=== PATIENT | female | born 1940 | race Caucasian/White ===

== ENCOUNTER 2017-07-22 13:03 | Observation (INO) | payer MEDICARE ==
[~2017-07-22] VITALS: Ht 162.6 cm; Wt 66.7 kg
[~2017-07-22 13:03] MED LIST: CARBIDOPA-LEVO1 EAC1; CARBIDOPA-LEVO1 EACH PO; FUROSEMIDE40 MG PO; LIPITOR10 MG PO; LORAZEPAM1 MG PO; NOVOLOG MI100 UNIT/1; OMEPRAZOLE40 MG; PHENAZOPYRIDIN200 MG; PREDNISONE10 MG PO; TAMSULOSIN HCL0.4 MG; ULTRAM 50MG50 MG PO; Z LEVOTHROID; Z.0.ALPRAZOLAM1 MG; Z.0.AMITRIPTYLINE H1; Z.0.CALTRATE 600 +1; Z.0.DICYCLOMINE HCL2; Z.0.FORTAMET500 MG; Z.0.GLIPIZIDE XL10 M; Z.0.LANTUS100 UNIT/1; Z.0.LISINOPRIL40 MG; Z.0.PRILOSEC20 MG; Z.0.ZOCOR20 MG
--- OUTSIDE RECORDS SUMMARY | 2017-07-22 13:07 | XMS REPORT ---
Author Author NICKIE MENA [facility] eClinicalWorks Address Unknown Phone Unavailable Care Team Providers Care Short Goods Drier Name Role Phone NICKIE MENA CP Unavailable Allergies No Known Allergies Problems No Known Problems Medications No Known Medications Results No Known Results Summary Purpose eClinicalWorks Submission
--- OUTSIDE RECORDS SUMMARY | 2017-07-22 13:07 | XMS REPORT ---
Author Author NICKIE MENA [facility] eClinicalWorks Address Unknown Phone Unavailable Care Team Providers Care Wool Carder Name Role Phone NICKIE MENA CP Unavailable Allergies No Known Allergies Problems No Known Problems Medications No Known Medications Results No Known Results Summary Purpose eClinicalWorks Submission
[2017-07-22] MEDS ORDERED: PANTOPRAZOLE 40 MG 10ML VIAL IV STA (13:21)
[2017-07-22 14:02] LABS: BASOPHILS % 0.1 % (0.0-1.0); EOSINOPHILS # (AUTO) 0.2 (0.0-0.4); EOSINOPHILS % 2.4 % (0.0-6.0); HEMATOCRIT 26.3 % (34.2-44.1); HEMOGLOBIN 7.6 g/dL (12.0-16.0); LYMPHOCYTES # (AUTO) 0.5 (1.0-3.2); LYMPHOCYTES % 5.7 % (18.0-39.1); MEAN CORPUSCULAR HEMOGLOBIN 24.3 pg (28-32); MEAN CORPUSCULAR HGB CONC 28.9 g/dL (31-35); MONOCYTES # (AUTO) 0.9 (0.2-0.8); MONOCYTES % 10.5 % (4.4-11.3); NEUTROPHILS # (AUTO) 6.7 (2.1-6.9); NEUTROPHILS % 80.8 % (38.7-80.0); PLATELET COUNT 194 x10e3/uL (140-360); RED BLOOD COUNT 3.13 x10e6/uL (3.6-5.1); RED CELL DISTRIBUTION WIDTH 18.6 % (11.7-14.4)
[2017-07-22 14:11] LABS: INR 1.03; PARTIAL THROMBOPLASTIN TIME 25.7 seconds (23.8-35.5); PROTHROMBIN TIME 12.7 seconds (11.9-14.5)
[2017-07-22 14:18] LABS: ALBUMIN 3.3 g/dL (3.5-5.0); ANION GAP 12.7 mmol/L (8-16); CALCIUM 8.7 mg/dL (8.4-10.2); CREATININE, SERUM 1.13 mg/dL (0.57-1.11); POTASSIUM 3.7 mmol/L (3.5-5.1)
[2017-07-22 14:24] LABS: CREATINE KINASE MB 2.8 ng/mL (0-5.0)
[2017-07-22] MEDS ORDERED: HYDROCODONE/APAP 10MG-325MG TAB PO ONE (14:45)
[2017-07-22] MEDS ORDERED: SODIUM CHLORIDE 0.9% 250ML 250 ML IV ONE (14:45)
--- NOTE | 2017-07-22 15:02 | Diagnostic Imaging Report ---
PROCEDURE: CHEST SINGLE (PORTABLE) COMPARISON: Patients [facility], DX, CHEST SINGLE (PORTABLE), 03/08/2014, 5:41. INDICATIONS: ANEMIA FINDINGS: LUNGS: Mild pulmonary vascular congestion. PLEURA: No effusions or pneumothorax. HEART \T\ MEDIASTINUM: The heart is enlarged. There is a right subclavian chest port and a right neck shunt catheter. BONES \T\ SOFT TISSUES: No acute findings. CONCLUSION: Cardiomegaly with mild pulmonary vascular congestion. Sonny Archibald D.O. Dictated by: Sonny Archibald D.O. on 07/22/2017 at 15:05 Electronically approved by: Sonny Archibald D.O. on 07/22/2017 at 15:05
[2017-07-22] MEDS ORDERED: NICOTINE 21 MG/EA PATCH TOP SCH ×2 (15:15→17:00)
[2017-07-22] MEDS ORDERED: FUROSEMIDE INJ 10 MG/ML 4 ML VIAL IV ONE (15:15)
[2017-07-22] MEDS ORDERED: SODIUM CHLORIDE FLUSH 10 ML SYR INJ PRN (15:15)
[2017-07-22] MEDS ORDERED: LORAZEPAM 0.5 MG TAB PO PRN ×2 (15:30)
--- OUTSIDE RECORDS SUMMARY | 2017-07-22 15:40 | XMS REPORT ---
Author Author [facility] Address Unknown Phone Unavailable Care Team Providers Care Maintenance Welder Name Role Phone AMARI LEIJA Unavailable Unavailable Problems This patient has no known problems. Allergies, Adverse Reactions, Alerts This patient has no known allergies or adverse reactions. Medications This patient has no known medications. Results Test Description Test Time Test Comments Text Results Atomic Results Result Comments CHEST SINGLE (PORTABLE) 2017-07-22 15:05:00 [facility] [address] [place] [address] Patient Name: GARETH BAIRES MR #: [id number] : 1940 Age/Sex: 77/ F Req #: [id number] Adm Physician: Ordered by: AMARI LEIJA MD Report #: [id number] Location: ER Room/Bed: Procedure: DX/CHEST SINGLE (PORTABLE) Exam Date: 07/22/17 Exam Time: 1430 REPORT STATUS: Signed PROCEDURE: CHEST SINGLE (PORTABLE) COMPARISON: [facility], , CHEST SINGLE (PORTABLE), 03/08/2014, 5:41. INDICATIONS: ANEMIA FINDINGS: LUNGS: Mild pulmonary vascular congestion. PLEURA: No effusions or pneumothorax. HEART T MEDIASTINUM: The heart is enlarged. There is a right subclavian chest port and a right neck shunt catheter. BONES T SOFT TISSUES: No acute findings. CONCLUSION: Cardiomegaly with mild pulmonary vascular congestion. Joaquin [place], D.O. Dictated by: Joaquin Archibald D.O. on 07/22/2017 at 15: 05 Electronically approved by: Joaquin Archibald D.O. on 07/22/2017 at 15: 05 Dictated By: JOAQUIN ARCHIBALD DO [id number] Transcribed By: NADIA on 07/22/17 1500 COPY TO: AMARI LEIJA MD
[2017-07-22] MEDS ORDERED: LORAZEPAM 1 MG TAB PO PRN (15:45)
[2017-07-22 16:00] VITALS: BP 130/61
[2017-07-22 16:01] VITALS: BP 130/61
[2017-07-22] MEDS ORDERED: FUROSEMIDE INJ 10 MG/ML 4 ML VIAL IV SCH (17:00)
[2017-07-22 20:00] VITALS: BP 144/67
[2017-07-22] MEDS ORDERED: HYDRALAZINE HCL 20 MG/ML VIAL IV PRN (21:00)
[2017-07-22] MEDS ORDERED: HYDROCODONE/APAP 5MG-325MG TAB PO PRN (21:00)
[2017-07-22] MEDS ORDERED: ONDANSETRON HCL INJ 2 MG/ML VIAL IV PRN (21:00)
[2017-07-22] MEDS ORDERED: ACETAMINOPHEN 325 MG TAB PO PRN (21:00)
[2017-07-22 21:16] LABS: CREATINE KINASE MB 2.9 ng/mL (0-5.0)
[2017-07-22 21:23] LABS: HEMATOCRIT 27.7 % (34.2-44.1); HEMOGLOBIN 8.3 g/dL (12.0-16.0)
[2017-07-23] MEDS ORDERED: FAMOTIDINE 20 MG TAB PO SCH (07:30)
[2017-07-23] MEDS ORDERED: ATORVASTATIN 10 MG TAB PO SCH (09:00)
[2017-07-23] MEDS ORDERED: FUROSEMIDE 40 MG TAB PO SCH (09:00)
[2017-07-23] MEDS ORDERED: ATORVASTATIN 40 MG TAB PO SCH (21:00)
== END 2017-07-22 22:06 | disposition left against medical advice (07) ==
LOC: ER 13:03 → ERHOLD 15:37 → MED/SURG3 15:52
PROVIDERS: ADMIT Internal Medicine; ATTEND Internal Medicine
DX: D50.0 Iron deficiency anemia secondary to blood loss (chronic) (principal); I25.10 Atherosclerotic heart disease of native coronary artery without angina pectoris; I10 Essential (primary) hypertension; J44.9 Chronic obstructive pulmonary disease, unspecified; E03.9 Hypothyroidism, unspecified; G20 Parkinson's disease; E78.5 Hyperlipidemia, unspecified; F17.210 Nicotine dependence, cigarettes, uncomplicated; I50.21 Acute systolic (congestive) heart failure; I21.09 ST elevation (STEMI) myocardial infarction involving other coronary artery of anterior wall
CPT/HCPCS: 36415; 36430; 71045; 80053; 82550; 82553; 82948; 84484; 85014; 85018; 85025; 85610; 85730; 86850; 86900; 86920; 93005; 99284; G0378; J1940; J7050; P9016

== ENCOUNTER 2017-07-31 13:36 | Inpatient (IN) | payer MEDICARE ==
[~2017-07-31] VITALS: Ht 162.6 cm; Wt 74.9 kg
[2017-07-31 15:27] LABS: BASOPHILS % 0.2 % (0.0-1.0); EOSINOPHILS % 0.2 % (0.0-6.0); HEMATOCRIT 25.8 % (34.2-44.1); HEMOGLOBIN 7.5 g/dL (12.0-16.0); LYMPHOCYTES # (AUTO) 0.3 (1.0-3.2); LYMPHOCYTES % 1.7 % (18.0-39.1); MEAN CORPUSCULAR HEMOGLOBIN 24.7 pg (28-32); MEAN CORPUSCULAR HGB CONC 29.1 g/dL (31-35); MEAN CORPUSCULAR VOLUME 84.9 fL (81-99); MONOCYTES # (AUTO) 0.5 (0.2-0.8); MONOCYTES % 2.8 % (4.4-11.3); NEUTROPHILS # (AUTO) 16.3 (2.1-6.9); PLATELET COUNT 274 x10e3/uL (140-360); RED BLOOD COUNT 3.04 x10e6/uL (3.6-5.1); RED CELL DISTRIBUTION WIDTH 19.4 % (11.7-14.4)
[2017-07-31 15:31] LABS: INR 1.14; PROTHROMBIN TIME 13.7 seconds (11.9-14.5)
[2017-07-31 15:32] LABS: PARTIAL THROMBOPLASTIN TIME 28.1 seconds (23.8-35.5)
[2017-07-31 15:39] LABS: ALBUMIN 3.2 g/dL (3.5-5.0); ANION GAP 13.7 mmol/L (8-16); CALCIUM 8.9 mg/dL (8.4-10.2); CREATININE, SERUM 1.24 mg/dL (0.57-1.11); POTASSIUM 4.7 mmol/L (3.5-5.1)
--- NOTE | 2017-07-31 16:00 | Diagnostic Imaging Report ---
PROCEDURE: A single AP view of the chest. COMPARISON: Patients [facility], , CHEST SINGLE (PORTABLE), 07/22/2017, 14:20. INDICATIONS: WEAKNESS. LOW HEMOGLOBIN FINDINGS: Lines/tubes: Unchanged right upper chest Port-A-Cath. Lungs: The lungs are well inflated. Prominence of the perihilar interstitial markings. There is no evidence of consolidation or pulmonary edema. Pleura: There is no pleural effusion or pneumothorax. Heart and mediastinum: Stable enlargement of the cardiac silhouette. Central pulmonary vascular congestion. Bones: No acute bony abnormality. IMPRESSION: 1. Central pulmonary venous congestion and mild perihilar interstitial edema. 2. Stable enlargement of the cardiac silhouette. Wilman Wallace M.D. Dictated by: Wilman Wallace M.D. on 07/31/2017 at 16:04 Electronically approved by: Wilman Wallace M.D. on 07/31/2017 at 16:04
[2017-07-31] MEDS ORDERED: SODIUM CHLORIDE 0.9% 250ML 250 ML ONE ×2 (16:45→22:28)
[2017-07-31] MEDS ORDERED: SODIUM CHLORIDE 0.9% 250ML 250 ML IV ONE (17:30)
[2017-07-31] MEDS ORDERED: NITROGLYCERIN 0.4 MG SUBL SL PRN (18:45)
[2017-07-31] MEDS ORDERED: LORAZEPAM INJ 2 MG/ML VIAL IV PRN (19:15)
[2017-07-31] MEDS ORDERED: TRAMADOL HCL 50 MG TAB PO PRN (19:30)
[2017-07-31] MEDS ORDERED: FAMOTIDINE 20 MG TAB PO SCH (19:30)
[2017-07-31] MEDS ORDERED: DEXTROSE 50% SYRINGE 50 ML IV PRN (20:00)
[2017-07-31] MEDS ORDERED: ACETAMINOPHEN 325 MG TAB PO ONE (20:00)
[2017-07-31 20:09] LABS: FERRITIN 63.26 ng/mL (4.63-204.00)
--- NOTE | 2017-07-31 20:14 | History and Physical ---
HISTORY OF PRESENT ILLNESS: Patient is a 77-year-old female with past medical history positive for coronary artery disease status post OH in the past who refused to have coronary artery bypass as recommended by the fast food crew lead. She signed out against medical advice from several admissions in the hospital. The last one she was anemic. She was admitted, therefore, for blood transfusion. She decided to leave against medical advice. She also has history of hypertension, COPD and diabetes. She came here and was seen by Dr. Benavides, electronic video games servicer, who knows her very well for blood transfusion. REVIEW OF SYSTEMS: CARDIOVASCULAR: No chest pain or palpitation. RESPIRATORY: No shortness of breath. No cough. GASTROINTESTINAL: She said that she had black stools. No vomiting, no hematemesis and no abdominal pain. GENITOURINARY: No frequency or dysuria. ALLERGIES: CLAIMS THAT SHE IS ALLERGIC TO MORPHINE. SOCIAL HISTORY: She smokes and she does not drink alcohol. PAST MEDICAL HISTORY: Positive for OH in the past, history of COPD, history of hypertension, history of diabetes, history of chronic anemia. LABORATORY DATA: On the CBC, white blood count 17.3, hemoglobin 7.5, hematocrit 25.8, platelet count 274,000. On the BMP, sodium 141, potassium 4.7, chloride 110, CO2 22. BUN 23. Creatinine 1.24, glucose 160. Calcium 8.9. Total bilirubin 0.3. AST 24, ALT 9, alkaline phosphatase 97. Creatinine kinase 115. CK-MB is elevated at 6.0. Troponin elevated at 11.319. Total protein 6.5. Albumin 3.2. Globulin 3.3. Albumin globulin ratio 1.0. On the coagulation profile, PT 13.7. INR 1.14. PTT 28.1. We have also a chest x-ray which showed central pulmonary congestion and mild interstitial edema. Stable enlargement of the cardiac silhouette. VITAL SIGNS: Blood pressure 120/70, temperature is 99.3 degrees, heart rate 88 per minute, respiratory rate is 18 per minute. Oxygen saturation 95%. FINAL IMPRESSION: 1. Acute anemia. 2. Elevation of troponin, most likely secondary to Non-Q wave, myocardial infarction. So coronary artery disease status post non-ST segment elevation myocardial infarction. 3. Ucjru-fs-vjemhzw renal failure. 4. Rectal bleeding which might be because of the anemia. 5. Chronic obstructive pulmonary disease. 6. 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 7. Hypertension. 8. Nephropathy. PLAN OF TREATMENT: We are going to admit the patient to the hospital. Patient going to get 2 units of blood transfusion. She is going to get Lasix between blood transfusions. She is on Lasix 40 mg IV twice a day. She is on lorazepam 1 mg IV q.6 hours as needed for agitation. NicoDerm patch 21 mg daily. Going to get a gastroenterology consult with Dr. Giovanni Corcoran because of the GI bleed. Going to also get a cardiology consult with Dr. Danielle because of the elevated troponin identified, but she does have a history of severe coronary artery disease and a Non-ST segment elevation myocardial fraction at this time. She is also taking alprazolam 1 mg daily. Amitriptyline 10 mg daily. Lipitor 40 mg daily. Sinemet 10/100 mg tablet scheduled daily and 25/400 mg tablet also. She was on Lasix. We are going to hold the p.o. Lasix because she is taking IV Lasix. She is also on levothyroxine 112 mcg daily. Lorazepam is going to be placed on hold and the same with alprazolam because the patient is taking IV Ativan right now. Continue Protonix 40 mg daily. Prednisone 10 mg daily. She is also on Flomax 0.5 mg daily and tramadol 50 mg scheduled. She was taking glipizide 10 mg daily. Calcium carbonate 1 tablet daily. She was also on insulin 10 units at bedtime. Lisinopril 40 mg daily. Going to discontinue metformin. Going to continue current medication regimen. Going to consult Dr. Giovanni Corcoran for gastroenterology also. Job#: [id number]
[2017-07-31] MEDS: INSULIN LISPRO 100 UNIT/1 ML 3ML VIAL SQ SCH (20:59)
[2017-07-31] MEDS ORDERED: NICOTINE 21 MG/EA PATCH TOP SCH (21:00)
[2017-07-31] MEDS ORDERED: AMITRIPTYLINE HCL 10 MG TAB PO SCH (21:00)
[2017-07-31] MEDS ORDERED: TAMSULOSIN HCL 0.4 MG CAP PO SCH (21:00)
[2017-07-31] MEDS ORDERED: INSULIN LISPRO 100 UNIT/1 ML 3ML VIAL SQ SCH (21:00)
[2017-07-31 22:00] VITALS: BP 140/82
[2017-07-31 22:06] LABS: CLARITY,URINE SL CLOUDY (CLEAR); COLOR,URINE YELLOW (YELLOW); KETONES,URINE NEGATIVE (NEGATIVE); LEUKOCYTE ESTERASE ,URINE NEGATIVE (NEGATIVE); NITRITE,URINE NEGATIVE (NEGATIVE); PROTEIN,URINE DIPSTICK TRACE (NEGATIVE); URINE UROBILINOGEN 0.2 mg/dL (0.2 - 1)
[2017-07-31 22:07] LABS: BILIRUBIN,URINE NEGATIVE (NEGATIVE)
[2017-07-31 22:12] LABS: EPITHELIAL CELLS,URINE RARE /LPF; WBC,URINE (MAN) 0-5 /HPF (0-5)
[2017-07-31 22:15] VITALS: BP 148/87
[2017-08-01] VITALS: BP 157/84
[2017-08-01] MEDS ORDERED: METOPROLOL TARTRATE 25 MG TAB PO STA (00:14)
[2017-08-01 00:37] VITALS: BP 147/70
[2017-08-01] MEDS ORDERED: FUROSEMIDE INJ 10 MG/ML 2 ML VIAL IV STA (01:23)
[2017-08-01 03:21] LABS: CREATINE KINASE MB 3.9 ng/mL (0-5.0)
[2017-08-01 03:40] VITALS: BP 157/83
[2017-08-01] MEDS: ALBUTEROL/IPRATROPIUM 3 ML NEB NEB PRN ×2 (04:18→07:39)
[2017-08-01] MEDS ORDERED: LEVOTHYROXINE SODIUM 112 MCG TAB PO SCH (06:00)
[2017-08-01] MEDS ORDERED: PANTOPRAZOLE 40 MG 10ML VIAL IV SCH (06:00)
--- NOTE | 2017-08-01 06:04 | Diagnostic Imaging Report ---
CHEST SINGLE (PORTABLE), 08/01/2017 4:32 AM Technique: CHEST SINGLE (PORTABLE) Comparison: 07/31/2017 Clinical history: Shortness of breath Findings: See Impression Impression: 1. Lines/Tubes: Right port tip unchanged over the SVC. 2. Stable enlarged cardiac silhouette. 3. Diffuse opacities, favor edema. Retrocardiac atelectasis or consolidation. 4. No significant effusion appreciated on portable technique. Signed by: Dr Bambi Goncalves MD on 08/01/2017 6:00 AM
[2017-08-01 06:24] LABS: BASOPHILS % 0.2 % (0.0-1.0); HEMOGLOBIN 10.2 g/dL (12.0-16.0); LYMPHOCYTES # (AUTO) 0.6 (1.0-3.2); LYMPHOCYTES % 4.2 % (18.0-39.1); MEAN CORPUSCULAR HEMOGLOBIN 26.1 pg (28-32); MEAN CORPUSCULAR HGB CONC 30.9 g/dL (31-35); MEAN CORPUSCULAR VOLUME 84.4 fL (81-99); MONOCYTES # (AUTO) 0.9 (0.2-0.8); MONOCYTES % 6.3 % (4.4-11.3); NEUTROPHILS # (AUTO) 12.3 (2.1-6.9); NEUTROPHILS % 87.9 % (38.7-80.0); PLATELET COUNT 263 x10e3/uL (140-360); RED BLOOD COUNT 3.91 x10e6/uL (3.6-5.1); RED CELL DISTRIBUTION WIDTH 18.6 % (11.7-14.4)
[2017-08-01 06:50] LABS: ALBUMIN 3.2 g/dL (3.5-5.0); ALBUMIN/GLOBULIN RATIO 0.9 (0.8-2.0); ANION GAP 14.3 mmol/L (8-16); CALCIUM 9.2 mg/dL (8.4-10.2); CREATININE, SERUM 1.14 mg/dL (0.57-1.11); POTASSIUM 4.3 mmol/L (3.5-5.1)
[2017-08-01] MEDS ORDERED: PREDNISONE 10 MG TAB PO SCH (07:30)
[2017-08-01] MEDS ORDERED: PANTOPRAZOLE SOD 40 MG TABEC PO SCH (07:30)
[2017-08-01] MEDS: INSULIN LISPRO 100 UNIT/1 ML 3ML VIAL SQ SCH (07:30)
[2017-08-01 07:59] VITALS: BP 142/76
[2017-08-01] MEDS ORDERED: NEBIVOLOL 10 MG TAB PO SCH (09:00)
[2017-08-01] MEDS ORDERED: CARBIDOPA/LEVODOPA 10/100 TAB PO SCH (09:00)
[2017-08-01] MEDS ORDERED: CARBIDOPA/LEVODOPA 25/100 TAB PO SCH (09:00)
[2017-08-01] MEDS ORDERED: ATORVASTATIN 10 MG TAB PO SCH (09:00)
[2017-08-01] MEDS ORDERED: ATORVASTATIN 40 MG TAB PO SCH (09:00)
[2017-08-01] MEDS ORDERED: METOPROLOL TARTRATE 25 MG TAB PO SCH (09:00)
[2017-08-01] MEDS ORDERED: FUROSEMIDE INJ 10 MG/ML 4 ML VIAL IV SCH (09:00)
--- NOTE | 2017-08-01 15:55 | Discharge Summary ---
DISCHARGED AGAINST MEDICAL ADVICE This is a 77-year-old white female with medical history positive for COPD, coronary artery disease, anemia of chronic disease, who has signed out against medical advice on several hospital admissions. The last one was here. Patient was sent to the hospital by Dr. Benavides, who is her heart doctor, for a blood transfusion because her hemoglobin was low. The patient was having melenic stools. We consulted Dr. Giovanni Corcoran for gastroenterology. We consulted Dr. Benavides for hematology, also. She was having evidence of aaw-AR-hknewnr elevation myocardial infarction with high troponins. Patient already has a history of coronary artery disease. Apparently she was recommended to have coronary artery bypass grafting and refused to have the bypass done in the past on another admission. Not only that, she also signed against medical advice. So today, she decided to sign out against medical advice again. Patient has been noncompliant. She is aware that she can if she does not have the treatment for the coronary artery disease. The patient was competent to make decisions. Her tried to convince her to stay in the hospital, but, again, she decided to sign against medical advice again, assuming all the consequences of her behavior which include heart attack and . FINAL IMPRESSION 1. Acute anemia. 2. Coronary artery disease, status post wzu-WM-hnwyqlc elevation myocardial infarction. 3. Chronic obstructive pulmonary disease. As I said, the patient signed against medical advice, assuming all the consequences of her behavior including progression of the heart attack and . KULWANT BAEZ MD Job#: [id number]
== END 2017-08-01 09:47 | disposition left against medical advice (07) | DRG 811 ==
LOC: ER 13:36 → ERHOLD 18:45 → OBSVTOIN 19:28 → MED/SURG2 22:01
PROVIDERS: ADMIT Internal Medicine; ATTEND Internal Medicine
PROC: 30233N1 Transfusion of Nonautologous Red Blood Cells into Peripheral Vein, Percutaneous Approach (ICD-10-PCS; principal; 2017-07-31)
DX: D64.9 Anemia, unspecified (principal); I21.4 Non-ST elevation (NSTEMI) myocardial infarction; N17.9 Acute kidney failure, unspecified; I13.0 Hypertensive heart and chronic kidney disease with heart failure and stage 1 through stage 4 chronic kidney disease, or unspecified chronic kidney disease; K92.1 Melena; J44.9 Chronic obstructive pulmonary disease, unspecified; E11.21 Type 2 diabetes mellitus with diabetic nephropathy; E11.22 Type 2 diabetes mellitus with diabetic chronic kidney disease; N18.9 Chronic kidney disease, unspecified; I25.10 Atherosclerotic heart disease of native coronary artery without angina pectoris; R13.10 Dysphagia, unspecified; Z88.5 Allergy status to narcotic agent; Z91.19 Patient's noncompliance with other medical treatment and regimen; Z79.4 Long term (current) use of insulin; Z79.51 Long term (current) use of inhaled steroids
CPT/HCPCS: 36415; 71045; 80053; 81001; 82550; 82553; 82607; 82728; 82746; 82948; 83540; 84466; 84484; 85025; 85610; 85730; 86850; 86900; 86920; 87086; 93005; 93306; 94640; 99284; G0378; J1940; J2060; J7050; P9016

== ENCOUNTER 2017-09-25 16:02 | Emergency (ER) | payer MEDICARE ==
[~2017-09-25] VITALS: Ht 160 cm; Wt 59.0 kg
[2017-09-25] MEDS ORDERED: PANTOPRAZOLE INJ 80 MG in SODIUM CHLORIDE 0.9% 100 ML IV SCH (17:30)
[2017-09-25] MEDS ORDERED: SODIUM CHLORIDE 0.9% 250ML 250 ML IV ONE (17:30)
[2017-09-25 17:57] LABS: BASOPHILS % 0.5 % (0.0-1.0); EOSINOPHILS # (AUTO) 0.3 (0.0-0.4); EOSINOPHILS % 4.4 % (0.0-6.0); HEMATOCRIT 26.2 % (34.2-44.1); HEMOGLOBIN 7.3 g/dL (12.0-16.0); LYMPHOCYTES # (AUTO) 0.9 (1.0-3.2); LYMPHOCYTES % 15.4 % (18.0-39.1); MEAN CORPUSCULAR HEMOGLOBIN 25.9 pg (28-32); MEAN CORPUSCULAR HGB CONC 27.9 g/dL (31-35); MEAN CORPUSCULAR VOLUME 92.9 fL (81-99); MONOCYTES # (AUTO) 0.7 (0.2-0.8); MONOCYTES % 12.9 % (4.4-11.3); NEUTROPHILS # (AUTO) 3.8 (2.1-6.9); NEUTROPHILS % 65.9 % (38.7-80.0); PLATELET COUNT 197 x10e3/uL (140-360); RED BLOOD COUNT 2.82 x10e6/uL (3.6-5.1); RED CELL DISTRIBUTION WIDTH 18.9 % (11.7-14.4)
[2017-09-25] MEDS ORDERED: PANTOPRAZOL 40MG/SOD CHL 0.9% 50 ML IV SCH (18:00)
--- NOTE | 2017-09-25 18:22 | Diagnostic Imaging Report ---
EXAMINATION: AP view of the chest. COMPARISON: Chest AP 08/01/2017 CLINICAL HISTORY: Bronchitis DISCUSSION: Lines/tubes: Stable right upper chest Port-A-Cath. Lungs: Lungs are well-inflated. No consolidation or pulmonary edema. Pleura: There is no pleural effusion or pneumothorax. Heart and mediastinum: Stable enlargement of the cardiac silhouette. Pulmonary vasculature is normal. Bones and soft tissues: No acute bony abnormalities. Degenerative changes in the thoracic spine. Radiopaque catheter is again partially visualized in the right upper quadrant. IMPRESSION: 1. Stable enlargement of the cardiac silhouette. No evidence of fluid overload. No consolidation or effusion. Signed by: Dr. Wilman Wallace M.D. on 09/25/2017 6:18 PM
[2017-09-25 18:26] LABS: ALBUMIN 3.3 g/dL (3.5-5.0); ALBUMIN/GLOBULIN RATIO 1.1 (0.8-2.0); ANION GAP 13.2 mmol/L (8-16); CALCIUM 8.8 mg/dL (8.4-10.2); CREATININE, SERUM 1.18 mg/dL (0.57-1.11); POTASSIUM 4.2 mmol/L (3.5-5.1)
[2017-09-25 18:32] LABS: CREATINE KINASE MB 3.2 ng/mL (0-5.0)
[2017-09-25 18:52] LABS: INR 1.09; PARTIAL THROMBOPLASTIN TIME 26.4 seconds (23.8-35.5); PROTHROMBIN TIME 13.3 seconds (11.9-14.5)
[2017-09-25 22:10] LABS: ANISOCYTOSIS MODERATE; RBC MORPHOLOGY COMMENT ABNORMAL
[2017-09-25 22:11] LABS: HYPOCHROMASIA SLIGHT
[2017-09-26] MEDS ORDERED: PANTOPRAZOLE 40 MG 10ML VIAL IV SCH (09:00)
== END 2017-09-25 20:11 | disposition left against medical advice (07) ==
LOC: ER 16:02 → ERHOLD 17:34 → UNDOADMIN 17:34 → MED/SURG2 19:49 → UNDOADMIN 19:49 → ER 20:11
DX: K92.1 Melena (principal); D62 Acute posthemorrhagic anemia; G20 Parkinson's disease; I10 Essential (primary) hypertension; E11.9 Type 2 diabetes mellitus without complications; J44.9 Chronic obstructive pulmonary disease, unspecified; I50.9 Heart failure, unspecified; M10.9 Gout, unspecified; I25.2 Old myocardial infarction; F17.210 Nicotine dependence, cigarettes, uncomplicated
CPT/HCPCS: 36415; 71045; 80053; 82550; 82553; 83690; 84484; 85025; 85610; 85730; 86850; 86900; 86920; 99283

== ENCOUNTER 2017-12-16 23:22 | Observation (INO) | payer MEDICARE ==
[~2017-12-16] VITALS: Ht 160 cm; Wt 60.4 kg
[~2017-12-16 23:22] MED LIST changes: -CARBIDOPA-LEVO1 EAC1; +CARBIDOPA-LEVO1 EAC1 PO; -OMEPRAZOLE40 MG; +OMEPRAZOLE40 MG PO
[2017-12-17 01:02] LABS: BASOPHILS % 0.3 % (0.0-1.0); EOSINOPHILS # (AUTO) 0.1 (0.0-0.4); EOSINOPHILS % 2.1 % (0.0-6.0); HEMATOCRIT 25.5 % (34.2-44.1); HEMOGLOBIN 7.3 g/dL (12.0-16.0); LYMPHOCYTES # (AUTO) 0.5 (1.0-3.2); LYMPHOCYTES % 7.4 % (18.0-39.1); MEAN CORPUSCULAR HEMOGLOBIN 26.1 pg (28-32); MEAN CORPUSCULAR HGB CONC 28.6 g/dL (31-35); MEAN CORPUSCULAR VOLUME 91.1 fL (81-99); MONOCYTES # (AUTO) 0.8 (0.2-0.8); MONOCYTES % 11.3 % (4.4-11.3); NEUTROPHILS # (AUTO) 5.2 (2.1-6.9); NEUTROPHILS % 77.7 % (38.7-80.0); PLATELET COUNT 164 x10e3/uL (140-360); RED CELL DISTRIBUTION WIDTH 19.4 % (11.7-14.4)
[2017-12-17 01:26] LABS: ALANINE AMINOTRANSFERASE 8 IU/L (0-55); ALBUMIN/GLOBULIN RATIO 1.1 (0.8-2.0); ALKALINE PHOSPHATASE 66 IU/L (40-150); ANION GAP 15.5 mmol/L (8-16); BLOOD UREA NITROGEN 20 mg/dL (7-26); BUN/CREATININE RATIO 23 (6-25); CALCIUM 8.7 mg/dL (8.4-10.2); CARBON DIOXIDE 24 mmol/L (22-29); CHLORIDE 105 mmol/L (98-107); CREATININE, SERUM 0.88 mg/dL (0.57-1.11); EST GLOMERULAR FILTRATION RATE > 60 ML/MIN (60-); GLUCOSE 97 mg/dL (74-118); POTASSIUM 3.5 mmol/L (3.5-5.1); SODIUM 141 mmol/L (136-145)
[2017-12-17] MEDS ORDERED: VENTOLIN HFA18 GM (01:47)
[2017-12-17] MEDS ORDERED: POTASSIUM CHLO20 ME1 PO (01:47)
[2017-12-17] MEDS ORDERED: FERROUS SULFAT325 M1 PO (01:47)
[2017-12-17] MEDS ORDERED: ESCITALOPRAM OX10 MG PO (01:47)
[2017-12-17] MEDS ORDERED: LEVOTHYROXINE125 MCG PO (01:47)
[2017-12-17] MEDS ORDERED: ALLOPURINOL100 MG PO (01:47)
[2017-12-17] MEDS ORDERED: FUROSEMIDE40 MG PO (01:47)
[2017-12-17] MEDS ORDERED: PREDNISONE5 MG PO (01:47)
[2017-12-17] MEDS ORDERED: ATORVASTATIN CA40 MG PO (01:47)
[2017-12-17 04:00] VITALS: BP 174/72
[2017-12-17] MEDS ORDERED: FUROSEMIDE INJ 10 MG/ML 2 ML VIAL IV SCH (04:15)
[2017-12-17] MEDS ORDERED: SODIUM CHLORIDE 0.9% 250ML 250 ML IV ONE (04:15)
[2017-12-17] MEDS ORDERED: SODIUM CHLORIDE FLUSH 10 ML SYR INJ PRN (04:15)
[2017-12-17] MEDS ORDERED: ALBUTEROL/IPRATROPIUM 3 ML NEB NEB PRN (04:15)
[2017-12-17] MEDS ORDERED: ONDANSETRON HCL INJ 2 MG/ML VIAL IV PRN (04:15)
[2017-12-17] MEDS ORDERED: DEXTROSE 50% SYRINGE 50 ML IV PRN (05:00)
[2017-12-17 06:49] VITALS: BP 150/76
[2017-12-17] MEDS: INSULIN REGULAR, HUMAN 100 UNIT/1 ML 3ML VIAL SQ SCH ×3 (07:30→16:30)
[2017-12-17 08:00] VITALS: BP 164/73
[2017-12-17 08:27] LABS: BASOPHILS % 0.3 % (0.0-1.0); EOSINOPHILS # (AUTO) 0.1 (0.0-0.4); EOSINOPHILS % 1.2 % (0.0-6.0); HEMOGLOBIN 7.6 g/dL (12.0-16.0); LYMPHOCYTES # (AUTO) 0.5 (1.0-3.2); LYMPHOCYTES % 7.4 % (18.0-39.1); MEAN CORPUSCULAR HEMOGLOBIN 25.6 pg (28-32); MEAN CORPUSCULAR HGB CONC 28.1 g/dL (31-35); MEAN CORPUSCULAR VOLUME 90.9 fL (81-99); MONOCYTES # (AUTO) 0.6 (0.2-0.8); MONOCYTES % 9.3 % (4.4-11.3); NEUTROPHILS # (AUTO) 5.6 (2.1-6.9); NEUTROPHILS % 81.1 % (38.7-80.0); PLATELET COUNT 186 x10e3/uL (140-360); RED BLOOD COUNT 2.97 x10e6/uL (3.6-5.1); RED CELL DISTRIBUTION WIDTH 18.9 % (11.7-14.4)
[2017-12-17] MEDS ORDERED: ACETAMINOPHEN 325 MG TAB PEG PRN (08:30)
[2017-12-17] MEDS ORDERED: HYDRALAZINE HCL 20 MG/ML VIAL IV PRN (08:30)
[2017-12-17 08:39] LABS: ANION GAP 12.4 mmol/L (8-16); BLOOD UREA NITROGEN 16 mg/dL (7-26); BUN/CREATININE RATIO 19 (6-25); CALCIUM 8.8 mg/dL (8.4-10.2); CARBON DIOXIDE 24 mmol/L (22-29); CHLORIDE 105 mmol/L (98-107); CREATININE, SERUM 0.84 mg/dL (0.57-1.11); EST GLOMERULAR FILTRATION RATE > 60 ML/MIN (60-); GLUCOSE 107 mg/dL (74-118); MAGNESIUM 2.2 MG/DL (1.3-2.1); POTASSIUM 3.4 mmol/L (3.5-5.1); SODIUM 138 mmol/L (136-145)
[2017-12-17] MEDS ORDERED: PANTOPRAZOLE SOD 40 MG TABEC PO SCH (09:00)
[2017-12-17] MEDS ORDERED: LEVOTHYROXINE SODIUM 125 MCG TAB PO SCH (09:00)
[2017-12-17] MEDS ORDERED: NON-FORMULARY MEDICATION (Atorvastatin Calcium 40 MG) PO SCH (09:00)
[2017-12-17] MEDS ORDERED: ESCITALOPRAM OXALATE 10 MG TAB PO SCH (09:00)
[2017-12-17] MEDS ORDERED: FERROUS SULFATE 325 MG TAB PO SCH (09:00)
[2017-12-17] MEDS ORDERED: ALLOPURINOL 100 MG TAB PO SCH (09:00)
[2017-12-17] MEDS ORDERED: AMLODIPINE BESYLATE 10 MG TAB PO SCH (09:00)
[2017-12-17] MEDS ORDERED: FUROSEMIDE 40 MG TAB PO SCH (09:00)
[2017-12-17] MEDS ORDERED: PREDNISONE 5 MG TAB PO SCH (09:00)
[2017-12-17] MEDS ORDERED: POTASSIUM CHLORIDE 20 MEQ TAB CR PO SCH (09:00)
[2017-12-17] MEDS ORDERED: SODIUM CHLORIDE 0.9% 250ML 250 ML ONE ×2 (09:20→14:29)
[2017-12-17] MEDS ORDERED: NICOTINE 14 MG/EA PATCH TOP SCH (10:00)
[2017-12-17 10:36] LABS: FREE T4 (FREE THYROXINE) 0.67 ng/dL (0.9-1.8); THYROID STIMULATING HORMONE 15.891 uIU/mL (0.350-4.940)
--- NOTE | 2017-12-17 10:41 | Diagnostic Imaging Report ---
PROCEDURE: A single AP view of the chest. COMPARISON: Chest radiograph 09/25/17. INDICATIONS: WEAKNESS, ANEMIA FINDINGS: Lines/tubes: Right sided port a cath with tip overlying the upper SVC. A right IJ non-tunneled central venous catheter with tip terminating in the expected location of the upper SVC. Lungs: Moderate interstitial and perihilar opacities. No lobar consolidation. Mild patchy bibasilar opacities, likely atelectasis. Pleura: There is no pleural effusion or pneumothorax. Heart and mediastinum: Mild enlargement of the cardiomediastinal silhouette. Bones: No acute bony abnormality. IMPRESSION: Findings consistent with cardiomegaly and moderate pulmonary interstitial edema. No evidence of lobar pneumonia. Dictated by: GHAZAL CHOI M.D. on 12/17/2017 at 10:50 Electronically approved by: GHAZAL CHOI M.D. on 12/17/2017 at 10:50
[2017-12-17 12:00] VITALS: BP 177/84
[2017-12-17] MEDS ORDERED: LORAZEPAM INJ 2 MG/ML VIAL IV ONE (14:00)
[2017-12-17] MEDS ORDERED: POTASSIUM CHLORIDE 20 MEQ TAB CR PO STA (15:53)
[2017-12-17 16:00] VITALS: BP 151/74
[2017-12-17] MEDS ORDERED: ATORVASTATIN 40 MG TAB PO SCH (21:00)
--- NOTE | 2017-12-17 23:54 | Discharge Summary ---
ADMISSION DIAGNOSES: 1. Anemia. 2. Generalized weakness. 3. Hypertension. 4. Hyperlipidemia. 5. Type 2 diabetes. 6. Hypothyroidism. 7. Gout. DISCHARGE DIAGNOSES: 1. Anemia. 2. Generalized weakness. 3. Hypertension. 4. Hyperlipidemia. 5. Type 2 diabetes. 6. Hypothyroidism. 7. Gout. 8. Hypokalemia. 9. Hypermagnesemia. HISTORY: Patient has a history of type 2 diabetes, hypertension, COPD, CHF, anemia, hyperlipidemia, CAD with ME, gout. SURGICAL HISTORY: Appendectomy, back surgery, right chest Port-A-Cath placement peritoneal shunt, and abdominal surgery. FAMILY HISTORY: Patient's grandma and aunt have diabetes. SOCIAL HISTORY: Patient smokes 1 to 1-1/2 packs of cigarettes a day for 3 years. Before that, she had quit smoking for 20 years. She denies alcohol and illicit drug use. HOSPITAL COURSE: [age]bg-old female with history of anemia requiring blood transfusions, was sent to the ER by Dr. Collins's (sp?) office for anemia. She goes to [facility] for weekly blood draws. Her last hemoglobin was 7.2 on December 08, 2017. She denies melena, nausea and vomiting. She complains of generalized weakness. On admission, her hemoglobin was 7.3. She was given 2 PRBCs. Iron studies and stool for blood were ordered, but patient left AMA prior to completion of workup. Patient's blood pressure was uncontrolled. She was started on Norvasc, but again left AMA prior to getting prescriptions. Patient TSH was 15 and free T4 was 0.67, although she left AMA, she was encouraged by her primary care to check her thyroid level again especially due to her generalized weakness. Patient received 2 units of blood and required some encouragement from staff so she would not leave prior to getting the transfusion. Family is at bedside and also tried to convince the patient to stay. After the second unit, she was no longer willing to stay and left AMA. Vital signs stable, patient afebrile. Dictated by Kate Prajapati NP SAM CAI MD Job#: [id number]
[2017-12-18] MEDS ORDERED: LEVOTHYROXINE SODIUM 100 MCG TAB PO SCH (06:00)
--- NOTE | 2017-12-18 08:03 | Diagnostic Imaging Report ---
History:Altered mental status, rule out intracranial abnormality Comparison studies:CT head report from 04/29/2011 Technique: Axial images were obtained from the skull base to the vertex. Coronal and sagittal images reconstructed from the axial data. Intravenous contrast: None Dose modulation, iterative reconstruction, and/or weight based adjustment of the mA/kV was utilized to reduce the radiation dose to as low as reasonably achievable. Findings: Scalp/skull: Right parietal ventricular shunt catheter with its tip at the posterior body of the lateral ventricles. Extra-axial spaces: No masses. No fluid collections. Brain sulci: Mildly prominent. Ventricles: Mild compensatory dilatation. No hydrocephalus. Parenchyma: Scattered hypodensities in the supratentorial white matter are small vessel ischemic changes. No masses, hemorrhage, acute or chronic cortical vascular insults. Sellar/suprasellar region: No abnormalities. Craniocervical junction: Patent foramen magnum. No Chiari one malformation. Incidental findings: Atherosclerotic calcifications in the carotid siphons and left vertebral artery . Impression: No acute abnormalities. Chronic findings: 1. Mild generalized volume loss. 2. Mild to moderate supratentorial white matter small vessel ischemic changes. 3. Right parietal ventricular catheter as described above. No hydrocephalus. Signed by: DR Howard Escobar M.D. on 12/18/2017 8:00 AM
== END 2017-12-17 17:12 | disposition left against medical advice (07) ==
LOC: ER 23:22 → ERHOLD 12-17 04:18 → IMCU 12-17 04:52
PROVIDERS: ADMIT Internal Medicine; ATTEND Internal Medicine
DX: D50.0 Iron deficiency anemia secondary to blood loss (chronic) (principal); E11.9 Type 2 diabetes mellitus without complications; E78.5 Hyperlipidemia, unspecified; J44.9 Chronic obstructive pulmonary disease, unspecified; I11.0 Hypertensive heart disease with heart failure; I50.9 Heart failure, unspecified; Z87.891 Personal history of nicotine dependence; Z83.3 Family history of diabetes mellitus; Z82.49 Family history of ischemic heart disease and other diseases of the circulatory system; M10.9 Gout, unspecified; E87.6 Hypokalemia; E83.41 Hypermagnesemia; I25.10 Atherosclerotic heart disease of native coronary artery without angina pectoris; I25.2 Old myocardial infarction
CPT/HCPCS: 36415; 36430; 70450; 71045; 80048; 80053; 82140; 82948; 83735; 84439; 84443; 85025; 86850; 86900; 86920; 99284; G0378; J1642; J1817; J2060; J7050; J7512; P9016; S0164

== ENCOUNTER 2018-01-02 14:28 | Inpatient (IN) | payer MEDICARE ==
[~2018-01-02] VITALS: Ht 160 cm; Wt 76.0 kg
[~2018-01-02 14:28] MED LIST changes: +ALLOPURINOL100 MG PO; +ATORVASTATIN CA40 MG PO; +ESCITALOPRAM OX10 MG PO; +FERROUS SULFAT325 M1 PO; +LEVOTHYROXINE125 MCG PO; +POTASSIUM CHLO20 ME1 PO; +PREDNISONE5 MG PO; +VENTOLIN HFA18 GM
[2018-01-02] MEDS ORDERED: SODIUM CHLORIDE 0.9% 1000ML 1,000 ML IV STA (15:07)
[2018-01-02] MEDS ORDERED: ONDANSETRON HCL INJ 2 MG/ML VIAL IV PRN (15:15)
[2018-01-02] MEDS ORDERED: NITROGLYCERIN 0.4 MG SUBL SL PRN (15:15)
[2018-01-02] MEDS ORDERED: ENALAPRILAT IV INJ 1.25 MG/ML VIAL IV PRN ×2 (15:15→17:30)
[2018-01-02] MEDS ORDERED: DIPHENHYDRAMINE HCL INJ 50 MG/ML VIAL IV PRN ×2 (15:15→17:30)
[2018-01-02 15:56] LABS: BASOPHILS # (AUTO) 0.1 (0.0-0.1); BASOPHILS % 0.5 % (0.0-1.0); EOSINOPHILS # (AUTO) 0.2 (0.0-0.4); EOSINOPHILS % 1.8 % (0.0-6.0); HEMATOCRIT 30.9 % (34.2-44.1); LYMPHOCYTES # (AUTO) 0.7 (1.0-3.2); MEAN CORPUSCULAR HEMOGLOBIN 26.2 pg (28-32); MEAN CORPUSCULAR HGB CONC 29.1 g/dL (31-35); MEAN CORPUSCULAR VOLUME 89.8 fL (81-99); MONOCYTES # (AUTO) 0.9 (0.2-0.8); NEUTROPHILS % 82.6 % (38.7-80.0); PLATELET COUNT 268 x10e3/uL (140-360); RED BLOOD COUNT 3.44 x10e6/uL (3.6-5.1); RED CELL DISTRIBUTION WIDTH 17.3 % (11.7-14.4)
[2018-01-02 16:08] LABS: CLARITY,URINE CLEAR (CLEAR); COLOR,URINE ORANGE (YELLOW); KETONES,URINE NEGATIVE (NEGATIVE); LEUKOCYTE ESTERASE ,URINE NEGATIVE (NEGATIVE); NITRITE,URINE POSITIVE (NEGATIVE); PROTEIN,URINE DIPSTICK 2+ (NEGATIVE)
[2018-01-02 16:09] LABS: BILIRUBIN,URINE 1+ (NEGATIVE); URINE UROBILINOGEN 1 mg/dL (0.2 - 1)
[2018-01-02 16:12] LABS: ALBUMIN 3.6 g/dL (3.5-5.0); ALBUMIN/GLOBULIN RATIO 1.1 (0.8-2.0); ANION GAP 14.2 mmol/L (8-16); CALCIUM 9.4 mg/dL (8.4-10.2); CREATININE, SERUM 1.16 mg/dL (0.57-1.11); MAGNESIUM 2.3 MG/DL (1.3-2.1); POTASSIUM 4.2 mmol/L (3.5-5.1)
[2018-01-02 16:14] LABS: CREATINE KINASE MB 4.9 ng/mL (0-5.0)
[2018-01-02 16:25] LABS: EPITHELIAL CELLS,URINE FEW /LPF
[2018-01-02 16:27] LABS: WBC,URINE (MAN) 0-5 /HPF (0-5)
--- NOTE | 2018-01-02 16:31 | Diagnostic Imaging Report ---
Right hip with AP pelvis 3 HISTORY: Fall. COMPARISON: None FINDINGS: Comminuted intertrochanteric fracture of the right femur with mild superior displacement of distal fracture fragments. Degenerative changes of the lower lumbar spine. Vascular calcifications. Mild DJD of hip joint bilaterally. IMPRESSION: Comminuted intertrochanteric fracture of the right femur. Signed by: Dr. Hoang Foster M.D. on 01/02/2018 4:27 PM
--- NOTE | 2018-01-02 16:33 | Diagnostic Imaging Report ---
EXAMINATION: AP view of the chest. COMPARISON: Chest 12/17/2017. CLINICAL HISTORY: Chest pain. DISCUSSION: Lines/tubes: Stable right upper chest Port-A-Cath, and right IJ central venous catheter with distal tip not well-visualized.. Lungs: Lungs are well-inflated. No consolidation or pulmonary edema. Pleura: There is no pleural effusion or pneumothorax. Heart and mediastinum: Stable enlargement of the cardiac silhouette. Calcification of the aortic arch. Mild prominence of the pulmonary hilum bilaterally. Mild prominence of the pulmonary vasculature may be related to technique. Bones and soft tissues: No acute bony abnormalities. Degenerative changes in the thoracic spine. IMPRESSION: 1. Cardiomegaly without acute decompensation. Signed by: Dr. Hoang Foster M.D. on 01/02/2018 4:30 PM
[2018-01-02] MEDS ORDERED: PROMETHAZINE 12.5MG/ NACL 0.9% 12.5 MG/50 ML BAG IV PRN (17:30)
[2018-01-02] MEDS ORDERED: CLONIDINE HCL 0.1 MG TAB PO PRN (17:30)
[2018-01-02] MEDS ORDERED: LACTULOSE SYRUP 20 GM/30 ML UDC PO PRN (17:30)
[2018-01-02] MEDS ORDERED: ACETAMINOPHEN 325 MG TAB PO PRN (17:30)
[2018-01-02] MEDS ORDERED: HYDROMORPHONE 1MG/1ML INJ IV PRN (17:30)
[2018-01-02] MEDS: CEFTRIAXONE SOD 1 GM VIAL IV SCH (18:00)
[2018-01-02] MEDS: FAMOTIDINE 20 MG/2 ML VIAL IV SCH (18:10)
[2018-01-02 18:53] VITALS: BP 174/77
[2018-01-02 20:00] VITALS: BP 169/81
[2018-01-02] MEDS: HYDROMORPHONE 2MG/ML 2 MG/ML ML IV PRN (21:21)
[2018-01-02 21:35] VITALS: BP 174/77
[2018-01-03] VITALS (9 sets, daily range): BP systolic 125–174; BP diastolic 58–77
[2018-01-03 04:31] LABS: BASOPHILS % 0.4 % (0.0-1.0); EOSINOPHILS # (AUTO) 0.1 (0.0-0.4); EOSINOPHILS % 0.8 % (0.0-6.0); HEMATOCRIT 30.1 % (34.2-44.1); HEMOGLOBIN 8.7 g/dL (12.0-16.0); LYMPHOCYTES # (AUTO) 0.7 (1.0-3.2); LYMPHOCYTES % 8.3 % (18.0-39.1); MEAN CORPUSCULAR HEMOGLOBIN 25.5 pg (28-32); MEAN CORPUSCULAR HGB CONC 28.9 g/dL (31-35); MEAN CORPUSCULAR VOLUME 88.3 fL (81-99); MONOCYTES # (AUTO) 0.9 (0.2-0.8); NEUTROPHILS # (AUTO) 6.8 (2.1-6.9); PLATELET COUNT 263 x10e3/uL (140-360); RED BLOOD COUNT 3.41 x10e6/uL (3.6-5.1); RED CELL DISTRIBUTION WIDTH 17.4 % (11.7-14.4)
[2018-01-03 04:45] LABS: ANION GAP 11.8 mmol/L (8-16); BLOOD UREA NITROGEN 15 mg/dL (7-26); BUN/CREATININE RATIO 17 (6-25); CALCIUM 8.9 mg/dL (8.4-10.2); CARBON DIOXIDE 24 mmol/L (22-29); CHLORIDE 108 mmol/L (98-107); CREATININE, SERUM 0.86 mg/dL (0.57-1.11); EST GLOMERULAR FILTRATION RATE > 60 ML/MIN (60-); MAGNESIUM 2.1 MG/DL (1.3-2.1); POTASSIUM 3.8 mmol/L (3.5-5.1); SODIUM 140 mmol/L (136-145)
[2018-01-03 04:54] LABS: GLUCOSE 57 mg/dL (74-118)
[2018-01-03 05:08] LABS: FREE T4 (FREE THYROXINE) 0.42 ng/dL (0.9-1.8); THYROID STIMULATING HORMONE 71.702 uIU/mL (0.350-4.940)
[2018-01-03] MEDS ORDERED: FUROSEMIDE INJ 10 MG/ML 2 ML VIAL IV SCH ×2 (06:00→09:00)
[2018-01-03] MEDS: HYDROMORPHONE 2MG/ML 2 MG/ML ML IV PRN ×3 (06:04→18:40)
[2018-01-03] MEDS: LEVOTHYROXINE SODIUM 125 MCG TAB PO SCH (06:04)
[2018-01-03] MEDS: CEFTRIAXONE SOD 1 GM VIAL IV SCH ×2 (06:04→18:02)
[2018-01-03] MEDS ORDERED: ALBUTEROL SULFATE HFA 8GM INHALATION AEROSOL INH PRN (08:15)
[2018-01-03] MEDS ORDERED: LISINOPRIL 10 MG TAB PO SCH (09:00)
[2018-01-03] MEDS ORDERED: FAMOTIDINE 20 MG/2 ML VIAL IV SCH (09:00)
[2018-01-03] MEDS ORDERED: CARVEDILOL 3.125 MG TAB PO SCH (09:00)
[2018-01-03] MEDS ORDERED: NON-FORMULARY MEDICATION (Atorvastatin Calcium 40 MG) PO SCH (09:00)
[2018-01-03] MEDS ORDERED: FUROSEMIDE INJ 10 MG/ML 4 ML VIAL IV SCH (09:00)
[2018-01-03] MEDS: POTASSIUM CHLORIDE 20 MEQ TAB CR PO SCH (09:45)
[2018-01-03] MEDS: CARBIDOPA/LEVODOPA 25/100 TAB PO SCH (09:45)
[2018-01-03] MEDS: FUROSEMIDE 40 MG TAB PO SCH (09:45)
[2018-01-03] MEDS: PANTOPRAZOLE SOD 40 MG TABEC PO SCH (09:45)
[2018-01-03] MEDS: PREDNISONE 5 MG TAB PO SCH (09:45)
[2018-01-03] MEDS: ESCITALOPRAM OXALATE 10 MG TAB PO SCH (09:45)
[2018-01-03] MEDS: FAMOTIDINE 20 MG/2 ML VIAL IV SCH ×2 (09:45→20:42)
[2018-01-03] MEDS: FERROUS SULFATE 325 MG TAB PO SCH (09:45)
[2018-01-03] MEDS: ALLOPURINOL 100 MG TAB PO SCH (09:45)
--- NOTE | 2018-01-03 09:56 | History and Physical ---
PRIMARY CARE PROVIDER: Richar Medina MD CHIEF COMPLAINT: Hip pain. HISTORY OF PRESENT ILLNESS: The patient is a 77-year-old woman. She has a history of Parkinson's disease, rheumatoid arthritis, and anemia. She also has a history of coronary artery disease. Apparently, she had 3-vessel disease discovered about 6 months ago and the bypass was recommended, but she opted against this. She currently takes Coreg along with daily Lasix and a statin. She slipped and fell. She did not have any presyncope or dizziness prior to the episode. She did not have any chest pain. She denied any change in her neurological symptoms. She just thinks she fell. When she arrived in the emergency department, x-rays were done and she was found to have a proximal femur fracture. PAST MEDICAL HISTORY 1. History of coronary artery disease. 2. History of Parkinson disease. 3. History of rheumatoid arthritis. 4. History of hypertension. PAST SURGICAL HISTORY: Unclear at this time. SOCIAL HISTORY: The patient is not an active drinker. She did smoke in the past. ALLERGIES: NO KNOWN DRUG ALLERGIES. REVIEW OF SYSTEMS: Patient is afebrile. She has no headache or neck pain. She has no chest pain. She denies coughing or dyspnea. She has no nausea or vomiting. She does note some pain in the hip. Her neurological exam is consistent with Parkinson's disease. PHYSICAL EXAMINATION VITAL SIGNS: The patient is afebrile, blood pressure 161/72, saturation is 98%, pulse 61, and respiratory rate 18. HEENT: Examination shows no facial swelling or erythema. The nasal mucosa is normal. The oropharynx is normal. LYMPHATIC: Examination shows no submandibular, cervical, or supraclavicular adenopathy. CARDIOVASCULAR: Exam reveals regular rate and rhythm with normal S1 and S2. There are no murmurs or rubs. RESPIRATORY: Auscultation of lungs reveals clear breath sounds bilaterally. There is no wheezing. ABDOMEN: Soft and nontender. There is no rebound or guarding. EXTREMITIES: Shows some shortening and external rotation of the legs. She is currently in traction. She also has some pain and swelling on the proximal femur. LABORATORY DATA: White blood cell count is 8.5 with a hemoglobin of 8.7. The platelet count is 263,000. The BUN and creatinine ratio is normal. The BNP is 1556. RADIOGRAPHIC DATA: Chest x-ray shows cardiomegaly with no acute decompensation. X-ray of the hip shows a comminuted intertrochanteric fracture of the right femur. IMPRESSION Chronic systolic congestive heart failure. Severe coronary artery disease with old inferior wall myocardial infarction on EKG. Intertrochanteric fracture of the right hip. Parkinson's disease. Chronic anemia, possibly related to myelodysplastic syndrome. Rheumatoid arthritis. PLAN 1. Patient will require surgery for the hip fracture. 2. She needs a cardiology evaluation preoperatively. 3. Continue current medications for Parkinson's disease. 4. Monitor blood counts closely. 5. Continue low-dose prednisone for rheumatoid arthritis, although she may need stress dose steroids if her condition worsens. Job#: [id number] LUIS
[2018-01-03] MEDS: ONDANSETRON HCL INJ 2 MG/ML VIAL IV PRN ×2 (11:30→18:40)
--- NOTE | 2018-01-03 13:29 | Cardiology Report ---
DATE OF STUDY: ATTENDING PHYSICIAN: Dr. Sam John. ECHOCARDIOGRAM M-MODE: Dilated left atrium. Left ventricular hypertrophy. Diminished left ventricular contractility especially in the inferior wall. Normal mitral, aortic, and tricuspid valves. No pericardial effusion. SECTOR SCAN: Dilated left atrium. Left ventricular hypertrophy. Diminished left ventricular contractility especially in the inferior and posterior apical charles. Mitral, aortic, and tricuspid valves are grossly normal except for sclerosis of mitral valve annulus. No pericardial effusion. CARDIAC DOPPLER STUDY WITH COLOR: Trace mitral and tricuspid regurgitation. Pulmonary artery systolic pressure estimated at 30 mmHg. CONCLUSIONS 1. Anterior and posterior apical hypokinesis suggestive of ischemic heart disease. 2. Left ventricular hypertrophy with ejection fraction of approximately 35%. 3. Sclerosis of the posterior mitral valve annulus with mild mitral regurgitation and dilated left atrium. 4. Trace tricuspid regurgitation without significant pulmonary hypertension. Job#: [id number] DANTE cc:DR. SAM JOHN
[2018-01-03] MEDS ORDERED: NOVOLOG100 UNIT/1 SQ (14:36)
[2018-01-03] MEDS ORDERED: LANTUS 3ML100 UNITS/ SQ (14:36)
[2018-01-03] MEDS: NICOTINE 21 MG/EA PATCH TOP SCH (16:49)
[2018-01-03] MEDS ORDERED: NICOTINE 21 MG/EA PATCH ONE (16:50)
--- NOTE | 2018-01-03 20:16 | Consultation ---
DATE OF CONSULTATION: January 02, 2018 CARDIOLOGY CONSULTATION ATTENDING PHYSICIANS 1. Pablito Richardson MD 2. Jae John MD WATER WELL DRILLER: Dr. De La Torre. CLINICAL HISTORY: This is a 77-year-old white woman, known to me from previous evaluations including recent hospitalization at [facility], kindly referred by Dr. Jae John and Dr. Pablito Richardson for cardiovascular evaluation prior to right hip surgery. This patient was hospitalized in April of this year at [facility] with altered mental status, thought to be due to excessive pain medications. She is suspected to have significant coronary artery disease with deterioration in left ventricular ejection fraction from 65% last year to approximately 30% in April 2017. There was also concern that she may have an apical mural thrombus. Cardiac catheterization was offered to the patient and family, but they declined. She presented now with right hip fracture and surgery may be needed. Cardiology consultation requested. PAST MEDICAL HISTORY: Remarkable for hypothyroidism with TSH as high as 94 with patient noncompliant with respect to medications. There is history of iron-deficiency anemia, requiring intravenous iron. She has dementia, but appears to be relatively mild. In the past, she had __[id number]____ to sign out against medical advice. There is history of KEYSMITH shunt, with Dr. Arturo Velazquez evaluated the patient in the past. There is a history of poorly-controlled insulin-dependent diabetes, hypertension, hyperlipidemia, COPD, chronic kidney disease, mild, chronic foot pains, multiple noncardiac surgeries, previous stroke, mild aortic stenosis with aortic velocity of 2.6 m/s, mild carotid disease, diastolic dysfunction, and possible gout. PERSONAL AND SOCIAL HISTORY: She stopped smoking in 2002. Denies drinking. She was one packet per day cigarette smoker for 45 years. PAST SURGICAL HISTORY: Diverticulitis surgery, appendectomy, hand surgery x3, and tubal ligation. FAMILY HISTORY: Sister had coronary artery disease. Father had coronary artery disease. REVIEW OF SYSTEMS: Noncontributory. PHYSICAL EXAMINATION GENERAL: She is alert and oriented. VITAL SIGNS: Stable. CARDIOVASCULAR: Jugular veins were not distended. S1 and S2 were regular. There is no appreciable murmur. LUNGS: Clear. ABDOMEN: Soft. Bowel sounds are present. EXTREMITIES: Show no cyanosis, clubbing or edema. LABORATORY STUDIES: White count is 8500, hemoglobin 8.7, platelet count 260,000. BUN is 15 and creatinine is 0.86. IMPRESSION 1. Increased risk from the cardiac standpoint for the planned right hip surgery due to her age as well as poor left ventricular function and probable underlying coronary artery disease. 2. Systolic and diastolic congestive heart failure, ejection fraction approximately 30-35%. 3. History of apical mural thrombus. 4. History of mild mitral regurgitation. 5. History of mild aortic stenosis. 6. Possible old inferior posterior apical myocardial infarction. 7. Anemia, hemoglobin 8.7. 8. History of ventriculoperitoneal shunt and altered mental status. 9. Noncompliance with respect to medications and followup. 10. History of excessive pain medication usage. 11. Iron-deficiency anemia, requiring intravenous iron. 12. History of severe hypothyroidism with TSH of 94, requiring intravenous thyroid medication. 13. Chronic obstructive pulmonary disease. 14. Hypertension. 15. Hyperlipidemia. 16. Mild dementia. 17. Chronic foot pains. 18. Multiple noncardiac surgeries. 19. History of cerebrovascular accident. 20. Mild carotid artery disease. 21. Unclear history of gout. RECOMMENDATIONS: I have explained the risks to the patient and family. They verbalized understanding and is willing to accept the risks and proceed with the planned possible right hip surgery. Job#: [id number] RTY cc:DR. PABLITO JOHN
[2018-01-03] MEDS: CARVEDILOL 3.125 MG TAB PO SCH (20:43)
[2018-01-03] MEDS: ATORVASTATIN 40 MG TAB PO SCH (20:43)
[2018-01-03] MEDS: LISINOPRIL 10 MG TAB PO SCH (20:43)
[2018-01-04] VITALS (8 sets, daily range): BP systolic 113–147; BP diastolic 41–72
[2018-01-04] MEDS: ZOLPIDEM TARTRATE 5 MG TAB PO PRN ×2 (00:21→20:40)
[2018-01-04] MEDS: HYDROMORPHONE 2MG/ML 2 MG/ML ML IV PRN ×5 (02:15→23:35)
[2018-01-04 05:57] LABS: BASOPHILS % 0.4 % (0.0-1.0); EOSINOPHILS # (AUTO) 0.2 (0.0-0.4); EOSINOPHILS % 2.2 % (0.0-6.0); HEMATOCRIT 27.5 % (34.2-44.1); LYMPHOCYTES # (AUTO) 0.6 (1.0-3.2); LYMPHOCYTES % 7.5 % (18.0-39.1); MEAN CORPUSCULAR HEMOGLOBIN 25.8 pg (28-32); MEAN CORPUSCULAR HGB CONC 29.1 g/dL (31-35); MEAN CORPUSCULAR VOLUME 88.7 fL (81-99); MONOCYTES # (AUTO) 1.1 (0.2-0.8); MONOCYTES % 12.9 % (4.4-11.3); NEUTROPHILS # (AUTO) 6.2 (2.1-6.9); NEUTROPHILS % 76.3 % (38.7-80.0); PLATELET COUNT 220 x10e3/uL (140-360); RED CELL DISTRIBUTION WIDTH 17.5 % (11.7-14.4)
[2018-01-04 06:16] LABS: ALBUMIN 2.8 g/dL (3.5-5.0); ALBUMIN/GLOBULIN RATIO 0.9 (0.8-2.0); ANION GAP 11.7 mmol/L (8-16); CALCIUM 8.5 mg/dL (8.4-10.2); CREATININE, SERUM 1.17 mg/dL (0.57-1.11); POTASSIUM 3.7 mmol/L (3.5-5.1)
[2018-01-04] MEDS: CEFTRIAXONE SOD 1 GM VIAL IV SCH ×2 (06:34→17:22)
[2018-01-04] MEDS: LEVOTHYROXINE SODIUM 125 MCG TAB PO SCH (06:34)
[2018-01-04] MEDS ORDERED: LEVOTHYROXINE SODIUM 50 MCG TAB PO STA (07:00)
[2018-01-04] MEDS ORDERED: POTASSIUM CHLORIDE 20 MEQ TAB CR PO STA (07:02)
[2018-01-04] MEDS ORDERED: FUROSEMIDE INJ 10 MG/ML 2 ML VIAL IV ONE (07:15)
[2018-01-04] MEDS: PANTOPRAZOLE SOD 40 MG TABEC PO SCH (08:10)
[2018-01-04] MEDS: AZITHROMYCIN 500MG/NS 250 ML 250 ML IV SCH (08:10)
[2018-01-04] MEDS: FAMOTIDINE 20 MG/2 ML VIAL IV SCH ×2 (08:10→20:41)
[2018-01-04] MEDS: CARVEDILOL 3.125 MG TAB PO SCH ×2 (08:11→20:41)
[2018-01-04] MEDS: FERROUS SULFATE 325 MG TAB PO SCH (08:11)
[2018-01-04] MEDS: LISINOPRIL 10 MG TAB PO SCH ×2 (08:12→20:41)
[2018-01-04] MEDS: NICOTINE 21 MG/EA PATCH TOP SCH (08:12)
[2018-01-04] MEDS: ALLOPURINOL 100 MG TAB PO SCH (08:12)
[2018-01-04] MEDS: CARBIDOPA/LEVODOPA 25/100 TAB PO SCH (08:12)
[2018-01-04] MEDS: PREDNISONE 5 MG TAB PO SCH (08:12)
[2018-01-04] MEDS: ESCITALOPRAM OXALATE 10 MG TAB PO SCH (08:12)
[2018-01-04] MEDS: FUROSEMIDE 40 MG TAB PO SCH (08:12)
[2018-01-04] MEDS: POTASSIUM CHLORIDE 20 MEQ TAB CR PO SCH (08:12)
[2018-01-04] MEDS: GUAIFENESIN 600MG/DEXTROMETHORPHAN 30MG TABSR PO SCH ×2 (08:12→16:24)
[2018-01-04] MEDS ORDERED: DEXTROSE 50% SYRINGE 50 ML IV PRN ×2 (12:30)
[2018-01-04] MEDS: INSULIN REGULAR, HUMAN 100 UNIT/1 ML 3ML VIAL SQ SCH ×2 (16:23→20:41)
[2018-01-04] MEDS ORDERED: SODIUM CHLORIDE 0.9% 250ML 250 ML IV ONE (16:30)
[2018-01-04] MEDS: ATORVASTATIN 40 MG TAB PO SCH (20:41)
[2018-01-04] MEDS ORDERED: SODIUM CHLORIDE 0.9% 250ML 250 ML ONE ×2 (20:45→23:52)
[2018-01-05] VITALS (9 sets, daily range): BP systolic 122–162; BP diastolic 60–76
[2018-01-05] MEDS: CEFTRIAXONE SOD 1 GM VIAL IV SCH ×2 (05:37→17:29)
[2018-01-05] MEDS: LEVOTHYROXINE SODIUM 100 MCG TAB PO SCH (05:37)
[2018-01-05 05:52] LABS: BASOPHILS # (AUTO) 0.1 (0.0-0.1); BASOPHILS % 0.6 % (0.0-1.0); EOSINOPHILS # (AUTO) 0.4 (0.0-0.4); EOSINOPHILS % 4.2 % (0.0-6.0); LYMPHOCYTES # (AUTO) 0.7 (1.0-3.2); LYMPHOCYTES % 8.5 % (18.0-39.1); MEAN CORPUSCULAR HEMOGLOBIN 26.6 pg (28-32); MEAN CORPUSCULAR HGB CONC 30.3 g/dL (31-35); MEAN CORPUSCULAR VOLUME 87.8 fL (81-99); MONOCYTES # (AUTO) 1.1 (0.2-0.8); MONOCYTES % 12.8 % (4.4-11.3); NEUTROPHILS # (AUTO) 6.3 (2.1-6.9); NEUTROPHILS % 73.1 % (38.7-80.0); PLATELET COUNT 190 x10e3/uL (140-360); RED BLOOD COUNT 3.76 x10e6/uL (3.6-5.1); RED CELL DISTRIBUTION WIDTH 15.9 % (11.7-14.4)
[2018-01-05 06:03] LABS: ANION GAP 10.1 mmol/L (8-16); BLOOD UREA NITROGEN 13 mg/dL (7-26); BUN/CREATININE RATIO 15 (6-25); CALCIUM 8.7 mg/dL (8.4-10.2); CARBON DIOXIDE 28 mmol/L (22-29); CHLORIDE 104 mmol/L (98-107); CREATININE, SERUM 0.89 mg/dL (0.57-1.11); EST GLOMERULAR FILTRATION RATE > 60 ML/MIN (60-); GLUCOSE 103 mg/dL (74-118); POTASSIUM 4.1 mmol/L (3.5-5.1); SODIUM 138 mmol/L (136-145)
[2018-01-05 06:50] LABS: FOLATE 6.8 ng/mL (7.0-15.4)
[2018-01-05 07:15] LABS: B-TYPE NATRIURETIC PEPTIDE2 755.8 pg/mL (0-100)
[2018-01-05] MEDS ORDERED: POLYETHYLENE GLYCOL 3350 17 GM PACK PO PRN (07:15)
[2018-01-05] MEDS: INSULIN REGULAR, HUMAN 100 UNIT/1 ML 3ML VIAL SQ SCH ×4 (07:30→21:19)
[2018-01-05 07:43] LABS: FERRITIN 22.88 ng/mL (4.63-204.00)
[2018-01-05] MEDS: FUROSEMIDE 40 MG TAB PO SCH (08:10)
[2018-01-05] MEDS: AZITHROMYCIN 500MG/NS 250 ML 250 ML IV SCH (08:10)
[2018-01-05] MEDS: FERROUS SULFATE 325 MG TAB PO SCH (08:10)
[2018-01-05] MEDS: ALLOPURINOL 100 MG TAB PO SCH (08:10)
[2018-01-05] MEDS: PANTOPRAZOLE SOD 40 MG TABEC PO SCH (08:10)
[2018-01-05] MEDS: CARBIDOPA/LEVODOPA 25/100 TAB PO SCH (08:10)
[2018-01-05] MEDS: ESCITALOPRAM OXALATE 10 MG TAB PO SCH (08:10)
[2018-01-05] MEDS: PREDNISONE 5 MG TAB PO SCH (08:11)
[2018-01-05] MEDS: FAMOTIDINE 20 MG/2 ML VIAL IV SCH ×2 (08:11→21:19)
[2018-01-05] MEDS: GUAIFENESIN 600MG/DEXTROMETHORPHAN 30MG TABSR PO SCH ×2 (08:11→17:16)
[2018-01-05] MEDS: DOCUSATE SODIUM 100 MG CAP PO SCH ×2 (08:11→17:16)
[2018-01-05] MEDS: LISINOPRIL 10 MG TAB PO SCH ×2 (08:11→21:19)
[2018-01-05] MEDS: NICOTINE 21 MG/EA PATCH TOP SCH (08:11)
[2018-01-05] MEDS: POTASSIUM CHLORIDE 20 MEQ TAB CR PO SCH (08:11)
[2018-01-05] MEDS: CARVEDILOL 3.125 MG TAB PO SCH ×2 (08:11→21:20)
[2018-01-05] MEDS: HYDROMORPHONE 2MG/ML 2 MG/ML ML IV PRN ×3 (11:06→20:47)
[2018-01-05] MEDS ORDERED: ENOXAPARIN 30 MG/0.3 ML SYR SC STA (14:08)
[2018-01-05] MEDS: ATORVASTATIN 40 MG TAB PO SCH (21:19)
[2018-01-05] MEDS: ZOLPIDEM TARTRATE 5 MG TAB PO PRN (22:24)
[2018-01-06] VITALS (16 sets, daily range): BP systolic 129–155; BP diastolic 59–85
[2018-01-06] MEDS ORDERED: SODIUM CHLORIDE 0.9% 1000ML 1,000 ML IV SCH (00:01)
[2018-01-06] MEDS: HYDROMORPHONE 2MG/ML 2 MG/ML ML IV PRN ×2 (01:41→07:46)
[2018-01-06 03:26] LABS: BASOPHILS % 0.4 % (0.0-1.0); EOSINOPHILS # (AUTO) 0.3 (0.0-0.4); EOSINOPHILS % 2.4 % (0.0-6.0); HEMATOCRIT 31.7 % (34.2-44.1); HEMOGLOBIN 9.8 g/dL (12.0-16.0); LYMPHOCYTES # (AUTO) 0.6 (1.0-3.2); LYMPHOCYTES % 6.2 % (18.0-39.1); MEAN CORPUSCULAR HEMOGLOBIN 27.1 pg (28-32); MEAN CORPUSCULAR HGB CONC 30.9 g/dL (31-35); MEAN CORPUSCULAR VOLUME 87.6 fL (81-99); MONOCYTES # (AUTO) 1.3 (0.2-0.8); MONOCYTES % 13.1 % (4.4-11.3); NEUTROPHILS # (AUTO) 7.9 (2.1-6.9); NEUTROPHILS % 77.2 % (38.7-80.0); PLATELET COUNT 202 x10e3/uL (140-360); RED BLOOD COUNT 3.62 x10e6/uL (3.6-5.1)
[2018-01-06 03:35] LABS: ANION GAP 12.1 mmol/L (8-16); CALCIUM 8.7 mg/dL (8.4-10.2); CREATININE, SERUM 0.92 mg/dL (0.57-1.11); MAGNESIUM 1.8 MG/DL (1.3-2.1); POTASSIUM 4.1 mmol/L (3.5-5.1)
[2018-01-06] MEDS: LEVOTHYROXINE SODIUM 100 MCG TAB PO SCH (04:24)
[2018-01-06] MEDS: CEFTRIAXONE SOD 1 GM VIAL IV SCH ×2 (05:39→22:32)
[2018-01-06] MEDS: PANTOPRAZOLE SOD 40 MG TABEC PO SCH (07:30)
[2018-01-06] MEDS: INSULIN REGULAR, HUMAN 100 UNIT/1 ML 3ML VIAL SQ SCH ×4 (07:30→21:00)
[2018-01-06] MEDS: NICOTINE 21 MG/EA PATCH TOP SCH (07:41)
[2018-01-06] MEDS: FAMOTIDINE 20 MG/2 ML VIAL IV SCH ×2 (07:41→22:31)
[2018-01-06] MEDS: AZITHROMYCIN 500MG/NS 250 ML 250 ML IV SCH (07:41)
[2018-01-06] MEDS: DOCUSATE SODIUM 100 MG CAP PO SCH ×2 (07:46→22:32)
[2018-01-06] MEDS: GUAIFENESIN 600MG/DEXTROMETHORPHAN 30MG TABSR PO SCH ×2 (07:47→17:00)
[2018-01-06] MEDS ORDERED: CEFAZOLIN SOD 1 GM VIAL IV SCH (08:00)
[2018-01-06] MEDS: CARVEDILOL 3.125 MG TAB PO SCH ×2 (09:00→22:35)
[2018-01-06] MEDS: FERROUS SULFATE 325 MG TAB PO SCH (09:00)
[2018-01-06] MEDS: POTASSIUM CHLORIDE 20 MEQ TAB CR PO SCH (09:00)
[2018-01-06] MEDS: LISINOPRIL 10 MG TAB PO SCH ×2 (09:00→22:32)
[2018-01-06] MEDS ORDERED: CEFAZOLIN SOD 2 GM in WATER STERILE 10ML VIAL 10 ML IV ONE (09:00)
[2018-01-06] MEDS: ALLOPURINOL 100 MG TAB PO SCH (09:00)
[2018-01-06] MEDS: PREDNISONE 5 MG TAB PO SCH (09:00)
[2018-01-06] MEDS: ESCITALOPRAM OXALATE 10 MG TAB PO SCH (09:00)
[2018-01-06] MEDS ORDERED: CEFAZOLIN SOD 2 GM/D5W 50ML 50 ML IV ONE (11:00)
[2018-01-06] MEDS ORDERED: ACETAMINOPHEN 1000 MG/100 ML IV PRN (14:45)
[2018-01-06] MEDS ORDERED: ONDANSETRON HCL INJ 2 MG/ML VIAL IV PRN (14:45)
[2018-01-06] MEDS ORDERED: NALOXONE HCL INJ 0.4 MG/ML AMP IV PRN (14:45)
[2018-01-06] MEDS ORDERED: HYDROMORPHONE 0.2MG/ML-SOD CHL 30ML PCA SYRINGE IV PRN (14:45)
[2018-01-06] MEDS ORDERED: FENTANYL CITRATE/PF 100MCG/2 ML INJ ONE ×2 (15:17→18:01)
[2018-01-06] MEDS ORDERED: HYDROMORPHONE 0.2MG/ML-SOD CHL 30ML PCA SYRINGE IV ONE (15:41)
--- NOTE | 2018-01-06 16:14 | Diagnostic Imaging Report ---
Exam: Right hip, 2 views History: Status post right hip gamma nail Comparison: Right hip, 2 views 01/02/2018 Findings: Interval operative fixation of the previously described comminuted intertrochanteric right femoral fracture with a gamma nail construct. Surgical hardware is intact, and fracture fragment alignment is near anatomic. Expected skin home and subcutaneous gas compatible with recent surgery. Impression: Postoperative findings of the right femur and soft tissues as above. Signed by: Dr. Lazaro Cobb M.D. on 01/06/2018 4:10 PM
[2018-01-06] MEDS ORDERED: DEXAMETHASONE SOD PHOS INJ 4 MG/ML VIAL ONE (17:29)
[2018-01-06] MEDS ORDERED: EPHEDRINE SULFATE INJ 50 MG/10 ML SYR ONE (17:29)
[2018-01-06] MEDS ORDERED: ONDANSETRON HCL INJ 2 MG/ML VIAL ONE (17:29)
[2018-01-06] MEDS ORDERED: SEVOFLURANE INHAL SOLN 250 ML PEN BTL ONE (17:29)
[2018-01-06] MEDS ORDERED: ACETAMINOPHEN 1000 MG/100 ML IV ONE (17:29)
[2018-01-06] MEDS ORDERED: PROPOFOL IV EMULSION 10 MG/ML 20 ML VIAL ONE (17:29)
[2018-01-06] MEDS ORDERED: LIDOCAINE HCL 2% LOCAL INJ 5 ML SDV VIAL INJ ONE (17:29)
[2018-01-06] MEDS ORDERED: MIDAZOLAM HCL 2 MG/2 ML VIAL ONE (18:01)
[2018-01-06] MEDS ORDERED: MEPERIDINE HCL INJ 50 MG/ML INJ ONE (19:47)
[2018-01-06] MEDS: ATORVASTATIN 40 MG TAB PO SCH (21:00)
[2018-01-06] MEDS: OYST-CAL-D 500MG TABLET PO SCH (21:00)
[2018-01-06] MEDS ORDERED: CEFAZOLIN SOD 1 GM/D5W 50ML 50 ML IV SCH (22:00)
[2018-01-06] MEDS: FUROSEMIDE 40 MG TAB PO SCH (22:31)
[2018-01-06] MEDS: CARBIDOPA/LEVODOPA 25/100 TAB PO SCH (22:31)
[2018-01-06] MEDS: CEFAZOLIN SOD 1 GM VIAL IV SCH (22:32)
[2018-01-06] MEDS: ZOLPIDEM TARTRATE 5 MG TAB PO PRN (22:33)
[2018-01-06] MEDS: SODIUM CHLORIDE 0.9% 1000ML 1,000 ML IV SCH (23:00)
[2018-01-07] VITALS (49 sets, daily range): BP systolic 111–165; BP diastolic 48–121
[2018-01-07] MEDS: SODIUM CHLORIDE 0.9% 1000ML 1,000 ML IV SCH ×3 (00:33→20:31)
[2018-01-07 05:01] LABS: BASOPHILS % 0.4 % (0.0-1.0); EOSINOPHILS # (AUTO) 0.2 (0.0-0.4); EOSINOPHILS % 1.8 % (0.0-6.0); HEMATOCRIT 32.5 % (34.2-44.1); HEMOGLOBIN 9.8 g/dL (12.0-16.0); LYMPHOCYTES # (AUTO) 0.4 (1.0-3.2); LYMPHOCYTES % 4.4 % (18.0-39.1); MEAN CORPUSCULAR HEMOGLOBIN 26.6 pg (28-32); MEAN CORPUSCULAR HGB CONC 30.2 g/dL (31-35); MEAN CORPUSCULAR VOLUME 88.3 fL (81-99); MONOCYTES # (AUTO) 1.1 (0.2-0.8); MONOCYTES % 10.9 % (4.4-11.3); NEUTROPHILS % 81.8 % (38.7-80.0); PLATELET COUNT 200 x10e3/uL (140-360); RED BLOOD COUNT 3.68 x10e6/uL (3.6-5.1); RED CELL DISTRIBUTION WIDTH 16.4 % (11.7-14.4)
[2018-01-07 05:51] LABS: ANION GAP 11.7 mmol/L (8-16); BLOOD UREA NITROGEN 14 mg/dL (7-26); BUN/CREATININE RATIO 16 (6-25); CALCIUM 8.5 mg/dL (8.4-10.2); CARBON DIOXIDE 27 mmol/L (22-29); CHLORIDE 99 mmol/L (98-107); CREATININE, SERUM 0.89 mg/dL (0.57-1.11); EST GLOMERULAR FILTRATION RATE > 60 ML/MIN (60-); GLUCOSE 159 mg/dL (74-118); POTASSIUM 3.7 mmol/L (3.5-5.1); SODIUM 134 mmol/L (136-145)
--- NOTE | 2018-01-07 06:24 | Diagnostic Imaging Report ---
EXAM: CHEST SINGLE (PORTABLE), AP 1 view INDICATION: CHF, COPD, bronchopneumonia COMPARISON: AP view of the chest January 02, 2018 FINDINGS: LINES/TUBES: Stable right subclavian chest port and right internal jugular vein central line. LUNGS: Right lower/right middle lobe consolidation. PLEURA: No effusions or pneumothorax. HEART AND MEDIASTINUM: Stable cardiomegaly. Tortuous thoracic aorta and enlarged central pulmonary arteries. BONES AND SOFT TISSUES: No acute findings. IMPRESSION: Right lower and right middle lobe consolidation suspicious for pneumonia. Signed by: Dr. Suzie Melchor M.D. on 01/07/2018 6:21 AM
[2018-01-07 07:19] LABS: ANISOCYTOSIS SLIGHT; HYPOCHROMASIA SLIGHT; PLATELET ESTIMATE ADEQUATE; PLATELET MORPHOLOGY COMMENT NORMAL; RBC MORPHOLOGY COMMENT NORMAL
[2018-01-07] MEDS: INSULIN REGULAR, HUMAN 100 UNIT/1 ML 3ML VIAL SQ SCH ×4 (08:25→20:37)
[2018-01-07] MEDS: LEVOTHYROXINE SODIUM 100 MCG TAB PO SCH (08:25)
[2018-01-07] MEDS: FERROUS SULFATE 325 MG TAB PO SCH (08:25)
[2018-01-07] MEDS: DOCUSATE SODIUM 100 MG CAP PO SCH ×2 (08:25→18:09)
[2018-01-07] MEDS: PANTOPRAZOLE SOD 40 MG TABEC PO SCH (08:25)
[2018-01-07] MEDS: CEFAZOLIN SOD 1 GM VIAL IV SCH ×3 (08:25→22:11)
[2018-01-07] MEDS: CEFTRIAXONE SOD 1 GM VIAL IV SCH ×2 (08:25→18:09)
[2018-01-07] MEDS: FAMOTIDINE 20 MG/2 ML VIAL IV SCH ×2 (08:25→20:31)
[2018-01-07] MEDS: MAGNESIUM OXIDE 400 MG TAB PO SCH ×2 (08:26→18:09)
[2018-01-07] MEDS: ESCITALOPRAM OXALATE 10 MG TAB PO SCH (08:26)
[2018-01-07] MEDS: ASCORBIC ACID 500 MG TAB PO SCH ×2 (08:26→18:09)
[2018-01-07] MEDS: ALLOPURINOL 100 MG TAB PO SCH (08:26)
[2018-01-07] MEDS: ZINC SULFATE 220 MG CAP PO SCH ×2 (08:26→18:09)
[2018-01-07] MEDS: MULTIVITAMINS/MINERALS TAB PO SCH (08:26)
[2018-01-07] MEDS: GUAIFENESIN 600MG/DEXTROMETHORPHAN 30MG TABSR PO SCH ×2 (08:26→18:09)
[2018-01-07] MEDS: CARBIDOPA/LEVODOPA 25/100 TAB PO SCH (08:26)
[2018-01-07] MEDS: OYST-CAL-D 500MG TABLET PO SCH ×3 (08:26→20:31)
[2018-01-07] MEDS: PREDNISONE 5 MG TAB PO SCH (08:26)
[2018-01-07] MEDS: AZITHROMYCIN 500MG/NS 250 ML 250 ML IV SCH (08:28)
[2018-01-07] MEDS: NICOTINE 21 MG/EA PATCH TOP SCH (09:00)
[2018-01-07] MEDS: POTASSIUM CHLORIDE 20 MEQ TAB CR PO SCH (09:00)
[2018-01-07] MEDS: CARVEDILOL 3.125 MG TAB PO SCH ×2 (09:00→20:31)
[2018-01-07] MEDS: LISINOPRIL 10 MG TAB PO SCH ×2 (09:00→20:31)
[2018-01-07] MEDS: FUROSEMIDE 40 MG TAB PO SCH (09:00)
[2018-01-07] MEDS: ACETAMINOPHEN 1000 MG/100 ML IV PRN ×2 (09:01→16:20)
--- NOTE | 2018-01-07 09:23 | Operative Report ---
DATE OF PROCEDURE: January 06, 2018 PREOPERATIVE DIAGNOSIS: Displaced right intertrochanteric hip fracture. POSTOPERATIVE DIAGNOSIS: Displaced right intertrochanteric hip fracture. OPERATION/PROCEDURE PERFORMED: The patient underwent a closed reduction and gamma nail fixation of the right intertrochanteric hip fracture. TALENT ASSOCIATE: ANESTHESIA: General endotracheal intubation anesthesia. IV FLUIDS: Per anesthesia record. BLOOD LOSS: Approximately 100 mL. BRIEF DESCRIPTION OF THE PATIENT'S OPERATIVE PROCEDURE: Ms. Mckeon was taken to the operating room and placed in the supine position on the operating table. Following induction general anesthesia, as well as endotracheal intubation, the patient's left lower extremity was placed in a well-padded lithotomy position. The right lower extremity was placed in well-padded longitudinal traction. Fluoroscopic evaluation of the hip joint demonstrated displaced intertrochanteric hip fracture. The patient's leg was manipulated under anesthesia and traction was applied. This resulted in acceptable realignment of her injury. The right thigh and flank were then prepped and draped in the standard surgical fashion. The case was begun by creating an incision roughly at the level of the greater trochanter on the right. This incision was carried through skin only. Blunt dissection was used deepen the incision to the level of the greater trochanter on the right. A cannulated awl was placed on the tip of the trochanter and advanced within the femur. A guidewire was placed within the medullary canal of the femur. Sequential reaming was undertaken. An appropriate sized nail was chosen and inserted without difficulty. The position of the nail was checked in both AP and lateral planes and found to be appropriate. A 2nd incision was created along the lateral aspect of the femur. This incision was deepened to the lateral aspect of the femur. The guide for the compression screw was advanced against the lateral aspect of the femur. The guide pin was advanced from lateral to medial through the neck and into the head of the femur. The position of this pin was again checked using fluoroscopy in both AP and lateral planes. Measurements were taken and a reamer was used to create a channel for the implant. The end-plate was inserted and compression was placed across the patient's fracture site. The compression screw was then locked to allow for further compression, but to prevent rotation. The nail was then locked distally with 2 screws using a free-hand technique. The nail was then visualized in its entirety and found to be in appropriate position with stabilization of her injury. All wounds were copiously irrigated and closed in a multilayer fashion. Sterile dressings were applied. The patient was awakened and taken to the postanesthesia care unit in stable condition. acted as residential real estate assistant for this case and was necessary for both prepping and draping the patient, as well as reduction of the fracture and the closure of wounds that allowed this case to be successful. Job#: [id number] FL
[2018-01-07 15:37] LABS: HEMATOCRIT 29.9 % (34.2-44.1); HEMOGLOBIN 9.1 g/dL (12.0-16.0)
[2018-01-07] MEDS: RIVAROXABAN 10 MG TABLET PO SCH (18:10)
[2018-01-07] MEDS: HYDROCODONE/APAP 10MG-325MG TAB PO PRN (18:44)
[2018-01-07] MEDS: ZOLPIDEM TARTRATE 5 MG TAB PO PRN (19:53)
[2018-01-07] MEDS: ATORVASTATIN 40 MG TAB PO SCH (20:31)
[2018-01-07] MEDS: LORAZEPAM INJ 2 MG/ML VIAL IV PRN (22:07)
[2018-01-08] VITALS (17 sets, daily range): BP systolic 133–160; BP diastolic 64–79
[2018-01-08] MEDS: HYDROCODONE/APAP 10MG-325MG TAB PO PRN ×4 (02:01→19:45)
[2018-01-08 04:50] LABS: BASOPHILS % 0.3 % (0.0-1.0); EOSINOPHILS # (AUTO) 0.3 (0.0-0.4); EOSINOPHILS % 3.8 % (0.0-6.0); HEMATOCRIT 26.4 % (34.2-44.1); HEMOGLOBIN 8.1 g/dL (12.0-16.0); LYMPHOCYTES # (AUTO) 0.4 (1.0-3.2); MEAN CORPUSCULAR HEMOGLOBIN 27.3 pg (28-32); MEAN CORPUSCULAR HGB CONC 30.7 g/dL (31-35); MEAN CORPUSCULAR VOLUME 88.9 fL (81-99); MONOCYTES % 11.6 % (4.4-11.3); NEUTROPHILS % 78.6 % (38.7-80.0); PLATELET COUNT 168 x10e3/uL (140-360); RED BLOOD COUNT 2.97 x10e6/uL (3.6-5.1); RED CELL DISTRIBUTION WIDTH 16.4 % (11.7-14.4)
[2018-01-08 05:18] LABS: ANION GAP 10.5 mmol/L (8-16); BLOOD UREA NITROGEN 16 mg/dL (7-26); BUN/CREATININE RATIO 20 (6-25); CALCIUM 8.3 mg/dL (8.4-10.2); CARBON DIOXIDE 27 mmol/L (22-29); CHLORIDE 103 mmol/L (98-107); CREATININE, SERUM 0.82 mg/dL (0.57-1.11); EST GLOMERULAR FILTRATION RATE > 60 ML/MIN (60-); GLUCOSE 139 mg/dL (74-118); MAGNESIUM 1.7 MG/DL (1.3-2.1); POTASSIUM 3.5 mmol/L (3.5-5.1); SODIUM 137 mmol/L (136-145)
[2018-01-08 05:42] LABS: THYROID STIMULATING HORMONE 54.112 uIU/mL (0.350-4.940)
[2018-01-08] MEDS: CEFAZOLIN SOD 1 GM VIAL IV SCH (06:05)
[2018-01-08] MEDS: LEVOTHYROXINE SODIUM 100 MCG TAB PO SCH (06:05)
[2018-01-08] MEDS: CEFTRIAXONE SOD 1 GM VIAL IV SCH ×2 (06:05→18:50)
[2018-01-08] MEDS: SODIUM CHLORIDE 0.9% 1000ML 1,000 ML IV SCH ×2 (06:33→18:55)
[2018-01-08 08:01] LABS: EOSINOPHILS % (MANUAL) 1 % (0-7); HOWELL-JOLLY BODIES FEW; LYMPHOCYTES % (MANUAL) 5 % (19-48); METAMYELOCYTES % (MANUAL) 1 % (0-0); MONOCYTES % (MANUAL) 10 % (3.4-9.0); NEUTROPHILS % (MANUAL) 82 % (40-74)
[2018-01-08 08:02] LABS: ANISOCYTOSIS MODERATE; HYPOCHROMASIA SLIGHT; PLATELET ESTIMATE ADEQUATE; PLATELET MORPHOLOGY COMMENT NORMAL; RBC MORPHOLOGY COMMENT NORMAL
[2018-01-08] MEDS: PANTOPRAZOLE SOD 40 MG TABEC PO SCH (08:11)
[2018-01-08] MEDS: AZITHROMYCIN 500MG/NS 250 ML 250 ML IV SCH (08:11)
[2018-01-08] MEDS: INSULIN REGULAR, HUMAN 100 UNIT/1 ML 3ML VIAL SQ SCH ×4 (08:23→21:00)
[2018-01-08] MEDS ORDERED: FUROSEMIDE INJ 10 MG/ML 2 ML VIAL IV ONE (08:45)
[2018-01-08] MEDS ORDERED: MAGNESIUM HYDROXIDE 30 ML UDC PO PRN (08:45)
[2018-01-08] MEDS ORDERED: FUROSEMIDE INJ 10 MG/ML 2 ML VIAL IV NR (09:00)
[2018-01-08] MEDS: FUROSEMIDE 40 MG TAB PO SCH (09:00)
[2018-01-08] MEDS: ALBUTEROL/IPRATROPIUM 3 ML NEB NEB SCH ×3 (09:15→20:20)
[2018-01-08] MEDS: LEVOFLOXACIN 750MG/D5W 150ML 150 ML IV SCH (10:20)
[2018-01-08] MEDS: ACETAMINOPHEN 1000 MG/100 ML IV PRN (11:00)
[2018-01-08] MEDS: CARVEDILOL 3.125 MG TAB PO SCH ×2 (11:10→21:26)
[2018-01-08] MEDS: POTASSIUM CHLORIDE 20 MEQ TAB CR PO SCH (11:22)
[2018-01-08] MEDS: FAMOTIDINE 20 MG/2 ML VIAL IV SCH ×2 (11:22→21:26)
[2018-01-08] MEDS: FERROUS SULFATE 325 MG TAB PO SCH (11:22)
[2018-01-08] MEDS: DOCUSATE SODIUM 100 MG CAP PO SCH ×2 (11:22→16:17)
[2018-01-08] MEDS: NICOTINE 21 MG/EA PATCH TOP SCH (11:23)
[2018-01-08] MEDS: LISINOPRIL 10 MG TAB PO SCH ×2 (11:23→21:26)
[2018-01-08] MEDS: ZINC SULFATE 220 MG CAP PO SCH ×2 (11:23→16:17)
[2018-01-08] MEDS: ESCITALOPRAM OXALATE 10 MG TAB PO SCH (11:23)
[2018-01-08] MEDS: ALLOPURINOL 100 MG TAB PO SCH (11:23)
[2018-01-08] MEDS: PREDNISONE 5 MG TAB PO SCH (11:23)
[2018-01-08] MEDS: GUAIFENESIN 600MG/DEXTROMETHORPHAN 30MG TABSR PO SCH ×2 (11:23→16:17)
[2018-01-08] MEDS: MULTIVITAMINS/MINERALS TAB PO SCH (11:23)
[2018-01-08] MEDS: OYST-CAL-D 500MG TABLET PO SCH ×3 (11:23→21:26)
[2018-01-08] MEDS: POLYETHYLENE GLYCOL 3350 17 GM PACK PO SCH ×2 (11:23→17:00)
[2018-01-08] MEDS: CARBIDOPA/LEVODOPA 25/100 TAB PO SCH (11:23)
[2018-01-08] MEDS: MAGNESIUM OXIDE 400 MG TAB PO SCH ×2 (11:23→16:17)
[2018-01-08] MEDS: ASCORBIC ACID 500 MG TAB PO SCH ×2 (11:23→16:17)
[2018-01-08] MEDS: RIVAROXABAN 10 MG TABLET PO SCH (16:17)
[2018-01-08] MEDS: ZOLPIDEM TARTRATE 5 MG TAB PO PRN (21:26)
[2018-01-08] MEDS: ATORVASTATIN 40 MG TAB PO SCH (21:26)
[2018-01-09] VITALS: BP 160/76
[2018-01-09 00:23] VITALS: BP 133/64
[2018-01-09] MEDS: SODIUM CHLORIDE 0.9% 1000ML 1,000 ML IV SCH ×2 (00:51→12:33)
[2018-01-09] MEDS: ALBUTEROL/IPRATROPIUM 3 ML NEB NEB SCH ×3 (02:00→13:46)
[2018-01-09] MEDS: HYDROCODONE/APAP 10MG-325MG TAB PO PRN ×3 (02:03→16:04)
[2018-01-09 03:22] LABS: BASOPHILS % 0.3 % (0.0-1.0); EOSINOPHILS # (AUTO) 0.2 (0.0-0.4); EOSINOPHILS % 2.4 % (0.0-6.0); HEMATOCRIT 26.4 % (34.2-44.1); LYMPHOCYTES # (AUTO) 0.6 (1.0-3.2); LYMPHOCYTES % 6.1 % (18.0-39.1); MEAN CORPUSCULAR HEMOGLOBIN 26.8 pg (28-32); MEAN CORPUSCULAR HGB CONC 30.3 g/dL (31-35); MEAN CORPUSCULAR VOLUME 88.6 fL (81-99); MONOCYTES % 10.4 % (4.4-11.3); NEUTROPHILS # (AUTO) 7.7 (2.1-6.9); NEUTROPHILS % 79.8 % (38.7-80.0); PLATELET COUNT 185 x10e3/uL (140-360); RED BLOOD COUNT 2.98 x10e6/uL (3.6-5.1); RED CELL DISTRIBUTION WIDTH 16.3 % (11.7-14.4)
[2018-01-09 03:37] LABS: ANION GAP 11.8 mmol/L (8-16); BLOOD UREA NITROGEN 17 mg/dL (7-26); BUN/CREATININE RATIO 19 (6-25); CALCIUM 8.5 mg/dL (8.4-10.2); CARBON DIOXIDE 24 mmol/L (22-29); CHLORIDE 105 mmol/L (98-107); EST GLOMERULAR FILTRATION RATE > 60 ML/MIN (60-); GLUCOSE 241 mg/dL (74-118); POTASSIUM 3.8 mmol/L (3.5-5.1); SODIUM 137 mmol/L (136-145)
[2018-01-09 04:00] VITALS: BP 147/67
[2018-01-09] MEDS ORDERED: BISACODYL 5 MG TAB EC PO ONE (05:15)
[2018-01-09] MEDS ORDERED: SODIUM CHLORIDE 0.9% 250ML 250 ML IV ONE (05:15)
[2018-01-09] MEDS ORDERED: FUROSEMIDE INJ 10 MG/ML 2 ML VIAL IV ONE (05:15)
[2018-01-09] MEDS: LEVOTHYROXINE SODIUM 100 MCG TAB PO SCH (06:00)
[2018-01-09 08:00] VITALS: BP 170/79
[2018-01-09] MEDS: INSULIN LISPRO 100 UNIT/1 ML 3ML VIAL SQ SCH ×2 (08:39→12:00)
[2018-01-09] MEDS: FAMOTIDINE 20 MG/2 ML VIAL IV SCH (08:42)
[2018-01-09] MEDS: FUROSEMIDE 40 MG TAB PO SCH (09:00)
[2018-01-09] MEDS: FERROUS SULFATE 325 MG TAB PO SCH (09:02)
[2018-01-09] MEDS: DOCUSATE SODIUM 100 MG CAP PO SCH (09:02)
[2018-01-09] MEDS: MAGNESIUM OXIDE 400 MG TAB PO SCH (09:02)
[2018-01-09] MEDS: PANTOPRAZOLE SOD 40 MG TABEC PO SCH (09:02)
[2018-01-09] MEDS: POTASSIUM CHLORIDE 20 MEQ TAB CR PO SCH (09:02)
[2018-01-09] MEDS: ESCITALOPRAM OXALATE 10 MG TAB PO SCH (09:02)
[2018-01-09] MEDS: LEVOFLOXACIN 750MG/D5W 150ML 150 ML IV SCH (09:02)
[2018-01-09] MEDS: ASCORBIC ACID 500 MG TAB PO SCH (09:03)
[2018-01-09] MEDS: OYST-CAL-D 500MG TABLET PO SCH ×2 (09:03→16:03)
[2018-01-09] MEDS: PREDNISONE 5 MG TAB PO SCH (09:03)
[2018-01-09] MEDS: CARBIDOPA/LEVODOPA 25/100 TAB PO SCH (09:03)
[2018-01-09] MEDS: NICOTINE 21 MG/EA PATCH TOP SCH (09:03)
[2018-01-09] MEDS: ALLOPURINOL 100 MG TAB PO SCH (09:03)
[2018-01-09] MEDS: POLYETHYLENE GLYCOL 3350 17 GM PACK PO SCH (09:03)
[2018-01-09] MEDS: ZINC SULFATE 220 MG CAP PO SCH (09:03)
[2018-01-09] MEDS: MULTIVITAMINS/MINERALS TAB PO SCH (09:03)
[2018-01-09] MEDS: GUAIFENESIN 600MG/DEXTROMETHORPHAN 30MG TABSR PO SCH (09:03)
[2018-01-09] MEDS: LISINOPRIL 10 MG TAB PO SCH (09:08)
[2018-01-09] MEDS: CARVEDILOL 3.125 MG TAB PO SCH (09:09)
[2018-01-09] MEDS: LORAZEPAM INJ 2 MG/ML VIAL IV PRN (10:19)
[2018-01-09 10:51] VITALS: BP 170/79
[2018-01-09] MEDS ORDERED: SODIUM CHLORIDE 0.9% 250ML 250 ML ONE (11:39)
[2018-01-09 13:03] VITALS: BP 125/60
[2018-01-09] MEDS ORDERED: CITRATE OF MAGNESIA 300ML BOTTLE PO ONE (13:45)
[2018-01-09] MEDS ORDERED: FUROSEMIDE INJ 10 MG/ML 2 ML VIAL ONE (14:48)
[2018-01-09] MEDS ORDERED: MINERAL OIL 132 ML BTL PR ONE (16:00)
[2018-01-09] MEDS: RIVAROXABAN 10 MG TABLET PO SCH (16:29)
[2018-01-09] MEDS ORDERED: INSULIN DETEMIR 100 UNIT/ML PEN SQ SCH (21:00)
--- NOTE | 2018-01-10 02:53 | Discharge Summary ---
ADMISSION DIAGNOSES 1. Coronary artery disease. 2. Parkinson's disease. 3. Rheumatoid arthritis. 4. Hypertension. 5. Hypothyroidism. 6. Gastroesophageal reflux disease. 7. Type 2 diabetes. 8. Right hip fracture. DISCHARGE DIAGNOSES 1. Coronary artery disease. 2. Parkinson's disease. 3. Rheumatoid arthritis. 4. Hypertension. 5. Hypothyroidism. 6. Gastroesophageal reflux disease. 7. Type 2 diabetes. 8. Right hip fracture. HISTORY: Patient has a history of CAD, Parkinson's, RA, hypertension, type 2 diabetes, hyperlipidemia, and hypothyroid. HOSPITAL COURSE: This is a 77-year-old female who lived herself prior to admission. She denies any dizziness. She did not have chest pain and no change in her neurological symptoms. On admission to the ER, patient had right hip x-ray that showed comminuted intertrochanteric fracture of the right femur. Chest x-ray was negative. On , patient had a repair of the right hip fracture. Vital signs are stable. Patient is afebrile. Patient will be discharged to [facility] per ortho recommendations. Family and patient understand discharge instructions and agree to plan. Dictated by Kate Prajapati NP Job#: [id number] COCO
== END 2018-01-09 16:50 | DRG 481 ==
LOC: ER 14:28 → ERHOLD 18:06 → MED/SURG 18:45 → ACU 01-06 18:39 → ICU 01-06 21:30 → MED/SURG 01-08 17:09
PROVIDERS: ADMIT Internal Medicine; ATTEND Internal Medicine
PROC: 30233N1 Transfusion of Nonautologous Red Blood Cells into Peripheral Vein, Percutaneous Approach (ICD-10-PCS; 2018-01-04)
PROC: 0QS634Z Reposition Right Upper Femur with Internal Fixation Device, Percutaneous Approach (ICD-10-PCS; principal; 2018-01-06 12:30)
DX: S72.141A Displaced intertrochanteric fracture of right femur, initial encounter for closed fracture (principal); I50.42 Chronic combined systolic (congestive) and diastolic (congestive) heart failure; I11.0 Hypertensive heart disease with heart failure; I25.10 Atherosclerotic heart disease of native coronary artery without angina pectoris; G20 Parkinson's disease; E03.9 Hypothyroidism, unspecified; K21.9 Gastro-esophageal reflux disease without esophagitis; E11.9 Type 2 diabetes mellitus without complications; M06.9 Rheumatoid arthritis, unspecified; I25.2 Old myocardial infarction; D46.9 Myelodysplastic syndrome, unspecified; Z91.14 Patient's other noncompliance with medication regimen; J44.9 Chronic obstructive pulmonary disease, unspecified; D50.9 Iron deficiency anemia, unspecified; E78.5 Hyperlipidemia, unspecified; Z86.73 Personal history of transient ischemic attack (TIA), and cerebral infarction without residual deficits; G89.29 Other chronic pain; M79.673 Pain in unspecified foot
CPT/HCPCS: 36415; 51700; 71045; 76001; 80048; 80053; 81001; 82270; 82550; 82553; 82607; 82728; 82746; 82948; 83036; 83540; 83735; 83880; 84100; 84439; 84443; 84466; 84484; 85014; 85018; 85025; 86850; 86900; 86920; 87086; 93005; 93306; 94640; 96372; 99284; C1713; J0456; J0690; J0696; J1100; J1650; J1940; J2001; J2060; J2175; J2250; J2405; J7030; J7050; J7512; P9016

== ENCOUNTER 2018-01-24 22:03 | Inpatient (IN) | payer MEDICARE ==
[~2018-01-24] VITALS: Ht 160 cm; Wt 75.7 kg
[~2018-01-24 22:03] MED LIST changes: +LANTUS 3ML100 UNITS/ SQ; +NOVOLOG100 UNIT/1 SQ
[2018-01-24 22:22] LABS: BASOPHILS % 0.2 % (0.0-1.0); EOSINOPHILS # (AUTO) 0.2 (0.0-0.4); EOSINOPHILS % 2.1 % (0.0-6.0); LYMPHOCYTES # (AUTO) 0.9 (1.0-3.2); LYMPHOCYTES % 9.8 % (18.0-39.1); MEAN CORPUSCULAR HEMOGLOBIN 27.5 pg (28-32); MEAN CORPUSCULAR HGB CONC 29.4 g/dL (31-35); MEAN CORPUSCULAR VOLUME 93.3 fL (81-99); MONOCYTES # (AUTO) 0.8 (0.2-0.8); MONOCYTES % 9.3 % (4.4-11.3); NEUTROPHILS # (AUTO) 6.5 (2.1-6.9); NEUTROPHILS % 75.4 % (38.7-80.0); PLATELET COUNT 226 x10e3/uL (140-360); RED BLOOD COUNT 1.93 x10e6/uL (3.6-5.1); RED CELL DISTRIBUTION WIDTH 18.8 % (11.7-14.4)
[2018-01-24 22:33] LABS: HEMOGLOBIN 5.3 g/dL (12.0-16.0)
[2018-01-24 22:37] LABS: INR 1.02; PARTIAL THROMBOPLASTIN TIME 25.5 seconds (23.8-35.5); PROTHROMBIN TIME 14.3 seconds (11.9-14.5)
[2018-01-24] MEDS ORDERED: SODIUM CHLORIDE 0.9% 250ML 250 ML IV ONE (22:45)
[2018-01-24 22:47] LABS: ALBUMIN 2.7 g/dL (3.5-5.0); ALKALINE PHOSPHATASE 152 IU/L (40-150); ANION GAP 14.9 mmol/L (8-16); BLOOD UREA NITROGEN 42 mg/dL (7-26); BUN/CREATININE RATIO 45 (6-25); CALCIUM 8.8 mg/dL (8.4-10.2); CARBON DIOXIDE 24 mmol/L (22-29); CHLORIDE 106 mmol/L (98-107); CREATINE KINASE 24 IU/L (29-168); CREATININE, SERUM 0.94 mg/dL (0.57-1.11); EST GLOMERULAR FILTRATION RATE 58 ML/MIN (60-); GLUCOSE 188 mg/dL (74-118); POTASSIUM 3.9 mmol/L (3.5-5.1); SODIUM 141 mmol/L (136-145)
[2018-01-24 22:51] LABS: ALANINE AMINOTRANSFERASE < 6 IU/L (0-55)
[2018-01-24] MEDS ORDERED: ASPIRIN 81 MG CHEW TAB PO STA (23:08)
--- NOTE | 2018-01-25 | NUR ---
FIRST UNIT OF BLOOD STARTED AT THIS TIME TO RT WRIST 18G. PT EDUCATED ON S/S TRANSFUSION REACTION. DENIES PAIN DISCOMFORT. CALL LIGHT WITHIN REACH, ENCOURAGED TO CALL FOR ASSISTANCE.
--- NOTE | 2018-01-25 00:10 | Diagnostic Imaging Report ---
EXAMINATION: CHEST SINGLE (PORTABLE) INDICATION: Shortness of breath. COMPARISON: Chest x-ray 01/07/2018 FINDINGS: AP view TUBES and LINES: Right chest port catheter tip overlies the. Right IJ catheter with tip not well-visualized secondary to under penetration. LUNGS: Lungs are well inflated. Right basilar airspace opacity. There is no evidence of pulmonary edema. PLEURA: No pleural effusion or pneumothorax. HEART AND MEDIASTINUM: Aortic calcifications. The cardiomediastinal silhouette is unremarkable. BONES AND SOFT TISSUES: No acute osseous lesion. Soft tissues are unremarkable. UPPER ABDOMEN: No free air under the diaphragm. IMPRESSION: Right basilar airspace opacity may represent pneumonia or aspiration in the appropriate clinical setting. Signed by: DR. Deyvi Qureshi MD on 01/25/2018 12:06 AM
--- NOTE | 2018-01-25 01:22 | NUR ---
PT RESTING COMFORTABLY, TOLERATING BLOOD TRANSFUSION WITHOUT S/S REACTION. WILL CONTINUE TO MONITOR.
--- NOTE | 2018-01-25 02:02 | Diagnostic Imaging Report ---
EXAM: CT Chest WITHOUT contrast INDICATION: EVAL FINDINGS ON CXR ^Y COMPARISON: Chest x-ray 01/24/2018. TECHNIQUE: Chest was scanned utilizing a multidetector helical scanner from the lung apex through the level of the adrenal glands without administration of IV contrast. Absence of intravenous contrast decreases sensitivity for detection of lymphadenopathy and vascular pathology. Coronal and sagittal reformations were obtained. Routine protocol was performed. IV CONTRAST: None COMPLICATIONS: None RADIATION DOSE: Total DLP: 472.3 mGy*cm Estimated effective dose: (DLP x 0.014 x size factor) mSv CTDIvol has been reviewed. It is below the limits set by the Radiation Protocol Committee (RPC). Dose modulation, iterative reconstruction, and/or weight based adjustment of the mA/kV was utilized to reduce the radiation dose to as low as reasonably achievable. FINDINGS: LINES/ TUBES: Right chest wall port with catheter tip in the superior vena cava. Partially visualized catheter MOTION PICTURE DIRECTOR shunt. LUNGS AND AIRWAYS: Posterior right lower lobe airspace opacities and bronchial wall thickening with intermittent mucus plugging. Mild centrilobular emphysematous changes. Scattered subpleural reticulations. PLEURA: The pleural spaces are clear. HEART AND MEDIASTINUM: The thyroid gland is normal. No mediastinal, hilar or axillary lymphadenopathy. The heart is normal in size. Hypoattenuation of the blood pool suggesting anemia. There is no pericardial effusion. Three-vessel coronary artery calcifications. Small amount of fluid in the pericardial recess. Main pulmonary artery measures 3 cm in diameter. Ascending aorta measures 3.7 cm. UPPER ABDOMEN: Multiple splenic calcified granulomas. Bilateral adrenal gland thickening suggestive of hyperplasia. BONES: There are degenerative changes in the thoracic spine. Osseous demineralization. SOFT TISSUES: Unremarkable. IMPRESSION: Right lower lobe opacity may represent pneumonia or aspiration. Signed by: DR. Deyvi Qureshi MD on 01/25/2018 1:59 AM
[2018-01-25] MEDS ORDERED: AZITHROMYCIN 500MG/NS 250 ML 250 ML IV SCH ×2 (02:15→07:45)
[2018-01-25] MEDS ORDERED: CEFTRIAXONE SOD 1 GM VIAL IV SCH (02:15)
[2018-01-25] MEDS ORDERED: SODIUM CHLORIDE FLUSH 10 ML SYR INJ PRN (02:30)
[2018-01-25] MEDS ORDERED: ALBUTEROL/IPRATROPIUM 3 ML NEB NEB PRN (02:30)
[2018-01-25] MEDS ORDERED: ASPIRIN 81 MG CHEW TAB PO ONE (02:30)
[2018-01-25] MEDS ORDERED: ACETAMINOPHEN 325 MG TAB PO PRN (02:30)
[2018-01-25] MEDS ORDERED: ZINC SULFATE220 M1 PO (03:08)
[2018-01-25] MEDS ORDERED: POLYETHYLENE GL17 GM PO (03:08)
[2018-01-25] MEDS ORDERED: DOCUSATE SODIU100 MG PO (03:08)
[2018-01-25] MEDS ORDERED: CARVEDILOL3.125 MG PO (03:08)
[2018-01-25] MEDS ORDERED: ONDANSETRON ODT8 MG PO (03:08)
[2018-01-25] MEDS ORDERED: NICOTINE PATCH1 EAC1 TD (03:08)
[2018-01-25] MEDS ORDERED: XARELTO10 MG PO (03:08)
[2018-01-25] MEDS ORDERED: NORCO 10-325 T1 EACH PO (03:08)
[2018-01-25] MEDS ORDERED: LISINOPRIL40 MG PO (03:08)
[2018-01-25] MEDS ORDERED: ENULOSE10 GM/15 M PO (03:08)
[2018-01-25] MEDS ORDERED: ASCORBIC ACID500 MG PO (03:08)
[2018-01-25] MEDS ORDERED: POTASSIUM CHLO20 ME1 PO (03:08)
[2018-01-25] MEDS ORDERED: ACETAMINOP325 MG/10 PO (03:08)
[2018-01-25] MEDS ORDERED: CLONIDINE HCL0.1 MG PO (03:08)
[2018-01-25] MEDS ORDERED: TEMAZEPAM15 MG PO (03:08)
[2018-01-25] MEDS ORDERED: MILK OF MA400 MG/5 M PO (03:08)
[2018-01-25] MEDS ORDERED: MAGNESIUM OXID400 MG PO (03:08)
[2018-01-25] MEDS ORDERED: OYSTER SHELL C1 EA12 PO (03:08)
[2018-01-25] MEDS: FUROSEMIDE INJ 10 MG/ML 2 ML VIAL IV SCH ×3 (03:15→12:24)
[2018-01-25] MEDS ORDERED: CEFTRIAXONE SOD 1 GM/NS 50 ML 50 ML IV ONE (03:21)
[2018-01-25] MEDS ORDERED: ASPIRIN 81 MG ENTERIC COATED PO ONE (03:21)
[2018-01-25] MEDS ORDERED: SODIUM CHLORIDE 0.9% 250ML 250 ML ONE ×2 (03:57→09:28)
[2018-01-25] MEDS ORDERED: DEXTROSE 50% SYRINGE 50 ML IV PRN (08:00)
[2018-01-25] MEDS ORDERED: ONDANSETRON HCL INJ 2 MG/ML VIAL IV PRN (08:00)
[2018-01-25] MEDS ORDERED: CLONIDINE HCL 0.1 MG TAB PO PRN (08:00)
[2018-01-25 08:30] LABS: BASOPHILS % 0.5 % (0.0-1.0); EOSINOPHILS # (AUTO) 0.4 (0.0-0.4); EOSINOPHILS % 4.4 % (0.0-6.0); HEMATOCRIT 25.2 % (34.2-44.1); LYMPHOCYTES # (AUTO) 0.7 (1.0-3.2); LYMPHOCYTES % 8.8 % (18.0-39.1); MEAN CORPUSCULAR HEMOGLOBIN 28.6 pg (28-32); MEAN CORPUSCULAR HGB CONC 31.7 g/dL (31-35); MONOCYTES # (AUTO) 0.9 (0.2-0.8); MONOCYTES % 11.4 % (4.4-11.3); NEUTROPHILS # (AUTO) 5.7 (2.1-6.9); NEUTROPHILS % 72.1 % (38.7-80.0); PLATELET COUNT 194 x10e3/uL (140-360); RED CELL DISTRIBUTION WIDTH 17.2 % (11.7-14.4)
[2018-01-25] MEDS: FUROSEMIDE INJ 10 MG/ML 4 ML VIAL IV SCH ×2 (08:36→21:19)
[2018-01-25] MEDS ORDERED: SODIUM CHLORIDE 0.9% 1000ML 1,000 ML IV ONE (08:45)
[2018-01-25 08:50] LABS: ANION GAP 14.6 mmol/L (8-16); BLOOD UREA NITROGEN 39 mg/dL (7-26); BUN/CREATININE RATIO 45 (6-25); CALCIUM 8.1 mg/dL (8.4-10.2); CARBON DIOXIDE 26 mmol/L (22-29); CHLORIDE 105 mmol/L (98-107); CREATININE, SERUM 0.86 mg/dL (0.57-1.11); EST GLOMERULAR FILTRATION RATE > 60 ML/MIN (60-); GLUCOSE 104 mg/dL (74-118); MAGNESIUM 1.7 MG/DL (1.3-2.1); POTASSIUM 3.6 mmol/L (3.5-5.1); SODIUM 142 mmol/L (136-145)
[2018-01-25] MEDS ORDERED: GUAIFENESIN 600MG/DEXTROMETHORPHAN 30MG TABSR PO SCH (09:00)
[2018-01-25] MEDS ORDERED: FUROSEMIDE INJ 10 MG/ML 2 ML VIAL IV SCH (09:00)
[2018-01-25] MEDS: CARVEDILOL 3.125 MG TAB PO SCH ×2 (09:19→17:02)
[2018-01-25] MEDS: DOCUSATE SODIUM 100 MG CAP PO SCH ×2 (09:19→17:02)
[2018-01-25] MEDS: ESCITALOPRAM OXALATE 10 MG TAB PO SCH (09:19)
[2018-01-25] MEDS: INSULIN DETEMIR 100 UNIT/ML PEN SQ SCH ×2 (09:19→21:19)
[2018-01-25] MEDS: ASPIRIN 81 MG CHEW TAB PO SCH (09:19)
[2018-01-25] MEDS: CARBIDOPA/LEVODOPA 25/100 TAB PO SCH (09:19)
[2018-01-25] MEDS: LEVOTHYROXINE SODIUM 125 MCG TAB PO SCH (09:19)
[2018-01-25] MEDS: GUAIFENESIN 600MG/DEXTROMETHORPHAN 30MG TABSR PO SCH ×2 (09:19→21:19)
[2018-01-25 09:38] LABS: BAND NEUTROPHILS % (MANUAL) 1 %; EOSINOPHILS % (MANUAL) 4 % (0-7); LYMPHOCYTES % (MANUAL) 9 % (19-48); MONOCYTES % (MANUAL) 8 % (3.4-9.0); NEUTROPHILS % (MANUAL) 78 % (40-74); NUCLEATED RED BLOOD CELLS 1; PLATELET ESTIMATE ADEQUATE; PLATELET MORPHOLOGY COMMENT NORMAL; RBC MORPHOLOGY COMMENT NORMAL
[2018-01-25] MEDS: PREDNISONE 5 MG TAB PO SCH (10:06)
[2018-01-25] MEDS: LISINOPRIL 10 MG TAB PO SCH ×2 (10:06→17:02)
[2018-01-25] MEDS: POTASSIUM CHLORIDE 20 MEQ TAB CR PO SCH ×2 (10:06→17:02)
[2018-01-25] MEDS: INSULIN LISPRO 100 UNIT/1 ML 3ML VIAL SQ SCH ×3 (12:28→21:21)
[2018-01-25] MEDS: ALBUTEROL/IPRATROPIUM 3 ML NEB NEB SCH ×2 (13:00→19:00)
--- NOTE | 2018-01-25 13:05 | NUR ---
PATIENT C/O BEING COLD, REQUESTING TO LEAVE AGAINST MEDICAL ADVICE, EDUCATED PATIENT ON THE RISKS OF LEAVING AGAINST MEDICAL ADVICE, VERBALIZED UNDERSTANDING. A&Ox4. BAIRHUGGER WARMING BLANKET AND ADDITIONAL BLANKETS APPLIED TO PATIENT, TOLERATING WELL. INSTRUCTED PATIENT TO NOTIFY NURSE FOR ANY CONCERNS,VERBALIZED UNDERSTANDING. NO SIGNS OF ACUTE DISTRESS NOTED AT THIS TIME.
--- NOTE | 2018-01-25 13:20 | NUR ---
patient call light on, requesting to go home that she does not want to stay another night in the hospital. paged Dr. John to inform of patient wanting to leave AMA.
--- NOTE | 2018-01-25 13:47 | NUR ---
spoke with weekend liquefaction supervisor (Sally)at [facility]. was informed that per administration, they could not accept the patient back if she signed out AMA from the hospital. was further informed that after patient has been appropriately discharged from the hospital she can return to the rehab facility. boarding house manager informed. still pending return call from admitting .
[2018-01-25] MEDS: HYDROCODONE/APAP 10MG-325MG TAB PO PRN ×2 (15:10→21:31)
[2018-01-25] MEDS: NICOTINE 21 MG/EA PATCH TOP SCH (15:10)
[2018-01-25 19:30] LABS: CREATINE KINASE MB 1.8 ng/mL (0-5.0)
[2018-01-25] MEDS ORDERED: TEMAZEPAM 15 MG CAP PO SCH (21:00)
[2018-01-25] MEDS ORDERED: ATORVASTATIN 40 MG TAB PO SCH (21:00)
[2018-01-25] MEDS: LORAZEPAM 0.5 MG TAB PO PRN (21:31)
[2018-01-26] MEDS: ALBUTEROL/IPRATROPIUM 3 ML NEB NEB SCH ×3 (00:25→19:00)
[2018-01-26] MEDS: HYDROCODONE/APAP 10MG-325MG TAB PO PRN ×2 (03:05→07:49)
[2018-01-26] MEDS: LORAZEPAM 0.5 MG TAB PO PRN ×2 (03:05→14:13)
[2018-01-26] MEDS ORDERED: CEFTRIAXONE SOD 1 GM/NS 50 ML 50 ML IV SCH ×2 (03:30→14:00)
[2018-01-26] MEDS ORDERED: AZITHROMYCIN 500MG/NS 250 ML 250 ML IV SCH (04:00)
[2018-01-26 06:04] LABS: BASOPHILS % 0.6 % (0.0-1.0); EOSINOPHILS # (AUTO) 0.4 (0.0-0.4); EOSINOPHILS % 5.5 % (0.0-6.0); HEMOGLOBIN 9.2 g/dL (12.0-16.0); LYMPHOCYTES # (AUTO) 0.7 (1.0-3.2); MEAN CORPUSCULAR HEMOGLOBIN 28.4 pg (28-32); MEAN CORPUSCULAR HGB CONC 31.7 g/dL (31-35); MEAN CORPUSCULAR VOLUME 89.5 fL (81-99); MONOCYTES # (AUTO) 0.8 (0.2-0.8); MONOCYTES % 12.5 % (4.4-11.3); NEUTROPHILS # (AUTO) 4.7 (2.1-6.9); NEUTROPHILS % 69.4 % (38.7-80.0); PLATELET COUNT 207 x10e3/uL (140-360); RED BLOOD COUNT 3.24 x10e6/uL (3.6-5.1); RED CELL DISTRIBUTION WIDTH 17.3 % (11.7-14.4)
[2018-01-26 06:12] LABS: MAGNESIUM 2.1 MG/DL (1.3-2.1)
[2018-01-26] MEDS: LEVOTHYROXINE SODIUM 125 MCG TAB PO SCH (06:12)
[2018-01-26 06:21] LABS: ALBUMIN 2.9 g/dL (3.5-5.0); ANION GAP 12.9 mmol/L (8-16); CALCIUM 8.6 mg/dL (8.4-10.2); CREATININE, SERUM 0.93 mg/dL (0.57-1.11); POTASSIUM 3.9 mmol/L (3.5-5.1)
[2018-01-26 06:36] LABS: FREE T4 (FREE THYROXINE) 0.99 ng/dL (0.9-1.8); THYROID STIMULATING HORMONE 9.556 uIU/mL (0.350-4.940)
[2018-01-26 07:00] LABS: FERRITIN 33.17 ng/mL (4.63-204.00)
--- NOTE | 2018-01-26 07:00 | NUR ---
received report from off going nurse. patient in room in hospital bed. no s/s of acute distress. resp even and nonlabored. pending room assignment, will continue to monitor.
[2018-01-26 07:13] LABS: FOLATE 8.1 ng/mL (7.0-15.4)
[2018-01-26] MEDS ORDERED: PANTOPRAZOLE SOD 40 MG TABEC PO SCH (07:30)
[2018-01-26] MEDS: INSULIN DETEMIR 100 UNIT/ML PEN SQ SCH (08:18)
[2018-01-26] MEDS: INSULIN LISPRO 100 UNIT/1 ML 3ML VIAL SQ SCH ×2 (08:18→11:54)
--- NOTE | 2018-01-26 09:15 | NUR ---
ST at bedside, reports she would like for patient to have MBS test.
[2018-01-26] MEDS: FUROSEMIDE INJ 10 MG/ML 4 ML VIAL IV SCH (09:39)
[2018-01-26] MEDS: CARBIDOPA/LEVODOPA 25/100 TAB PO SCH (09:39)
[2018-01-26] MEDS: ASPIRIN 81 MG CHEW TAB PO SCH (09:39)
[2018-01-26] MEDS: CARVEDILOL 3.125 MG TAB PO SCH (09:39)
[2018-01-26] MEDS: ESCITALOPRAM OXALATE 10 MG TAB PO SCH (09:40)
[2018-01-26] MEDS: DOCUSATE SODIUM 100 MG CAP PO SCH (09:40)
[2018-01-26] MEDS: PREDNISONE 5 MG TAB PO SCH (09:40)
[2018-01-26] MEDS: LISINOPRIL 10 MG TAB PO SCH (09:41)
[2018-01-26] MEDS: POTASSIUM CHLORIDE 20 MEQ TAB CR PO SCH (09:41)
[2018-01-26] MEDS: GUAIFENESIN 600MG/DEXTROMETHORPHAN 30MG TABSR PO SCH (09:41)
[2018-01-26] MEDS: NICOTINE 21 MG/EA PATCH TOP SCH (09:56)
[2018-01-26] MEDS ORDERED: Insulin Lispro SQ (12:14)
[2018-01-26] MEDS ORDERED: LEXAPRO10 MG PO (12:14)
[2018-01-26] MEDS ORDERED: KLOR-CON M2020 MEQ PO (12:14)
[2018-01-26] MEDS ORDERED: FUROSEMIDE10 MG/1 M1 IV (12:14)
[2018-01-26] MEDS ORDERED: CARBIDOPA-LEVO1 EAC1 PO (12:14)
[2018-01-26] MEDS ORDERED: RESTORIL15 MG PO (12:14)
[2018-01-26] MEDS ORDERED: Insulin Detemir SQ (12:14)
[2018-01-26] MEDS ORDERED: CATAPRES0.1 MG PO (12:14)
[2018-01-26] MEDS ORDERED: COREG3.125 MG PO (12:14)
[2018-01-26] MEDS ORDERED: ASPIRIN CHEW81 MG PO (12:14)
[2018-01-26] MEDS ORDERED: NICODERM CQ1 EAC2 TOP (12:14)
[2018-01-26] MEDS ORDERED: Atorvastatin PO (12:14)
[2018-01-26] MEDS ORDERED: COLACE100 M1 PO (12:14)
[2018-01-26] MEDS ORDERED: PREDNISONE5 MG PO (12:14)
[2018-01-26] MEDS ORDERED: SYNTHROID125 MCG PO (12:14)
[2018-01-26] MEDS ORDERED: Albuterol/Ipratropium Nebulize NEB ×2 (12:14)
[2018-01-26] MEDS ORDERED: MUCINEX DM ER1 EACH PO (12:14)
[2018-01-26] MEDS ORDERED: ONDANSETRON4 MG/2 M1 IV (12:14)
[2018-01-26] MEDS ORDERED: Hydrocodone/Apap 10MG-325MG PO (12:14)
[2018-01-26] MEDS ORDERED: ATIVAN0.5 MG PO (12:14)
[2018-01-26] MEDS ORDERED: LISINOPRIL10 MG PO (12:14)
[2018-01-26] MEDS ORDERED: PROTONIX40 MG/ML PO (12:14)
[2018-01-26] MEDS ORDERED: Sodium Chloride Flush INJ (12:14)
[2018-01-26] MEDS ORDERED: DEXTROSE 50%-WA50 M1 IV (12:14)
[2018-01-26] MEDS ORDERED: ACETAMINOPHEN325 M1 PO (12:14)
[2018-01-26] MEDS ORDERED: SODIUM FERRIC GLUCONATE COMPLX 125 MG in SODIUM CHLORIDE 0.9% 100 ML 100 ML IV SCH (12:45)
--- NOTE | 2018-01-26 14:33 | NUR ---
report called to receiving facility.
--- NOTE | 2018-01-26 14:34 | NUR ---
called [facility], for transport
--- NOTE | 2018-01-26 14:35 | Discharge Summary ---
ADMITTING DIAGNOSES: Include 1. Anemia requiring blood transfusions. 2. Elevated troponin. 3. Pneumonia. 4. Acute kidney injury. 5. Nfjez-yl-zuksuqa combined systolic and diastolic congestive heart failure. 6. Parkinson's disease. 7. Ambulatory dysfunction. DISCHARGE DIAGNOSES: Include 1. Anemia requiring blood transfusions. 2. Elevated troponin. 3. Pneumonia. 4. Acute kidney injury. 5. Hnfdk-un-mlhlayi combined systolic and diastolic congestive heart failure. 6. Parkinson's disease. 7. Ambulatory dysfunction. PERTINENT HISTORY AND PHYSICAL FINDINGS: Mrs. Mckeon is a 77-year-old female admitted from [facility] for anemia. On admission her hemoglobin was 5.3. She denied any nausea, vomiting, abdominal pain, bright red blood per rectum or black stools. She states that she has a history of anemia requiring blood transfusions. Most of her history is pulled from the records as the patient has altered mental status. Her past medical history includes Parkinson's disease, coronary artery disease, rheumatoid arthritis, hypertension, hypothyroidism, gastroesophageal reflux disease, type 2 diabetes mellitus, right hip fracture, chronic systolic and diastolic congestive heart failure, anemia. She has a history of smoking tobacco 1 to 1-1/2 pack per day. She had a right hip fracture repair on January 06, 2018. Patient has been given 3 units of blood, and hemoglobin has improved to 9.2 today, yesterday was 8. Consulting physicians include Dr. Goldstein with hematology and Dr. De La Torre with cardiology. Patient came into the emergency department on January 24, not the . On admission, BUN 42, creatinine 0.94, GFR 58, alkaline phosphatase 152, creatine kinase 24, CK-MB 1.8, troponin I 0.587, total protein 5.5, albumin 2.7, B-type natriuretic peptide 381. Yesterday magnesium level 1.7, creatine kinase 28, CK-MB 2.0, troponin I 0.566. At 1830 yesterday creatine kinase 29, CK-MB 1.8, troponin I 0.379. Yesterday BUN 37, creatinine 0.93, GFR 59. Today thyroid-stimulating hormone 9.556, free T4 0.99. No growth from blood cultures ever collected on January 25. Patient had a chest x-ray January 24 which showed right basilar air-space opacity which may represent pneumonia or aspiration in the appropriate clinical setting. Patient had a bedside swallow evaluation, and it is recommended by the speech therapist that she have a modified barium swallow. However, the patient refused this. She had a CT of the chest without contrast on January 25 which right lower lobe opacity which may represent pneumonia or aspiration. No current cough. The patient does have some pain in the right hip; however, it is not severe. Currently no complaints of nausea, vomiting, diarrhea or constipation. Today iron level 10, total iron-binding capacity 328, percent iron saturation 3, transferrin 234, ferritin 33.17, hemoglobin A1c 5.2%, total protein 5.7, albumin 2.9. PHYSICAL EXAMINATION VITAL SIGNS: Blood pressure 143/63, oxygen saturation 98%, respiratory rate 18, temperature 97.9, heart rate 67. HEENT: Atraumatic. Pupils equal, round, reactive to light. Extraocular eye movements intact. Mucous membranes moist. NECK: Supple. No lymphadenopathy or thyromegaly. CHEST: Clear to auscultation. Normal symmetry and expansion. Respirations even and unlabored. CARDIAC: Regular rate and rhythm. No murmur appreciated. ABDOMEN: Bowel sounds positive. Soft, nontender. EXTREMITIES: Without pitting edema. No clubbing, cyanosis. Normal muscle tone. Decreased active range of motion in right lower extremity. SKIN: Warm and dry. NEUROLOGICAL: Cranial nerves generally intact. Motor exam nonfocal. PSYCHIATRIC: Confused. Oriented to person and place. Can be quickly argumentative. Does not want to go back to [facility] facility, is wanting to go home but has abnormal judgment and insight. Case discussed with Dr. John. No DME required. Patient will return to [facility] facility on an ADA diet, continuing her medications, activity level as tolerated. Patient to follow up with HOLDEN Bryan with Dr. John, at the [facility]. Dictated by: Sridhar Mcclelland NP SAM JOHN MD Job#: [id number] EV
[2018-01-27] MEDS: ALBUTEROL/IPRATROPIUM 3 ML NEB NEB SCH ×2 (01:00→07:00)
== END 2018-01-26 15:15 | DRG 811 ==
LOC: ER 22:03 → ERHOLD 01-25 02:16
PROVIDERS: ADMIT Internal Medicine; ATTEND Internal Medicine
PROC: 30233N1 Transfusion of Nonautologous Red Blood Cells into Peripheral Vein, Percutaneous Approach (ICD-10-PCS; principal; 2018-01-25)
DX: D62 Acute posthemorrhagic anemia (principal); J18.9 Pneumonia, unspecified organism; I50.43 Acute on chronic combined systolic (congestive) and diastolic (congestive) heart failure; N17.9 Acute kidney failure, unspecified; I11.0 Hypertensive heart disease with heart failure; E03.9 Hypothyroidism, unspecified; I10 Essential (primary) hypertension; E11.9 Type 2 diabetes mellitus without complications; G20 Parkinson's disease; R26.89 Other abnormalities of gait and mobility; K21.9 Gastro-esophageal reflux disease without esophagitis; M06.9 Rheumatoid arthritis, unspecified
CPT/HCPCS: 36415; 51700; 71045; 71250; 80048; 80053; 82550; 82553; 82607; 82728; 82746; 82948; 83036; 83540; 83735; 83880; 84439; 84443; 84466; 84484; 85025; 85610; 85730; 86850; 86900; 86920; 87040; 93005; 94640; 99285; J0456; J0696; J1642; J1940; J2916; J7030; J7050; J7512; J7799; P9016

== ENCOUNTER 2018-03-26 17:26 | Observation (INO) | payer MEDICARE ==
[~2018-03-26] VITALS: Ht 167.6 cm; Wt 62.8 kg
[~2018-03-26 17:26] MED LIST changes: +ACETAMINOP325 MG/10 PO; +ACETAMINOPHEN325 M1 PO; +ASCORBIC ACID500 MG PO; +ASPIRIN CHEW81 MG PO; +ATIVAN0.5 MG PO; +Albuterol/Ipratropium Nebulize NEB; +Atorvastatin PO; +CARVEDILOL3.125 MG PO; +CATAPRES0.1 MG PO; +CLONIDINE HCL0.1 MG PO; +COLACE100 M1 PO; +COREG3.125 MG PO; +DEXTROSE 50%-WA50 M1 IV; +DOCUSATE SODIU100 MG PO; +ENULOSE10 GM/15 M PO; +FUROSEMIDE10 MG/1 M1 IV; +Hydrocodone/Apap 10MG-325MG PO; +Insulin Detemir SQ; +Insulin Lispro SQ; +KLOR-CON M2020 MEQ PO; +LEXAPRO10 MG PO; +LISINOPRIL10 MG PO; +LISINOPRIL40 MG PO; +MAGNESIUM OXID400 MG PO; +MILK OF MA400 MG/5 M PO; +MUCINEX DM ER1 EACH PO; +NICODERM CQ1 EAC2 TOP; +NICOTINE PATCH1 EAC1 TD; +NORCO 10-325 T1 EACH PO; +ONDANSETRON ODT8 MG PO; +ONDANSETRON4 MG/2 M1 IV; +OYSTER SHELL C1 EA12 PO; +POLYETHYLENE GL17 GM PO; +PROTONIX40 MG/ML PO; +RESTORIL15 MG PO; +SYNTHROID125 MCG PO; +Sodium Chloride Flush INJ; +TEMAZEPAM15 MG PO; +XARELTO10 MG PO; +ZINC SULFATE220 M1 PO
[2018-03-26] MEDS ORDERED: SODIUM CHLORIDE 0.9% 1000ML 1,000 ML IV STA (17:50)
--- NOTE | 2018-03-26 18:26 | Diagnostic Imaging Report ---
Examination: Single AP view of the chest. COMPARISON: January 24, 2018 INDICATION: Blood transfusion DISCUSSION: Lines/tubes: Right chest port with tip overlying the SVC. Right IJ catheter tip overlying the SVC. Lungs: The lungs are well inflated and clear. No pneumonia or pulmonary edema. Pleura: There is no pleural effusion or pneumothorax. Heart and mediastinum: Heart mildly enlarged. Bones and soft tissues: No acute bony abnormalities. IMPRESSION: 1. No acute cardiopulmonary abnormalities. Signed by: Dr. Tone Evans M.D. on 03/26/2018 6:23 PM
[2018-03-26 18:49] LABS: BASOPHILS % 0.3 % (0.0-1.0); EOSINOPHILS # (AUTO) 0.1 (0.0-0.4); EOSINOPHILS % 1.5 % (0.0-6.0); HEMATOCRIT 24.2 % (34.2-44.1); LYMPHOCYTES # (AUTO) 0.7 (1.0-3.2); LYMPHOCYTES % 7.4 % (18.0-39.1); MEAN CORPUSCULAR HGB CONC 28.5 g/dL (31-35); MEAN CORPUSCULAR VOLUME 80.7 fL (81-99); MONOCYTES # (AUTO) 0.9 (0.2-0.8); MONOCYTES % 10.1 % (4.4-11.3); NEUTROPHILS % 79.4 % (38.7-80.0); PLATELET COUNT 240 x10e3/uL (140-360); RED CELL DISTRIBUTION WIDTH 18.9 % (11.7-14.4)
[2018-03-26 18:54] LABS: HEMOGLOBIN 6.9 g/dL (12.0-16.0)
[2018-03-26 18:57] LABS: BILIRUBIN,URINE NEGATIVE (NEGATIVE); CLARITY,URINE CLEAR (CLEAR); COLOR,URINE YELLOW (YELLOW); KETONES,URINE TRACE (NEGATIVE); LEUKOCYTE ESTERASE ,URINE NEGATIVE (NEGATIVE); NITRITE,URINE NEGATIVE (NEGATIVE); PROTEIN,URINE DIPSTICK NEGATIVE (NEGATIVE); URINE UROBILINOGEN 0.2 mg/dL (0.2 - 1)
[2018-03-26 18:58] LABS: INR 0.88; PROTHROMBIN TIME 12.8 seconds (11.9-14.5)
[2018-03-26 18:59] LABS: PARTIAL THROMBOPLASTIN TIME 29.3 seconds (23.8-35.5)
[2018-03-26] MEDS ORDERED: SODIUM CHLORIDE 0.9% 250ML 250 ML IV ONE (19:00)
[2018-03-26] MEDS ORDERED: ONDANSETRON HCL INJ 2MG/ML 2ML 2 MG/ML VIAL IV PRN (19:00)
[2018-03-26] MEDS ORDERED: SODIUM CHLORIDE FLUSH 10 ML SYR INJ PRN (19:00)
[2018-03-26 19:05] LABS: EPITHELIAL CELLS,URINE MANY /LPF
--- NOTE | 2018-03-26 19:05 | NUR ---
BEDSIDE REPORT GIVEN TO DES SOMERS DOUGH PANNER NURSE.
[2018-03-26 19:10] LABS: ALBUMIN 3.3 g/dL (3.5-5.0); ALBUMIN/GLOBULIN RATIO 1.3 (0.8-2.0); ALKALINE PHOSPHATASE 71 IU/L (40-150); ANION GAP 14.2 mmol/L (8-16); BLOOD UREA NITROGEN 31 mg/dL (7-26); BUN/CREATININE RATIO 23 (6-25); CALCIUM 8.2 mg/dL (8.4-10.2); CARBON DIOXIDE 24 mmol/L (22-29); CHLORIDE 102 mmol/L (98-107); CREATININE, SERUM 1.34 mg/dL (0.57-1.11); EST GLOMERULAR FILTRATION RATE 38 ML/MIN (60-); GLUCOSE 157 mg/dL (74-118); POTASSIUM 4.2 mmol/L (3.5-5.1); SODIUM 136 mmol/L (136-145)
[2018-03-26 19:11] LABS: ALANINE AMINOTRANSFERASE < 6 IU/L (0-55)
[2018-03-26 19:28] LABS: CREATINE KINASE MB 2.6 ng/mL (0-5.0)
--- NOTE | 2018-03-26 20:00 | NUR ---
IVF DECREASED TO 75CC/HR PER ORDERS.
[2018-03-26] MEDS ORDERED: SINEMET 25-1001 EACH PO (20:01)
[2018-03-26] MEDS ORDERED: LISINOPRIL20 MG PO (20:04)
[2018-03-26] MEDS ORDERED: ATORVASTATIN CA20 MG PO (20:05)
[2018-03-26] MEDS ORDERED: FUROSEMIDE40 MG PO (20:05)
[2018-03-26] MEDS ORDERED: LANTUS 3ML100 UNITS/ SQ (20:07)
[2018-03-26] MEDS ORDERED: NOVOLOG100 UNIT/1 SQ (20:14)
[2018-03-26] MEDS: SODIUM CHLORIDE 0.9% 1000ML 1,000 ML IV SCH ×2 (20:16→20:45)
[2018-03-26 20:50] VITALS: BP 156/71
[2018-03-26 21:04] VITALS: BP 156/71
[2018-03-26 21:09] VITALS: BP 156/71
[2018-03-26 21:10] VITALS: BP 156/71
[2018-03-27 00:20] VITALS: BP 140/73
[2018-03-27 05:40] VITALS: BP 171/80
[2018-03-27 07:23] LABS: BASOPHILS % 0.4 % (0.0-1.0); EOSINOPHILS % 0.2 % (0.0-6.0); HEMATOCRIT 29.7 % (34.2-44.1); HEMOGLOBIN 8.9 g/dL (12.0-16.0); LYMPHOCYTES # (AUTO) 0.8 (1.0-3.2); LYMPHOCYTES % 8.6 % (18.0-39.1); MEAN CORPUSCULAR HEMOGLOBIN 24.3 pg (28-32); MEAN CORPUSCULAR VOLUME 80.9 fL (81-99); MONOCYTES % 10.9 % (4.4-11.3); NEUTROPHILS # (AUTO) 7.4 (2.1-6.9); NEUTROPHILS % 77.9 % (38.7-80.0); PLATELET COUNT 190 x10e3/uL (140-360); RED BLOOD COUNT 3.67 x10e6/uL (3.6-5.1); RED CELL DISTRIBUTION WIDTH 17.6 % (11.7-14.4)
[2018-03-27] MEDS ORDERED: HYDROCODONE/APAP 10MG-325MG TAB PO PRN (07:30)
[2018-03-27 07:54] VITALS: BP 196/85
[2018-03-27 07:56] VITALS: BP 196/85
--- NOTE | 2018-03-27 08:31 | NUR ---
Dr Cardona office notified of patients intention to leave AMA. formed signed. port a cath discontinued and packed with 3cc/100u per mil heparin. all personal belongings gathered by patient.
[2018-03-27] MEDS ORDERED: HEPARIN 500 UNITS/5ML MDV INJ ONE (09:00)
--- NOTE | 2018-03-27 09:02 | NUR ---
Patient Discharge Status Code Form filed in front of chart PT GOING HOME NO NEEDS. PER LIVES AT HOME AND DOESNT NEED ANYTHING, STATES GOT BLOOD NOW LEAVING AMA.
--- NOTE | 2018-03-27 10:34 | Discharge Summary ---
ADMITTING DIAGNOSES 1. Anemia. 2. Parkinson disease. 3. Ambulatory dysfunction. 4. Hyperlipidemia. 5. Hypertension. 6. Diabetes. 7. Hypothyroidism. 8. Anxiety. 9. Gastroesophageal reflux disease. DISCHARGE DIAGNOSES 1. Anemia. 2. Parkinson disease. 3. Ambulatory dysfunction. 4. Hyperlipidemia. 5. Hypertension. 6. Diabetes. 7. Hypothyroidism. 8. Anxiety. 9. Gastroesophageal reflux disease. HOSPITAL COURSE: This 78-year-old female was admitted to the ER for low H and H. On admission, her hemoglobin was 6.9. The ER doctor ordered 2 PRBCs to be given, which brought her hemoglobin up to 8.9. According to the ER report, the patient denies loss of appetite, weight loss, headache, visual disturbances, muscle aches, weakness, sleeping problems, decreased urine output. She admits to fatigue. She has a history of blood transfusions in the past. The patient apparently had blood work done at her PCP's office on Friday prior to admission, which was found to be low, and she was sent to the ER for the transfusion. The patient was adamant about going AMA after the transfusion. She did not wait to be seen or be admitted, so the patient discharged against medical advice on 03/27/2018. Vital signs were stable. The patient is afebrile. She will resume her home medicines and follow up with primary care in 1 to 2 weeks. Dictated by: Kate Prajapati NP SAM CAI MD Job#: [id number]
== END 2018-03-27 08:30 | disposition left against medical advice (07) ==
LOC: ER 17:26 → ERHOLD 19:26 → INTOOBSV 19:26 → IMCU 20:45
PROVIDERS: ADMIT Internal Medicine; ATTEND Internal Medicine
DX: D64.9 Anemia, unspecified (principal); G20 Parkinson's disease; E78.5 Hyperlipidemia, unspecified; I10 Essential (primary) hypertension; E11.9 Type 2 diabetes mellitus without complications; E03.9 Hypothyroidism, unspecified; F41.9 Anxiety disorder, unspecified; K21.9 Gastro-esophageal reflux disease without esophagitis; Z79.4 Long term (current) use of insulin
CPT/HCPCS: 36415 ×2; 36430; 71045; 80053; 81001; 82550; 82553; 82948 ×2; 83880; 84484; 85025 ×2; 85610; 85730; 86850; 86900; 86920; 87086; 99284; G0378 ×2; J7030; J7050; P9016 ×2

== ENCOUNTER 2018-07-14 08:50 | Emergency (ER) | payer MEDICARE ==
[~2018-07-14] VITALS: Ht 167.6 cm; Wt 62.6 kg
[~2018-07-14 08:50] MED LIST changes: +ATORVASTATIN CA20 MG PO; +LISINOPRIL20 MG PO; +SINEMET 25-1001 EACH PO
--- OUTSIDE RECORDS SUMMARY | 2018-07-14 08:54 | XMS REPORT | Continuity of Care Document ---
Author Author [facility] Interface Address Unknown Phone Unavailable Problems Problem Status Onset Date Classification Date Reported Comments Source Anemia Active 03/07/2014 Problem 03/27/2018 [facility] Dyspnea Active 03/07/2014 Problem 03/27/2018 [facility] Weakness Active 03/07/2014 Problem 03/27/2018 [facility] GI bleed Active Problem 03/27/2018 [facility] Congestive heart failure Active Problem 03/27/2018 [facility] Elevated troponin Active Problem 03/27/2018 [facility] Hip avulsion fracture Active Problem 03/27/2018 [facility] Hip fracture, right Active Problem 03/27/2018 [facility] Pneumonia Active Problem 03/27/2018 [facility] Symptomatic anemia Active Problem 03/27/2018 [facility] Medications Medication Details Route Status Patient Instructions Ordering Provider Order Date Source Lactulose (Enulose) 10 Gm/15 Ml Solution, 30 Ml Oral Twice A Day as needed for Constipation Active 03/26/2018 [facility] Magnesium Oxide 400 Mg Tablet, 400 Mg Oral Twice A Day as needed for Constipation Active 03/26/2018 [facility] Ondansetron (Ondansetron Odt) 8 Mg Tab.rapdis, 4 Mg Oral Every 6 Hours as needed for Nausea And Vomiting Active 03/26/2018 [facility] Polyethylene Glycol 3350 17 Gm Powd.pack, 1 Pkt Oral Daily Active 03/26/2018 [facility] Potassium Chloride 20 Meq Tab.er.prt, 20 Mg Oral Daily Active 03/26/2018 [facility] Rivaroxaban (Xarelto) 10 Mg Tablet, 10 Mg Oral Daily Active 03/26/2018 [facility] Zinc Sulfate 220 Mg Capsule, 220 Mg Oral Twice A Day Active 03/26/2018 [facility] Acetaminophen 325 Mg Tablet Every 4 Hours as needed for Pain And Temperature Active [place] 01/26/2018 [facility] Aspirin (Aspirin Chew) 81 Mg Chew Daily Active [place] 01/26/2018 [facility] Carvedilol (Coreg) 3.125 Mg Tab Twice A Day Active [place] 01/26/2018 [facility] Escitalopram Oxalate (Lexapro) 10 Mg Tablet Daily Active [place] 01/26/2018 [facility] Hydrocodone/Apap 10MG-325MG 1 Ea Tab Every 4 Hours as needed for Pain Active [place] 01/26/2018 [facility] Levothyroxine Sodium (Synthroid) 125 Mcg Tab Daily@0600 Active [place] 01/26/2018 [facility] Lorazepam (Ativan*) 0.5 Mg Tablet Every 4 Hours as needed for Anxiety Active [place] 01/26/2018 [facility] Prednisone 5 Mg Tablet Daily Active [place] 01/26/2018 [facility] Acetaminophen 325 Mg/10 Ml Elix, 650 Mg Oral Every 6 Hours as needed for Pain And Temperature Active 01/26/2018 [facility] Albuterol/Ipratropium Nebulize 3 Ml Inha, 3 Ml Nebullizer Rt Q6h Active [place] 01/26/2018 [facility] Atorvastatin 40 Mg Tab, 40 Mg Oral Bedtime Active [place] 01/26/2018 [facility] Atorvastatin Calcium 40 Mg Tablet, 40 Mg Oral Daily Active 01/26/2018 [facility] Carbidopa/Levodopa (Carbidopa-Levodopa 25-100 Tab) 1 Each Tablet, 1 Ea Oral Daily Active [place] 01/26/2018 [facility] Carbidopa/Levodopa (Carbidopa-Levodopa 25-100 Tab) 1 Each Tablet, 1 Tab Oral Daily Active 01/26/2018 [facility] Carvedilol 3.125 Mg Tablet, 3.125 Mg Oral Twice A Day Active 01/26/2018 [facility] Clonidine Hcl (Catapres) 0.1 Mg Tablet, 0.1 Mg Oral Every 8 Hours as needed for High Blood Pressure Active [place] 01/26/2018 [facility] Clonidine Hcl 0.1 Mg Tablet, 1 Tab Oral Every 8 Hours as needed for High Blood Pressure Active 01/26/2018 [facility] Dextrose (Dextrose 50%-Water Syringe) 50 Ml Inj, 50 Ml Intraven As Needed as needed for Blood Sugar Active [place] 01/26/2018 [facility] Docusate Sodium (Colace) 100 Mg Capsule, 100 Mg Oral Twice A Day Active [place] 01/26/2018 [facility] Docusate Sodium 100 Mg Capsule, 100 Mg Oral Twice A Day Active 01/26/2018 [facility] Escitalopram Oxalate 10 Mg Tablet, 5 Mg Oral Daily Active 01/26/2018 [facility] Furosemide 10 Mg/1 Ml Vial, 40 Mg Intraven Every 12 Hours Active [place] 01/26/2018 [facility] Furosemide 40 Mg Tablet, 40 Mg Oral Daily Active 01/26/2018 [facility] Guaifenesin/Dextromethorphan (Mucinex Dm Er 600-30 Mg Tablet) 1 Each Tab.er.12h, 1 Each Oral Every 12 Hours Active [place] 01/26/2018 [facility] Hydrocodone Bit/Acetaminophen ([place] 10-325 Tablet) 1 Each Tablet, 1 Tab Oral Every 4 Hours as needed for Pain Active 01/26/2018 [facility] Insulin Aspart (Novolog) 100 Unit/1 Ml Cartridge, 0 Sub-Q Daily Active 01/26/2018 [facility] Insulin Detemir 100 Unit/Ml Pen, 20 Unit Sub-Q Every 12 Hours Active [place] 01/26/2018 [facility] Insulin Glargine (Lantus 3ML Pen) 100 Units/1 Ml Inj, 20 Units Sub-Q Every 12 Hours Active 01/26/2018 [facility] Insulin Lispro 100 Unit/1 Ml Vial, 0 Unit Sub-Q Before Meals And At Bedtime Active [place] 01/26/2018 [facility] Levothyroxine Sodium 125 Mcg Tablet, 125 Mcg Oral Daily Active 01/26/2018 [facility] Lisinopril 10 Mg Tablet, 10 Mg Oral Twice A Day Active [place] 01/26/2018 [facility] Lisinopril 40 Mg Tablet, 10 Mg Oral Twice A Day Active 01/26/2018 [facility] Nicotine (Nicoderm Cq) 1 Each Patch.td24, 21 Mg Topically Daily Active [place] 01/26/2018 [facility] Nicotine (Nicotine Patch) 1 Each Patch.td24, 21 Mg Transderm Daily Active 01/26/2018 [facility] Ondansetron Hcl/Pf (Ondansetron Hcl 4 Mg/2 Ml Vial) 4 Mg/2 Ml Vial, 4 Mg Intraven Every 6 Hours as needed for Nausea And Vomiting Active [place] 01/26/2018 [facility] Pantoprazole Sod (Protonix) 40 Mg/Ml Susp, 40 Mg Oral Before Breakfast Active [place] 01/26/2018 [facility] Potassium Chloride (Klor-Con M20) 20 Meq Tabcr, 20 Meq Oral Twice A Day Active [place] 01/26/2018 [facility] Prednisone 5 Mg Tablet, 5 Mg Oral Daily Active 01/26/2018 [facility] Sodium Chloride Flush 10 Ml Soln, 10 Ml Injection As Needed as needed for Iv Site Flush Active [place] 01/26/2018 [facility] Temazepam (Restoril) 15 Mg Capsule, 15 Mg Oral Bedtime Active [place] 01/26/2018 [facility] Temazepam 15 Mg Capsule, 15 Mg Oral Daily Active 01/26/2018 [facility] Alprazolam 1 Mg Tablet, Daily Active 12/17/2017 [facility] Amitriptyline Hcl 10 Mg Tablet, Daily Active 12/17/2017 [facility] Atorvastatin Calcium (Lipitor*) 10 Mg Tablet, 40 Mg Oral Daily Active 12/17/2017 [facility] Calcium Carbonate/Vitamin D3 (Caltrate 600 + D Chewable Tab) 1 Each Tab.chew, Daily Active 12/17/2017 [facility] Carbidopa/Levodopa (Carbidopa-Levodopa 10-100 Tab) 1 Each Tablet, 1 Each Oral Active 12/17/2017 [facility] Furosemide 40 Mg Tablet, 40 Mg Oral Daily Active 12/17/2017 [facility] Glipizide (Glipizide Xl) 10 Mg Tab.osm.24, Daily Active 12/17/2017 [facility] Insulin Glargine,Hum.rec.anlog (Lantus) 100 Unit/1 Ml Vial, 10 U Qhs Active 12/17/2017 [facility] Insuln Asp Prt/Insulin Aspart (Novolog Mix 70-30 Flexpen Syrn) 100 Unit/1 Ml Insuln.pen, Active 12/17/2017 [facility] Levothyroxine Sodium (Levothroid) 112 Mcg Tablet, Daily Active 12/17/2017 [facility] Lisinopril 40 Mg Tablet, Daily Active 12/17/2017 [facility] Lorazepam 1 Mg Tablet, 1 Mg Oral Daily Active 12/17/2017 [facility] Metformin Hcl (Fortamet) 500 Mg Tab.osm.24, Daily Active 12/17/2017 [facility] Phenazopyridine Hcl 200 Mg Tablet, Active 12/17/2017 [facility] Prednisone 10 Mg Tab, 10 Mg Oral Active 12/17/2017 [facility] Tamsulosin Hcl 0.4 Mg Cap.er.24h, Active 12/17/2017 [facility] Tramadol Hcl (Ultram 50MG*) 50 Mg Tab, 50 Mg Oral Active 12/17/2017 [facility] Omeprazole (Prilosec) 20 Mg Capsule., Daily Active 04/11/2012 [facility] Simvastatin (Zocor) 20 Mg Tablet, Daily Active 04/11/2012 [facility] Alprazolam 1 Mg Tablet Daily Active [facility] Amitriptyline Hcl 10 Mg Tablet Daily Active [facility] Atorvastatin Calcium (Lipitor*) 10 Mg Tablet Daily Active [facility] Calcium Carbonate/Vitamin D3 (Caltrate 600 + D Chewable Tab) 1 Each Tab.chew Daily Active [facility] Carbidopa/Levodopa (Carbidopa-Levodopa 25-100 Tab) 1 Each Tablet Active [facility] Carbidopa/Levodopa (Carbidopa-Levodopa 10-100 Tab) 1 Each Tablet Active [facility] Furosemide 40 Mg Tablet Daily Active [facility] Glipizide (Glipizide Xl) 10 Mg Tab.osm.24 Daily Active [facility] Insulin Glargine,Hum.rec.anlog (Lantus) 100 Unit/1 Ml Vial Qhs Active [facility] Insuln Asp Prt/Insulin Aspart (Novolog Mix 70-30 Flexpen Syrn) 100 Unit/1 Ml Insuln.pen Active [facility] Levothyroxine Sodium (Levothroid) 112 Mcg Tablet Daily Active [facility] Lisinopril 40 Mg Tablet Daily Active [facility] Lorazepam 1 Mg Tablet Daily Active [facility] Metformin Hcl (Fortamet) 500 Mg Tab.osm.24 Daily Active [facility] Omeprazole 40 Mg Capsule. Active [facility] Phenazopyridine Hcl 200 Mg Tablet Active [facility] Prednisone 10 Mg Tab Active [facility] Tamsulosin Hcl 0.4 Mg Cap.er.24h Active [facility] Tramadol Hcl (Ultram 50MG*) 50 Mg Tab Active [facility] Albuterol Sulfate (Ventolin Hfa) 18 Gm Hfa.aer.ad Active [facility] Allopurinol 100 Mg Tablet Daily Active [facility] Ascorbic Acid 500 Mg Tablet Twice A Day Active [facility] Atorvastatin Calcium 20 Mg Tablet Bedtime Active [facility] Calcium Carbonate/Vitamin D3 (Oyster Shell Calcium + D Tab) 1 Each Tablet Three Times A Day Active [facility] Carbidopa/Levodopa (Sinemet 25-100 Mg Tablet) 1 Each Tablet Twice A Day Active [facility] Ferrous Sulfate 325 Mg Tablet. Daily Active [facility] Furosemide 40 Mg Tablet Daily Active [facility] Insulin Aspart (Novolog) 100 Unit/1 Ml Cartridge Three Times A Day as needed for Blood Sugar Active FOR BLOOD SUGAR GREATER THAN 150 [facility] Insulin Glargine (Lantus 3ML Pen) 100 Units/1 Ml Inj Bedtime Active HOLD IF BLOOD SUGAR LESS THAN 100 [facility] Lisinopril (Prinavil / Zestril) 20 Mg Tablet Daily Active [facility] Magnesium Hydroxide (Milk Of Magnesia) 400 Mg/5 Ml Oral.susp Daily as needed for Constipation Active [facility] Omeprazole 40 Mg Capsule. Daily Active [facility] Potassium Chloride 20 Meq Tab.er.prt Daily Active [facility] Allergies, Adverse Reactions, Alerts Substance Category Reaction Severity Reaction type Status Date Reported Comments Source Morphine RASH,ITCHING Mild Allergy to Substance Active 01/02/2018 [facility] Immunizations Immunization Date Given Site Status Last Updated Comments Source Results Order Name Results Value Reference Range Date Interpretation Comments Source Blood leukocytes automated count (number/volume) 9.52 4.8 - 10.8 03/27/2018 [facility] Blood erythrocytes automated count (number/volume) 3.67 3.6 - 5.1 03/27/2018 [facility] Blood hemoglobin measurement (moles/volume) 8.9 12.0 - 16.0 03/27/2018 [facility] Automated blood hematocrit (volume fraction) 29.7 34.2 - 44.1 03/27/2018 [facility] Automated erythrocyte mean corpuscular volume 80.9 81 - 99 03/27/2018 [facility] Automated erythrocyte mean corpuscular hemoglobin (mass per erythrocyte) 24.3 28 - 32 03/27/2018 [facility] Automated erythrocyte mean corpuscular hemoglobin concentration measurement (mass/volume) 30.0 31 - 35 03/27/2018 [facility] RDW BldCo-Rto 17.6 11.7 - 14.4 03/27/2018 [facility] Automated blood platelet count (count/volume) 190 140 - 360 03/27/2018 [facility] Automated blood segmented neutrophil count as percentage of total leukocytes 77.9 38.7 - 80.0 03/27/2018 [facility] Automated blood lymphocyte count as percentage ot total leukocytes 8.6 18.0 - 39.1 03/27/2018 [facility] Automated blood monocyte count as percentage of total leukocytes 10.9 4.4 - 11.3 03/27/2018 [facility] Automated blood eosinophil count as percentage of total leukocytes 0.2 0.0 - 6.0 03/27/2018 [facility] Automated blood basophil count as percentage of total leukocytes 0.4 0.0 - 1.0 03/27/2018 [facility] IM GRANULOCYTES % 2.0 0.0 - 1.0 03/27/2018 [facility] Automated blood neutrophil count 7.4 2.1 - 6.9 03/27/2018 [facility] Blood lymphocytes count (number/volume) 0.8 1.0 - 3.2 03/27/2018 [facility] Blood monocytes automated count (number/volume) 1.0 0.2 - 0.8 03/27/2018 [facility] Automated blood eosinophil count 0.0 0.0 - 0.4 03/27/2018 [facility] Automated blood basophil count (count/volume) 0.0 0.0 - 0.1 03/27/2018 [facility] Absolute Immature Granulocyte (auto 0.19 0 - 0.1 03/27/2018 [facility] Urine color determination YELLOW YELLOW 03/26/2018 [facility] Urine clarity CLEAR CLEAR 03/26/2018 [facility] Specific gravity of Urine by Test strip 1.015 1.010 - 1.025 03/26/2018 [facility] Urine pH measurement by automated test strip 6 5 - 7 03/26/2018 [facility] Urine leukocyte esterase detection by dipstick NEGATIVE NEGATIVE 03/26/2018 [facility] Urine nitrite detection NEGATIVE NEGATIVE 03/26/2018 [facility] Urine protein measurement by test strip (mass/volume) NEGATIVE NEGATIVE 03/26/2018 [facility] Urine glucose detection NEGATIVE NEGATIVE 03/26/2018 [facility] Urine ketones detection by automated test strip TRACE NEGATIVE 03/26/2018 [facility] Urine urobilinogen measurement by test strip (mass/volume) 0.2 0.2 - 1 03/26/2018 [facility] Urine total bilirubin measurement (mass/volume) NEGATIVE NEGATIVE 03/26/2018 [facility] Urine erythrocytes detection NEGATIVE NEGATIVE 03/26/2018 [facility] Automated urine sediment leukocyte count by microscopy (number/high power field) NONE 0 - 5 03/26/2018 [facility] Erythrocytes detection in urine sediment by light microscopy NONE 0 - 5 03/26/2018 [facility] Bacteria detection in urine sediment by light microscopy NONE NONE 03/26/2018 [facility] Epithelial cells detection in urine sediment by light microscopy MANY NONE 03/26/2018 [facility] Prothrombin time (PT) in platelet poor plasma by coagulation assay 12.8 11.9 - 14.5 03/26/2018 [facility] INR in Platelet poor plasma by Coagulation assay 0.88 03/26/2018 [facility] Activated partial thromboplastin time (aPTT) in platelet poor plasma bycoagulation assay 29.3 23.8 - 35.5 03/26/2018 [facility] Serum or plasma sodium measurement (moles/volume) 136 136 - 145 03/26/2018 [facility] Serum or plasma potassium measurement (moles/volume) 4.2 3.5 - 5.1 03/26/2018 [facility] Serum or plasma chloride measurement (moles/volume) 102 98 - 107 03/26/2018 [facility] Serum or plasma carbon dioxide, total measurement (moles/volume) 24 22 - 29 03/26/2018 [facility] Serum or plasma anion gap 14.2 8 - 16 03/26/2018 [facility] Serum or plasma urea nitrogen measurement (mass/volume) 31 7 - 26 03/26/2018 [facility] Serum or plasma creatinine measurement (mass/volume) 1.34 0.57 - 1.11 03/26/2018 [facility] Serum or plasma urea nitrogen/creatinine mass ratio 23 6 - 25 03/26/2018 [facility] Estimated glomerular filtration rate (GFR) determination 38 60 03/26/2018 [facility] Glucose measurement 157 74 - 118 03/26/2018 [facility] Serum or plasma calcium measurement (mass/volume) 8.2 8.4 - 10.2 03/26/2018 [facility] Serum or plasma total bilirubin measurement (mass/volume) 0.1 0.2 - 1.2 03/26/2018 [facility] Aspartate Amino Transf (AST/SGOT) 9 5 - 34 03/26/2018 [facility] Serum or plasma alanine aminotransferase measurement (enzymatic activity/volume) < 6 0 - 55 03/26/2018 [facility] Serum or plasma protein measurement (mass/volume) 5.9 6.5 - 8.1 03/26/2018 [facility] Serum or plasma albumin measurement (mass/volume) 3.3 3.5 - 5.0 03/26/2018 [facility] Plasma globulin measurement (mass/volume) 2.6 2.3 - 3.5 03/26/2018 [facility] Serum or plasma albumin/globulin mass ratio 1.3 0.8 - 2.0 03/26/2018 [facility] Serum or plasma alkaline phosphatase measurement (enzymatic activity/volume) 71 40 - 150 03/26/2018 [facility] BNP Bld-mCnc 691.1 0 - 100 03/26/2018 [facility] Serum or plasma creatine kinase measurement (enzymatic activity/volume) 55 29 - 168 03/26/2018 [facility] Serum or plasma creatine kinase MB measurement (mass/volume) 2.60 0 - 5.0 03/26/2018 [facility] Troponin I measurement by highly sensitive enzyme immunoassay 0.021 0 - 0.300 03/26/2018 [facility] Capillary blood glucose measurement by glucometer (mass/volume) 191 70 - 120 01/26/2018 [facility] Hemoglobin A1c Percent 5.2 4.0 - 7.0 01/26/2018 [facility] Serum or plasma magnesium measurement (mass/volume) 2.1 1.3 - 2.1 01/26/2018 [facility] Serum or plasma iron measurement (mass/volume) 10 50 - 170 01/26/2018 [facility] Serum or plasma iron binding capacity measurement (mass/volume) 328 261 - 478 01/26/2018 [facility] Serum or plasma iron saturation measurement (mass fraction) 3 15 - 50 01/26/2018 [facility] Serum or plasma transferrin measurement (mass/volume) 234 180 - 382 01/26/2018 [facility] Serum or plasma ferritin measurement (mass/volume) 33.17 4.63 - 204.00 01/26/2018 [facility] Blood cobalamin (vitamin B12) measurement (mass/volume) 341 213 - 816 01/26/2018 [facility] Serum or plasma folate measurement (mass/volume) 8.1 7.0 - 15.4 01/26/2018 [facility] Serum or plasma thyroxine (T4) free measurement (mass/volume) 0.99 0.9 - 1.8 01/26/2018 [facility] Serum or plasma thyrotropin measurement by detection limit <=0.005 miu/l (units/volume) 9.556 0.350 - 4.940 01/26/2018 [facility] Differential Total Cells Counted 100 01/25/2018 [facility] Manual blood neutrophils/100 leukocytes 78 40 - 74 01/25/2018 [facility] Manual blood band neutrophils form/100 leukocytes 1 01/25/2018 [facility] Manual blood lymphocytes/100 leukocytes 9 19 - 48 01/25/2018 [facility] Manual blood monocytes/100 leukocytes 8 3.4 - 9.0 01/25/2018 [facility] Manual blood eosinophil count as percentage of total leukocytes 4 0 - 7 01/25/2018 [facility] Blood nucleated erythrocytes count (number/volume) 1 01/25/2018 [facility] Blood platelets count by estimate (number/volume) ADEQUATE 01/25/2018 [facility] Platelet morphology NORMAL 01/25/2018 [facility] RBC morphology NORMAL 01/25/2018 [facility] Blood culture NO GROWTH AFTER 5 DAYS, FINAL REPORT 01/25/2018 [facility] Stool gastrointestinal hemoglobin detection POSITIVE NEGATIVE 01/09/2018 [facility] Manual basophil percentage 1 0 - 1.5 01/08/2018 [facility] Manual blood metamyelocytes/100 leukocytes 1 0 - 0 01/08/2018 [facility] Blood hypochromia detection by light microscopy SLIGHT 01/08/2018 [facility] Blood anisocytosis detection by light microscopy MODERATE 01/08/2018 [facility] Blood Nunes-Marquez bodies detection by light microscopy FEW 01/08/2018 [facility] Phosphorus measurement 3.0 2.3 - 4.7 01/07/2018 [facility] Ammonia Ser-mCnc 45 31 - 123 12/17/2017 [facility] Serum or plasma lipase measurement (enzymatic activity/volume) 25 8 - 78 09/25/2017 [facility] Activated partial thromboplastin time (aPTT) in platelet poor plasma bycoagulation assay Activated partial thromboplastin time (aPTT) in platelet poor plasma bycoagulation assay 26.4 23.8 - 35.5 09/25/2017 [facility] Automated blood basophil count (count/volume) Automated blood basophil count (count/volume) 0.0 0.0 - 0.1 09/25/2017 [facility] Automated blood basophil count as percentage of total leukocytes Automated blood basophil count as percentage of total leukocytes 0.5 0.0 - 1.0 09/25/2017 [facility] Automated blood eosinophil count Automated blood eosinophil count 0.3 0.0 - 0.4 09/25/2017 [facility] Automated blood eosinophil count as percentage of total leukocytes Automated blood eosinophil count as percentage of total leukocytes 4.4 0.0 - 6.0 09/25/2017 [facility] Automated blood hematocrit (volume fraction) Automated blood hematocrit (volume fraction) 26.2 34.2 - 44.1 09/25/2017 [facility] Automated blood lymphocyte count as percentage ot total leukocytes Automated blood lymphocyte count as percentage ot total leukocytes 15.4 18.0 - 39.1 09/25/2017 [facility] Automated blood monocyte count as percentage of total leukocytes Automated blood monocyte count as percentage of total leukocytes 12.9 4.4 - 11.3 09/25/2017 [facility] Automated blood neutrophil count Automated blood neutrophil count 3.8 2.1 - 6.9 09/25/2017 [facility] Automated blood platelet count (count/volume) Automated blood platelet count (count/volume) 197 140 - 360 09/25/2017 [facility] Automated blood segmented neutrophil count as percentage of total leukocytes Automated blood segmented neutrophil count as percentage of total leukocytes 65.9 38.7 - 80.0 09/25/2017 [facility] Automated erythrocyte mean corpuscular hemoglobin (mass per erythrocyte) Automated erythrocyte mean corpuscular hemoglobin (mass per erythrocyte) 25.9 28 - 32 09/25/2017 [facility] Automated erythrocyte mean corpuscular hemoglobin concentration measurement (mass/volume) Automated erythrocyte mean corpuscular hemoglobin concentration measurement (mass/volume) 27.9 31 - 35 09/25/2017 [facility] Automated erythrocyte mean corpuscular volume Automated erythrocyte mean corpuscular volume 92.9 81 - 99 09/25/2017 [facility] Blood anisocytosis detection by light microscopy Blood anisocytosis detection by light microscopy MODERATE 09/25/2017 [facility] Blood erythrocytes automated count (number/volume) Blood erythrocytes automated count (number/volume) 2.82 3.6 - 5.1 09/25/2017 [facility] Blood hemoglobin measurement (moles/volume) Blood hemoglobin measurement (moles/volume) 7.3 12.0 - 16.0 09/25/2017 [facility] Blood hypochromia detection by light microscopy Blood hypochromia detection by light microscopy SLIGHT 09/25/2017 [facility] Blood leukocytes automated count (number/volume) Blood leukocytes automated count (number/volume) 5.73 4.8 - 10.8 09/25/2017 [facility] Blood lymphocytes count (number/volume) Blood lymphocytes count (number/volume) 0.9 1.0 - 3.2 09/25/2017 [facility] Blood monocytes automated count (number/volume) Blood monocytes automated count (number/volume) 0.7 0.2 - 0.8 09/25/2017 [facility] Estimated glomerular filtration rate (GFR) determination Estimated glomerular filtration rate (GFR) determination 45 60 09/25/2017 [facility] Glucose measurement Glucose measurement 152 74 - 118 09/25/2017 [facility] INR in Platelet poor plasma by Coagulation assay INR in Platelet poor plasma by Coagulation assay 1.09 09/25/2017 [facility] Plasma globulin measurement (mass/volume) Plasma globulin measurement (mass/volume) 2.9 2.3 - 3.5 09/25/2017 [facility] Prothrombin time (PT) in platelet poor plasma by coagulation assay Prothrombin time (PT) in platelet poor plasma by coagulation assay 13.3 11.9 - 14.5 09/25/2017 [facility] RBC morphology RBC morphology ABNORMAL 09/25/2017 [facility] Serum or plasma alanine aminotransferase measurement (enzymatic activity/volume) Serum or plasma alanine aminotransferase measurement (enzymatic activity/volume) 11 0 - 55 09/25/2017 [facility] Serum or plasma albumin measurement (mass/volume) Serum or plasma albumin measurement (mass/volume) 3.3 3.5 - 5.0 09/25/2017 [facility] Serum or plasma albumin/globulin mass ratio Serum or plasma albumin/globulin mass ratio 1.1 0.8 - 2.0 09/25/2017 [facility] Serum or plasma alkaline phosphatase measurement (enzymatic activity/volume) Serum or plasma alkaline phosphatase measurement (enzymatic activity/volume) 81 40 - 150 09/25/2017 [facility] Serum or plasma anion gap Serum or plasma anion gap 13.2 8 - 16 09/25/2017 [facility] Serum or plasma calcium measurement (mass/volume) Serum or plasma calcium measurement (mass/volume) 8.8 8.4 - 10.2 09/25/2017 [facility] Serum or plasma carbon dioxide, total measurement (moles/volume) Serum or plasma carbon dioxide, total measurement (moles/volume) 22 22 - 29 09/25/2017 [facility] Serum or plasma chloride measurement (moles/volume) Serum or plasma chloride measurement (moles/volume) 111 98 - 107 09/25/2017 [facility] Serum or plasma creatine kinase MB measurement (mass/volume) Serum or plasma creatine kinase MB measurement (mass/volume) 3.20 0 - 5.0 09/25/2017 [facility] Serum or plasma creatine kinase measurement (enzymatic activity/volume) Serum or plasma creatine kinase measurement (enzymatic activity/volume) 84 29 - 168 09/25/2017 [facility] Serum or plasma creatinine measurement (mass/volume) Serum or plasma creatinine measurement (mass/volume) 1.18 0.57 - 1.11 09/25/2017 [facility] Serum or plasma lipase measurement (enzymatic activity/volume) Serum or plasma lipase measurement (enzymatic activity/volume) 25 8 - 78 09/25/2017 [facility] Serum or plasma potassium measurement (moles/volume) Serum or plasma potassium measurement (moles/volume) 4.2 3.5 - 5.1 09/25/2017 [facility] Serum or plasma protein measurement (mass/volume) Serum or plasma protein measurement (mass/volume) 6.2 6.5 - 8.1 09/25/2017 [facility] Serum or plasma sodium measurement (moles/volume) Serum or plasma sodium measurement (moles/volume) 142 136 - 145 09/25/2017 [facility] Serum or plasma total bilirubin measurement (mass/volume) Serum or plasma total bilirubin measurement (mass/volume) 0.2 0.2 - 1.2 09/25/2017 [facility] Serum or plasma urea nitrogen measurement (mass/volume) Serum or plasma urea nitrogen measurement (mass/volume) 19 7 - 26 09/25/2017 [facility] Serum or plasma urea nitrogen/creatinine mass ratio Serum or plasma urea nitrogen/creatinine mass ratio 16 6 - 25 09/25/2017 [facility] Troponin I measurement by highly sensitive enzyme immunoassay Troponin I measurement by highly sensitive enzyme immunoassay 0.036 0 - 0.300 09/25/2017 [facility] Red Cell Distribution Width 18.9 11.7 - 14.4 09/25/2017 [facility] IM GRANULOCYTES % 0.9 0.0 - 1.0 09/25/2017 [facility] Absolute Immature Granulocyte (auto 0.05 0 - 0.1 09/25/2017 [facility] Aspartate Amino Transf (AST/SGOT) 11 5 - 34 09/25/2017 [facility] Capillary blood glucose measurement by glucometer (mass/volume) Capillary blood glucose measurement by glucometer (mass/volume) 132 70 - 120 08/01/2017 [facility] Automated urine sediment leukocyte count by microscopy (number/high power field) Automated urine sediment leukocyte count by microscopy (number/high power field) null 0 - 5 07/31/2017 [facility] Bacteria detection in urine sediment by light microscopy Bacteria detection in urine sediment by light microscopy NONE NONE 07/31/2017 [facility] Epithelial cells detection in urine sediment by light microscopy Epithelial cells detection in urine sediment by light microscopy RARE NONE 07/31/2017 [facility] Erythrocytes detection in urine sediment by light microscopy Erythrocytes detection in urine sediment by light microscopy NONE 0 - 5 07/31/2017 [facility] Specific gravity of Urine by Test strip Specific gravity of Urine by Test strip 1.015 1.010 - 1.025 07/31/2017 [facility] Urine clarity Urine clarity SL CLOUDY CLEAR 07/31/2017 [facility] Urine color determination Urine color determination YELLOW YELLOW 07/31/2017 [facility] Urine erythrocytes detection Urine erythrocytes detection NEGATIVE NEGATIVE 07/31/2017 [facility] Urine glucose detection Urine glucose detection NEGATIVE NEGATIVE 07/31/2017 [facility] Urine ketones detection by automated test strip Urine ketones detection by automated test strip NEGATIVE NEGATIVE 07/31/2017 [facility] Urine leukocyte esterase detection by dipstick Urine leukocyte esterase detection by dipstick NEGATIVE NEGATIVE 07/31/2017 [facility] Urine nitrite detection Urine nitrite detection NEGATIVE NEGATIVE 07/31/2017 [facility] Urine pH measurement by automated test strip Urine pH measurement by automated test strip 6 5 - 7 07/31/2017 [facility] Urine protein measurement by test strip (mass/volume) Urine protein measurement by test strip (mass/volume) TRACE NEGATIVE 07/31/2017 [facility] Urine total bilirubin measurement (mass/volume) Urine total bilirubin measurement (mass/volume) NEGATIVE NEGATIVE 07/31/2017 [facility] Urine urobilinogen measurement by test strip (mass/volume) Urine urobilinogen measurement by test strip (mass/volume) 0.2 0.2 - 1 07/31/2017 [facility] Blood cobalamin (vitamin B12) measurement (mass/volume) Blood cobalamin (vitamin B12) measurement (mass/volume) 813 213 - 816 07/31/2017 [facility] Serum or plasma ferritin measurement (mass/volume) Serum or plasma ferritin measurement (mass/volume) 63.26 4.63 - 204.00 07/31/2017 [facility] Serum or plasma folate measurement (mass/volume) Serum or plasma folate measurement (mass/volume) 11.5 7.0 - 15.4 07/31/2017 [facility] Serum or plasma iron binding capacity measurement (mass/volume) Serum or plasma iron binding capacity measurement (mass/volume) 358 261 - 478 07/31/2017 [facility] Serum or plasma iron measurement (mass/volume) Serum or plasma iron measurement (mass/volume) 211 50 - 170 07/31/2017 [facility] Serum or plasma iron saturation measurement (mass fraction) Serum or plasma iron saturation measurement (mass fraction) 59 15 - 50 07/31/2017 [facility] Serum or plasma transferrin measurement (mass/volume) Serum or plasma transferrin measurement (mass/volume) 256 180 - 382 07/31/2017 [facility] Vital Signs Vital Sign Value Date Comments Source Encounters Location Location Details Encounter Type Encounter Number Reason For Visit Attending Provider ADM Date DC Date Status Source Discharged Inpatient (obs) [id number] SAM CAI MD 07/22/2017 07/22/2017 [facility] Discharged Inpatient [id number] KULWANT BAEZ MD 07/31/2017 08/01/2017 [facility] Departed Emergency Room [id number] TONJA DESAI MD 09/25/2017 09/25/2017 [facility] Discharged Inpatient (obs) [id number] SAM CAI MD 12/17/2017 12/17/2017 [facility] Discharged Inpatient [id number] SAM CAI MD 01/02/2018 01/09/2018 [facility] Discharged Inpatient [id number] SAM CAI MD 01/25/2018 01/26/2018 [facility] Discharged Inpatient [id number] SAM CAI MD 03/26/2018 03/27/2018 [facility] Procedures Procedure Code Date Perfomer Comments Source TRANSFUSE NONAUT RED BLOOD CELLS IN PERIPH VEIN, PERC [id number] 01/25/2018 [facility] Computed tomography of chest without contrast [id number] 01/25/2018 [facility] REPOSITION RIGHT UPPER FEMUR WITH INT FIX, PERC APPROACH [id number] 01/06/2018 [facility] TRANSFUSE NONAUT RED BLOOD CELLS IN PERIPH VEIN, PERC [id number] 01/04/2018 [facility] BLOOD TRANSFUSION SERVICE [id number] 12/17/2017 [facility] Computed tomography of brain without radiopaque contrast [id number] 12/17/2017 [facility] TRANSFUSE NONAUT RED BLOOD CELLS IN PERIPH VEIN, PERC [id number] 07/31/2017 [facility] X-ray of chest, single view [id number] 07/31/2017 [facility] BLOOD TRANSFUSION SERVICE [id number] 07/22/2017 [facility]
--- NOTE | 2018-07-14 09:20 | NUR ---
Pt requesting blankets and states that it is too cold in here.
--- NOTE | 2018-07-14 09:40 | NUR ---
Pt found in surgery walking around and brought back to the ER. Pt wants to go outside as it is too cold in here, pt wants to sign out AMA and does not want to go see her who is up in room 291.
--- NOTE | 2018-07-14 09:53 | NUR ---
Pt signed out AMA
== END 2018-07-14 09:50 | disposition left against medical advice (07) ==
LOC: ER 08:50
DX: E11.42 Type 2 diabetes mellitus with diabetic polyneuropathy (principal); I10 Essential (primary) hypertension; M10.9 Gout, unspecified; E78.5 Hyperlipidemia, unspecified; G20 Parkinson's disease; F17.210 Nicotine dependence, cigarettes, uncomplicated
CPT/HCPCS: 99283

== ENCOUNTER 2018-08-28 14:07 | Inpatient (IN) | payer MEDICARE ==
[~2018-08-28] VITALS: Ht 167.6 cm; Wt 61.7 kg
--- OUTSIDE RECORDS SUMMARY | 2018-08-28 14:11 | XMS REPORT | Continuity of Care Document ---
Author Author [place] Address Unknown Phone Unavailable Care Team Providers Care Program Medical Director Name Role Phone [employer] Unavailable Unavailable Problems Problem Status Onset Date Classification Date Reported Comments Source Anemia Active 03/07/2014 Problem 03/27/2018 [facility] Dyspnea Active 03/07/2014 Problem 03/27/2018 [facility] Weakness Active 03/07/2014 Problem 03/27/2018 [facility] GI bleed Active Problem 03/27/2018 [facility] Congestive heart failure Active Problem 03/27/2018 [facility] Elevated troponin Active Problem 03/27/2018 [facility] Hip avulsion fracture Active Problem 03/27/2018 [facility] Hip fracture, right Active Problem 03/27/2018 [facility] Pneumonia Active Problem 03/27/2018 [facility] Symptomatic anemia Active Problem 03/27/2018 [facility] Medications Medication Details Route Status Patient Instructions Ordering Provider Order Date Source Lactulose (Enulose) 10 Gm/15 Ml Solution, 30 Ml Oral Twice A Day as needed for Constipation Active 03/26/2018 [facility] Magnesium Oxide 400 Mg Tablet, 400 Mg Oral Twice A Day as needed for Constipation Active 03/26/2018 [facility] Ondansetron (Ondansetron Odt) 8 Mg Tab.rapdis, 4 Mg Oral Every 6 Hours as needed for Nausea And Vomiting Active 03/26/2018 [facility] Polyethylene Glycol 3350 17 Gm Powd.pack, 1 Pkt Oral Daily Active 03/26/2018 [facility] Potassium Chloride 20 Meq Tab.er.prt, 20 Mg Oral Daily Active 03/26/2018 [facility] Rivaroxaban (Xarelto) 10 Mg Tablet, 10 Mg Oral Daily Active 03/26/2018 [facility] Zinc Sulfate 220 Mg Capsule, 220 Mg Oral Twice A Day Active 03/26/2018 [facility] Acetaminophen 325 Mg Tablet Every 4 Hours as needed for Pain And Temperature Active [place] 01/26/2018 [facility] Aspirin (Aspirin Chew) 81 Mg Chew Daily Active [place] 01/26/2018 [facility] Carvedilol (Coreg) 3.125 Mg Tab Twice A Day Active [place] 01/26/2018 [facility] Escitalopram Oxalate (Lexapro) 10 Mg Tablet Daily Active [place] 01/26/2018 [facility] Hydrocodone/Apap 10MG-325MG 1 Ea Tab Every 4 Hours as needed for Pain Active [place] 01/26/2018 [facility] Levothyroxine Sodium (Synthroid) 125 Mcg Tab Daily@0600 Active [place] 01/26/2018 [facility] Lorazepam (Ativan*) 0.5 Mg Tablet Every 4 Hours as needed for Anxiety Active [place] 01/26/2018 [facility] Prednisone 5 Mg Tablet Daily Active [place] 01/26/2018 [facility] Acetaminophen 325 Mg/10 Ml Elix, 650 Mg Oral Every 6 Hours as needed for Pain And Temperature Active 01/26/2018 [facility] Albuterol/Ipratropium Nebulize 3 Ml Inha, 3 Ml Nebullizer Rt Q6h Active [place] 01/26/2018 [facility] Atorvastatin 40 Mg Tab, 40 Mg Oral Bedtime Active [place] 01/26/2018 [facility] Atorvastatin Calcium 40 Mg Tablet, 40 Mg Oral Daily Active 01/26/2018 [facility] Carbidopa/Levodopa (Carbidopa-Levodopa 25-100 Tab) 1 Each Tablet, 1 Ea Oral Daily Active [place] 01/26/2018 [facility] Carbidopa/Levodopa (Carbidopa-Levodopa 25-100 Tab) 1 Each Tablet, 1 Tab Oral Daily Active 01/26/2018 [facility] Carvedilol 3.125 Mg Tablet, 3.125 Mg Oral Twice A Day Active 01/26/2018 [facility] Clonidine Hcl (Catapres) 0.1 Mg Tablet, 0.1 Mg Oral Every 8 Hours as needed for High Blood Pressure Active [place] 01/26/2018 [facility] Clonidine Hcl 0.1 Mg Tablet, 1 Tab Oral Every 8 Hours as needed for High Blood Pressure Active 01/26/2018 [facility] Dextrose (Dextrose 50%-Water Syringe) 50 Ml Inj, 50 Ml Intraven As Needed as needed for Blood Sugar Active [place] 01/26/2018 [facility] Docusate Sodium (Colace) 100 Mg Capsule, 100 Mg Oral Twice A Day Active [place] 01/26/2018 [facility] Docusate Sodium 100 Mg Capsule, 100 Mg Oral Twice A Day Active 01/26/2018 [facility] Escitalopram Oxalate 10 Mg Tablet, 5 Mg Oral Daily Active 01/26/2018 [facility] Furosemide 10 Mg/1 Ml Vial, 40 Mg Intraven Every 12 Hours Active [place] 01/26/2018 [facility] Furosemide 40 Mg Tablet, 40 Mg Oral Daily Active 01/26/2018 [facility] Guaifenesin/Dextromethorphan (Mucinex Dm Er 600-30 Mg Tablet) 1 Each Tab.er.12h, 1 Each Oral Every 12 Hours Active [place] 01/26/2018 [facility] Hydrocodone Bit/Acetaminophen (Dix 10-325 Tablet) 1 Each Tablet, 1 Tab Oral Every 4 Hours as needed for Pain Active 01/26/2018 [facility] Insulin Aspart (Novolog) 100 Unit/1 Ml Cartridge, 0 Sub-Q Daily Active 01/26/2018 [facility] Insulin Detemir 100 Unit/Ml Pen, 20 Unit Sub-Q Every 12 Hours Active [place] 01/26/2018 [facility] Insulin Glargine (Lantus 3ML Pen) 100 Units/1 Ml Inj, 20 Units Sub-Q Every 12 Hours Active 01/26/2018 [facility] Insulin Lispro 100 Unit/1 Ml Vial, 0 Unit Sub-Q Before Meals And At Bedtime Active [place] 01/26/2018 [facility] Levothyroxine Sodium 125 Mcg Tablet, 125 Mcg Oral Daily Active 01/26/2018 [facility] Lisinopril 10 Mg Tablet, 10 Mg Oral Twice A Day Active [place] 01/26/2018 [facility] Lisinopril 40 Mg Tablet, 10 Mg Oral Twice A Day Active 01/26/2018 [facility] Nicotine (Nicoderm Cq) 1 Each Patch.td24, 21 Mg Topically Daily Active [place] 01/26/2018 [facility] Nicotine (Nicotine Patch) 1 Each Patch.td24, 21 Mg Transderm Daily Active 01/26/2018 [facility] Ondansetron Hcl/Pf (Ondansetron Hcl 4 Mg/2 Ml Vial) 4 Mg/2 Ml Vial, 4 Mg Intraven Every 6 Hours as needed for Nausea And Vomiting Active [place] 01/26/2018 [facility] Pantoprazole Sod (Protonix) 40 Mg/Ml Susp, 40 Mg Oral Before Breakfast Active [place] 01/26/2018 [facility] Potassium Chloride (Klor-Con M20) 20 Meq Tabcr, 20 Meq Oral Twice A Day Active [place] 01/26/2018 [facility] Prednisone 5 Mg Tablet, 5 Mg Oral Daily Active 01/26/2018 [facility] Sodium Chloride Flush 10 Ml Soln, 10 Ml Injection As Needed as needed for Iv Site Flush Active [place] 01/26/2018 [facility] Temazepam (Restoril) 15 Mg Capsule, 15 Mg Oral Bedtime Active [place] 01/26/2018 [facility] Temazepam 15 Mg Capsule, 15 Mg Oral Daily Active 01/26/2018 [facility] Alprazolam 1 Mg Tablet, Daily Active 12/17/2017 [facility] Amitriptyline Hcl 10 Mg Tablet, Daily Active 12/17/2017 [facility] Atorvastatin Calcium (Lipitor*) 10 Mg Tablet, 40 Mg Oral Daily Active 12/17/2017 [facility] Calcium Carbonate/Vitamin D3 (Caltrate 600 + D Chewable Tab) 1 Each Tab.chew, Daily Active 12/17/2017 [facility] Carbidopa/Levodopa (Carbidopa-Levodopa 10-100 Tab) 1 Each Tablet, 1 Each Oral Active 12/17/2017 [facility] Furosemide 40 Mg Tablet, 40 Mg Oral Daily Active 12/17/2017 [facility] Glipizide (Glipizide Xl) 10 Mg Tab.osm.24, Daily Active 12/17/2017 [facility] Insulin Glargine,Hum.rec.anlog (Lantus) 100 Unit/1 Ml Vial, 10 U Qhs Active 12/17/2017 [facility] Insuln Asp Prt/Insulin Aspart (Novolog Mix 70-30 Flexpen Syrn) 100 Unit/1 Ml Insuln.pen, Active 12/17/2017 [facility] Levothyroxine Sodium (Levothroid) 112 Mcg Tablet, Daily Active 12/17/2017 [facility] Lisinopril 40 Mg Tablet, Daily Active 12/17/2017 [facility] Lorazepam 1 Mg Tablet, 1 Mg Oral Daily Active 12/17/2017 [facility] Metformin Hcl (Fortamet) 500 Mg Tab.osm.24, Daily Active 12/17/2017 [facility] Phenazopyridine Hcl 200 Mg Tablet, Active 12/17/2017 [facility] Prednisone 10 Mg Tab, 10 Mg Oral Active 12/17/2017 [facility] Tamsulosin Hcl 0.4 Mg Cap.er.24h, Active 12/17/2017 [facility] Tramadol Hcl (Ultram 50MG*) 50 Mg Tab, 50 Mg Oral Active 12/17/2017 [facility] Omeprazole (Prilosec) 20 Mg Capsule., Daily Active 04/11/2012 [facility] Simvastatin (Zocor) 20 Mg Tablet, Daily Active 04/11/2012 [facility] Alprazolam 1 Mg Tablet Daily Active [facility] Amitriptyline Hcl 10 Mg Tablet Daily Active [facility] Atorvastatin Calcium (Lipitor*) 10 Mg Tablet Daily Active [facility] Calcium Carbonate/Vitamin D3 (Caltrate 600 + D Chewable Tab) 1 Each Tab.chew Daily Active [facility] Carbidopa/Levodopa (Carbidopa-Levodopa 25-100 Tab) 1 Each Tablet Active [facility] Carbidopa/Levodopa (Carbidopa-Levodopa 10-100 Tab) 1 Each Tablet Active [facility] Furosemide 40 Mg Tablet Daily Active [facility] Glipizide (Glipizide Xl) 10 Mg Tab.osm.24 Daily Active [facility] Insulin Glargine,Hum.rec.anlog (Lantus) 100 Unit/1 Ml Vial Qhs Active [facility] Insuln Asp Prt/Insulin Aspart (Novolog Mix 70-30 Flexpen Syrn) 100 Unit/1 Ml Insuln.pen Active [facility] Levothyroxine Sodium (Levothroid) 112 Mcg Tablet Daily Active [facility] Lisinopril 40 Mg Tablet Daily Active [facility] Lorazepam 1 Mg Tablet Daily Active [facility] Metformin Hcl (Fortamet) 500 Mg Tab.osm.24 Daily Active [facility] Omeprazole 40 Mg Capsule. Active [facility] Phenazopyridine Hcl 200 Mg Tablet Active [facility] Prednisone 10 Mg Tab Active [facility] Tamsulosin Hcl 0.4 Mg Cap.er.24h Active [facility] Tramadol Hcl (Ultram 50MG*) 50 Mg Tab Active [facility] Albuterol Sulfate (Ventolin Hfa) 18 Gm Hfa.aer.ad Active [facility] Allopurinol 100 Mg Tablet Daily Active [facility] Ascorbic Acid 500 Mg Tablet Twice A Day Active [facility] Atorvastatin Calcium 20 Mg Tablet Bedtime Active [facility] Calcium Carbonate/Vitamin D3 (Oyster Shell Calcium + D Tab) 1 Each Tablet Three Times A Day Active [facility] Carbidopa/Levodopa (Sinemet 25-100 Mg Tablet) 1 Each Tablet Twice A Day Active [facility] Ferrous Sulfate 325 Mg Tablet. Daily Active [facility] Furosemide 40 Mg Tablet Daily Active [facility] Insulin Aspart (Novolog) 100 Unit/1 Ml Cartridge Three Times A Day as needed for Blood Sugar Active FOR BLOOD SUGAR GREATER THAN 150 [facility] Insulin Glargine (Lantus 3ML Pen) 100 Units/1 Ml Inj Bedtime Active HOLD IF BLOOD SUGAR LESS THAN 100 [facility] Lisinopril (Prinavil / Zestril) 20 Mg Tablet Daily Active [facility] Magnesium Hydroxide (Milk Of Magnesia) 400 Mg/5 Ml Oral.susp Daily as needed for Constipation Active [facility] Omeprazole 40 Mg Capsule. Daily Active [facility] Potassium Chloride 20 Meq Tab.er.prt Daily Active [facility] Allergies, Adverse Reactions, Alerts Substance Category Reaction Severity Reaction type Status Date Reported Comments Source Morphine RASH,ITCHING Mild Allergy to Substance Active 01/02/2018 [facility] Immunizations No Data Provided for This Section Results Order Name Results Value Reference Range Date Interpretation Comments Source Blood leukocytes automated count (number/volume) 9.52 4.8 - 10.8 03/27/2018 [facility] Blood erythrocytes automated count (number/volume) 3.67 3.6 - 5.1 03/27/2018 [facility] Blood hemoglobin measurement (moles/volume) 8.9 12.0 - 16.0 03/27/2018 [facility] Automated blood hematocrit (volume fraction) 29.7 34.2 - 44.1 03/27/2018 [facility] Automated erythrocyte mean corpuscular volume 80.9 81 - 99 03/27/2018 [facility] Automated erythrocyte mean corpuscular hemoglobin (mass per erythrocyte) 24.3 28 - 32 03/27/2018 [facility] Automated erythrocyte mean corpuscular hemoglobin concentration measurement (mass/volume) 30.0 31 - 35 03/27/2018 [facility] RDW BldCo-Rto 17.6 11.7 - 14.4 03/27/2018 [facility] Automated blood platelet count (count/volume) 190 140 - 360 03/27/2018 [facility] Automated blood segmented neutrophil count as percentage of total leukocytes 77.9 38.7 - 80.0 03/27/2018 [facility] Automated blood lymphocyte count as percentage ot total leukocytes 8.6 18.0 - 39.1 03/27/2018 [facility] Automated blood monocyte count as percentage of total leukocytes 10.9 4.4 - 11.3 03/27/2018 [facility] Automated blood eosinophil count as percentage of total leukocytes 0.2 0.0 - 6.0 03/27/2018 [facility] Automated blood basophil count as percentage of total leukocytes 0.4 0.0 - 1.0 03/27/2018 [facility] IM GRANULOCYTES % 2.0 0.0 - 1.0 03/27/2018 [facility] Automated blood neutrophil count 7.4 2.1 - 6.9 03/27/2018 [facility] Blood lymphocytes count (number/volume) 0.8 1.0 - 3.2 03/27/2018 [facility] Blood monocytes automated count (number/volume) 1.0 0.2 - 0.8 03/27/2018 [facility] Automated blood eosinophil count 0.0 0.0 - 0.4 03/27/2018 [facility] Automated blood basophil count (count/volume) 0.0 0.0 - 0.1 03/27/2018 [facility] Absolute Immature Granulocyte (auto 0.19 0 - 0.1 03/27/2018 [facility] Urine color determination YELLOW YELLOW 03/26/2018 [facility] Urine clarity CLEAR CLEAR 03/26/2018 [facility] Specific gravity of Urine by Test strip 1.015 1.010 - 1.025 03/26/2018 [facility] Urine pH measurement by automated test strip 6 5 - 7 03/26/2018 [facility] Urine leukocyte esterase detection by dipstick NEGATIVE NEGATIVE 03/26/2018 [facility] Urine nitrite detection NEGATIVE NEGATIVE 03/26/2018 [facility] Urine protein measurement by test strip (mass/volume) NEGATIVE NEGATIVE 03/26/2018 [facility] Urine glucose detection NEGATIVE NEGATIVE 03/26/2018 [facility] Urine ketones detection by automated test strip TRACE NEGATIVE 03/26/2018 [facility] Urine urobilinogen measurement by test strip (mass/volume) 0.2 0.2 - 1 03/26/2018 [facility] Urine total bilirubin measurement (mass/volume) NEGATIVE NEGATIVE 03/26/2018 [facility] Urine erythrocytes detection NEGATIVE NEGATIVE 03/26/2018 [facility] Automated urine sediment leukocyte count by microscopy (number/high power field) NONE 0 - 5 03/26/2018 [facility] Erythrocytes detection in urine sediment by light microscopy NONE 0 - 5 03/26/2018 [facility] Bacteria detection in urine sediment by light microscopy NONE NONE 03/26/2018 [facility] Epithelial cells detection in urine sediment by light microscopy MANY NONE 03/26/2018 [facility] Prothrombin time (PT) in platelet poor plasma by coagulation assay 12.8 11.9 - 14.5 03/26/2018 [facility] INR in Platelet poor plasma by Coagulation assay 0.88 03/26/2018 [facility] Activated partial thromboplastin time (aPTT) in platelet poor plasma bycoagulation assay 29.3 23.8 - 35.5 03/26/2018 [facility] Serum or plasma sodium measurement (moles/volume) 136 136 - 145 03/26/2018 [facility] Serum or plasma potassium measurement (moles/volume) 4.2 3.5 - 5.1 03/26/2018 [facility] Serum or plasma chloride measurement (moles/volume) 102 98 - 107 03/26/2018 [facility] Serum or plasma carbon dioxide, total measurement (moles/volume) 24 22 - 29 03/26/2018 [facility] Serum or plasma anion gap 14.2 8 - 16 03/26/2018 [facility] Serum or plasma urea nitrogen measurement (mass/volume) 31 7 - 26 03/26/2018 [facility] Serum or plasma creatinine measurement (mass/volume) 1.34 0.57 - 1.11 03/26/2018 [facility] Serum or plasma urea nitrogen/creatinine mass ratio 23 6 - 25 03/26/2018 [facility] Estimated glomerular filtration rate (GFR) determination 38 60 03/26/2018 [facility] Glucose measurement 157 74 - 118 03/26/2018 [facility] Serum or plasma calcium measurement (mass/volume) 8.2 8.4 - 10.2 03/26/2018 [facility] Serum or plasma total bilirubin measurement (mass/volume) 0.1 0.2 - 1.2 03/26/2018 [facility] Aspartate Amino Transf (AST/SGOT) 9 5 - 34 03/26/2018 [facility] Serum or plasma alanine aminotransferase measurement (enzymatic activity/volume) < 6 0 - 55 03/26/2018 [facility] Serum or plasma protein measurement (mass/volume) 5.9 6.5 - 8.1 03/26/2018 [facility] Serum or plasma albumin measurement (mass/volume) 3.3 3.5 - 5.0 03/26/2018 [facility] Plasma globulin measurement (mass/volume) 2.6 2.3 - 3.5 03/26/2018 [facility] Serum or plasma albumin/globulin mass ratio 1.3 0.8 - 2.0 03/26/2018 [facility] Serum or plasma alkaline phosphatase measurement (enzymatic activity/volume) 71 40 - 150 03/26/2018 [facility] BNP Bld-mCnc 691.1 0 - 100 03/26/2018 [facility] Serum or plasma creatine kinase measurement (enzymatic activity/volume) 55 29 - 168 03/26/2018 [facility] Serum or plasma creatine kinase MB measurement (mass/volume) 2.60 0 - 5.0 03/26/2018 [facility] Troponin I measurement by highly sensitive enzyme immunoassay 0.021 0 - 0.300 03/26/2018 [facility] Capillary blood glucose measurement by glucometer (mass/volume) 191 70 - 120 01/26/2018 [facility] Hemoglobin A1c Percent 5.2 4.0 - 7.0 01/26/2018 [facility] Serum or plasma magnesium measurement (mass/volume) 2.1 1.3 - 2.1 01/26/2018 [facility] Serum or plasma iron measurement (mass/volume) 10 50 - 170 01/26/2018 [facility] Serum or plasma iron binding capacity measurement (mass/volume) 328 261 - 478 01/26/2018 [facility] Serum or plasma iron saturation measurement (mass fraction) 3 15 - 50 01/26/2018 [facility] Serum or plasma transferrin measurement (mass/volume) 234 180 - 382 01/26/2018 [facility] Serum or plasma ferritin measurement (mass/volume) 33.17 4.63 - 204.00 01/26/2018 [facility] Blood cobalamin (vitamin B12) measurement (mass/volume) 341 213 - 816 01/26/2018 [facility] Serum or plasma folate measurement (mass/volume) 8.1 7.0 - 15.4 01/26/2018 [facility] Serum or plasma thyroxine (T4) free measurement (mass/volume) 0.99 0.9 - 1.8 01/26/2018 [facility] Serum or plasma thyrotropin measurement by detection limit <=0.005 miu/l (units/volume) 9.556 0.350 - 4.940 01/26/2018 [facility] Differential Total Cells Counted 100 01/25/2018 [facility] Manual blood neutrophils/100 leukocytes 78 40 - 74 01/25/2018 [facility] Manual blood band neutrophils form/100 leukocytes 1 01/25/2018 [facility] Manual blood lymphocytes/100 leukocytes 9 19 - 48 01/25/2018 [facility] Manual blood monocytes/100 leukocytes 8 3.4 - 9.0 01/25/2018 [facility] Manual blood eosinophil count as percentage of total leukocytes 4 0 - 7 01/25/2018 [facility] Blood nucleated erythrocytes count (number/volume) 1 01/25/2018 [facility] Blood platelets count by estimate (number/volume) ADEQUATE 01/25/2018 [facility] Platelet morphology NORMAL 01/25/2018 [facility] RBC morphology NORMAL 01/25/2018 [facility] Blood culture NO GROWTH AFTER 5 DAYS, FINAL REPORT 01/25/2018 [facility] Stool gastrointestinal hemoglobin detection POSITIVE NEGATIVE 01/09/2018 [facility] Manual basophil percentage 1 0 - 1.5 01/08/2018 [facility] Manual blood metamyelocytes/100 leukocytes 1 0 - 0 01/08/2018 [facility] Blood hypochromia detection by light microscopy SLIGHT 01/08/2018 [facility] Blood anisocytosis detection by light microscopy MODERATE 01/08/2018 [facility] Blood [place] bodies detection by light microscopy FEW 01/08/2018 [facility] Phosphorus measurement 3.0 2.3 - 4.7 01/07/2018 [facility] Ammonia Ser-mCnc 45 31 - 123 12/17/2017 [facility] Serum or plasma lipase measurement (enzymatic activity/volume) 25 8 - 78 09/25/2017 [facility] Activated partial thromboplastin time (aPTT) in platelet poor plasma bycoagulation assay Activated partial thromboplastin time (aPTT) in platelet poor plasma bycoagulation assay 26.4 23.8 - 35.5 09/25/2017 [facility] Automated blood basophil count (count/volume) Automated blood basophil count (count/volume) 0.0 0.0 - 0.1 09/25/2017 [facility] Automated blood basophil count as percentage of total leukocytes Automated blood basophil count as percentage of total leukocytes 0.5 0.0 - 1.0 09/25/2017 [facility] Automated blood eosinophil count Automated blood eosinophil count 0.3 0.0 - 0.4 09/25/2017 [facility] Automated blood eosinophil count as percentage of total leukocytes Automated blood eosinophil count as percentage of total leukocytes 4.4 0.0 - 6.0 09/25/2017 [facility] Automated blood hematocrit (volume fraction) Automated blood hematocrit (volume fraction) 26.2 34.2 - 44.1 09/25/2017 [facility] Automated blood lymphocyte count as percentage ot total leukocytes Automated blood lymphocyte count as percentage ot total leukocytes 15.4 18.0 - 39.1 09/25/2017 [facility] Automated blood monocyte count as percentage of total leukocytes Automated blood monocyte count as percentage of total leukocytes 12.9 4.4 - 11.3 09/25/2017 [facility] Automated blood neutrophil count Automated blood neutrophil count 3.8 2.1 - 6.9 09/25/2017 [facility] Automated blood platelet count (count/volume) Automated blood platelet count (count/volume) 197 140 - 360 09/25/2017 [facility] Automated blood segmented neutrophil count as percentage of total leukocytes Automated blood segmented neutrophil count as percentage of total leukocytes 65.9 38.7 - 80.0 09/25/2017 [facility] Automated erythrocyte mean corpuscular hemoglobin (mass per erythrocyte) Automated erythrocyte mean corpuscular hemoglobin (mass per erythrocyte) 25.9 28 - 32 09/25/2017 [facility] Automated erythrocyte mean corpuscular hemoglobin concentration measurement (mass/volume) Automated erythrocyte mean corpuscular hemoglobin concentration measurement (mass/volume) 27.9 31 - 35 09/25/2017 [facility] Automated erythrocyte mean corpuscular volume Automated erythrocyte mean corpuscular volume 92.9 81 - 99 09/25/2017 [facility] Blood anisocytosis detection by light microscopy Blood anisocytosis detection by light microscopy MODERATE 09/25/2017 [facility] Blood erythrocytes automated count (number/volume) Blood erythrocytes automated count (number/volume) 2.82 3.6 - 5.1 09/25/2017 [facility] Blood hemoglobin measurement (moles/volume) Blood hemoglobin measurement (moles/volume) 7.3 12.0 - 16.0 09/25/2017 [facility] Blood hypochromia detection by light microscopy Blood hypochromia detection by light microscopy SLIGHT 09/25/2017 [facility] Blood leukocytes automated count (number/volume) Blood leukocytes automated count (number/volume) 5.73 4.8 - 10.8 09/25/2017 [facility] Blood lymphocytes count (number/volume) Blood lymphocytes count (number/volume) 0.9 1.0 - 3.2 09/25/2017 [facility] Blood monocytes automated count (number/volume) Blood monocytes automated count (number/volume) 0.7 0.2 - 0.8 09/25/2017 [facility] Estimated glomerular filtration rate (GFR) determination Estimated glomerular filtration rate (GFR) determination 45 60 09/25/2017 [facility] Glucose measurement Glucose measurement 152 74 - 118 09/25/2017 [facility] INR in Platelet poor plasma by Coagulation assay INR in Platelet poor plasma by Coagulation assay 1.09 09/25/2017 [facility] Plasma globulin measurement (mass/volume) Plasma globulin measurement (mass/volume) 2.9 2.3 - 3.5 09/25/2017 [facility] Prothrombin time (PT) in platelet poor plasma by coagulation assay Prothrombin time (PT) in platelet poor plasma by coagulation assay 13.3 11.9 - 14.5 09/25/2017 [facility] RBC morphology RBC morphology ABNORMAL 09/25/2017 [facility] Serum or plasma alanine aminotransferase measurement (enzymatic activity/volume) Serum or plasma alanine aminotransferase measurement (enzymatic activity/volume) 11 0 - 55 09/25/2017 [facility] Serum or plasma albumin measurement (mass/volume) Serum or plasma albumin measurement (mass/volume) 3.3 3.5 - 5.0 09/25/2017 [facility] Serum or plasma albumin/globulin mass ratio Serum or plasma albumin/globulin mass ratio 1.1 0.8 - 2.0 09/25/2017 [facility] Serum or plasma alkaline phosphatase measurement (enzymatic activity/volume) Serum or plasma alkaline phosphatase measurement (enzymatic activity/volume) 81 40 - 150 09/25/2017 [facility] Serum or plasma anion gap Serum or plasma anion gap 13.2 8 - 16 09/25/2017 [facility] Serum or plasma calcium measurement (mass/volume) Serum or plasma calcium measurement (mass/volume) 8.8 8.4 - 10.2 09/25/2017 [facility] Serum or plasma carbon dioxide, total measurement (moles/volume) Serum or plasma carbon dioxide, total measurement (moles/volume) 22 22 - 29 09/25/2017 [facility] Serum or plasma chloride measurement (moles/volume) Serum or plasma chloride measurement (moles/volume) 111 98 - 107 09/25/2017 [facility] Serum or plasma creatine kinase MB measurement (mass/volume) Serum or plasma creatine kinase MB measurement (mass/volume) 3.20 0 - 5.0 09/25/2017 [facility] Serum or plasma creatine kinase measurement (enzymatic activity/volume) Serum or plasma creatine kinase measurement (enzymatic activity/volume) 84 29 - 168 09/25/2017 [facility] Serum or plasma creatinine measurement (mass/volume) Serum or plasma creatinine measurement (mass/volume) 1.18 0.57 - 1.11 09/25/2017 [facility] Serum or plasma lipase measurement (enzymatic activity/volume) Serum or plasma lipase measurement (enzymatic activity/volume) 25 8 - 78 09/25/2017 [facility] Serum or plasma potassium measurement (moles/volume) Serum or plasma potassium measurement (moles/volume) 4.2 3.5 - 5.1 09/25/2017 [facility] Serum or plasma protein measurement (mass/volume) Serum or plasma protein measurement (mass/volume) 6.2 6.5 - 8.1 09/25/2017 [facility] Serum or plasma sodium measurement (moles/volume) Serum or plasma sodium measurement (moles/volume) 142 136 - 145 09/25/2017 [facility] Serum or plasma total bilirubin measurement (mass/volume) Serum or plasma total bilirubin measurement (mass/volume) 0.2 0.2 - 1.2 09/25/2017 [facility] Serum or plasma urea nitrogen measurement (mass/volume) Serum or plasma urea nitrogen measurement (mass/volume) 19 7 - 26 09/25/2017 [facility] Serum or plasma urea nitrogen/creatinine mass ratio Serum or plasma urea nitrogen/creatinine mass ratio 16 6 - 25 09/25/2017 [facility] Troponin I measurement by highly sensitive enzyme immunoassay Troponin I measurement by highly sensitive enzyme immunoassay 0.036 0 - 0.300 09/25/2017 [facility] Red Cell Distribution Width 18.9 11.7 - 14.4 09/25/2017 [facility] IM GRANULOCYTES % 0.9 0.0 - 1.0 09/25/2017 [facility] Absolute Immature Granulocyte (auto 0.05 0 - 0.1 09/25/2017 [facility] Aspartate Amino Transf (AST/SGOT) 11 5 - 34 09/25/2017 [facility] Capillary blood glucose measurement by glucometer (mass/volume) Capillary blood glucose measurement by glucometer (mass/volume) 132 70 - 120 08/01/2017 [facility] Automated urine sediment leukocyte count by microscopy (number/high power field) Automated urine sediment leukocyte count by microscopy (number/high power field) <5 0 - 5 07/31/2017 [facility] Bacteria detection in urine sediment by light microscopy Bacteria detection in urine sediment by light microscopy NONE NONE 07/31/2017 [facility] Epithelial cells detection in urine sediment by light microscopy Epithelial cells detection in urine sediment by light microscopy RARE NONE 07/31/2017 [facility] Erythrocytes detection in urine sediment by light microscopy Erythrocytes detection in urine sediment by light microscopy NONE 0 - 5 07/31/2017 [facility] Specific gravity of Urine by Test strip Specific gravity of Urine by Test strip 1.015 1.010 - 1.025 07/31/2017 [facility] Urine clarity Urine clarity SL CLOUDY CLEAR 07/31/2017 [facility] Urine color determination Urine color determination YELLOW YELLOW 07/31/2017 [facility] Urine erythrocytes detection Urine erythrocytes detection NEGATIVE NEGATIVE 07/31/2017 [facility] Urine glucose detection Urine glucose detection NEGATIVE NEGATIVE 07/31/2017 [facility] Urine ketones detection by automated test strip Urine ketones detection by automated test strip NEGATIVE NEGATIVE 07/31/2017 [facility] Urine leukocyte esterase detection by dipstick Urine leukocyte esterase detection by dipstick NEGATIVE NEGATIVE 07/31/2017 [facility] Urine nitrite detection Urine nitrite detection NEGATIVE NEGATIVE 07/31/2017 [facility] Urine pH measurement by automated test strip Urine pH measurement by automated test strip 6 5 - 7 07/31/2017 [facility] Urine protein measurement by test strip (mass/volume) Urine protein measurement by test strip (mass/volume) TRACE NEGATIVE 07/31/2017 [facility] Urine total bilirubin measurement (mass/volume) Urine total bilirubin measurement (mass/volume) NEGATIVE NEGATIVE 07/31/2017 [facility] Urine urobilinogen measurement by test strip (mass/volume) Urine urobilinogen measurement by test strip (mass/volume) 0.2 0.2 - 1 07/31/2017 [facility] Blood cobalamin (vitamin B12) measurement (mass/volume) Blood cobalamin (vitamin B12) measurement (mass/volume) 813 213 - 816 07/31/2017 [facility] Serum or plasma ferritin measurement (mass/volume) Serum or plasma ferritin measurement (mass/volume) 63.26 4.63 - 204.00 07/31/2017 [facility] Serum or plasma folate measurement (mass/volume) Serum or plasma folate measurement (mass/volume) 11.5 7.0 - 15.4 07/31/2017 [facility] Serum or plasma iron binding capacity measurement (mass/volume) Serum or plasma iron binding capacity measurement (mass/volume) 358 261 - 478 07/31/2017 [facility] Serum or plasma iron measurement (mass/volume) Serum or plasma iron measurement (mass/volume) 211 50 - 170 07/31/2017 [facility] Serum or plasma iron saturation measurement (mass fraction) Serum or plasma iron saturation measurement (mass fraction) 59 15 - 50 07/31/2017 [facility] Serum or plasma transferrin measurement (mass/volume) Serum or plasma transferrin measurement (mass/volume) 256 180 - 382 07/31/2017 [facility] Pathology Reports No Data Provided for This Section Diagnostic Reports No Data Provided for This Section Consultation Notes No Data Provided for This Section Discharge Summaries No Data Provided for This Section History and Physicals No Data Provided for This Section Vital Signs No Data Provided for This Section Encounters Location Location Details Encounter Type Encounter Number Reason For Visit Attending Provider ADM Date DC Date Status Source Discharged Inpatient (obs) [id number] SAM CAI MD 07/22/2017 07/22/2017 [facility] Discharged Inpatient [id number] KULWANT BAEZ MD 07/31/2017 08/01/2017 [facility] Departed Emergency Room [id number] TONJA DESAI MD 09/25/2017 09/25/2017 [facility] Discharged Inpatient (obs) [id number] SAM CAI MD 12/17/2017 12/17/2017 [facility] Discharged Inpatient [id number] SAM CAI MD 01/02/2018 01/09/2018 [facility] Discharged Inpatient [id number] SAM CAI MD 01/25/2018 01/26/2018 [facility] Discharged Inpatient [id number] SAM CAI MD 03/26/2018 03/27/2018 [facility] Procedures Procedure Code Date Perfomer Comments Source TRANSFUSE NONAUT RED BLOOD CELLS IN PERIPH VEIN, PERC [id number] 01/25/2018 [facility] Computed tomography of chest without contrast [id number] 01/25/2018 [facility] REPOSITION RIGHT UPPER FEMUR WITH INT FIX, PERC APPROACH [id number] 01/06/2018 [facility] TRANSFUSE NONAUT RED BLOOD CELLS IN PERIPH VEIN, PERC [id number] 01/04/2018 [facility] BLOOD TRANSFUSION SERVICE [id number] 12/17/2017 [facility] Computed tomography of brain without radiopaque contrast [id number] 12/17/2017 [facility] TRANSFUSE NONAUT RED BLOOD CELLS IN PERIPH VEIN, PERC [id number] 07/31/2017 [facility] X-ray of chest, single view [id number] 07/31/2017 [facility] BLOOD TRANSFUSION SERVICE [id number] 07/22/2017 [facility] Assessment and Plan No Data Provided for This Section Plan of Care Plan of Care Date Source Discharge Date 03/27/18 8:30am Disposition AGAINST MEDICAL ADVICE Prescriptions See Medication Section 03/27/2018 [facility] Discharge Date 09/25/17 8:11pm Disposition ELOPED Condition at Discharge Other Forms Provided Work/School Excuse Prescriptions See Medication Section 09/25/2017 [facility] Social History Social History Date Source Social History Problem Response Recorded Date/Time Onset Date Status Hx Psychiatric Problems No 07/31/2017 10:00pm Not Applicable Not Applicable Hx Eating Disorder No 07/31/2017 10:00pm Not Applicable Not Applicable Hx Substance Use Disorder No 07/31/2017 10:00pm Not Applicable Not Applicable Hx Depression Yes 07/31/2017 10:00pm Not Applicable Not Applicable Hx Alcohol Use No 07/31/2017 10:00pm Not Applicable Not Applicable Hx Substance Use Treatment No 07/31/2017 10:00pm Not Applicable Not Applicable Hx Physical Abuse No 07/31/2017 10:00pm Not Applicable Not Applicable Smoking Status Start Date Stop Date Current every day smoker 03/27/2018 [facility] Family History No Data Provided for This Section Advance Directives Order Name Results Value Date Source Advance Directives Advance Directives Directive Response Recorded Date/Time Does the patient have an advance directive? Yes 03/26/18 9:08pm If yes, is advance directive on file with [email or web address] [facility]? No 03/26/18 9:08pm If not on file with [facility] will patient provide a copy? No 03/26/18 9:08pm Do you have a Directive to Physician? No 03/26/18 6:45pm Do you have a Medical Power of Systems Mechanic? No 03/26/18 6:45pm Do you have an out of hospital Do Not Resuscitate Order? No 03/26/18 6:45pm Do you have any special needs we should be aware of? No 03/26/18 6:45pm Do you have a support person here with you today? Yes 03/26/18 6:45pm Did patient receive Notice of Privacy Practices? Yes 03/26/18 6:45pm Did patient receive patient rights and responsibilities? Yes 03/26/18 6:45pm 03/27/2018 [facility] Advance Directives Advance Directives Directive Response Recorded Date/Time Does the patient have an advance directive? No 07/31/17 10:00pm If yes, is advance directive on file with [employer] [facility]? No 07/31/17 10:00pm If not on file with [facility] will patient provide a copy? No 07/31/17 10:00pm Do you have a Directive to Physician? No 09/25/17 5:25pm Do you have a Medical Power of Systems Mechanic? No 09/25/17 5:25pm Do you have an out of hospital Do Not Resuscitate Order? No 09/25/17 5:25pm Do you have any special needs we should be aware of? No 09/25/17 5:25pm Do you have a support person here with you today? Yes 09/25/17 5:25pm Did patient receive Notice of Privacy Practices? Yes 09/25/17 5:25pm Did patient receive patient rights and responsibilities? Yes 09/25/17 5:25pm 09/25/2017 [facility] Functional Status No Data Provided for This Section
[2018-08-28 16:28] LABS: BASOPHILS % 0.4 % (0.0-1.0); EOSINOPHILS % 0.3 % (0.0-6.0); LYMPHOCYTES # (AUTO) 0.3 (1.0-3.2); LYMPHOCYTES % 4.4 % (18.0-39.1); MEAN CORPUSCULAR HEMOGLOBIN 21.6 pg (28-32); MEAN CORPUSCULAR HGB CONC 27.3 g/dL (31-35); MEAN CORPUSCULAR VOLUME 79.1 fL (81-99); MONOCYTES # (AUTO) 0.5 (0.2-0.8); MONOCYTES % 6.1 % (4.4-11.3); NEUTROPHILS # (AUTO) 6.7 (2.1-6.9); PLATELET COUNT 210 x10e3/uL (140-360); RED BLOOD COUNT 2.78 x10e6/uL (3.6-5.1); RED CELL DISTRIBUTION WIDTH 19.2 % (11.7-14.4)
[2018-08-28 16:43] LABS: BILIRUBIN,URINE NEGATIVE (NEGATIVE); CLARITY,URINE CLEAR (CLEAR); COLOR,URINE YELLOW (YELLOW); KETONES,URINE NEGATIVE (NEGATIVE); LEUKOCYTE ESTERASE ,URINE NEGATIVE (NEGATIVE); NITRITE,URINE NEGATIVE (NEGATIVE); PROTEIN,URINE DIPSTICK NEGATIVE (NEGATIVE); URINE UROBILINOGEN 0.2 mg/dL (0.2 - 1)
[2018-08-28 16:49] LABS: INR 1.03
[2018-08-28 16:50] LABS: PARTIAL THROMBOPLASTIN TIME 27.7 seconds (23.8-35.5)
[2018-08-28 16:57] LABS: ALANINE AMINOTRANSFERASE < 6 IU/L (0-55); ALBUMIN 3.5 g/dL (3.5-5.0); ALBUMIN/GLOBULIN RATIO 1.2 (0.8-2.0); ALKALINE PHOSPHATASE 78 IU/L (40-150); ANION GAP 14.4 mmol/L (8-16); BLOOD UREA NITROGEN 21 mg/dL (7-26); BUN/CREATININE RATIO 20 (6-25); CALCIUM 8.8 mg/dL (8.4-10.2); CARBON DIOXIDE 24 mmol/L (22-29); CHLORIDE 105 mmol/L (98-107); CREATININE, SERUM 1.04 mg/dL (0.57-1.11); EST GLOMERULAR FILTRATION RATE 51 ML/MIN (60-); GLUCOSE 219 mg/dL (74-118); POTASSIUM 4.4 mmol/L (3.5-5.1); SODIUM 139 mmol/L (136-145)
[2018-08-28 16:59] LABS: EPITHELIAL CELLS,URINE FEW /LPF
[2018-08-28] MEDS ORDERED: SODIUM CHLORIDE 0.9% 250ML 250 ML IV ONE (17:00)
[2018-08-28] MEDS ORDERED: SODIUM CHLORIDE FLUSH 10 ML SYR INJ PRN (17:15)
--- OUTSIDE RECORDS SUMMARY | 2018-08-28 17:33 | XMS REPORT | Continuity of Care Document ---
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 Dyspnea Active 03/07/2014 Problem 03/27/2018 [facility] Weakness Active 03/07/2014 Problem 03/27/2018 [facility] GI bleed Active Problem 03/27/2018 [facility] Congestive heart failure Active Problem 03/27/2018 [facility] Elevated troponin Active Problem 03/27/2018 [facility] Hip avulsion fracture Active Problem 03/27/2018 [facility] Hip fracture, right Active Problem 03/27/2018 [facility] Pneumonia Active Problem 03/27/2018 [facility] Symptomatic anemia Active Problem 03/27/2018 [facility] Medications Medication Details Route Status Patient Instructions Ordering Provider Order Date Source Lactulose (Enulose) 10 Gm/15 Ml Solution, 30 Ml Oral Twice A Day as needed for Constipation Active 03/26/2018 [facility] Magnesium Oxide 400 Mg Tablet, 400 Mg Oral Twice A Day as needed for Constipation Active 03/26/2018 [facility] Ondansetron (Ondansetron Odt) 8 Mg Tab.rapdis, 4 Mg Oral Every 6 Hours as needed for Nausea And Vomiting Active 03/26/2018 [facility] Polyethylene Glycol 3350 17 Gm Powd.pack, 1 Pkt Oral Daily Active 03/26/2018 [facility] Potassium Chloride 20 Meq Tab.er.prt, 20 Mg Oral Daily Active 03/26/2018 [facility] Rivaroxaban (Xarelto) 10 Mg Tablet, 10 Mg Oral Daily Active 03/26/2018 [facility] Zinc Sulfate 220 Mg Capsule, 220 Mg Oral Twice A Day Active 03/26/2018 [facility] Acetaminophen 325 Mg Tablet Every 4 Hours as needed for Pain And Temperature Active [place] 01/26/2018 [facility] Aspirin (Aspirin Chew) 81 Mg Chew Daily Active [place] 01/26/2018 [facility] Carvedilol (Coreg) 3.125 Mg Tab Twice A Day Active [place] 01/26/2018 [facility] Escitalopram Oxalate (Lexapro) 10 Mg Tablet Daily Active [place] 01/26/2018 [facility] Hydrocodone/Apap 10MG-325MG 1 Ea Tab Every 4 Hours as needed for Pain Active [place] 01/26/2018 [facility] Levothyroxine Sodium (Synthroid) 125 Mcg Tab Daily@0600 Active [place] 01/26/2018 [facility] Lorazepam (Ativan*) 0.5 Mg Tablet Every 4 Hours as needed for Anxiety Active [place] 01/26/2018 [facility] Prednisone 5 Mg Tablet Daily Active [place] 01/26/2018 [facility] Acetaminophen 325 Mg/10 Ml Elix, 650 Mg Oral Every 6 Hours as needed for Pain And Temperature Active 01/26/2018 [facility] Albuterol/Ipratropium Nebulize 3 Ml Inha, 3 Ml Nebullizer Rt Q6h Active [place] 01/26/2018 [facility] Atorvastatin 40 Mg Tab, 40 Mg Oral Bedtime Active [place] 01/26/2018 [facility] Atorvastatin Calcium 40 Mg Tablet, 40 Mg Oral Daily Active 01/26/2018 [facility] Carbidopa/Levodopa (Carbidopa-Levodopa 25-100 Tab) 1 Each Tablet, 1 Ea Oral Daily Active [place] 01/26/2018 [facility] Carbidopa/Levodopa (Carbidopa-Levodopa 25-100 Tab) 1 Each Tablet, 1 Tab Oral Daily Active 01/26/2018 [facility] Carvedilol 3.125 Mg Tablet, 3.125 Mg Oral Twice A Day Active 01/26/2018 [facility] Clonidine Hcl (Catapres) 0.1 Mg Tablet, 0.1 Mg Oral Every 8 Hours as needed for High Blood Pressure Active [place] 01/26/2018 [facility] Clonidine Hcl 0.1 Mg Tablet, 1 Tab Oral Every 8 Hours as needed for High Blood Pressure Active 01/26/2018 [facility] Dextrose (Dextrose 50%-Water Syringe) 50 Ml Inj, 50 Ml Intraven As Needed as needed for Blood Sugar Active [place] 01/26/2018 [facility] Docusate Sodium (Colace) 100 Mg Capsule, 100 Mg Oral Twice A Day Active [place] 01/26/2018 [facility] Docusate Sodium 100 Mg Capsule, 100 Mg Oral Twice A Day Active 01/26/2018 [facility] Escitalopram Oxalate 10 Mg Tablet, 5 Mg Oral Daily Active 01/26/2018 [facility] Furosemide 10 Mg/1 Ml Vial, 40 Mg Intraven Every 12 Hours Active [place] 01/26/2018 [facility] Furosemide 40 Mg Tablet, 40 Mg Oral Daily Active 01/26/2018 [facility] Guaifenesin/Dextromethorphan (Mucinex Dm Er 600-30 Mg Tablet) 1 Each Tab.er.12h, 1 Each Oral Every 12 Hours Active [place] 01/26/2018 [facility] Hydrocodone Bit/Acetaminophen (Logan 10-325 Tablet) 1 Each Tablet, 1 Tab Oral Every 4 Hours as needed for Pain Active 01/26/2018 [facility] Insulin Aspart (Novolog) 100 Unit/1 Ml Cartridge, 0 Sub-Q Daily Active 01/26/2018 [facility] Insulin Detemir 100 Unit/Ml Pen, 20 Unit Sub-Q Every 12 Hours Active [place] 01/26/2018 [facility] Insulin Glargine (Lantus 3ML Pen) 100 Units/1 Ml Inj, 20 Units Sub-Q Every 12 Hours Active 01/26/2018 [facility] Insulin Lispro 100 Unit/1 Ml Vial, 0 Unit Sub-Q Before Meals And At Bedtime Active [place] 01/26/2018 [facility] Levothyroxine Sodium 125 Mcg Tablet, 125 Mcg Oral Daily Active 01/26/2018 [facility] Lisinopril 10 Mg Tablet, 10 Mg Oral Twice A Day Active [place] 01/26/2018 [facility] Lisinopril 40 Mg Tablet, 10 Mg Oral Twice A Day Active 01/26/2018 [facility] Nicotine (Nicoderm Cq) 1 Each Patch.td24, 21 Mg Topically Daily Active [place] 01/26/2018 [facility] Nicotine (Nicotine Patch) 1 Each Patch.td24, 21 Mg Transderm Daily Active 01/26/2018 [facility] Ondansetron Hcl/Pf (Ondansetron Hcl 4 Mg/2 Ml Vial) 4 Mg/2 Ml Vial, 4 Mg Intraven Every 6 Hours as needed for Nausea And Vomiting Active [place] 01/26/2018 [facility] Pantoprazole Sod (Protonix) 40 Mg/Ml Susp, 40 Mg Oral Before Breakfast Active [place] 01/26/2018 [facility] Potassium Chloride (Klor-Con M20) 20 Meq Tabcr, 20 Meq Oral Twice A Day Active [place] 01/26/2018 [facility] Prednisone 5 Mg Tablet, 5 Mg Oral Daily Active 01/26/2018 [facility] Sodium Chloride Flush 10 Ml Soln, 10 Ml Injection As Needed as needed for Iv Site Flush Active [place] 01/26/2018 [facility] Temazepam (Restoril) 15 Mg Capsule, 15 Mg Oral Bedtime Active [place] 01/26/2018 [facility] Temazepam 15 Mg Capsule, 15 Mg Oral Daily Active 01/26/2018 [facility] Alprazolam 1 Mg Tablet, Daily Active 12/17/2017 [facility] Amitriptyline Hcl 10 Mg Tablet, Daily Active 12/17/2017 [facility] Atorvastatin Calcium (Lipitor*) 10 Mg Tablet, 40 Mg Oral Daily Active 12/17/2017 [facility] Calcium Carbonate/Vitamin D3 (Caltrate 600 + D Chewable Tab) 1 Each Tab.chew, Daily Active 12/17/2017 [facility] Carbidopa/Levodopa (Carbidopa-Levodopa 10-100 Tab) 1 Each Tablet, 1 Each Oral Active 12/17/2017 [facility] Furosemide 40 Mg Tablet, 40 Mg Oral Daily Active 12/17/2017 [facility] Glipizide (Glipizide Xl) 10 Mg Tab.osm.24, Daily Active 12/17/2017 [facility] Insulin Glargine,Hum.rec.anlog (Lantus) 100 Unit/1 Ml Vial, 10 U Qhs Active 12/17/2017 [facility] Insuln Asp Prt/Insulin Aspart (Novolog Mix 70-30 Flexpen Syrn) 100 Unit/1 Ml Insuln.pen, Active 12/17/2017 [facility] Levothyroxine Sodium (Levothroid) 112 Mcg Tablet, Daily Active 12/17/2017 [facility] Lisinopril 40 Mg Tablet, Daily Active 12/17/2017 [facility] Lorazepam 1 Mg Tablet, 1 Mg Oral Daily Active 12/17/2017 [facility] Metformin Hcl (Fortamet) 500 Mg Tab.osm.24, Daily Active 12/17/2017 [facility] Phenazopyridine Hcl 200 Mg Tablet, Active 12/17/2017 [facility] Prednisone 10 Mg Tab, 10 Mg Oral Active 12/17/2017 [facility] Tamsulosin Hcl 0.4 Mg Cap.er.24h, Active 12/17/2017 [facility] Tramadol Hcl (Ultram 50MG*) 50 Mg Tab, 50 Mg Oral Active 12/17/2017 [facility] Omeprazole (Prilosec) 20 Mg Capsule., Daily Active 04/11/2012 [facility] Simvastatin (Zocor) 20 Mg Tablet, Daily Active 04/11/2012 [facility] Alprazolam 1 Mg Tablet Daily Active [facility] Amitriptyline Hcl 10 Mg Tablet Daily Active [facility] Atorvastatin Calcium (Lipitor*) 10 Mg Tablet Daily Active [facility] Calcium Carbonate/Vitamin D3 (Caltrate 600 + D Chewable Tab) 1 Each Tab.chew Daily Active [facility] Carbidopa/Levodopa (Carbidopa-Levodopa 25-100 Tab) [address] [facility] Carbidopa/Levodopa (Carbidopa-Levodopa 10-100 Tab) [address] [facility] Furosemide 40 Mg Tablet Daily Active [facility] Glipizide (Glipizide Xl) 10 Mg Tab.osm.[address] [facility] Insulin Glargine,Hum.rec.anlog (Lantus) 100 Unit/[address] [facility] Insuln Asp Prt/Insulin Aspart (Novolog Mix 70-30 Flexpen Syrn) 100 Unit/[address] [facility] Levothyroxine Sodium (Levothroid) 112 Mcg Tablet Daily Active [facility] Lisinopril 40 Mg Tablet Daily Active [facility] Lorazepam 1 Mg Tablet Daily Active [facility] Metformin Hcl (Fortamet) 500 Mg Tab.osm.[address] [facility] Omeprazole [address] [facility] Phenazopyridine Hcl [address] [facility] Prednisone [address] [facility] Tamsulosin Hcl 0.[address] [facility] Tramadol Hcl (Ultram 50MG*) [address] [facility] Albuterol Sulfate (Ventolin Hfa) 18 Gm Hfa.aer.ad Active [facility] Allopurinol 100 Mg Tablet Daily Active [facility] Ascorbic Acid 500 Mg Tablet Twice A Day Active [facility] Atorvastatin Calcium 20 Mg Tablet Bedtime Active [facility] Calcium Carbonate/Vitamin D3 (Oyster Shell Calcium + D Tab) 1 Each Tablet Three Times A Day Active [facility] Carbidopa/Levodopa (Sinemet 25-100 Mg Tablet) 1 Each Tablet Twice A Day Active [facility] Ferrous Sulfate [address] Daily [address] [facility] Furosemide 40 Mg Tablet Daily Active [facility] Insulin Aspart (Novolog) 100 Unit/1 Ml Cartridge Three Times A Day as needed for Blood Sugar Active FOR BLOOD SUGAR GREATER THAN 150 [facility] Insulin Glargine (Lantus 3ML Pen) 100 Units/1 Ml Inj Bedtime Active HOLD IF BLOOD SUGAR LESS THAN 100 [facility] Lisinopril (Prinavil / Zestril) 20 Mg Tablet Daily Active [facility] Magnesium Hydroxide (Milk Of Magnesia) 400 Mg/5 Ml Oral.susp Daily as needed for Constipation Active [facility] Omeprazole [address] Daily [address] [facility] Potassium Chloride 20 Meq Tab.er.prt Daily Active [facility] Allergies, Adverse Reactions, Alerts Substance Category Reaction Severity Reaction type Status Date Reported Comments Source Morphine RASH,ITCHING Mild Allergy to Substance Active 01/02/2018 [facility] Immunizations No Data Provided for This Section Results Order Name Results Value Reference Range Date Interpretation Comments Source Blood leukocytes automated count (number/volume) 9.52 4.8 - 10.8 03/27/2018 [facility] Blood erythrocytes automated count (number/volume) 3.67 3.6 - 5.1 03/27/2018 [facility] Blood hemoglobin measurement (moles/volume) 8.9 12.0 - 16.0 03/27/2018 [facility] Automated blood hematocrit (volume fraction) 29.7 34.2 - 44.1 03/27/2018 [facility] Automated erythrocyte mean corpuscular volume 80.9 81 - 99 03/27/2018 [facility] Automated erythrocyte mean corpuscular hemoglobin (mass per erythrocyte) 24.3 28 - 32 03/27/2018 [facility] Automated erythrocyte mean corpuscular hemoglobin concentration measurement (mass/volume) 30.0 31 - 35 03/27/2018 [facility] RDW BldCo-Rto 17.6 11.7 - 14.4 03/27/2018 [facility] Automated blood platelet count (count/volume) 190 140 - 360 03/27/2018 [facility] Automated blood segmented neutrophil count as percentage of total leukocytes 77.9 38.7 - 80.0 03/27/2018 [facility] Automated blood lymphocyte count as percentage ot total leukocytes 8.6 18.0 - 39.1 03/27/2018 [facility] Automated blood monocyte count as percentage of total leukocytes 10.9 4.4 - 11.3 03/27/2018 [facility] Automated blood eosinophil count as percentage of total leukocytes 0.2 0.0 - 6.0 03/27/2018 [facility] Automated blood basophil count as percentage of total leukocytes 0.4 0.0 - 1.0 03/27/2018 [facility] IM GRANULOCYTES % 2.0 0.0 - 1.0 03/27/2018 [facility] Automated blood neutrophil count 7.4 2.1 - 6.9 03/27/2018 [facility] Blood lymphocytes count (number/volume) 0.8 1.0 - 3.2 03/27/2018 [facility] Blood monocytes automated count (number/volume) 1.0 0.2 - 0.8 03/27/2018 [facility] Automated blood eosinophil count 0.0 0.0 - 0.4 03/27/2018 [facility] Automated blood basophil count (count/volume) 0.0 0.0 - 0.1 03/27/2018 [facility] Absolute Immature Granulocyte (auto 0.19 0 - 0.1 03/27/2018 [facility] Urine color determination YELLOW YELLOW 03/26/2018 [facility] Urine clarity CLEAR CLEAR 03/26/2018 [facility] Specific gravity of Urine by Test strip 1.015 1.010 - 1.025 03/26/2018 [facility] Urine pH measurement by automated test strip 6 5 - 7 03/26/2018 [facility] Urine leukocyte esterase detection by dipstick NEGATIVE NEGATIVE 03/26/2018 [facility] Urine nitrite detection NEGATIVE NEGATIVE 03/26/2018 [facility] Urine protein measurement by test strip (mass/volume) NEGATIVE NEGATIVE 03/26/2018 [facility] Urine glucose detection NEGATIVE NEGATIVE 03/26/2018 [facility] Urine ketones detection by automated test strip TRACE NEGATIVE 03/26/2018 [facility] Urine urobilinogen measurement by test strip (mass/volume) 0.2 0.2 - 1 03/26/2018 [facility] Urine total bilirubin measurement (mass/volume) NEGATIVE NEGATIVE 03/26/2018 [facility] Urine erythrocytes detection NEGATIVE NEGATIVE 03/26/2018 [facility] Automated urine sediment leukocyte count by microscopy (number/high power field) NONE 0 - 5 03/26/2018 [facility] Erythrocytes detection in urine sediment by light microscopy NONE 0 - 5 03/26/2018 [facility] Bacteria detection in urine sediment by light microscopy NONE NONE 03/26/2018 [facility] Epithelial cells detection in urine sediment by light microscopy MANY NONE 03/26/2018 [facility] Prothrombin time (PT) in platelet poor plasma by coagulation assay 12.8 11.9 - 14.5 03/26/2018 [facility] INR in Platelet poor plasma by Coagulation assay 0.88 03/26/2018 [facility] Activated partial thromboplastin time (aPTT) in platelet poor plasma bycoagulation assay 29.3 23.8 - 35.5 03/26/2018 [facility] Serum or plasma sodium measurement (moles/volume) 136 136 - 145 03/26/2018 [facility] Serum or plasma potassium measurement (moles/volume) 4.2 3.5 - 5.1 03/26/2018 [facility] Serum or plasma chloride measurement (moles/volume) 102 98 - 107 03/26/2018 [facility] Serum or plasma carbon dioxide, total measurement (moles/volume) 24 22 - 29 03/26/2018 [facility] Serum or plasma anion gap 14.2 8 - 16 03/26/2018 [facility] Serum or plasma urea nitrogen measurement (mass/volume) 31 7 - 26 03/26/2018 [facility] Serum or plasma creatinine measurement (mass/volume) 1.34 0.57 - 1.11 03/26/2018 [facility] Serum or plasma urea nitrogen/creatinine mass ratio 23 6 - 25 03/26/2018 [facility] Estimated glomerular filtration rate (GFR) determination 38 60 03/26/2018 [facility] Glucose measurement 157 74 - 118 03/26/2018 [facility] Serum or plasma calcium measurement (mass/volume) 8.2 8.4 - 10.2 03/26/2018 [facility] Serum or plasma total bilirubin measurement (mass/volume) 0.1 0.2 - 1.2 03/26/2018 [facility] Aspartate Amino Transf (AST/SGOT) 9 5 - 34 03/26/2018 [facility] Serum or plasma alanine aminotransferase measurement (enzymatic activity/volume) < 6 0 - 55 03/26/2018 [facility] Serum or plasma protein measurement (mass/volume) 5.9 6.5 - 8.1 03/26/2018 [facility] Serum or plasma albumin measurement (mass/volume) 3.3 3.5 - 5.0 03/26/2018 [facility] Plasma globulin measurement (mass/volume) 2.6 2.3 - 3.5 03/26/2018 [facility] Serum or plasma albumin/globulin mass ratio 1.3 0.8 - 2.0 03/26/2018 [facility] Serum or plasma alkaline phosphatase measurement (enzymatic activity/volume) 71 40 - 150 03/26/2018 [facility] BNP Bld-mCnc 691.1 0 - 100 03/26/2018 [facility] Serum or plasma creatine kinase measurement (enzymatic activity/volume) 55 29 - 168 03/26/2018 [facility] Serum or plasma creatine kinase MB measurement (mass/volume) 2.60 0 - 5.0 03/26/2018 [facility] Troponin I measurement by highly sensitive enzyme immunoassay 0.021 0 - 0.300 03/26/2018 [facility] Capillary blood glucose measurement by glucometer (mass/volume) 191 70 - 120 01/26/2018 [facility] Hemoglobin A1c Percent 5.2 4.0 - 7.0 01/26/2018 [facility] Serum or plasma magnesium measurement (mass/volume) 2.1 1.3 - 2.1 01/26/2018 [facility] Serum or plasma iron measurement (mass/volume) 10 50 - 170 01/26/2018 [facility] Serum or plasma iron binding capacity measurement (mass/volume) 328 261 - 478 01/26/2018 [facility] Serum or plasma iron saturation measurement (mass fraction) 3 15 - 50 01/26/2018 [facility] Serum or plasma transferrin measurement (mass/volume) 234 180 - 382 01/26/2018 [facility] Serum or plasma ferritin measurement (mass/volume) 33.17 4.63 - 204.00 01/26/2018 [facility] Blood cobalamin (vitamin B12) measurement (mass/volume) 341 213 - 816 01/26/2018 [facility] Serum or plasma folate measurement (mass/volume) 8.1 7.0 - 15.4 01/26/2018 [facility] Serum or plasma thyroxine (T4) free measurement (mass/volume) 0.99 0.9 - 1.8 01/26/2018 [facility] Serum or plasma thyrotropin measurement by detection limit <=0.005 miu/l (units/volume) 9.556 0.350 - 4.940 01/26/2018 [facility] Differential Total Cells Counted 100 01/25/2018 [facility] Manual blood neutrophils/100 leukocytes 78 40 - 74 01/25/2018 [facility] Manual blood band neutrophils form/100 leukocytes 1 01/25/2018 [facility] Manual blood lymphocytes/100 leukocytes 9 19 - 48 01/25/2018 [facility] Manual blood monocytes/100 leukocytes 8 3.4 - 9.0 01/25/2018 [facility] Manual blood eosinophil count as percentage of total leukocytes 4 0 - 7 01/25/2018 [facility] Blood nucleated erythrocytes count (number/volume) 1 01/25/2018 [facility] Blood platelets count by estimate (number/volume) ADEQUATE 01/25/2018 [facility] Platelet morphology NORMAL 01/25/2018 [facility] RBC morphology NORMAL 01/25/2018 [facility] Blood culture NO GROWTH AFTER 5 DAYS, FINAL REPORT 01/25/2018 [facility] Stool gastrointestinal hemoglobin detection POSITIVE NEGATIVE 01/09/2018 [facility] Manual basophil percentage 1 0 - 1.5 01/08/2018 [facility] Manual blood metamyelocytes/100 leukocytes 1 0 - 0 01/08/2018 [facility] Blood hypochromia detection by light microscopy SLIGHT 01/08/2018 [facility] Blood anisocytosis detection by light microscopy MODERATE 01/08/2018 [facility] Blood [place] bodies detection by light microscopy FEW 01/08/2018 [facility] Phosphorus measurement 3.0 2.3 - 4.7 01/07/2018 [facility] Ammonia Ser-mCnc 45 31 - 123 12/17/2017 [facility] Serum or plasma lipase measurement (enzymatic activity/volume) 25 8 - 78 09/25/2017 [facility] Activated partial thromboplastin time (aPTT) in platelet poor plasma bycoagulation assay Activated partial thromboplastin time (aPTT) in platelet poor plasma bycoagulation assay 26.4 23.8 - 35.5 09/25/2017 [facility] Automated blood basophil count (count/volume) Automated blood basophil count (count/volume) 0.0 0.0 - 0.1 09/25/2017 [facility] Automated blood basophil count as percentage of total leukocytes Automated blood basophil count as percentage of total leukocytes 0.5 0.0 - 1.0 09/25/2017 [facility] Automated blood eosinophil count Automated blood eosinophil count 0.3 0.0 - 0.4 09/25/2017 [facility] Automated blood eosinophil count as percentage of total leukocytes Automated blood eosinophil count as percentage of total leukocytes 4.4 0.0 - 6.0 09/25/2017 [facility] Automated blood hematocrit (volume fraction) Automated blood hematocrit (volume fraction) 26.2 34.2 - 44.1 09/25/2017 [facility] Automated blood lymphocyte count as percentage ot total leukocytes Automated blood lymphocyte count as percentage ot total leukocytes 15.4 18.0 - 39.1 09/25/2017 [facility] Automated blood monocyte count as percentage of total leukocytes Automated blood monocyte count as percentage of total leukocytes 12.9 4.4 - 11.3 09/25/2017 [facility] Automated blood neutrophil count Automated blood neutrophil count 3.8 2.1 - 6.9 09/25/2017 [facility] Automated blood platelet count (count/volume) Automated blood platelet count (count/volume) 197 140 - 360 09/25/2017 [facility] Automated blood segmented neutrophil count as percentage of total leukocytes Automated blood segmented neutrophil count as percentage of total leukocytes 65.9 38.7 - 80.0 09/25/2017 [facility] Automated erythrocyte mean corpuscular hemoglobin (mass per erythrocyte) Automated erythrocyte mean corpuscular hemoglobin (mass per erythrocyte) 25.9 28 - 32 09/25/2017 [facility] Automated erythrocyte mean corpuscular hemoglobin concentration measurement (mass/volume) Automated erythrocyte mean corpuscular hemoglobin concentration measurement (mass/volume) 27.9 31 - 35 09/25/2017 [facility] Automated erythrocyte mean corpuscular volume Automated erythrocyte mean corpuscular volume 92.9 81 - 99 09/25/2017 [facility] Blood anisocytosis detection by light microscopy Blood anisocytosis detection by light microscopy MODERATE 09/25/2017 [facility] Blood erythrocytes automated count (number/volume) Blood erythrocytes automated count (number/volume) 2.82 3.6 - 5.1 09/25/2017 [facility] Blood hemoglobin measurement (moles/volume) Blood hemoglobin measurement (moles/volume) 7.3 12.0 - 16.0 09/25/2017 [facility] Blood hypochromia detection by light microscopy Blood hypochromia detection by light microscopy SLIGHT 09/25/2017 [facility] Blood leukocytes automated count (number/volume) Blood leukocytes automated count (number/volume) 5.73 4.8 - 10.8 09/25/2017 [facility] Blood lymphocytes count (number/volume) Blood lymphocytes count (number/volume) 0.9 1.0 - 3.2 09/25/2017 [facility] Blood monocytes automated count (number/volume) Blood monocytes automated count (number/volume) 0.7 0.2 - 0.8 09/25/2017 [facility] Estimated glomerular filtration rate (GFR) determination Estimated glomerular filtration rate (GFR) determination 45 60 09/25/2017 [facility] Glucose measurement Glucose measurement 152 74 - 118 09/25/2017 [facility] INR in Platelet poor plasma by Coagulation assay INR in Platelet poor plasma by Coagulation assay 1.09 09/25/2017 [facility] Plasma globulin measurement (mass/volume) Plasma globulin measurement (mass/volume) 2.9 2.3 - 3.5 09/25/2017 [facility] Prothrombin time (PT) in platelet poor plasma by coagulation assay Prothrombin time (PT) in platelet poor plasma by coagulation assay 13.3 11.9 - 14.5 09/25/2017 [facility] RBC morphology RBC morphology ABNORMAL 09/25/2017 [facility] Serum or plasma alanine aminotransferase measurement (enzymatic activity/volume) Serum or plasma alanine aminotransferase measurement (enzymatic activity/volume) 11 0 - 55 09/25/2017 [facility] Serum or plasma albumin measurement (mass/volume) Serum or plasma albumin measurement (mass/volume) 3.3 3.5 - 5.0 09/25/2017 [facility] Serum or plasma albumin/globulin mass ratio Serum or plasma albumin/globulin mass ratio 1.1 0.8 - 2.0 09/25/2017 [facility] Serum or plasma alkaline phosphatase measurement (enzymatic activity/volume) Serum or plasma alkaline phosphatase measurement (enzymatic activity/volume) 81 40 - 150 09/25/2017 [facility] Serum or plasma anion gap Serum or plasma anion gap 13.2 8 - 16 09/25/2017 [facility] Serum or plasma calcium measurement (mass/volume) Serum or plasma calcium measurement (mass/volume) 8.8 8.4 - 10.2 09/25/2017 [facility] Serum or plasma carbon dioxide, total measurement (moles/volume) Serum or plasma carbon dioxide, total measurement (moles/volume) 22 22 - 29 09/25/2017 [facility] Serum or plasma chloride measurement (moles/volume) Serum or plasma chloride measurement (moles/volume) 111 98 - 107 09/25/2017 [facility] Serum or plasma creatine kinase MB measurement (mass/volume) Serum or plasma creatine kinase MB measurement (mass/volume) 3.20 0 - 5.0 09/25/2017 [facility] Serum or plasma creatine kinase measurement (enzymatic activity/volume) Serum or plasma creatine kinase measurement (enzymatic activity/volume) 84 29 - 168 09/25/2017 [facility] Serum or plasma creatinine measurement (mass/volume) Serum or plasma creatinine measurement (mass/volume) 1.18 0.57 - 1.11 09/25/2017 [facility] Serum or plasma lipase measurement (enzymatic activity/volume) Serum or plasma lipase measurement (enzymatic activity/volume) 25 8 - 78 09/25/2017 [facility] Serum or plasma potassium measurement (moles/volume) Serum or plasma potassium measurement (moles/volume) 4.2 3.5 - 5.1 09/25/2017 [facility] Serum or plasma protein measurement (mass/volume) Serum or plasma protein measurement (mass/volume) 6.2 6.5 - 8.1 09/25/2017 [facility] Serum or plasma sodium measurement (moles/volume) Serum or plasma sodium measurement (moles/volume) 142 136 - 145 09/25/2017 [facility] Serum or plasma total bilirubin measurement (mass/volume) Serum or plasma total bilirubin measurement (mass/volume) 0.2 0.2 - 1.2 09/25/2017 [facility] Serum or plasma urea nitrogen measurement (mass/volume) Serum or plasma urea nitrogen measurement (mass/volume) 19 7 - 26 09/25/2017 [facility] Serum or plasma urea nitrogen/creatinine mass ratio Serum or plasma urea nitrogen/creatinine mass ratio 16 6 - 25 09/25/2017 [facility] Troponin I measurement by highly sensitive enzyme immunoassay Troponin I measurement by highly sensitive enzyme immunoassay 0.036 0 - 0.300 09/25/2017 [facility] Red Cell Distribution Width 18.9 11.7 - 14.4 09/25/2017 [facility] IM GRANULOCYTES % 0.9 0.0 - 1.0 09/25/2017 [facility] Absolute Immature Granulocyte (auto 0.05 0 - 0.1 09/25/2017 [facility] Aspartate Amino Transf (AST/SGOT) 11 5 - 34 09/25/2017 [facility] Capillary blood glucose measurement by glucometer (mass/volume) Capillary blood glucose measurement by glucometer (mass/volume) 132 70 - 120 08/01/2017 [facility] Automated urine sediment leukocyte count by microscopy (number/high power field) Automated urine sediment leukocyte count by microscopy (number/high power field) <5 0 - 5 07/31/2017 [facility] Bacteria detection in urine sediment by light microscopy Bacteria detection in urine sediment by light microscopy NONE NONE 07/31/2017 [facility] Epithelial cells detection in urine sediment by light microscopy Epithelial cells detection in urine sediment by light microscopy RARE NONE 07/31/2017 [facility] Erythrocytes detection in urine sediment by light microscopy Erythrocytes detection in urine sediment by light microscopy NONE 0 - 5 07/31/2017 [facility] Specific gravity of Urine by Test strip Specific gravity of Urine by Test strip 1.015 1.010 - 1.025 07/31/2017 [facility] Urine clarity Urine clarity SL CLOUDY CLEAR 07/31/2017 [facility] Urine color determination Urine color determination YELLOW YELLOW 07/31/2017 [facility] Urine erythrocytes detection Urine erythrocytes detection NEGATIVE NEGATIVE 07/31/2017 [facility] Urine glucose detection Urine glucose detection NEGATIVE NEGATIVE 07/31/2017 [facility] Urine ketones detection by automated test strip Urine ketones detection by automated test strip NEGATIVE NEGATIVE 07/31/2017 [facility] Urine leukocyte esterase detection by dipstick Urine leukocyte esterase detection by dipstick NEGATIVE NEGATIVE 07/31/2017 [facility] Urine nitrite detection Urine nitrite detection NEGATIVE NEGATIVE 07/31/2017 [facility] Urine pH measurement by automated test strip Urine pH measurement by automated test strip 6 5 - 7 07/31/2017 [facility] Urine protein measurement by test strip (mass/volume) Urine protein measurement by test strip (mass/volume) TRACE NEGATIVE 07/31/2017 [facility] Urine total bilirubin measurement (mass/volume) Urine total bilirubin measurement (mass/volume) NEGATIVE NEGATIVE 07/31/2017 [facility] Urine urobilinogen measurement by test strip (mass/volume) Urine urobilinogen measurement by test strip (mass/volume) 0.2 0.2 - 1 07/31/2017 [facility] Blood cobalamin (vitamin B12) measurement (mass/volume) Blood cobalamin (vitamin B12) measurement (mass/volume) 813 213 - 816 07/31/2017 [facility] Serum or plasma ferritin measurement (mass/volume) Serum or plasma ferritin measurement (mass/volume) 63.26 4.63 - 204.00 07/31/2017 [facility] Serum or plasma folate measurement (mass/volume) Serum or plasma folate measurement (mass/volume) 11.5 7.0 - 15.4 07/31/2017 [facility] Serum or plasma iron binding capacity measurement (mass/volume) Serum or plasma iron binding capacity measurement (mass/volume) 358 261 - 478 07/31/2017 [facility] Serum or plasma iron measurement (mass/volume) Serum or plasma iron measurement (mass/volume) 211 50 - 170 07/31/2017 [facility] Serum or plasma iron saturation measurement (mass fraction) Serum or plasma iron saturation measurement (mass fraction) 59 15 - 50 07/31/2017 [facility] Serum or plasma transferrin measurement (mass/volume) Serum or plasma transferrin measurement (mass/volume) 256 180 - 382 07/31/2017 [facility] Pathology Reports No Data Provided for This [...] DC Date Status Source Discharged Inpatient (obs) [id number] SAM CAI MD 07/22/2017 07/22/2017 [facility] Discharged Inpatient [id number] KULWANT BAEZ MD 07/31/2017 08/01/2017 [facility] Departed Emergency Room [id number] TONJA DESAI MD 09/25/2017 09/25/2017 [facility] Discharged Inpatient (obs) [id number] SAM CAI MD 12/17/2017 12/17/2017 [facility] Discharged Inpatient [id number] SAM CAI MD 01/02/2018 01/09/2018 [facility] Discharged Inpatient [id number] SAM CAI MD 01/25/2018 01/26/2018 [facility] Discharged Inpatient [id number] SAM CAI MD 03/26/2018 03/27/2018 [facility] Procedures Procedure Code Date Perfomer Comments Source TRANSFUSE NONAUT RED BLOOD CELLS IN PERIPH VEIN, PERC [id number] 01/25/2018 [facility] Computed tomography of chest without contrast [id number] 01/25/2018 [facility] REPOSITION RIGHT UPPER FEMUR WITH INT FIX, PERC APPROACH [id number] 01/06/[address] [facility] [place] [place] TRANSFUSE NONAUT RED BLOOD CELLS IN PERIPH VEIN, PERC [id number] 01/04/2018 [facility] BLOOD TRANSFUSION SERVICE [id number] 12/17/2017 [facility] Computed tomography of brain without radiopaque contrast [id number] 12/17/2017 [facility] TRANSFUSE NONAUT RED BLOOD CELLS IN PERIPH VEIN, PERC [id number] 07/31/2017 [facility] X-ray of chest, single view [id number] 07/31/2017 [facility] BLOOD TRANSFUSION SERVICE [id number] 07/22/2017 [facility] Assessment and Plan No Data Provided for This Section Plan of Care Plan of Care Date Source Discharge Date 03/27/18 8:30am Disposition AGAINST MEDICAL ADVICE Prescriptions See Medication Section 03/27/2018 [facility] Discharge Date 09/25/17 8:11pm Disposition ELOPED Condition at Discharge Other Forms Provided Work/School Excuse Prescriptions See Medication Section 09/25/2017 [facility] Social History Social History Date Source Social [...] Stop Date Current every day smoker 03/27/2018 [facility] Family History No Data Provided for This Section Advance Directives Order Name Results Value Date Source Advance Directives Advance Directives Directive Response Recorded Date/Time Does the patient have an advance directive? Yes 03/26/18 9:08pm If yes, is advance directive on file with [employer] [facility]? No 03/26/18 9:08pm If not on file with [facility] will patient provide a copy? No 03/26/18 9:08pm Do you have a Directive to Physician? No 03/26/18 6:45pm Do you have a Medical Power of [employer]? No 03/26/18 6:45pm Do you have an [...] rights and responsibilities? Yes 03/26/18 6:45pm 03/27/2018 [facility] Advance Directives Advance Directives Directive Response Recorded Date/Time Does the patient have an advance directive? No 07/31/17 10:00pm If yes, is advance directive on file with [employer] [facility]? No 07/31/17 10:00pm If not on file with [facility] will patient provide a copy? No 07/31/17 10:00pm Do you have a Directive to Physician? No 09/25/17 5:25pm Do you have a Medical Power of [employer]? No 09/25/17 5:25pm Do you have an [...] rights and responsibilities? Yes 09/25/17 5:25pm 09/25/2017 [facility] Functional Status No Data Provided for This Section
[2018-08-28] MEDS: FAMOTIDINE 20 MG/2 ML VIAL IV SCH (17:46)
[2018-08-28 18:03] LABS: FERRITIN 14.62 ng/mL (4.63-204.00); THYROID STIMULATING HORMONE 6.461 uIU/mL (0.350-4.940)
[2018-08-28 18:53] VITALS: BP 120/63
[2018-08-28 19:00] VITALS: BP 146/74
--- NOTE | 2018-08-28 19:00 | NUR ---
received report from day nurse. patient is resting comfortably in bed. bed is in lowest position and call mcmahon is within reach.will continue to monitor patient.
[2018-08-28 20:00] VITALS: BP 146/74
--- NOTE | 2018-08-28 21:00 | NUR ---
patient has signed consent form authorizing that she may be given blood via transfusion.
--- NOTE | 2018-08-28 21:30 | NUR ---
Called and talked to Dr. Joya about patient's blood sugar being high. Dr. Joya said to continue home medication and have the patient on low dose Humalog sliding scale ACHS.
[2018-08-28] MEDS ORDERED: DEXTROSE 50% SYRINGE 50 ML IV PRN (21:45)
[2018-08-28] MEDS ORDERED: SODIUM CHLORIDE 0.9% 250ML 250 ML ONE (21:48)
--- NOTE | 2018-08-28 22:00 | NUR ---
first unit of blood has started to infuse. no adverse reactions noted. will continue to monitor infusion process.
[2018-08-28] MEDS: INSULIN LISPRO 100 UNIT/1 ML 3ML VIAL SQ SCH (23:15)
[2018-08-28] MEDS: HYDROCODONE/APAP 10MG-325MG TAB PO PRN (23:17)
[2018-08-29] VITALS: BP 117/58
--- NOTE | 2018-08-29 00:41 | NUR ---
1 unit of blood is done transfusing. patient tolerated procedure well. no adverse reactions noted.
[2018-08-29] MEDS ORDERED: SODIUM CHLORIDE 0.9% 250ML 250 ML ONE (00:56)
--- NOTE | 2018-08-29 01:03 | NUR ---
second unit of blood is transfusing. patient is tolerating procedure well. no adverse reactions noted. will continue to monitor infusion process.
--- NOTE | 2018-08-29 03:13 | NUR ---
second unit of blood is done transfusing. patient tolerated procedure well. no adverse reactions noted.
[2018-08-29 04:00] VITALS: BP 139/67
[2018-08-29 04:58] LABS: BASOPHILS % 0.2 % (0.0-1.0); EOSINOPHILS % 0.4 % (0.0-6.0); HEMATOCRIT 27.8 % (34.2-44.1); LYMPHOCYTES # (AUTO) 0.7 (1.0-3.2); LYMPHOCYTES % 7.9 % (18.0-39.1); MEAN CORPUSCULAR HEMOGLOBIN 22.9 pg (28-32); MEAN CORPUSCULAR HGB CONC 28.8 g/dL (31-35); MEAN CORPUSCULAR VOLUME 79.7 fL (81-99); MONOCYTES # (AUTO) 1.2 (0.2-0.8); MONOCYTES % 14.2 % (4.4-11.3); NEUTROPHILS # (AUTO) 6.3 (2.1-6.9); NEUTROPHILS % 75.6 % (38.7-80.0); PLATELET COUNT 214 x10e3/uL (140-360); RED BLOOD COUNT 3.49 x10e6/uL (3.6-5.1); RED CELL DISTRIBUTION WIDTH 17.9 % (11.7-14.4)
--- NOTE | 2018-08-29 05:20 | NUR ---
patient is complaining of difficulty breathing. O2 sat assessed and found to be 95%. patient reports having difficulty breathing. Oxygen applied to patient at 3L via nasal cannula. MD paged and voicemail left on phone. Awaiting call back from MD. will continue to monitor patient.
[2018-08-29 05:23] LABS: ANION GAP 15.1 mmol/L (8-16); CALCIUM 8.9 mg/dL (8.4-10.2); CREATININE, SERUM 1.13 mg/dL (0.57-1.11); POTASSIUM 4.1 mmol/L (3.5-5.1)
--- NOTE | 2018-08-29 05:55 | NUR ---
Able to get in touch with physician on second attempt. received new order for 1 time dose of lasix 40mg IV.
[2018-08-29] MEDS ORDERED: FUROSEMIDE INJ 10 MG/ML 4 ML VIAL IV ONE ×2 (06:00→10:30)
[2018-08-29] MEDS: LEVOTHYROXINE SODIUM 125 MCG TAB PO SCH (06:44)
--- NOTE | 2018-08-29 06:57 | NUR ---
report given to day nurse. patient is resting in bed. continues to receive oxygen at 3l via nasal cannula.
[2018-08-29 07:30] VITALS: BP 160/82
[2018-08-29] MEDS: INSULIN LISPRO 100 UNIT/1 ML 3ML VIAL SQ SCH ×4 (07:30→20:26)
--- NOTE | 2018-08-29 08:00 | NUR ---
PATIENT CALLING OUT FOR NURSE, UPON GOING IN THE ROOM, PATIENT IS SITTING UP STATING SHE CANNOT BREATHE. HELPED TO MAKE PATIENT MORE COMFORTABLE AND CHECKED PULSE OX WHICH SHOWED TO BE AT 99%. PATIENT STATES SHE JUST DOESN'T FEEL WELL. WILL CONTINUE TO MONITOR CLOSELY.
[2018-08-29] MEDS: FAMOTIDINE 20 MG/2 ML VIAL IV SCH (08:59)
[2018-08-29] MEDS: CARVEDILOL 3.125 MG TAB PO SCH ×2 (08:59→17:00)
[2018-08-29] MEDS: HYDROCODONE/APAP 10MG-325MG TAB PO PRN (09:00)
[2018-08-29] MEDS: LISINOPRIL 20 MG TAB PO SCH (09:00)
[2018-08-29] MEDS: FERROUS SULFATE 325 MG TAB PO SCH (09:00)
[2018-08-29] MEDS ORDERED: IPRATROPIUM BROMIDE 0.02% 2.5 ML NEB ONE (09:03)
[2018-08-29] MEDS ORDERED: ALBUTEROL SULF 0.083% NEB SOLN 3 ML NEB ONE (09:03)
[2018-08-29] MEDS ORDERED: ACETAMINOPHEN 325 MG TAB PO PRN (09:45)
[2018-08-29] MEDS ORDERED: ALBUTEROL/IPRATROPIUM 3 ML NEB NEB PRN (09:45)
[2018-08-29] MEDS ORDERED: LORAZEPAM 0.5 MG TAB PO PRN (09:45)
--- NOTE | 2018-08-29 10:00 | NUR ---
report called for patient transfer, patient aware of room change. at bedside, call mcmahon within reach and bed in lowest position.
--- NOTE | 2018-08-29 10:10 | History and Physical ---
CHIEF COMPLAINT: Shortness of breath, severely anemia. HISTORY OF PRESENT ILLNESS: The patient is a 78-year-old female, now remain short of breath even after blood transfusion. For the past month or so, the patient was having increasing shortness of breath significantly for anemia secondary to MDS, but at baseline she also has congestive heart failure, previous SD with coronary artery disease, but poor historian with respect to the management. Baseline COPD, hypothyroidism, Parkinson, and osteoarthritis and also hypertension. The patient had multiple surgeries in the past, but very unclear. Currently, the patient is with shortness of breath. She is on oxygen support. Bilateral lower extremity edema on quick examination. The patient will be admitted to the hospital for further evaluation and treatment. PAST MEDICAL HISTORY: Congestive heart failure, diabetes type 2, hypertension, COPD, hypothyroidism, Parkinson disease, osteoarthritis, coronary artery disease with previous SD and more importantly chronic anemia secondary to myelodysplastic syndrome. PAST SURGICAL HISTORY: Lower back surgery, cataract surgery, hip surgery, hysterectomy, colon resection partial, and Port-A-Cath placement. ALLERGIES: TO MORPHINE. HOME MEDICATIONS: She is on albuterol, allopurinol, ascorbic acid, aspirin, atorvastatin, Sinemet, Coreg, Lexapro, ferrous sulfate, furosemide, NovoLog, Lantus insulin, levothyroxine, lisinopril, Ativan, magnesium, Protonix, prednisone, [place]. PHYSICAL EXAMINATION: VITAL SIGNS: Temperature is 98, blood pressure 121/68, pulse rate is 88, respirations 22. GENERAL: The patient seems short of breath, on oxygen support. HEENT: Normocephalic, atraumatic. Pupils reactive. Anicteric. NECK: Supple grossly. PULMONARY: Bilateral rhonchi and wheezing with diminished breath sounds at bases with rales. CARDIOVASCULAR: S1, S2. Tachycardia. ABDOMEN: Soft. EXTREMITIES: 2+ edema. NEUROLOGIC: No focal deficit. LABORATORY DATA: WBC is 7.7, hemoglobin 6.0, hematocrit is 22, platelets are 210. Chemistry; sodium is 139, potassium 4.4, chloride 105, bicarb 24, BUN 21, creatinine 1.0, glucose 219. TSH is 6.4. No chest x-ray was done. IMPRESSION: 1. Acute on chronic systolic dysfunction congestive heart failure most likely. 2. Chronic anemia secondary to myelodysplastic syndrome, status post 2 units of blood transfusion. 3. Fluid overload after blood transfusion. 4. Multiple chronic baseline problems. PLAN: Admit the patient. Echocardiogram. IV furosemide. Monitor the patient's lab work. Resume some home medication. PT, OT. Consultation with Cardiology. MD JENAE Kirkland/LISA /[id number]
--- NOTE | 2018-08-29 10:15 | NUR ---
patient taken via hospital bed to CT, patient alert and oriented and will be transferred to new room after the scan.
--- NOTE | 2018-08-29 11:00 | NUR ---
PT TRANSFERRED FROM [facility] VIA BED,AAOX3,O2 3L NC IN PLACE,SL TO RT AC 18 G.DENIES PAIN
--- NOTE | 2018-08-29 11:09 | Diagnostic Imaging Report ---
EXAM: CT Chest WITHOUT contrast INDICATION: ^SOB COMPARISON: CT chest 01/25/2018 TECHNIQUE: Chest was scanned utilizing a multidetector helical scanner from the lung apex through the level of the adrenal glands without administration of IV contrast. Absence of intravenous contrast decreases sensitivity for detection of lymphadenopathy and vascular pathology. Coronal and sagittal reformations were obtained. Routine protocol was performed. IV CONTRAST: None COMPLICATIONS: None RADIATION DOSE: Total DLP: 455.5 mGy*cm Estimated effective dose: (DLP x 0.014 x size factor) mSv CTDIvol has been reviewed. It is below the limits set by the Radiation Protocol Committee (RPC). Dose modulation, iterative reconstruction, and/or weight based adjustment of the mA/kV was utilized to reduce the radiation dose to as low as reasonably achievable. FINDINGS: LINES/ TUBES: None. LUNGS AND AIRWAYS: Diffuse smooth interlobular septal thickening throughout the entire lung with associated patchy groundglass opacities, consistent with pulmonary edema. There are several scattered small pulmonary nodules and more focal consolidative appearing lesions especially in the right middle lobe and possibly in the lingula. Right lower lobe consolidation. Mild bronchial wall thickening. PLEURA: Small bilateral pleural effusions. HEART AND MEDIASTINUM: The thyroid gland is normal. No mediastinal, hilar or axillary lymphadenopathy. Multiple small lymph nodes in the anterior mediastinum. Additional smaller lymph nodes in the precarinal region. Calcified right hilar lymph nodes, which are unchanged. The heart is moderately enlarged. There is no pericardial effusion. There are significant atherosclerotic calcifications in the aorta and coronary arteries. Main pulmonary artery measures 3.4 cm. Cine aorta measures 3.8 cm. Low density of the internal vascular volume compared to the myocardium consistent with anemia. UPPER ABDOMEN: Catheter in the right upper quadrant abdomen with associated ascites. Mild nodular liver surface contour especially in the left hepatic lobe. Calcified splenic granulomas. Partially visualized vascular calcifications in the right kidney. Bilateral adrenal glands are diffusely thickened, consistent hyperplasia. BONES: The visualized bony thorax is within normal limits. SOFT TISSUES: Unremarkable. IMPRESSION: 1. Diffuse pulmonary edema with small bilateral pleural effusions. 2. Right lower lobe atelectasis. 3. Few scattered nodules and more consolidative appearing regions. This may represent superimposed infection. 4. Multiple small but mildly prominent anterior mediastinal lymph nodes, which are nonspecific but may be related to the infectious etiology. Signed by: Dr. Cash Green M.D. on 08/29/2018 11:05 AM
[2018-08-29 12:16] VITALS: BP 132/73
--- NOTE | 2018-08-29 12:30 | NUR ---
PT UP IN BED C/O SOB ,O2 2L NC IN PLACE,PURWICK APPLIED
[2018-08-29] MEDS: ALBUTEROL/IPRATROPIUM 3 ML NEB NEB SCH ×2 (13:15→19:35)
[2018-08-29] MEDS: ESCITALOPRAM OXALATE 10 MG TAB PO SCH (13:41)
[2018-08-29] MEDS: PREDNISONE 5 MG TAB PO SCH (13:41)
[2018-08-29] MEDS: ALLOPURINOL 100 MG TAB PO SCH (13:41)
[2018-08-29] MEDS: PANTOPRAZOLE SOD 40 MG TABEC PO SCH (13:41)
[2018-08-29] MEDS: FUROSEMIDE INJ 10 MG/ML 4 ML VIAL IV SCH ×2 (14:43→17:00)
--- NOTE | 2018-08-29 15:27 | Consultation ---
DATE OF CONSULTATION: 08/29/2018 Cardiology Consultation Ms. Mckeon is a complex and elderly 78-year-old woman, who was seen in our office many years ago. CHIEF COMPLAINT: Consultation is asked for congestive heart failure. HISTORY OF PRESENT ILLNESS: The patient was referred to come to the hospital by her appliance parts counter clerk, Dr. Benavides, who evidently has been giving her iron infusions for anemia. He found that she had a very low hemoglobin and suggested she come to the hospital. PAST MEDICAL HISTORY: Long and complex and generally include Parkinson disease, congestive heart failure with she and her reports she had myocardial infarction about a year or so ago without cardiac catheterization. She has longstanding anemia. She reportedly had a previous partial colectomy. She was hospitalized at [facility] in December 2017 with hip fracture. MEDICATIONS: She takes a complex medical regimen at home including albuterol inhaler, allopurinol 100 mg daily, vitamin C, aspirin 81, carvedilol 3.125 twice a day, Lexapro 10 mg daily, iron sulfate 325 mg daily, furosemide 40 mg daily, NovoLog, Lantus, levothyroxine 125 mcg daily, lisinopril 20 mg daily, Ativan, omeprazole 40 mg daily, potassium 20 mEq daily, and prednisone 5 mg daily. PERSONAL AND SOCIAL HISTORY: She currently lives at home and evidently continues to smoke. PHYSICAL EXAMINATION: GENERAL: At this time shows an elderly woman, who is alert and responsive. VITAL SIGNS: Blood pressure 160/80, pulse 85 and regular. HEAD, EYES, EARS, NOSE, and THROAT: Relatively unremarkable. NECK: No jugular venous distention. THORAX: Heart sounds S1, S2 are equal. No murmurs. Lungs have bibasilar crackles. ABDOMEN: Protuberant. EXTREMITIES: Have 4+ pretibial edema. PERTINENT LABORATORY STUDIES: Show admitting hemoglobin of 6.0, BUN 22 and creatinine 1.1. She has been given 2 units of packed red cells by now. ASSESSMENT: 1. Anemia may be myelodysplastic syndrome. 2. Congestive heart failure with reduced left ventricular function. Av Specialist's report on echocardiogram suggest EF about 30%. 3. Parkinson. 4. Chronic obstructive pulmonary disease. PLAN: We will increase the diuretics and provide stockings and monitor renal function and blood count. The prognosis is guarded. Thank you for asking me to see her in consultation. MD AVA Abreu /[id number] cc: Richar Medina
[2018-08-29 16:11] VITALS: BP 131/70
[2018-08-29] MEDS: ASCORBIC ACID 500 MG TAB PO SCH (17:00)
[2018-08-29] MEDS: CARBIDOPA/LEVODOPA 25/100 TAB PO SCH (17:00)
--- NOTE | 2018-08-29 18:07 | NUR ---
PT IN BED RESTING NO SOB NOTED,C/O PAIN MEDICATED
--- NOTE | 2018-08-29 18:23 | NUR ---
WENT TO PT ROOM TO GIVE PAIN MEDS BUT PT REFUSED.
--- NOTE | 2018-08-29 19:38 | NUR ---
Received change of shift report from AM nurse. Walking rounds completed.
[2018-08-29 20:00] VITALS: BP 117/63
[2018-08-29] MEDS: ATORVASTATIN 20 MG TAB PO SCH (20:26)
[2018-08-29] MEDS: INSULIN GLARGINE 100 UNITS/ML VIAL SQ SCH (20:27)
--- NOTE | 2018-08-29 20:35 | NUR ---
Dr Brooks on the floor to see patient. Orders received and completed.
--- NOTE | 2018-08-29 21:10 | NUR ---
Patient in bed. Denies pain or discomfort at this time. BS at 168. Insulin given x2 as ordered by MD. IV intact and patent.
--- NOTE | 2018-08-29 23:24 | Consultation ---
DATE OF CONSULTATION: 08/29/2018 REQUESTING PHYSICIAN: Lauri Joya MD. CONSULTING PHYSICIAN: Emani Brooks MD, Hematology-Oncology Service. REASON FOR CONSULTATION: Evaluation and management of patient with anemia. HISTORY OF PRESENTING ILLNESS: Ms. Mckeon is a very pleasant 78-year-old female with multiple medical problems including known history of congestive heart failure, diabetes mellitus, hypertension, COPD, hypothyroidism, Parkinson disease, coronary artery disease, and history of iron deficiency anemia along with early myelodysplasia. She has been receiving IV iron infusion in outpatient setting. Apparently, she was noted to be severely anemic with symptoms of fatigue, tiredness, and shortness of breath, subsequently sent to the hospital for admission and transfusion. The patient is promptly managed by Dr. Abisai Benavides and I was requested for her to follow and see her in the hospital. Presently, she is lying comfortably, not in acute distress. Her symptoms are improved. She already has received 2 units of PRBC transfusion with improved count. She denies any nausea, vomiting, fever, chills, headache, or blurring of vision. PAST MEDICAL HISTORY: 1. Iron deficiency anemia. 2. Early myelodysplastic syndrome. 3. Type 2 diabetes mellitus. 4. Hypertension. 5. Chronic obstructive pulmonary disease. 6. Congestive heart failure. 7. Parkinson disease. 8. Hypothyroidism. 9. Coronary artery disease, status post CO. 10. Osteoarthritis. PAST SURGICAL HISTORY: 1. Low back surgery. 2. Cataract surgery. 3. Hip surgery. 4. Hysterectomy. 5. Partial colon resection. 6. Port-A-Cath placement. ALLERGIES: MORPHINE. CURRENT MEDICATIONS: Reviewed as per electronic medical record. REVIEW OF SYSTEMS: 14-point review of systems negative except as mentioned in history of presenting illness. PHYSICAL EXAMINATION: VITAL SIGNS: Reviewed as per electronic medical record. HEENT: PERRLA. Extraocular movements are intact. Head is atraumatic and normocephalic. NECK: Supple. CVS: S1 and S2 audible. RESPIRATORY: Decreased bilateral air entry. ABDOMEN: Soft. Positive bowel sounds. EXTREMITIES: Positive edema. NEURO: The patient is alert and awake. LABORATORY DATA: White blood cell count of 8.3, hemoglobin 8.0, hematocrit 27.8, MCV 79, platelet 214, BUN 22, creatinine 1.1. ASSESSMENT/PLAN: Ms. Mckeon is a very pleasant 78-year-old female with multiple medical problems including known history of coronary artery disease, congestive heart failure, hypothyroidism, chronic obstructive pulmonary disease, and iron deficiency anemia for which she has been receiving IV iron infusion in outpatient setting under the direction of Dr. Abisai Benavides. Apparently on followup visit, she was noted to have severe anemia and subsequently referred to the hospital for workup and transfusion. On arrival to the ER, she was noted to have drop in hemoglobin in six range. She was given 2 units of PRBC transfusion. Hematology-Oncology has been consulted to assist with the management. I have reviewed the record and discussed at length with the patient about her condition, importance of monitoring. She already has been feeling much better. She will resume IV iron infusion on outpatient setting with Dr. Benavides. Meanwhile, closely monitor and recheck count in the morning. If counts drop, then she may need another unit of PRBC. Thank you for the consult. I will continue to be available. Please call with questions. MD JONG Hewitt/LISA /[id number]
[2018-08-30] VITALS (7 sets, daily range): BP systolic 93–130; BP diastolic 53–63
[2018-08-30] MEDS: ALBUTEROL/IPRATROPIUM 3 ML NEB NEB SCH ×4 (01:10→19:18)
[2018-08-30] MEDS: HYDROCODONE/APAP 10MG-325MG TAB PO PRN ×3 (01:18→20:42)
[2018-08-30 06:16] LABS: BASOPHILS % 0.5 % (0.0-1.0); EOSINOPHILS # (AUTO) 0.1 (0.0-0.4); EOSINOPHILS % 0.6 % (0.0-6.0); HEMATOCRIT 27.7 % (34.2-44.1); LYMPHOCYTES # (AUTO) 0.6 (1.0-3.2); MEAN CORPUSCULAR HEMOGLOBIN 22.8 pg (28-32); MEAN CORPUSCULAR HGB CONC 28.9 g/dL (31-35); MEAN CORPUSCULAR VOLUME 78.9 fL (81-99); MONOCYTES # (AUTO) 1.1 (0.2-0.8); MONOCYTES % 12.1 % (4.4-11.3); NEUTROPHILS # (AUTO) 6.8 (2.1-6.9); NEUTROPHILS % 78.3 % (38.7-80.0); PLATELET COUNT 207 x10e3/uL (140-360); RED BLOOD COUNT 3.51 x10e6/uL (3.6-5.1); RED CELL DISTRIBUTION WIDTH 18.6 % (11.7-14.4)
[2018-08-30 06:37] LABS: ANION GAP 14.7 mmol/L (8-16); CALCIUM 8.8 mg/dL (8.4-10.2); CREATININE, SERUM 1.01 mg/dL (0.57-1.11); POTASSIUM 3.7 mmol/L (3.5-5.1)
[2018-08-30] MEDS: INSULIN LISPRO 100 UNIT/1 ML 3ML VIAL SQ SCH ×4 (07:30→20:20)
--- NOTE | 2018-08-30 07:30 | NUR ---
PT IN BED SLEEPING ,NO S/S DISCOMFORT,PUREWICK IN PLACE,O2 2L NC IN PLACE
[2018-08-30] MEDS ORDERED: FUROSEMIDE INJ 10 MG/ML 4 ML VIAL IV SCH (09:00)
--- NOTE | 2018-08-30 09:00 | NUR ---
PT C/O PAIN LEVEL 6 MEDICATED
[2018-08-30] MEDS: LEVOTHYROXINE SODIUM 125 MCG TAB PO SCH (09:34)
[2018-08-30] MEDS: PANTOPRAZOLE SOD 40 MG TABEC PO SCH (09:34)
[2018-08-30] MEDS: FUROSEMIDE INJ 10 MG/ML 4 ML VIAL IV SCH ×2 (09:34→16:53)
[2018-08-30] MEDS: LISINOPRIL 20 MG TAB PO SCH (09:35)
[2018-08-30] MEDS: PREDNISONE 5 MG TAB PO SCH (09:35)
[2018-08-30] MEDS: ALLOPURINOL 100 MG TAB PO SCH (09:35)
[2018-08-30] MEDS: POTASSIUM CHLORIDE 20 MEQ TAB CR PO SCH (09:35)
[2018-08-30] MEDS: ASCORBIC ACID 500 MG TAB PO SCH ×2 (09:35→16:53)
[2018-08-30] MEDS: CARBIDOPA/LEVODOPA 25/100 TAB PO SCH ×2 (09:35→16:53)
[2018-08-30] MEDS: ASPIRIN 81 MG CHEW TAB PO SCH (09:35)
[2018-08-30] MEDS: ESCITALOPRAM OXALATE 10 MG TAB PO SCH (09:35)
[2018-08-30] MEDS: FERROUS SULFATE 325 MG TAB PO SCH (09:35)
[2018-08-30] MEDS: CARVEDILOL 3.125 MG TAB PO SCH ×2 (09:35→16:53)
[2018-08-30] MEDS: DOXYCYCLINE HYCLATE TABLET 100 MG TAB PO SCH ×2 (12:00→16:53)
[2018-08-30] MEDS: CEFTRIAXONE SOD 1 GM/NS 50 ML 50 ML IV SCH (12:00)
--- NOTE | 2018-08-30 13:21 | NUR ---
PT UP IN BED DENIES PAIN
[2018-08-30] MEDS ORDERED: SODIUM FERRIC GLUCONATE COMPLX 125 MG in SODIUM CHLORIDE 0.9% 100 ML 100 ML IV ONE (17:00)
--- NOTE | 2018-08-30 19:27 | NUR ---
Received change of shift report from AM nurse. Walking rounds completed. Patient in bed resting quitly at this time. No noted distress or discomfort.
[2018-08-30] MEDS: INSULIN GLARGINE 100 UNITS/ML VIAL SQ SCH (20:21)
[2018-08-30] MEDS: ATORVASTATIN 20 MG TAB PO SCH (20:21)
[2018-08-31] VITALS: BP 108/55
[2018-08-31] MEDS: ALBUTEROL/IPRATROPIUM 3 ML NEB NEB SCH ×3 (01:10→13:55)
[2018-08-31 04:00] VITALS: BP 113/55
[2018-08-31] MEDS: LEVOTHYROXINE SODIUM 125 MCG TAB PO SCH (05:31)
--- NOTE | 2018-08-31 06:58 | NUR ---
RECEIVED PATIENT RESTING IN BED. RESPIRATIONS EVEN AND UNLABORED, NO ACUTE DISTRESS NOTED. DENIES PAIN OR DISCOMFORT AT THIS TIME. CALL LIGHT WITHIN REACH. BED IN THE LOWEST POSITION.
[2018-08-31] MEDS: INSULIN LISPRO 100 UNIT/1 ML 3ML VIAL SQ SCH ×2 (07:30→12:15)
[2018-08-31 07:43] VITALS: BP 130/65
[2018-08-31] MEDS: CARVEDILOL 3.125 MG TAB PO SCH (09:28)
[2018-08-31] MEDS: FUROSEMIDE INJ 10 MG/ML 4 ML VIAL IV SCH (09:28)
[2018-08-31] MEDS: POTASSIUM CHLORIDE 20 MEQ TAB CR PO SCH (09:28)
[2018-08-31] MEDS: FERROUS SULFATE 325 MG TAB PO SCH (09:28)
[2018-08-31] MEDS: PANTOPRAZOLE SOD 40 MG TABEC PO SCH (09:28)
[2018-08-31] MEDS: ASPIRIN 81 MG CHEW TAB PO SCH (09:28)
[2018-08-31] MEDS: ESCITALOPRAM OXALATE 10 MG TAB PO SCH (09:28)
[2018-08-31] MEDS: PREDNISONE 5 MG TAB PO SCH (09:29)
[2018-08-31] MEDS: DOXYCYCLINE HYCLATE TABLET 100 MG TAB PO SCH (09:29)
[2018-08-31] MEDS: CARBIDOPA/LEVODOPA 25/100 TAB PO SCH (09:29)
[2018-08-31] MEDS: ALLOPURINOL 100 MG TAB PO SCH (09:29)
[2018-08-31] MEDS: LISINOPRIL 20 MG TAB PO SCH (09:29)
[2018-08-31] MEDS: HYDROCODONE/APAP 10MG-325MG TAB PO PRN (09:29)
[2018-08-31] MEDS: ASCORBIC ACID 500 MG TAB PO SCH (09:29)
[2018-08-31] MEDS: CEFTRIAXONE SOD 1 GM/NS 50 ML 50 ML IV SCH (09:29)
[2018-08-31 10:48] VITALS: BP 130/65
[2018-08-31 11:28] VITALS: BP 126/60
--- NOTE | 2018-08-31 14:53 | NUR ---
PATIENT LEAVING AMA AT THIS TIME. SHE IS IN STABLE CONDITION. IV LINE TO RIGHT FOREARM DCD WITH TIP INTACT, PRESSURE APPLIED TO SITE, NO BLEEDING NOTED. PATIENT SIGNED AMA PAPERWORK. DR. AGARWAL NOTIFIED AT [id number]. PATIENT TAKEN VIA WHEELCHAIR BY STAFF TO [employer]IVATE [employer].
--- NOTE | 2018-08-31 22:58 | Progress Note ---
DATE: 08/31/2018 SUBJECTIVE: The patient with severe anemia, admitted due to worsening fatigue, tiredness, and for transfusion. OBJECTIVE: VITAL SIGNS: Reviewed as per electronic medical record. HEENT: PERRLA. Extraocular movements are intact. HEAD: Atraumatic and normocephalic. NECK: Supple. CVS: S1 and S2 audible. RESPIRATORY: Decreased bilateral air entry. ABDOMEN: Soft. Positive bowel sounds. EXTREMITIES: Negative edema. NEUROLOGIC: The patient is alert and awake. LABORATORY DATA: White blood cell count of 8.6, hemoglobin 8.0, hematocrit 27.7, and platelets 207. BUN 23. ASSESSMENT AND PLAN: Ms. Mckeon is a very pleasant 78-year-old female with known history of iron-deficiency anemia and early myelodysplastic syndrome, admitted due to symptomatic anemia. She required 2 units of PRBCs transfusion with improved count. She has been recommended to follow up with Dr. Benavides as outpatient for IV iron infusion. MD JONG Hewitt/MODL /[id number]
--- NOTE | 2018-09-01 09:50 | Discharge Summary ---
The patient signed out against medical advice. 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 The patient has congestive heart failure, ejection fraction less than 22%. The patient was placed on furosemide. She did better. She diuresis well. The patient is pending for further workup with the unix engineer, Dr. Shane Miles. During the afternoon, the patient decided she wanted to sign out against medical advise now that she felt better. Spouse by bedside advised against the sign out AMA, but the patient persist and he has no choice because she insisted on going home. The patient signed out. Paperwork was done. Please tool grinder operator external taking care for the patient at the time with the paperwork. The patient signed out against medical advice. MD JENAE Kirkland/LISA /[id number]
== END 2018-08-31 14:53 | disposition left against medical advice (07) | DRG 293 ==
LOC: ER 14:07 → ERHOLD 17:29 → IMCU 17:55 → OBSVTOIN 08-29 09:46 → MED/SURG3 08-29 10:17
PROVIDERS: ADMIT Internal Medicine; ATTEND Internal Medicine
PROC: 30233N1 Transfusion of Nonautologous Red Blood Cells into Peripheral Vein, Percutaneous Approach (ICD-10-PCS; principal; 2018-08-28)
DX: I11.0 Hypertensive heart disease with heart failure (principal); D46.9 Myelodysplastic syndrome, unspecified; I50.23 Acute on chronic systolic (congestive) heart failure; D50.9 Iron deficiency anemia, unspecified; E11.65 Type 2 diabetes mellitus with hyperglycemia; J44.9 Chronic obstructive pulmonary disease, unspecified; C03.9 Malignant neoplasm of gum, unspecified; F17.200 Nicotine dependence, unspecified, uncomplicated; G20 Parkinson's disease; I25.10 Atherosclerotic heart disease of native coronary artery without angina pectoris; I25.2 Old myocardial infarction; M19.90 Unspecified osteoarthritis, unspecified site; Z79.82 Long term (current) use of aspirin; Z79.4 Long term (current) use of insulin; Z79.52 Long term (current) use of systemic steroids; Z88.5 Allergy status to narcotic agent
CPT/HCPCS: 36415; 71250; 80048; 80053; 81001; 82728; 82948; 83540; 84443; 84466; 85025; 85610; 85730; 86850; 86900; 86920; 87086; 93005; 93306; 93880; 94640; 97139; 99283; G0378; J0696; J1815; J1940; J2916; J7050; J7512; P9016

== ENCOUNTER 2018-09-09 17:12 | Inpatient (IN) | payer MEDICARE ==
[~2018-09-09] VITALS: Ht 162.6 cm; Wt 59.0 kg
--- OUTSIDE RECORDS SUMMARY | 2018-09-09 17:16 | XMS REPORT | Continuity of Care Document ---
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 Dyspnea Active 03/07/2014 Problem 03/27/2018 [facility] Weakness Active 03/07/2014 Problem 03/27/2018 [facility] GI bleed Active Problem 03/27/2018 [facility] Congestive heart failure Active Problem 03/27/2018 [facility] Elevated troponin Active Problem 03/27/2018 [facility] Hip avulsion fracture Active Problem 03/27/2018 [facility] Hip fracture, right Active Problem 03/27/2018 [facility] Pneumonia Active Problem 03/27/2018 [facility] Symptomatic anemia Active Problem 03/27/2018 [facility] Medications Medication Details Route Status Patient Instructions Ordering Provider Order Date Source Lactulose (Enulose) 10 Gm/15 Ml Solution, 30 Ml Oral Twice A Day as needed for Constipation Active 03/26/2018 [facility] Magnesium Oxide 400 Mg Tablet, 400 Mg Oral Twice A Day as needed for Constipation Active 03/26/2018 [facility] Ondansetron (Ondansetron Odt) 8 Mg Tab.rapdis, 4 Mg Oral Every 6 Hours as needed for Nausea And Vomiting Active 03/26/2018 [facility] Polyethylene Glycol 3350 17 Gm Powd.pack, 1 Pkt Oral Daily Active 03/26/2018 [facility] Potassium Chloride 20 Meq Tab.er.prt, 20 Mg Oral Daily Active 03/26/2018 [facility] Rivaroxaban (Xarelto) 10 Mg Tablet, 10 Mg Oral Daily Active 03/26/2018 [facility] Zinc Sulfate 220 Mg Capsule, 220 Mg Oral Twice A Day Active 03/26/2018 [facility] Acetaminophen 325 Mg Tablet Every 4 Hours as needed for Pain And Temperature Active [place] 01/26/2018 [facility] Aspirin (Aspirin Chew) 81 Mg Chew Daily Active [place] 01/26/2018 [facility] Carvedilol (Coreg) 3.125 Mg Tab Twice A Day Active [place] 01/26/2018 [facility] Escitalopram Oxalate (Lexapro) 10 Mg Tablet Daily Active [place] 01/26/2018 [facility] Hydrocodone/Apap 10MG-325MG 1 Ea Tab Every 4 Hours as needed for Pain Active [place] 01/26/2018 [facility] Levothyroxine Sodium (Synthroid) 125 Mcg Tab Daily@0600 Active [place] 01/26/2018 [facility] Lorazepam (Ativan*) 0.5 Mg Tablet Every 4 Hours as needed for Anxiety Active [place] 01/26/2018 [facility] Prednisone 5 Mg Tablet Daily Active [place] 01/26/2018 [facility] Acetaminophen 325 Mg/10 Ml Elix, 650 Mg Oral Every 6 Hours as needed for Pain And Temperature Active 01/26/2018 [facility] Albuterol/Ipratropium Nebulize 3 Ml Inha, 3 Ml Nebullizer Rt Q6h Active [place] 01/26/2018 [facility] Atorvastatin 40 Mg Tab, 40 Mg Oral Bedtime Active [place] 01/26/2018 [facility] Atorvastatin Calcium 40 Mg Tablet, 40 Mg Oral Daily Active 01/26/2018 [facility] Carbidopa/Levodopa (Carbidopa-Levodopa 25-100 Tab) 1 Each Tablet, 1 Ea Oral Daily Active [place] 01/26/2018 [facility] Carbidopa/Levodopa (Carbidopa-Levodopa 25-100 Tab) 1 Each Tablet, 1 Tab Oral Daily Active 01/26/2018 [facility] Carvedilol 3.125 Mg Tablet, 3.125 Mg Oral Twice A Day Active 01/26/2018 [facility] Clonidine Hcl (Catapres) 0.1 Mg Tablet, 0.1 Mg Oral Every 8 Hours as needed for High Blood Pressure Active [place] 01/26/2018 [facility] Clonidine Hcl 0.1 Mg Tablet, 1 Tab Oral Every 8 Hours as needed for High Blood Pressure Active 01/26/2018 [facility] Dextrose (Dextrose 50%-Water Syringe) 50 Ml Inj, 50 Ml Intraven As Needed as needed for Blood Sugar Active [place] 01/26/2018 [facility] Docusate Sodium (Colace) 100 Mg Capsule, 100 Mg Oral Twice A Day Active [place] 01/26/2018 [facility] Docusate Sodium 100 Mg Capsule, 100 Mg Oral Twice A Day Active 01/26/2018 [facility] Escitalopram Oxalate 10 Mg Tablet, 5 Mg Oral Daily Active 01/26/2018 [facility] Furosemide 10 Mg/1 Ml Vial, 40 Mg Intraven Every 12 Hours Active [place] 01/26/2018 [facility] Furosemide 40 Mg Tablet, 40 Mg Oral Daily Active 01/26/2018 [facility] Guaifenesin/Dextromethorphan (Mucinex Dm Er 600-30 Mg Tablet) 1 Each Tab.er.12h, 1 Each Oral Every 12 Hours Active [place] 01/26/2018 [facility] Hydrocodone Bit/Acetaminophen ([place]ia 10-325 Tablet) 1 Each Tablet, 1 Tab Oral Every 4 Hours as needed for Pain Active 01/26/2018 [facility] Insulin Aspart (Novolog) 100 Unit/1 Ml Cartridge, 0 Sub-Q Daily Active 01/26/2018 [facility] Insulin Detemir 100 Unit/Ml Pen, 20 Unit Sub-Q Every 12 Hours Active [place] 01/26/2018 [facility] Insulin Glargine (Lantus 3ML Pen) 100 Units/1 Ml Inj, 20 Units Sub-Q Every 12 Hours Active 01/26/2018 [facility] Insulin Lispro 100 Unit/1 Ml Vial, 0 Unit Sub-Q Before Meals And At Bedtime Active [place] 01/26/2018 [facility] Levothyroxine Sodium 125 Mcg Tablet, 125 Mcg Oral Daily Active 01/26/2018 [facility] Lisinopril 10 Mg Tablet, 10 Mg Oral Twice A Day Active [place] 01/26/2018 [facility] Lisinopril 40 Mg Tablet, 10 Mg Oral Twice A Day Active 01/26/2018 [facility] Nicotine (Nicoderm Cq) 1 Each Patch.td24, 21 Mg Topically Daily Active [place] 01/26/2018 [facility] Nicotine (Nicotine Patch) 1 Each Patch.td24, 21 Mg Transderm Daily Active 01/26/2018 [facility] Ondansetron Hcl/Pf (Ondansetron Hcl 4 Mg/2 Ml Vial) 4 Mg/2 Ml Vial, 4 Mg Intraven Every 6 Hours as needed for Nausea And Vomiting Active [place] 01/26/2018 [facility] Pantoprazole Sod (Protonix) 40 Mg/Ml Susp, 40 Mg Oral Before Breakfast Active [place] 01/26/2018 [facility] Potassium Chloride (Klor-Con M20) 20 Meq Tabcr, 20 Meq Oral Twice A Day Active [place] 01/26/2018 [facility] Prednisone 5 Mg Tablet, 5 Mg Oral Daily Active 01/26/2018 [facility] Sodium Chloride Flush 10 Ml Soln, 10 Ml Injection As Needed as needed for Iv Site Flush Active [place] 01/26/2018 [facility] Temazepam (Restoril) 15 Mg Capsule, 15 Mg Oral Bedtime Active [place] 01/26/2018 [facility] Temazepam 15 Mg Capsule, 15 Mg Oral Daily Active 01/26/2018 [facility] Alprazolam 1 Mg Tablet, Daily Active 12/17/2017 [facility] Amitriptyline Hcl 10 Mg Tablet, Daily Active 12/17/2017 [facility] Atorvastatin Calcium (Lipitor*) 10 Mg Tablet, 40 Mg Oral Daily Active 12/17/2017 [facility] Calcium Carbonate/Vitamin D3 (Caltrate 600 + D Chewable Tab) 1 Each Tab.chew, Daily Active 12/17/2017 [facility] Carbidopa/Levodopa (Carbidopa-Levodopa 10-100 Tab) 1 Each Tablet, 1 Each Oral Active 12/17/2017 [facility] Furosemide 40 Mg Tablet, 40 Mg Oral Daily Active 12/17/2017 [facility] Glipizide (Glipizide Xl) 10 Mg Tab.osm.24, Daily Active 12/17/2017 [facility] Insulin Glargine,Hum.rec.anlog (Lantus) 100 Unit/1 Ml Vial, 10 U Qhs Active 12/17/2017 [facility] Insuln Asp Prt/Insulin Aspart (Novolog Mix 70-30 Flexpen Syrn) 100 Unit/1 Ml Insuln.pen, Active 12/17/2017 [facility] Levothyroxine Sodium (Levothroid) 112 Mcg Tablet, Daily Active 12/17/2017 [facility] Lisinopril 40 Mg Tablet, Daily Active 12/17/2017 [facility] Lorazepam 1 Mg Tablet, 1 Mg Oral Daily Active 12/17/2017 [facility] Metformin Hcl (Fortamet) 500 Mg Tab.osm.24, Daily Active 12/17/2017 [facility] Phenazopyridine Hcl 200 Mg Tablet, Active 12/17/2017 [facility] Prednisone 10 Mg Tab, 10 Mg Oral Active 12/17/2017 [facility] Tamsulosin Hcl 0.4 Mg Cap.er.24h, Active 12/17/2017 [facility] Tramadol Hcl (Ultram 50MG*) 50 Mg Tab, 50 Mg Oral Active 12/17/2017 [facility] Omeprazole (Prilosec) 20 Mg Capsule., Daily Active 04/11/2012 [facility] Simvastatin (Zocor) 20 Mg Tablet, Daily Active 04/11/2012 [facility] Alprazolam 1 Mg Tablet Daily Active [facility] Amitriptyline Hcl 10 Mg Tablet Daily Active [facility] Atorvastatin Calcium (Lipitor*) 10 Mg Tablet Daily Active [facility] Calcium Carbonate/Vitamin D3 (Caltrate 600 + D Chewable Tab) 1 Each Tab.chew Daily Active [facility] Carbidopa/Levodopa (Carbidopa-Levodopa 25-100 Tab) 1 Each Tablet Active [facility] Carbidopa/Levodopa (Carbidopa-Levodopa 10-100 Tab) 1 Each Tablet Active [facility] Furosemide 40 Mg Tablet Daily Active [facility] Glipizide (Glipizide Xl) 10 Mg Tab.osm.24 Daily Active [facility] Insulin Glargine,Hum.rec.anlog (Lantus) 100 Unit/1 Ml Vial Qhs Active [facility] Insuln Asp Prt/Insulin Aspart (Novolog Mix 70-30 Flexpen Syrn) 100 Unit/1 Ml Insuln.pen Active [facility] Levothyroxine Sodium (Levothroid) 112 Mcg Tablet Daily Active [facility] Lisinopril 40 Mg Tablet Daily Active [facility] Lorazepam 1 Mg Tablet Daily Active [facility] Metformin Hcl (Fortamet) 500 Mg Tab.osm.24 Daily Active [facility] Omeprazole 40 Mg Capsule. Active [facility] Phenazopyridine Hcl 200 Mg Tablet Active [facility] Prednisone 10 Mg Tab Active [facility] Tamsulosin Hcl 0.4 Mg Cap.er.24h Active [facility] Tramadol Hcl (Ultram 50MG*) 50 Mg Tab Active [facility] Albuterol Sulfate (Ventolin Hfa) 18 Gm Hfa.aer.ad Active [facility] Allopurinol 100 Mg Tablet Daily Active [facility] Ascorbic Acid 500 Mg Tablet Twice A Day Active [facility] Atorvastatin Calcium 20 Mg Tablet Bedtime Active [facility] Calcium Carbonate/Vitamin D3 (Oyster Shell Calcium + D Tab) 1 Each Tablet Three Times A Day Active [facility] Carbidopa/Levodopa (Sinemet 25-100 Mg Tablet) 1 Each Tablet Twice A Day Active [facility] Ferrous Sulfate 325 Mg Tablet. Daily Active [facility] Furosemide 40 Mg Tablet Daily Active [facility] Insulin Aspart (Novolog) 100 Unit/1 Ml Cartridge Three Times A Day as needed for Blood Sugar Active FOR BLOOD SUGAR GREATER THAN 150 [facility] Insulin Glargine (Lantus 3ML Pen) 100 Units/1 Ml Inj Bedtime Active HOLD IF BLOOD SUGAR LESS THAN 100 [facility] Lisinopril (Prinavil / Zestril) 20 Mg Tablet Daily Active [facility] Magnesium Hydroxide (Milk Of Magnesia) 400 Mg/5 Ml Oral.susp Daily as needed for Constipation Active [facility] Omeprazole 40 Mg Capsule. Daily Active [facility] Potassium Chloride 20 Meq Tab.er.prt Daily Active [facility] Allergies, Adverse Reactions, Alerts Substance Category Reaction Severity Reaction type Status Date Reported Comments Source Morphine RASH,ITCHING Mild Allergy to Substance Active 01/02/2018 [facility] Immunizations No Data Provided for This Section Results Order Name Results Value Reference Range Date Interpretation Comments Source Blood leukocytes automated count (number/volume) 9.52 4.8 - 10.8 03/27/2018 [facility] Blood erythrocytes automated count (number/volume) 3.67 3.6 - 5.1 03/27/2018 [facility] Blood hemoglobin measurement (moles/volume) 8.9 12.0 - 16.0 03/27/2018 [facility] Automated blood hematocrit (volume fraction) 29.7 34.2 - 44.1 03/27/2018 [facility] Automated erythrocyte mean corpuscular volume 80.9 81 - 99 03/27/2018 [facility] Automated erythrocyte mean corpuscular hemoglobin (mass per erythrocyte) 24.3 28 - 32 03/27/2018 [facility] Automated erythrocyte mean corpuscular hemoglobin concentration measurement (mass/volume) 30.0 31 - 35 03/27/2018 [facility] RDW BldCo-Rto 17.6 11.7 - 14.4 03/27/2018 [facility] Automated blood platelet count (count/volume) 190 140 - 360 03/27/2018 [facility] Automated blood segmented neutrophil count as percentage of total leukocytes 77.9 38.7 - 80.0 03/27/2018 [facility] Automated blood lymphocyte count as percentage ot total leukocytes 8.6 18.0 - 39.1 03/27/2018 [facility] Automated blood monocyte count as percentage of total leukocytes 10.9 4.4 - 11.3 03/27/2018 [facility] Automated blood eosinophil count as percentage of total leukocytes 0.2 0.0 - 6.0 03/27/2018 [facility] Automated blood basophil count as percentage of total leukocytes 0.4 0.0 - 1.0 03/27/2018 [facility] IM GRANULOCYTES % 2.0 0.0 - 1.0 03/27/2018 [facility] Automated blood neutrophil count 7.4 2.1 - 6.9 03/27/2018 [facility] Blood lymphocytes count (number/volume) 0.8 1.0 - 3.2 03/27/2018 [facility] Blood monocytes automated count (number/volume) 1.0 0.2 - 0.8 03/27/2018 [facility] Automated blood eosinophil count 0.0 0.0 - 0.4 03/27/2018 [facility] Automated blood basophil count (count/volume) 0.0 0.0 - 0.1 03/27/2018 [facility] Absolute Immature Granulocyte (auto 0.19 0 - 0.1 03/27/2018 [facility] Urine color determination YELLOW YELLOW 03/26/2018 [facility] Urine clarity CLEAR CLEAR 03/26/2018 [facility] Specific gravity of Urine by Test strip 1.015 1.010 - 1.025 03/26/2018 [facility] Urine pH measurement by automated test strip 6 5 - 7 03/26/2018 [facility] Urine leukocyte esterase detection by dipstick NEGATIVE NEGATIVE 03/26/2018 [facility] Urine nitrite detection NEGATIVE NEGATIVE 03/26/2018 [facility] Urine protein measurement by test strip (mass/volume) NEGATIVE NEGATIVE 03/26/2018 [facility] Urine glucose detection NEGATIVE NEGATIVE 03/26/2018 [facility] Urine ketones detection by automated test strip TRACE NEGATIVE 03/26/2018 [facility] Urine urobilinogen measurement by test strip (mass/volume) 0.2 0.2 - 1 03/26/2018 [facility] Urine total bilirubin measurement (mass/volume) NEGATIVE NEGATIVE 03/26/2018 [facility] Urine erythrocytes detection NEGATIVE NEGATIVE 03/26/2018 [facility] Automated urine sediment leukocyte count by microscopy (number/high power field) NONE 0 - 5 03/26/2018 [facility] Erythrocytes detection in urine sediment by light microscopy NONE 0 - 5 03/26/2018 [facility] Bacteria detection in urine sediment by light microscopy NONE NONE 03/26/2018 [facility] Epithelial cells detection in urine sediment by light microscopy MANY NONE 03/26/2018 [facility] Prothrombin time (PT) in platelet poor plasma by coagulation assay 12.8 11.9 - 14.5 03/26/2018 [facility] INR in Platelet poor plasma by Coagulation assay 0.88 03/26/2018 [facility] Activated partial thromboplastin time (aPTT) in platelet poor plasma bycoagulation assay 29.3 23.8 - 35.5 03/26/2018 [facility] Serum or plasma sodium measurement (moles/volume) 136 136 - 145 03/26/2018 [facility] Serum or plasma potassium measurement (moles/volume) 4.2 3.5 - 5.1 03/26/2018 [facility] Serum or plasma chloride measurement (moles/volume) 102 98 - 107 03/26/2018 [facility] Serum or plasma carbon dioxide, total measurement (moles/volume) 24 22 - 29 03/26/2018 [facility] Serum or plasma anion gap 14.2 8 - 16 03/26/2018 [facility] Serum or plasma urea nitrogen measurement (mass/volume) 31 7 - 26 03/26/2018 [facility] Serum or plasma creatinine measurement (mass/volume) 1.34 0.57 - 1.11 03/26/2018 [facility] Serum or plasma urea nitrogen/creatinine mass ratio 23 6 - 25 03/26/2018 [facility] Estimated glomerular filtration rate (GFR) determination 38 60 03/26/2018 [facility] Glucose measurement 157 74 - 118 03/26/2018 [facility] Serum or plasma calcium measurement (mass/volume) 8.2 8.4 - 10.2 03/26/2018 [facility] Serum or plasma total bilirubin measurement (mass/volume) 0.1 0.2 - 1.2 03/26/2018 [facility] Aspartate Amino Transf (AST/SGOT) 9 5 - 34 03/26/2018 [facility] Serum or plasma alanine aminotransferase measurement (enzymatic activity/volume) < 6 0 - 55 03/26/2018 [facility] Serum or plasma protein measurement (mass/volume) 5.9 6.5 - 8.1 03/26/2018 [facility] Serum or plasma albumin measurement (mass/volume) 3.3 3.5 - 5.0 03/26/2018 [facility] Plasma globulin measurement (mass/volume) 2.6 2.3 - 3.5 03/26/2018 [facility] Serum or plasma albumin/globulin mass ratio 1.3 0.8 - 2.0 03/26/2018 [facility] Serum or plasma alkaline phosphatase measurement (enzymatic activity/volume) 71 40 - 150 03/26/2018 [facility] BNP Bld-mCnc 691.1 0 - 100 03/26/2018 [facility] Serum or plasma creatine kinase measurement (enzymatic activity/volume) 55 29 - 168 03/26/2018 [facility] Serum or plasma creatine kinase MB measurement (mass/volume) 2.60 0 - 5.0 03/26/2018 [facility] Troponin I measurement by highly sensitive enzyme immunoassay 0.021 0 - 0.300 03/26/2018 [facility] Capillary blood glucose measurement by glucometer (mass/volume) 191 70 - 120 01/26/2018 [facility] Hemoglobin A1c Percent 5.2 4.0 - 7.0 01/26/2018 [facility] Serum or plasma magnesium measurement (mass/volume) 2.1 1.3 - 2.1 01/26/2018 [facility] Serum or plasma iron measurement (mass/volume) 10 50 - 170 01/26/2018 [facility] Serum or plasma iron binding capacity measurement (mass/volume) 328 261 - 478 01/26/2018 [facility] Serum or plasma iron saturation measurement (mass fraction) 3 15 - 50 01/26/2018 [facility] Serum or plasma transferrin measurement (mass/volume) 234 180 - 382 01/26/2018 [facility] Serum or plasma ferritin measurement (mass/volume) 33.17 4.63 - 204.00 01/26/2018 [facility] Blood cobalamin (vitamin B12) measurement (mass/volume) 341 213 - 816 01/26/2018 [facility] Serum or plasma folate measurement (mass/volume) 8.1 7.0 - 15.4 01/26/2018 [facility] Serum or plasma thyroxine (T4) free measurement (mass/volume) 0.99 0.9 - 1.8 01/26/2018 [facility] Serum or plasma thyrotropin measurement by detection limit <=0.005 miu/l (units/volume) 9.556 0.350 - 4.940 01/26/2018 [facility] Differential Total Cells Counted 100 01/25/2018 [facility] Manual blood neutrophils/100 leukocytes 78 40 - 74 01/25/2018 [facility] Manual blood band neutrophils form/100 leukocytes 1 01/25/2018 [facility] Manual blood lymphocytes/100 leukocytes 9 19 - 48 01/25/2018 [facility] Manual blood monocytes/100 leukocytes 8 3.4 - 9.0 01/25/2018 [facility] Manual blood eosinophil count as percentage of total leukocytes 4 0 - 7 01/25/2018 [facility] Blood nucleated erythrocytes count (number/volume) 1 01/25/2018 [facility] Blood platelets count by estimate (number/volume) ADEQUATE 01/25/2018 [facility] Platelet morphology NORMAL 01/25/2018 [facility] RBC morphology NORMAL 01/25/2018 [facility] Blood culture NO GROWTH AFTER 5 DAYS, FINAL REPORT 01/25/2018 [facility] Stool gastrointestinal hemoglobin detection POSITIVE NEGATIVE 01/09/2018 [facility] Manual basophil percentage 1 0 - 1.5 01/08/2018 [facility] Manual blood metamyelocytes/100 leukocytes 1 0 - 0 01/08/2018 [facility] Blood hypochromia detection by light microscopy SLIGHT 01/08/2018 [facility] Blood anisocytosis detection by light microscopy MODERATE 01/08/2018 [facility] Blood [place] bodies detection by light microscopy FEW 01/08/2018 [facility] Phosphorus measurement 3.0 2.3 - 4.7 01/07/2018 [facility] Ammonia Ser-mCnc 45 31 - 123 12/17/2017 [facility] Serum or plasma lipase measurement (enzymatic activity/volume) 25 8 - 78 09/25/2017 [facility] Activated partial thromboplastin time (aPTT) in platelet poor plasma bycoagulation assay Activated partial thromboplastin time (aPTT) in platelet poor plasma bycoagulation assay 26.4 23.8 - 35.5 09/25/2017 [facility] Automated blood basophil count (count/volume) Automated blood basophil count (count/volume) 0.0 0.0 - 0.1 09/25/2017 [facility] Automated blood basophil count as percentage of total leukocytes Automated blood basophil count as percentage of total leukocytes 0.5 0.0 - 1.0 09/25/2017 [facility] Automated blood eosinophil count Automated blood eosinophil count 0.3 0.0 - 0.4 09/25/2017 [facility] Automated blood eosinophil count as percentage of total leukocytes Automated blood eosinophil count as percentage of total leukocytes 4.4 0.0 - 6.0 09/25/2017 [facility] Automated blood hematocrit (volume fraction) Automated blood hematocrit (volume fraction) 26.2 34.2 - 44.1 09/25/2017 [facility] Automated blood lymphocyte count as percentage ot total leukocytes Automated blood lymphocyte count as percentage ot total leukocytes 15.4 18.0 - 39.1 09/25/2017 [facility] Automated blood monocyte count as percentage of total leukocytes Automated blood monocyte count as percentage of total leukocytes 12.9 4.4 - 11.3 09/25/2017 [facility] Automated blood neutrophil count Automated blood neutrophil count 3.8 2.1 - 6.9 09/25/2017 [facility] Automated blood platelet count (count/volume) Automated blood platelet count (count/volume) 197 140 - 360 09/25/2017 [facility] Automated blood segmented neutrophil count as percentage of total leukocytes Automated blood segmented neutrophil count as percentage of total leukocytes 65.9 38.7 - 80.0 09/25/2017 [facility] Automated erythrocyte mean corpuscular hemoglobin (mass per erythrocyte) Automated erythrocyte mean corpuscular hemoglobin (mass per erythrocyte) 25.9 28 - 32 09/25/2017 [facility] Automated erythrocyte mean corpuscular hemoglobin concentration measurement (mass/volume) Automated erythrocyte mean corpuscular hemoglobin concentration measurement (mass/volume) 27.9 31 - 35 09/25/2017 [facility] Automated erythrocyte mean corpuscular volume Automated erythrocyte mean corpuscular volume 92.9 81 - 99 09/25/2017 [facility] Blood anisocytosis detection by light microscopy Blood anisocytosis detection by light microscopy MODERATE 09/25/2017 [facility] Blood erythrocytes automated count (number/volume) Blood erythrocytes automated count (number/volume) 2.82 3.6 - 5.1 09/25/2017 [facility] Blood hemoglobin measurement (moles/volume) Blood hemoglobin measurement (moles/volume) 7.3 12.0 - 16.0 09/25/2017 [facility] Blood hypochromia detection by light microscopy Blood hypochromia detection by light microscopy SLIGHT 09/25/2017 [facility] Blood leukocytes automated count (number/volume) Blood leukocytes automated count (number/volume) 5.73 4.8 - 10.8 09/25/2017 [facility] Blood lymphocytes count (number/volume) Blood lymphocytes count (number/volume) 0.9 1.0 - 3.2 09/25/2017 [facility] Blood monocytes automated count (number/volume) Blood monocytes automated count (number/volume) 0.7 0.2 - 0.8 09/25/2017 [facility] Estimated glomerular filtration rate (GFR) determination Estimated glomerular filtration rate (GFR) determination 45 60 09/25/2017 [facility] Glucose measurement Glucose measurement 152 74 - 118 09/25/2017 [facility] INR in Platelet poor plasma by Coagulation assay INR in Platelet poor plasma by Coagulation assay 1.09 09/25/2017 [facility] Plasma globulin measurement (mass/volume) Plasma globulin measurement (mass/volume) 2.9 2.3 - 3.5 09/25/2017 [facility] Prothrombin time (PT) in platelet poor plasma by coagulation assay Prothrombin time (PT) in platelet poor plasma by coagulation assay 13.3 11.9 - 14.5 09/25/2017 [facility] RBC morphology RBC morphology ABNORMAL 09/25/2017 [facility] Serum or plasma alanine aminotransferase measurement (enzymatic activity/volume) Serum or plasma alanine aminotransferase measurement (enzymatic activity/volume) 11 0 - 55 09/25/2017 [facility] Serum or plasma albumin measurement (mass/volume) Serum or plasma albumin measurement (mass/volume) 3.3 3.5 - 5.0 09/25/2017 [facility] Serum or plasma albumin/globulin mass ratio Serum or plasma albumin/globulin mass ratio 1.1 0.8 - 2.0 09/25/2017 [facility] Serum or plasma alkaline phosphatase measurement (enzymatic activity/volume) Serum or plasma alkaline phosphatase measurement (enzymatic activity/volume) 81 40 - 150 09/25/2017 [facility] Serum or plasma anion gap Serum or plasma anion gap 13.2 8 - 16 09/25/2017 [facility] Serum or plasma calcium measurement (mass/volume) Serum or plasma calcium measurement (mass/volume) 8.8 8.4 - 10.2 09/25/2017 [facility] Serum or plasma carbon dioxide, total measurement (moles/volume) Serum or plasma carbon dioxide, total measurement (moles/volume) 22 22 - 29 09/25/2017 [facility] Serum or plasma chloride measurement (moles/volume) Serum or plasma chloride measurement (moles/volume) 111 98 - 107 09/25/2017 [facility] Serum or plasma creatine kinase MB measurement (mass/volume) Serum or plasma creatine kinase MB measurement (mass/volume) 3.20 0 - 5.0 09/25/2017 [facility] Serum or plasma creatine kinase measurement (enzymatic activity/volume) Serum or plasma creatine kinase measurement (enzymatic activity/volume) 84 29 - 168 09/25/2017 [facility] Serum or plasma creatinine measurement (mass/volume) Serum or plasma creatinine measurement (mass/volume) 1.18 0.57 - 1.11 09/25/2017 [facility] Serum or plasma lipase measurement (enzymatic activity/volume) Serum or plasma lipase measurement (enzymatic activity/volume) 25 8 - 78 09/25/2017 [facility] Serum or plasma potassium measurement (moles/volume) Serum or plasma potassium measurement (moles/volume) 4.2 3.5 - 5.1 09/25/2017 [facility] Serum or plasma protein measurement (mass/volume) Serum or plasma protein measurement (mass/volume) 6.2 6.5 - 8.1 09/25/2017 [facility] Serum or plasma sodium measurement (moles/volume) Serum or plasma sodium measurement (moles/volume) 142 136 - 145 09/25/2017 [facility] Serum or plasma total bilirubin measurement (mass/volume) Serum or plasma total bilirubin measurement (mass/volume) 0.2 0.2 - 1.2 09/25/2017 [facility] Serum or plasma urea nitrogen measurement (mass/volume) Serum or plasma urea nitrogen measurement (mass/volume) 19 7 - 26 09/25/2017 [facility] Serum or plasma urea nitrogen/creatinine mass ratio Serum or plasma urea nitrogen/creatinine mass ratio 16 6 - 25 09/25/2017 [facility] Troponin I measurement by highly sensitive enzyme immunoassay Troponin I measurement by highly sensitive enzyme immunoassay 0.036 0 - 0.300 09/25/2017 [facility] Red Cell Distribution Width 18.9 11.7 - 14.4 09/25/2017 [facility] IM GRANULOCYTES % 0.9 0.0 - 1.0 09/25/2017 [facility] Absolute Immature Granulocyte (auto 0.05 0 - 0.1 09/25/2017 [facility] Aspartate Amino Transf (AST/SGOT) 11 5 - 34 09/25/2017 [facility] Capillary blood glucose measurement by glucometer (mass/volume) Capillary blood glucose measurement by glucometer (mass/volume) 132 70 - 120 08/01/2017 [facility] Automated urine sediment leukocyte count by microscopy (number/high power field) Automated urine sediment leukocyte count by microscopy (number/high power field) <5 0 - 5 07/31/2017 [facility] Bacteria detection in urine sediment by light microscopy Bacteria detection in urine sediment by light microscopy NONE NONE 07/31/2017 [facility] Epithelial cells detection in urine sediment by light microscopy Epithelial cells detection in urine sediment by light microscopy RARE NONE 07/31/2017 [facility] Erythrocytes detection in urine sediment by light microscopy Erythrocytes detection in urine sediment by light microscopy NONE 0 - 5 07/31/2017 [facility] Specific gravity of Urine by Test strip Specific gravity of Urine by Test strip 1.015 1.010 - 1.025 07/31/2017 [facility] Urine clarity Urine clarity SL CLOUDY CLEAR 07/31/2017 [facility] Urine color determination Urine color determination YELLOW YELLOW 07/31/2017 [facility] Urine erythrocytes detection Urine erythrocytes detection NEGATIVE NEGATIVE 07/31/2017 [facility] Urine glucose detection Urine glucose detection NEGATIVE NEGATIVE 07/31/2017 [facility] Urine ketones detection by automated test strip Urine ketones detection by automated test strip NEGATIVE NEGATIVE 07/31/2017 [facility] Urine leukocyte esterase detection by dipstick Urine leukocyte esterase detection by dipstick NEGATIVE NEGATIVE 07/31/2017 [facility] Urine nitrite detection Urine nitrite detection NEGATIVE NEGATIVE 07/31/2017 [facility] Urine pH measurement by automated test strip Urine pH measurement by automated test strip 6 5 - 7 07/31/2017 [facility] Urine protein measurement by test strip (mass/volume) Urine protein measurement by test strip (mass/volume) TRACE NEGATIVE 07/31/2017 [facility] Urine total bilirubin measurement (mass/volume) Urine total bilirubin measurement (mass/volume) NEGATIVE NEGATIVE 07/31/2017 [facility] Urine urobilinogen measurement by test strip (mass/volume) Urine urobilinogen measurement by test strip (mass/volume) 0.2 0.2 - 1 07/31/2017 [facility] Blood cobalamin (vitamin B12) measurement (mass/volume) Blood cobalamin (vitamin B12) measurement (mass/volume) 813 213 - 816 07/31/2017 [facility] Serum or plasma ferritin measurement (mass/volume) Serum or plasma ferritin measurement (mass/volume) 63.26 4.63 - 204.00 07/31/2017 [facility] Serum or plasma folate measurement (mass/volume) Serum or plasma folate measurement (mass/volume) 11.5 7.0 - 15.4 07/31/2017 [facility] Serum or plasma iron binding capacity measurement (mass/volume) Serum or plasma iron binding capacity measurement (mass/volume) 358 261 - 478 07/31/2017 [facility] Serum or plasma iron measurement (mass/volume) Serum or plasma iron measurement (mass/volume) 211 50 - 170 07/31/2017 [facility] Serum or plasma iron saturation measurement (mass fraction) Serum or plasma iron saturation measurement (mass fraction) 59 15 - 50 07/31/2017 [facility] Serum or plasma transferrin measurement (mass/volume) Serum or plasma transferrin measurement (mass/volume) 256 180 - 382 07/31/2017 [facility] Pathology Reports No Data Provided for This [...] DC Date Status Source Discharged Inpatient (obs) [id number] SAM CAI MD 07/22/2017 07/22/2017 [facility] Discharged Inpatient [id number] KULWANT BAEZ MD 07/31/2017 08/01/2017 [facility] Departed Emergency Room [id number] TONJA DESAI MD 09/25/2017 09/25/2017 [facility] Discharged Inpatient (obs) [id number] SAM CAI MD 12/17/2017 12/17/2017 [facility] Discharged Inpatient [id number] SAM CAI MD 01/02/2018 01/09/2018 [facility] Discharged Inpatient [id number] SAM CAI MD 01/25/2018 01/26/2018 [facility] Discharged Inpatient [id number] SAM CAI MD 03/26/2018 03/27/2018 [facility] Procedures Procedure Code Date Perfomer Comments Source TRANSFUSE NONAUT RED BLOOD CELLS IN PERIPH VEIN, PERC [id number] 01/25/2018 [facility] Computed tomography of chest without contrast [id number] 01/25/2018 [facility] REPOSITION RIGHT UPPER FEMUR WITH INT FIX, PERC APPROACH [id number] 01/06/2018 [facility] TRANSFUSE NONAUT RED BLOOD CELLS IN PERIPH VEIN, PERC [id number] 01/04/2018 [facility] BLOOD TRANSFUSION SERVICE [id number] 12/17/2017 [facility] Computed tomography of brain without radiopaque contrast [id number] 12/17/2017 [facility] TRANSFUSE NONAUT RED BLOOD CELLS IN PERIPH VEIN, PERC [id number] 07/31/2017 [facility] X-ray of chest, single view [id number] 07/31/2017 [facility] BLOOD TRANSFUSION SERVICE [id number] 07/22/2017 [facility] Assessment and Plan No Data Provided for This Section Plan of Care Plan of Care Date Source Discharge Date 03/27/18 8:30am Disposition AGAINST MEDICAL ADVICE Prescriptions See Medication Section 03/27/2018 [facility] Discharge Date 09/25/17 8:11pm Disposition ELOPED Condition at Discharge Other Forms Provided Work/School Excuse Prescriptions See Medication Section 09/25/2017 [facility] Social History Social History Date Source Social [...] Stop Date Current every day smoker 03/27/2018 [facility] Family History No Data Provided for This Section Advance Directives Order Name Results Value Date Source Advance Directives Advance Directives Directive Response Recorded Date/Time Does the patient have an advance directive? Yes 03/26/18 9:08pm If yes, is advance directive on file with [employer] [facility]? No 03/26/18 9:08pm If not on file with [facility] will patient provide a copy? No 03/26/18 9:08pm Do you have a Directive to Physician? No 03/26/18 6:45pm Do you have a Medical Power of [employer]? No 03/26/18 6:45pm Do you have an [...] rights and responsibilities? Yes 03/26/18 6:45pm 03/27/2018 [facility] Advance Directives Advance Directives Directive Response Recorded Date/Time Does the patient have an advance directive? No 07/31/17 10:00pm If yes, is advance directive on file with [employer] [facility]? No 07/31/17 10:00pm If not on file with [facility] will patient provide a copy? No 07/31/17 10:00pm Do you have a Directive to Physician? No 09/25/17 5:25pm Do you have a Medical Power of [place] [place] [employer] Hand? No 09/25/17 5:25pm Do you have an [...] rights and responsibilities? Yes 09/25/17 5:25pm 09/25/2017 [facility] Functional Status No Data Provided for This Section
[2018-09-09 18:36] LABS: BASOPHILS % 0.2 % (0.0-1.0); EOSINOPHILS # (AUTO) 0.2 (0.0-0.4); EOSINOPHILS % 1.2 % (0.0-6.0); HEMATOCRIT 24.7 % (34.2-44.1); LYMPHOCYTES # (AUTO) 0.6 (1.0-3.2); LYMPHOCYTES % 4.7 % (18.0-39.1); MEAN CORPUSCULAR HEMOGLOBIN 23.8 pg (28-32); MEAN CORPUSCULAR HGB CONC 27.9 g/dL (31-35); MEAN CORPUSCULAR VOLUME 85.2 fL (81-99); MONOCYTES # (AUTO) 1.2 (0.2-0.8); MONOCYTES % 9.2 % (4.4-11.3); NEUTROPHILS # (AUTO) 11.1 (2.1-6.9); NEUTROPHILS % 83.3 % (38.7-80.0); PLATELET COUNT 261 x10e3/uL (140-360); RED CELL DISTRIBUTION WIDTH 22.5 % (11.7-14.4)
[2018-09-09 18:38] LABS: HEMOGLOBIN 6.9 g/dL (12.0-16.0)
[2018-09-09 18:50] LABS: INR 0.92; PROTHROMBIN TIME 12.9 seconds (11.9-14.5)
--- NOTE | 2018-09-09 18:55 | Diagnostic Imaging Report ---
A single frontal view of the chest. HISTORY: Fluid in lungs COMPARISON: CT of the chest August 29, 2018, chest radiograph March 26, 2018. DISCUSSION: Portable technique, limits sensitivity of the exam. Overlying monitoring leads. Tubes/Lines: The right sided chest port appears unchanged. Lungs and pleura: Diffusely increased interstitial and patchy airspace opacities. No definite pleural effusion or pneumothorax is identified. Heart and mediastinum: The cardiac silhouette and central pulmonary vasculature are enlarged. Bones and soft tissues: Appear unremarkable, given this limited exam. IMPRESSION: Findings compatible with volume overload resulting in central pulmonary vascular congestion and moderate pulmonary edema. Signed by: Dr. Jack Saravia D.O., M.M.M. on 09/09/2018 6:51 PM
[2018-09-09 18:57] LABS: ALBUMIN 3.4 g/dL (3.5-5.0); ALBUMIN/GLOBULIN RATIO 1.2 (0.8-2.0); ANION GAP 17.8 mmol/L (8-16); CALCIUM 9.2 mg/dL (8.4-10.2); CREATININE, SERUM 1.13 mg/dL (0.57-1.11); POTASSIUM 3.8 mmol/L (3.5-5.1)
[2018-09-09 19:06] LABS: CREATINE KINASE MB 1.6 ng/mL (0-5.0)
--- NOTE | 2018-09-09 19:07 | NUR ---
report to willie
[2018-09-09] MEDS ORDERED: SODIUM CHLORIDE 0.9% 1000ML 500 ML IV ONE (19:15)
[2018-09-09] MEDS ORDERED: FUROSEMIDE INJ 10 MG/ML 4 ML VIAL IV ONE (19:30)
[2018-09-09] MEDS ORDERED: SODIUM CHLORIDE 0.9% 250ML 250 ML IV ONE (19:30)
[2018-09-09] MEDS ORDERED: ZOLPIDEM TARTRATE 5 MG TAB PO PRN (20:00)
[2018-09-09] MEDS ORDERED: DIPHENHYDRAMINE HCL INJ 50 MG/ML VIAL IV PRN (20:00)
[2018-09-09] MEDS ORDERED: ENALAPRILAT IV INJ 1.25 MG/ML VIAL IV PRN (20:00)
[2018-09-09] MEDS ORDERED: ONDANSETRON HCL INJ 2MG/ML 2ML 2 MG/ML VIAL IV PRN (20:00)
[2018-09-09] MEDS ORDERED: ACETAMINOPHEN 325 MG TAB PO PRN (20:00)
--- OUTSIDE RECORDS SUMMARY | 2018-09-09 20:04 | XMS REPORT | Continuity of Care Document ---
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 Name Role Phone Business Exchange Information [employer] Unavailable Unavailable Problems Problem Status Onset Date Classification Date Reported Comments Source Anemia Active 03/07/2014 Problem 03/27/2018 [facility] Dyspnea Active 03/07/2014 Problem 03/27/2018 [facility] Weakness Active 03/07/2014 Problem 03/27/2018 [facility] GI bleed Active Problem 03/27/2018 [facility] Congestive heart failure Active Problem 03/27/2018 [facility] Elevated troponin Active Problem 03/27/2018 [facility] Hip avulsion fracture Active Problem 03/27/2018 [facility] Hip fracture, right Active Problem 03/27/2018 [facility] Pneumonia Active Problem 03/27/2018 [facility] Symptomatic anemia Active Problem 03/27/2018 [facility] Medications Medication Details Route Status Patient Instructions Ordering Provider Order Date Source Lactulose (Enulose) 10 Gm/15 Ml Solution, 30 Ml Oral Twice A Day as needed for Constipation Active 03/26/2018 [facility] Magnesium Oxide 400 Mg Tablet, 400 Mg Oral Twice A Day as needed for Constipation Active 03/26/2018 [facility] Ondansetron (Ondansetron Odt) 8 Mg Tab.rapdis, 4 Mg Oral Every 6 Hours as needed for Nausea And Vomiting Active 03/26/2018 [facility] Polyethylene Glycol 3350 17 Gm Powd.pack, 1 Pkt Oral Daily Active 03/26/2018 [facility] Potassium Chloride 20 Meq Tab.er.prt, 20 Mg Oral Daily Active 03/26/2018 [facility] Rivaroxaban (Xarelto) 10 Mg Tablet, 10 Mg Oral Daily Active 03/26/2018 [facility] Zinc Sulfate 220 Mg Capsule, 220 Mg Oral Twice A Day Active 03/26/2018 [facility] Acetaminophen 325 Mg Tablet Every 4 Hours as needed for Pain And Temperature Active [place] 01/26/2018 [facility] Aspirin (Aspirin Chew) 81 Mg Chew Daily Active [place] 01/26/2018 [facility] Carvedilol (Coreg) 3.125 Mg Tab Twice A Day Active [place] 01/26/2018 [facility] Escitalopram Oxalate (Lexapro) 10 Mg Tablet Daily Active [place] 01/26/2018 [facility] Hydrocodone/Apap 10MG-325MG 1 Ea Tab Every 4 Hours as needed for Pain Active [place] 01/26/2018 [facility] Levothyroxine Sodium (Synthroid) 125 Mcg Tab Daily@0600 Active [place] 01/26/2018 [facility] Lorazepam (Ativan*) 0.5 Mg Tablet Every 4 Hours as needed for Anxiety Active [place] 01/26/2018 [facility] Prednisone 5 Mg Tablet Daily Active [place] 01/26/2018 [facility] Acetaminophen 325 Mg/10 Ml Elix, 650 Mg Oral Every 6 Hours as needed for Pain And Temperature Active 01/26/2018 [facility] Albuterol/Ipratropium Nebulize 3 Ml Inha, 3 Ml Nebullizer Rt Q6h Active [place] 01/26/2018 [facility] Atorvastatin 40 Mg Tab, 40 Mg Oral Bedtime Active [place] 01/26/2018 [facility] Atorvastatin Calcium 40 Mg Tablet, 40 Mg Oral Daily Active 01/26/2018 [facility] Carbidopa/Levodopa (Carbidopa-Levodopa 25-100 Tab) 1 Each Tablet, 1 Ea Oral Daily Active [place] 01/26/2018 [facility] Carbidopa/Levodopa (Carbidopa-Levodopa 25-100 Tab) 1 Each Tablet, 1 Tab Oral Daily Active 01/26/2018 [facility] Carvedilol 3.125 Mg Tablet, 3.125 Mg Oral Twice A Day Active 01/26/2018 [facility] Clonidine Hcl (Catapres) 0.1 Mg Tablet, 0.1 Mg Oral Every 8 Hours as needed for High Blood Pressure Active [place] 01/26/2018 [facility] Clonidine Hcl 0.1 Mg Tablet, 1 Tab Oral Every 8 Hours as needed for High Blood Pressure Active 01/26/2018 [facility] Dextrose (Dextrose 50%-Water Syringe) 50 Ml Inj, 50 Ml Intraven As Needed as needed for Blood Sugar Active [place] 01/26/2018 [facility] Docusate Sodium (Colace) 100 Mg Capsule, 100 Mg Oral Twice A Day Active [place] 01/26/2018 [facility] Docusate Sodium 100 Mg Capsule, 100 Mg Oral Twice A Day Active 01/26/2018 [facility] Escitalopram Oxalate 10 Mg Tablet, 5 Mg Oral Daily Active 01/26/2018 [facility] Furosemide 10 Mg/1 Ml Vial, 40 Mg Intraven Every 12 Hours Active [place] 01/26/2018 [facility] Furosemide 40 Mg Tablet, 40 Mg Oral Daily Active 01/26/2018 [facility] Guaifenesin/Dextromethorphan (Mucinex Dm Er 600-30 Mg Tablet) 1 Each Tab.er.12h, 1 Each Oral Every 12 Hours Active [place] 01/26/2018 [facility] Hydrocodone Bit/Acetaminophen ([place] 10-325 Tablet) 1 Each Tablet, 1 Tab Oral Every 4 Hours as needed for Pain Active 01/26/2018 [facility] Insulin Aspart (Novolog) 100 Unit/1 Ml Cartridge, 0 Sub-Q Daily Active 01/26/2018 [facility] Insulin Detemir 100 Unit/Ml Pen, 20 Unit Sub-Q Every 12 Hours Active [place] 01/26/2018 [facility] Insulin Glargine (Lantus 3ML Pen) 100 Units/1 Ml Inj, 20 Units Sub-Q Every 12 Hours Active 01/26/2018 [facility] Insulin Lispro 100 Unit/1 Ml Vial, 0 Unit Sub-Q Before Meals And At Bedtime Active [place] 01/26/2018 [facility] Levothyroxine Sodium 125 Mcg Tablet, 125 Mcg Oral Daily Active 01/26/2018 [facility] Lisinopril 10 Mg Tablet, 10 Mg Oral Twice A Day Active [place] 01/26/2018 [facility] Lisinopril 40 Mg Tablet, 10 Mg Oral Twice A Day Active 01/26/2018 [facility] Nicotine (Nicoderm Cq) 1 Each Patch.td24, 21 Mg Topically Daily Active [place] 01/26/2018 [facility] Nicotine (Nicotine Patch) 1 Each Patch.td24, 21 Mg Transderm Daily Active 01/26/2018 [facility] Ondansetron Hcl/Pf (Ondansetron Hcl 4 Mg/2 Ml Vial) 4 Mg/2 Ml Vial, 4 Mg Intraven Every 6 Hours as needed for Nausea And Vomiting Active [place] 01/26/2018 [facility] Pantoprazole Sod (Protonix) 40 Mg/Ml Susp, 40 Mg Oral Before Breakfast Active [place] 01/26/2018 [facility] Potassium Chloride (Klor-Con M20) 20 Meq Tabcr, 20 Meq Oral Twice A Day Active [place] 01/26/2018 [facility] Prednisone 5 Mg Tablet, 5 Mg Oral Daily Active 01/26/2018 [facility] Sodium Chloride Flush 10 Ml Soln, 10 Ml Injection As Needed as needed for Iv Site Flush Active [place] 01/26/2018 [facility] Temazepam (Restoril) 15 Mg Capsule, 15 Mg Oral Bedtime Active [place] 01/26/2018 [facility] Temazepam 15 Mg Capsule, 15 Mg Oral Daily Active 01/26/2018 [facility] Alprazolam 1 Mg Tablet, Daily Active 12/17/2017 [facility] Amitriptyline Hcl 10 Mg Tablet, Daily Active 12/17/2017 [facility] Atorvastatin Calcium (Lipitor*) 10 Mg Tablet, 40 Mg Oral Daily Active 12/17/2017 [facility] Calcium Carbonate/Vitamin D3 (Caltrate 600 + D Chewable Tab) 1 Each Tab.chew, Daily Active 12/17/2017 [facility] Carbidopa/Levodopa (Carbidopa-Levodopa 10-100 Tab) 1 Each Tablet, 1 Each Oral Active 12/17/2017 [facility] Furosemide 40 Mg Tablet, 40 Mg Oral Daily Active 12/17/2017 [facility] Glipizide (Glipizide Xl) 10 Mg Tab.osm.24, Daily Active 12/17/2017 [facility] Insulin Glargine,Hum.rec.anlog (Lantus) 100 Unit/1 Ml Vial, 10 U Qhs Active 12/17/2017 [facility] Insuln Asp Prt/Insulin Aspart (Novolog Mix 70-30 Flexpen Syrn) 100 Unit/1 Ml Insuln.pen, Active 12/17/2017 [facility] Levothyroxine Sodium (Levothroid) 112 Mcg Tablet, Daily Active 12/17/2017 [facility] Lisinopril 40 Mg Tablet, Daily Active 12/17/2017 [facility] Lorazepam 1 Mg Tablet, 1 Mg Oral Daily Active 12/17/2017 [facility] Metformin Hcl (Fortamet) 500 Mg Tab.osm.24, Daily Active 12/17/2017 [facility] Phenazopyridine Hcl 200 Mg Tablet, Active 12/17/2017 [facility] Prednisone 10 Mg Tab, 10 Mg Oral Active 12/17/2017 [facility] Tamsulosin Hcl 0.4 Mg Cap.er.24h, Active 12/17/2017 [facility] Tramadol Hcl (Ultram 50MG*) 50 Mg Tab, 50 Mg Oral Active 12/17/2017 [facility] Omeprazole (Prilosec) 20 Mg Capsule., Daily Active 04/11/2012 [facility] Simvastatin (Zocor) 20 Mg Tablet, Daily Active 04/11/2012 [facility] Alprazolam 1 Mg Tablet Daily Active [facility] Amitriptyline Hcl 10 Mg Tablet Daily Active [facility] Atorvastatin Calcium (Lipitor*) 10 Mg Tablet Daily Active [facility] Calcium Carbonate/Vitamin D3 (Caltrate 600 + D Chewable Tab) 1 Each Tab.chew Daily Active [facility] Carbidopa/Levodopa (Carbidopa-Levodopa 25-100 Tab) 1 Each Tablet Active [facility] Carbidopa/Levodopa (Carbidopa-Levodopa 10-100 Tab) 1 Each Tablet Active [facility] Furosemide 40 Mg Tablet Daily Active [facility] Glipizide (Glipizide Xl) 10 Mg Tab.osm.24 Daily Active [facility] Insulin Glargine,Hum.rec.anlog (Lantus) 100 Unit/1 Ml Vial Qhs Active [facility] Insuln Asp Prt/Insulin Aspart (Novolog Mix 70-30 Flexpen Syrn) 100 Unit/1 Ml Insuln.pen Active [facility] Levothyroxine Sodium (Levothroid) 112 Mcg Tablet Daily Active [facility] Lisinopril 40 Mg Tablet Daily Active [facility] Lorazepam 1 Mg Tablet Daily Active [facility] Metformin Hcl (Fortamet) 500 Mg Tab.osm.24 Daily Active [facility] Omeprazole 40 Mg Capsule. Active [facility] Phenazopyridine Hcl 200 Mg Tablet Active [facility] Prednisone 10 Mg Tab Active [facility] Tamsulosin Hcl 0.4 Mg Cap.er.24h Active [facility] Tramadol Hcl (Ultram 50MG*) 50 Mg Tab Active [facility] Albuterol Sulfate (Ventolin Hfa) 18 Gm Hfa.aer.ad Active [facility] Allopurinol 100 Mg Tablet Daily Active [facility] Ascorbic Acid 500 Mg Tablet Twice A Day Active [facility] Atorvastatin Calcium 20 Mg Tablet Bedtime Active [facility] Calcium Carbonate/Vitamin D3 (Oyster Shell Calcium + D Tab) 1 Each Tablet Three Times A Day Active [facility] Carbidopa/Levodopa (Sinemet 25-100 Mg Tablet) 1 Each Tablet Twice A Day Active [facility] Ferrous Sulfate 325 Mg Tablet. Daily Active [facility] Furosemide 40 Mg Tablet Daily Active [facility] Insulin Aspart (Novolog) 100 Unit/1 Ml Cartridge Three Times A Day as needed for Blood Sugar Active FOR BLOOD SUGAR GREATER THAN 150 [facility] Insulin Glargine (Lantus 3ML Pen) 100 Units/1 Ml Inj Bedtime Active HOLD IF BLOOD SUGAR LESS THAN 100 [facility] Lisinopril (Prinavil / Zestril) 20 Mg Tablet Daily Active [facility] Magnesium Hydroxide (Milk Of Magnesia) 400 Mg/5 Ml Oral.susp Daily as needed for Constipation Active [facility] Omeprazole 40 Mg Capsule. Daily Active [facility] Potassium Chloride 20 Meq Tab.er.prt Daily Active [facility] Allergies, Adverse Reactions, Alerts Substance Category Reaction Severity Reaction type Status Date Reported Comments Source Morphine RASH,ITCHING Mild Allergy to Substance Active 01/02/2018 [facility] Immunizations No Data Provided for This Section Results Order Name Results Value Reference Range Date Interpretation Comments Source Blood leukocytes automated count (number/volume) 9.52 4.8 - 10.8 03/27/2018 [facility] Blood erythrocytes automated count (number/volume) 3.67 3.6 - 5.1 03/27/2018 [facility] Blood hemoglobin measurement (moles/volume) 8.9 12.0 - 16.0 03/27/2018 [facility] Automated blood hematocrit (volume fraction) 29.7 34.2 - 44.1 03/27/2018 [facility] Automated erythrocyte mean corpuscular volume 80.9 81 - 99 03/27/2018 [facility] Automated erythrocyte mean corpuscular hemoglobin (mass per erythrocyte) 24.3 28 - 32 03/27/2018 [facility] Automated erythrocyte mean corpuscular hemoglobin concentration measurement (mass/volume) 30.0 31 - 35 03/27/2018 [facility] RDW BldCo-Rto 17.6 11.7 - 14.4 03/27/2018 [facility] Automated blood platelet count (count/volume) 190 140 - 360 03/27/2018 [facility] Automated blood segmented neutrophil count as percentage of total leukocytes 77.9 38.7 - 80.0 03/27/2018 [facility] Automated blood lymphocyte count as percentage ot total leukocytes 8.6 18.0 - 39.1 03/27/2018 [facility] Automated blood monocyte count as percentage of total leukocytes 10.9 4.4 - 11.3 03/27/2018 [facility] Automated blood eosinophil count as percentage of total leukocytes 0.2 0.0 - 6.0 03/27/2018 [facility] Automated blood basophil count as percentage of total leukocytes 0.4 0.0 - 1.0 03/27/2018 [facility] IM GRANULOCYTES % 2.0 0.0 - 1.0 03/27/2018 [facility] Automated blood neutrophil count 7.4 2.1 - 6.9 03/27/2018 [facility] Blood lymphocytes count (number/volume) 0.8 1.0 - 3.2 03/27/2018 [facility] Blood monocytes automated count (number/volume) 1.0 0.2 - 0.8 03/27/2018 [facility] Automated blood eosinophil count 0.0 0.0 - 0.4 03/27/2018 [facility] Automated blood basophil count (count/volume) 0.0 0.0 - 0.1 03/27/2018 [facility] Absolute Immature Granulocyte (auto 0.19 0 - 0.1 03/27/2018 [facility] Urine color determination YELLOW YELLOW 03/26/2018 [facility] Urine clarity CLEAR CLEAR 03/26/2018 [facility] Specific gravity of Urine by Test strip 1.015 1.010 - 1.025 03/26/2018 [facility] Urine pH measurement by automated test strip 6 5 - 7 03/26/2018 [facility] Urine leukocyte esterase detection by dipstick NEGATIVE NEGATIVE 03/26/2018 [facility] Urine nitrite detection NEGATIVE NEGATIVE 03/26/2018 [facility] Urine protein measurement by test strip (mass/volume) NEGATIVE NEGATIVE 03/26/2018 [facility] Urine glucose detection NEGATIVE NEGATIVE 03/26/2018 [facility] Urine ketones detection by automated test strip TRACE NEGATIVE 03/26/2018 [facility] Urine urobilinogen measurement by test strip (mass/volume) 0.2 0.2 - 1 03/26/2018 [facility] Urine total bilirubin measurement (mass/volume) NEGATIVE NEGATIVE 03/26/2018 [facility] Urine erythrocytes detection NEGATIVE NEGATIVE 03/26/2018 [facility] Automated urine sediment leukocyte count by microscopy (number/high power field) NONE 0 - 5 03/26/2018 [facility] Erythrocytes detection in urine sediment by light microscopy NONE 0 - 5 03/26/2018 [facility] Bacteria detection in urine sediment by light microscopy NONE NONE 03/26/2018 [facility] Epithelial cells detection in urine sediment by light microscopy MANY NONE 03/26/2018 [facility] Prothrombin time (PT) in platelet poor plasma by coagulation assay 12.8 11.9 - 14.5 03/26/2018 [facility] INR in Platelet poor plasma by Coagulation assay 0.88 03/26/2018 [facility] Activated partial thromboplastin time (aPTT) in platelet poor plasma bycoagulation assay 29.3 23.8 - 35.5 03/26/2018 [facility] Serum or plasma sodium measurement (moles/volume) 136 136 - 145 03/26/2018 [facility] Serum or plasma potassium measurement (moles/volume) 4.2 3.5 - 5.1 03/26/2018 [facility] Serum or plasma chloride measurement (moles/volume) 102 98 - 107 03/26/2018 [facility] Serum or plasma carbon dioxide, total measurement (moles/volume) 24 22 - 29 03/26/2018 [facility] Serum or plasma anion gap 14.2 8 - 16 03/26/2018 [facility] Serum or plasma urea nitrogen measurement (mass/volume) 31 7 - 26 03/26/2018 [facility] Serum or plasma creatinine measurement (mass/volume) 1.34 0.57 - 1.11 03/26/2018 [facility] Serum or plasma urea nitrogen/creatinine mass ratio 23 6 - 25 03/26/2018 [facility] Estimated glomerular filtration rate (GFR) determination 38 60 03/26/2018 [facility] Glucose measurement 157 74 - 118 03/26/2018 [facility] Serum or plasma calcium measurement (mass/volume) 8.2 8.4 - 10.2 03/26/2018 [facility] Serum or plasma total bilirubin measurement (mass/volume) 0.1 0.2 - 1.2 03/26/2018 [facility] Aspartate Amino Transf (AST/SGOT) 9 5 - 34 03/26/2018 [facility] Serum or plasma alanine aminotransferase measurement (enzymatic activity/volume) < 6 0 - 55 03/26/2018 [facility] Serum or plasma protein measurement (mass/volume) 5.9 6.5 - 8.1 03/26/2018 [facility] Serum or plasma albumin measurement (mass/volume) 3.3 3.5 - 5.0 03/26/2018 [facility] Plasma globulin measurement (mass/volume) 2.6 2.3 - 3.5 03/26/2018 [facility] Serum or plasma albumin/globulin mass ratio 1.3 0.8 - 2.0 03/26/2018 [facility] Serum or plasma alkaline phosphatase measurement (enzymatic activity/volume) 71 40 - 150 03/26/2018 [facility] BNP Bld-mCnc 691.1 0 - 100 03/26/2018 [facility] Serum or plasma creatine kinase measurement (enzymatic activity/volume) 55 29 - 168 03/26/2018 [facility] Serum or plasma creatine kinase MB measurement (mass/volume) 2.60 0 - 5.0 03/26/2018 [facility] Troponin I measurement by highly sensitive enzyme immunoassay 0.021 0 - 0.300 03/26/2018 [facility] Capillary blood glucose measurement by glucometer (mass/volume) 191 70 - 120 01/26/2018 [facility] Hemoglobin A1c Percent 5.2 4.0 - 7.0 01/26/2018 [facility] Serum or plasma magnesium measurement (mass/volume) 2.1 1.3 - 2.1 01/26/2018 [facility] Serum or plasma iron measurement (mass/volume) 10 50 - 170 01/26/2018 [facility] Serum or plasma iron binding capacity measurement (mass/volume) 328 261 - 478 01/26/2018 [facility] Serum or plasma iron saturation measurement (mass fraction) 3 15 - 50 01/26/2018 [facility] Serum or plasma transferrin measurement (mass/volume) 234 180 - 382 01/26/2018 [facility] Serum or plasma ferritin measurement (mass/volume) 33.17 4.63 - 204.00 01/26/2018 [facility] Blood cobalamin (vitamin B12) measurement (mass/volume) 341 213 - 816 01/26/2018 [facility] Serum or plasma folate measurement (mass/volume) 8.1 7.0 - 15.4 01/26/2018 [facility] Serum or plasma thyroxine (T4) free measurement (mass/volume) 0.99 0.9 - 1.8 01/26/2018 [facility] Serum or plasma thyrotropin measurement by detection limit <=0.005 miu/l (units/volume) 9.556 0.350 - 4.940 01/26/2018 [facility] Differential Total Cells Counted 100 01/25/2018 [facility] Manual blood neutrophils/100 leukocytes 78 40 - 74 01/25/2018 [facility] Manual blood band neutrophils form/100 leukocytes 1 01/25/2018 [facility] Manual blood lymphocytes/100 leukocytes 9 19 - 48 01/25/2018 [facility] Manual blood monocytes/100 leukocytes 8 3.4 - 9.0 01/25/2018 [facility] Manual blood eosinophil count as percentage of total leukocytes 4 0 - 7 01/25/2018 [facility] Blood nucleated erythrocytes count (number/volume) 1 01/25/2018 [facility] Blood platelets count by estimate (number/volume) ADEQUATE 01/25/2018 [facility] Platelet morphology NORMAL 01/25/2018 [facility] RBC morphology NORMAL 01/25/2018 [facility] Blood culture NO GROWTH AFTER 5 DAYS, FINAL REPORT 01/25/2018 [facility] Stool gastrointestinal hemoglobin detection POSITIVE NEGATIVE 01/09/2018 [facility] Manual basophil percentage 1 0 - 1.5 01/08/2018 [facility] Manual blood metamyelocytes/100 leukocytes 1 0 - 0 01/08/2018 [facility] Blood hypochromia detection by light microscopy SLIGHT 01/08/2018 [facility] Blood anisocytosis detection by light microscopy MODERATE 01/08/2018 [facility] Blood Nunes-Tulsita bodies detection by light microscopy FEW 01/08/2018 [facility] Phosphorus measurement 3.0 2.3 - 4.7 01/07/2018 [facility] Ammonia Ser-mCnc 45 31 - 123 12/17/2017 [facility] Serum or plasma lipase measurement (enzymatic activity/volume) 25 8 - 78 09/25/2017 [facility] Activated partial thromboplastin time (aPTT) in platelet poor plasma bycoagulation assay Activated partial thromboplastin time (aPTT) in platelet poor plasma bycoagulation assay 26.4 23.8 - 35.5 09/25/2017 [facility] Automated blood basophil count (count/volume) Automated blood basophil count (count/volume) 0.0 0.0 - 0.1 09/25/2017 [facility] Automated blood basophil count as percentage of total leukocytes Automated blood basophil count as percentage of total leukocytes 0.5 0.0 - 1.0 09/25/2017 [facility] Automated blood eosinophil count Automated blood eosinophil count 0.3 0.0 - 0.4 09/25/2017 [facility] Automated blood eosinophil count as percentage of total leukocytes Automated blood eosinophil count as percentage of total leukocytes 4.4 0.0 - 6.0 09/25/2017 [facility] Automated blood hematocrit (volume fraction) Automated blood hematocrit (volume fraction) 26.2 34.2 - 44.1 09/25/2017 [facility] Automated blood lymphocyte count as percentage ot total leukocytes Automated blood lymphocyte count as percentage ot total leukocytes 15.4 18.0 - 39.1 09/25/2017 [facility] Automated blood monocyte count as percentage of total leukocytes Automated blood monocyte count as percentage of total leukocytes 12.9 4.4 - 11.3 09/25/2017 [facility] Automated blood neutrophil count Automated blood neutrophil count 3.8 2.1 - 6.9 09/25/2017 [facility] Automated blood platelet count (count/volume) Automated blood platelet count (count/volume) 197 140 - 360 09/25/2017 [facility] Automated blood segmented neutrophil count as percentage of total leukocytes Automated blood segmented neutrophil count as percentage of total leukocytes 65.9 38.7 - 80.0 09/25/2017 [facility] Automated erythrocyte mean corpuscular hemoglobin (mass per erythrocyte) Automated erythrocyte mean corpuscular hemoglobin (mass per erythrocyte) 25.9 28 - 32 09/25/2017 [facility] Automated erythrocyte mean corpuscular hemoglobin concentration measurement (mass/volume) Automated erythrocyte mean corpuscular hemoglobin concentration measurement (mass/volume) 27.9 31 - 35 09/25/2017 [facility] Automated erythrocyte mean corpuscular volume Automated erythrocyte mean corpuscular volume 92.9 81 - 99 09/25/2017 [facility] Blood anisocytosis detection by light microscopy Blood anisocytosis detection by light microscopy MODERATE 09/25/2017 [facility] Blood erythrocytes automated count (number/volume) Blood erythrocytes automated count (number/volume) 2.82 3.6 - 5.1 09/25/2017 [facility] Blood hemoglobin measurement (moles/volume) Blood hemoglobin measurement (moles/volume) 7.3 12.0 - 16.0 09/25/2017 [facility] Blood hypochromia detection by light microscopy Blood hypochromia detection by light microscopy SLIGHT 09/25/2017 [facility] Blood leukocytes automated count (number/volume) Blood leukocytes automated count (number/volume) 5.73 4.8 - 10.8 09/25/2017 [facility] Blood lymphocytes count (number/volume) Blood lymphocytes count (number/volume) 0.9 1.0 - 3.2 09/25/2017 [facility] Blood monocytes automated count (number/volume) Blood monocytes automated count (number/volume) 0.7 0.2 - 0.8 09/25/2017 [facility] Estimated glomerular filtration rate (GFR) determination Estimated glomerular filtration rate (GFR) determination 45 60 09/25/2017 [facility] Glucose measurement Glucose measurement 152 74 - 118 09/25/2017 [facility] INR in Platelet poor plasma by Coagulation assay INR in Platelet poor plasma by Coagulation assay 1.09 09/25/2017 [facility] Plasma globulin measurement (mass/volume) Plasma globulin measurement (mass/volume) 2.9 2.3 - 3.5 09/25/2017 [facility] Prothrombin time (PT) in platelet poor plasma by coagulation assay Prothrombin time (PT) in platelet poor plasma by coagulation assay 13.3 11.9 - 14.5 09/25/2017 [facility] RBC morphology RBC morphology ABNORMAL 09/25/2017 [facility] Serum or plasma alanine aminotransferase measurement (enzymatic activity/volume) Serum or plasma alanine aminotransferase measurement (enzymatic activity/volume) 11 0 - 55 09/25/2017 [facility] Serum or plasma albumin measurement (mass/volume) Serum or plasma albumin measurement (mass/volume) 3.3 3.5 - 5.0 09/25/2017 [facility] Serum or plasma albumin/globulin mass ratio Serum or plasma albumin/globulin mass ratio 1.1 0.8 - 2.0 09/25/2017 [facility] Serum or plasma alkaline phosphatase measurement (enzymatic activity/volume) Serum or plasma alkaline phosphatase measurement (enzymatic activity/volume) 81 40 - 150 09/25/2017 [facility] Serum or plasma anion gap Serum or plasma anion gap 13.2 8 - 16 09/25/2017 [facility] Serum or plasma calcium measurement (mass/volume) Serum or plasma calcium measurement (mass/volume) 8.8 8.4 - 10.2 09/25/2017 [facility] Serum or plasma carbon dioxide, total measurement (moles/volume) Serum or plasma carbon dioxide, total measurement (moles/volume) 22 22 - 29 09/25/2017 [facility] Serum or plasma chloride measurement (moles/volume) Serum or plasma chloride measurement (moles/volume) 111 98 - 107 09/25/2017 [facility] Serum or plasma creatine kinase MB measurement (mass/volume) Serum or plasma creatine kinase MB measurement (mass/volume) 3.20 0 - 5.0 09/25/2017 [facility] Serum or plasma creatine kinase measurement (enzymatic activity/volume) Serum or plasma creatine kinase measurement (enzymatic activity/volume) 84 29 - 168 09/25/2017 [facility] Serum or plasma creatinine measurement (mass/volume) Serum or plasma creatinine measurement (mass/volume) 1.18 0.57 - 1.11 09/25/2017 [facility] Serum or plasma lipase measurement (enzymatic activity/volume) Serum or plasma lipase measurement (enzymatic activity/volume) 25 8 - 78 09/25/2017 [facility] Serum or plasma potassium measurement (moles/volume) Serum or plasma potassium measurement (moles/volume) 4.2 3.5 - 5.1 09/25/2017 [facility] Serum or plasma protein measurement (mass/volume) Serum or plasma protein measurement (mass/volume) 6.2 6.5 - 8.1 09/25/2017 [facility] Serum or plasma sodium measurement (moles/volume) Serum or plasma sodium measurement (moles/volume) 142 136 - 145 09/25/2017 [facility] Serum or plasma total bilirubin measurement (mass/volume) Serum or plasma total bilirubin measurement (mass/volume) 0.2 0.2 - 1.2 09/25/2017 [facility] Serum or plasma urea nitrogen measurement (mass/volume) Serum or plasma urea nitrogen measurement (mass/volume) 19 7 - 26 09/25/2017 [facility] Serum or plasma urea nitrogen/creatinine mass ratio Serum or plasma urea nitrogen/creatinine mass ratio 16 6 - 25 09/25/2017 [facility] Troponin I measurement by highly sensitive enzyme immunoassay Troponin I measurement by highly sensitive enzyme immunoassay 0.036 0 - 0.300 09/25/2017 [facility] Red Cell Distribution Width 18.9 11.7 - 14.4 09/25/2017 [facility] IM GRANULOCYTES % 0.9 0.0 - 1.0 09/25/2017 [facility] Absolute Immature Granulocyte (auto 0.05 0 - 0.1 09/25/2017 [facility] Aspartate Amino Transf (AST/SGOT) 11 5 - 34 09/25/2017 [facility] Capillary blood glucose measurement by glucometer (mass/volume) Capillary blood glucose measurement by glucometer (mass/volume) 132 70 - 120 08/01/2017 [facility] Automated urine sediment leukocyte count by microscopy (number/high power field) Automated urine sediment leukocyte count by microscopy (number/high power field) <5 0 - 5 07/31/2017 [facility] Bacteria detection in urine sediment by light microscopy Bacteria detection in urine sediment by light microscopy NONE NONE 07/31/2017 [facility] Epithelial cells detection in urine sediment by light microscopy Epithelial cells detection in urine sediment by light microscopy RARE NONE 07/31/2017 [facility] Erythrocytes detection in urine sediment by light microscopy Erythrocytes detection in urine sediment by light microscopy NONE 0 - 5 07/31/2017 [facility] Specific gravity of Urine by Test strip Specific gravity of Urine by Test strip 1.015 1.010 - 1.025 07/31/2017 [facility] Urine clarity Urine clarity SL CLOUDY CLEAR 07/31/2017 [facility] Urine color determination Urine color determination YELLOW YELLOW 07/31/2017 [facility] Urine erythrocytes detection Urine erythrocytes detection NEGATIVE NEGATIVE 07/31/2017 [facility] Urine glucose detection Urine glucose detection NEGATIVE NEGATIVE 07/31/2017 [facility] Urine ketones detection by automated test strip Urine ketones detection by automated test strip NEGATIVE NEGATIVE 07/31/2017 [facility] Urine leukocyte esterase detection by dipstick Urine leukocyte esterase detection by dipstick NEGATIVE NEGATIVE 07/31/2017 [facility] Urine nitrite detection Urine nitrite detection NEGATIVE NEGATIVE 07/31/2017 [facility] Urine pH measurement by automated test strip Urine pH measurement by automated test strip 6 5 - 7 07/31/2017 [facility] Urine protein measurement by test strip (mass/volume) Urine protein measurement by test strip (mass/volume) TRACE NEGATIVE 07/31/2017 [facility] Urine total bilirubin measurement (mass/volume) Urine total bilirubin measurement (mass/volume) NEGATIVE NEGATIVE 07/31/2017 [facility] Urine urobilinogen measurement by test strip (mass/volume) Urine urobilinogen measurement by test strip (mass/volume) 0.2 0.2 - 1 07/31/2017 [facility] Blood cobalamin (vitamin B12) measurement (mass/volume) Blood cobalamin (vitamin B12) measurement (mass/volume) 813 213 - 816 07/31/2017 [facility] Serum or plasma ferritin measurement (mass/volume) Serum or plasma ferritin measurement (mass/volume) 63.26 4.63 - 204.00 07/31/2017 [facility] Serum or plasma folate measurement (mass/volume) Serum or plasma folate measurement (mass/volume) 11.5 7.0 - 15.4 07/31/2017 [facility] Serum or plasma iron binding capacity measurement (mass/volume) Serum or plasma iron binding capacity measurement (mass/volume) 358 261 - 478 07/31/2017 [facility] Serum or plasma iron measurement (mass/volume) Serum or plasma iron measurement (mass/volume) 211 50 - 170 07/31/2017 [facility] Serum or plasma iron saturation measurement (mass fraction) Serum or plasma iron saturation measurement (mass fraction) 59 15 - 50 07/31/2017 [facility] Serum or plasma transferrin measurement (mass/volume) Serum or plasma transferrin measurement (mass/volume) 256 180 - 382 07/31/2017 [facility] Pathology Reports No Data Provided for This [...] DC Date Status Source Discharged Inpatient (obs) [id number] SAM CAI MD 07/22/2017 07/22/2017 [facility] Discharged Inpatient [id number] KULWANT BAEZ MD 07/31/2017 08/01/2017 [facility] Departed Emergency Room [id number] TONJA DESAI MD 09/25/2017 09/25/2017 [facility] Discharged Inpatient (obs) [id number] SAM CAI MD 12/17/2017 12/17/2017 [facility] Discharged Inpatient [id number] SAM CAI MD 01/02/2018 01/09/2018 [facility] Discharged Inpatient [id number] SAM CAI MD 01/25/2018 01/26/2018 [facility] Discharged Inpatient [id number] SAM CAI MD 03/26/2018 03/27/2018 [facility] Procedures Procedure Code Date Perfomer Comments Source TRANSFUSE NONAUT RED BLOOD CELLS IN PERIPH VEIN, PERC 55630G6 01/25/2018 [facility] Computed tomography of chest without contrast [id number] 01/25/2018 [facility] REPOSITION RIGHT UPPER FEMUR WITH INT FIX, PERC APPROACH [id number] 01/06/2018 [facility] TRANSFUSE NONAUT RED BLOOD CELLS IN PERIPH VEIN, PERC 53230X2 01/04/2018 [facility] BLOOD TRANSFUSION SERVICE [id number] 12/17/2017 [facility] Computed tomography of brain without radiopaque contrast [id number] 12/17/2017 [facility] TRANSFUSE NONAUT RED BLOOD CELLS IN PERIPH VEIN, PERC [id number] 07/31/2017 [facility] X-ray of chest, single view [id number] 07/31/2017 [facility] BLOOD TRANSFUSION SERVICE [id number] 07/22/2017 [facility] Assessment and Plan No Data Provided for This Section Plan of Care Plan of Care Date Source Discharge Date 03/27/18 8:30am Disposition AGAINST MEDICAL ADVICE Prescriptions See Medication Section 03/27/2018 [facility] Discharge Date 09/25/17 8:11pm Disposition ELOPED Condition at Discharge Other Forms Provided Work/School Excuse Prescriptions See Medication Section 09/25/2017 [facility] Social History Social History Date Source Social [...] Stop Date Current every day smoker 03/27/2018 [facility] Family History No Data Provided for This Section Advance Directives Order Name Results Value Date Source Advance Directives Advance Directives Directive Response Recorded Date/Time Does the patient have an advance directive? Yes 03/26/18 9:08pm If yes, is advance directive on file with [employer] [facility]? No 03/26/18 9:08pm If not on file with [facility] will patient provide a copy? No 03/26/18 9:08pm Do you have a Directive to Physician? No 03/26/18 6:45pm Do you have a Medical Power of Check Services Clerk? No 03/26/18 6:45pm Do you have an [...] rights and responsibilities? Yes 03/26/18 6:45pm 03/27/2018 [facility] Advance Directives Advance Directives Directive Response Recorded Date/Time Does the patient have an advance directive? No 07/31/17 10:00pm If yes, is advance directive on file with [employer] [facility]? No 07/31/17 10:00pm If not on file with [facility] will patient provide a copy? No 07/31/17 10:00pm Do you have a Directive to Physician? No 09/25/17 5:25pm Do you have a Medical Power of Check Services Clerk? No 09/25/17 5:25pm Do you have an [...] rights and responsibilities? Yes 09/25/17 5:25pm 09/25/2017 [facility] Functional Status No Data Provided for This Section
[2018-09-09] MEDS ORDERED: DEXTROSE 50% SYRINGE 50 ML IV PRN (20:15)
[2018-09-09 20:49] LABS: BILIRUBIN,URINE NEGATIVE (NEGATIVE); CLARITY,URINE CLEAR (CLEAR); COLOR,URINE YELLOW (YELLOW); KETONES,URINE NEGATIVE (NEGATIVE); LEUKOCYTE ESTERASE ,URINE SMALL (NEGATIVE); NITRITE,URINE NEGATIVE (NEGATIVE); PROTEIN,URINE DIPSTICK 1+ (NEGATIVE); URINE UROBILINOGEN 0.2 mg/dL (0.2 - 1)
[2018-09-09] MEDS: FUROSEMIDE INJ 10 MG/ML 4 ML VIAL IV SCH (20:50)
[2018-09-09 21:04] LABS: BACTERIA,URINE MANY /HPF; EPITHELIAL CELLS,URINE MODERATE /LPF; WBC,URINE (MAN) 0-5 /HPF (0-5)
[2018-09-09] MEDS: INSULIN REGULAR, HUMAN 100 UNIT/1 ML 3ML VIAL SQ SCH (21:12)
--- NOTE | 2018-09-09 21:32 | NUR ---
pt placed on telemetry box#8
[2018-09-09 22:16] VITALS: BP 154/74
[2018-09-09 22:39] VITALS: BP 154/74
[2018-09-09 23:47] VITALS: BP 154/74
[2018-09-10] VITALS (8 sets, daily range): BP systolic 127–155; BP diastolic 63–78
[2018-09-10] MEDS: NITROGLYCERIN 2% OINT 1 GM PKT TOP SCH ×2 (00:26→06:17)
[2018-09-10 05:12] LABS: CREATINE KINASE MB 1.3 ng/mL (0-5.0)
[2018-09-10 05:25] LABS: ANION GAP 15.5 mmol/L (8-16); BLOOD UREA NITROGEN 24 mg/dL (7-26); BUN/CREATININE RATIO 28 (6-25); CALCIUM 8.9 mg/dL (8.4-10.2); CARBON DIOXIDE 28 mmol/L (22-29); CHLORIDE 103 mmol/L (98-107); CREATININE, SERUM 0.86 mg/dL (0.57-1.11); EST GLOMERULAR FILTRATION RATE > 60 ML/MIN (60-); GLUCOSE 100 mg/dL (74-118); POTASSIUM 3.5 mmol/L (3.5-5.1); SODIUM 143 mmol/L (136-145)
[2018-09-10 05:34] LABS: BASOPHILS % 0.4 % (0.0-1.0); EOSINOPHILS # (AUTO) 0.4 (0.0-0.4); EOSINOPHILS % 3.3 % (0.0-6.0); HEMATOCRIT 28.3 % (34.2-44.1); HEMOGLOBIN 7.8 g/dL (12.0-16.0); LYMPHOCYTES # (AUTO) 0.6 (1.0-3.2); LYMPHOCYTES % 5.8 % (18.0-39.1); MEAN CORPUSCULAR HEMOGLOBIN 23.8 pg (28-32); MEAN CORPUSCULAR HGB CONC 27.6 g/dL (31-35); MEAN CORPUSCULAR VOLUME 86.3 fL (81-99); MONOCYTES # (AUTO) 1.2 (0.2-0.8); MONOCYTES % 10.5 % (4.4-11.3); NEUTROPHILS # (AUTO) 8.7 (2.1-6.9); NEUTROPHILS % 79.2 % (38.7-80.0); PLATELET COUNT 293 x10e3/uL (140-360); RED BLOOD COUNT 3.28 x10e6/uL (3.6-5.1); RED CELL DISTRIBUTION WIDTH 22.6 % (11.7-14.4)
--- NOTE | 2018-09-10 06:54 | NUR ---
The patient is laying supine with HOB slightly elevated. Eyes closed and respirations are even and unlabored. Oxygen @2L via NC, and o2s sensor in place with saturations between 98-99. IV is patent. Hemoglobin increased from previous labs. Will ask morning shift nurse to clarify the orders to administer blood. Bed is low, wheels are locked and call light is within reach.
[2018-09-10 07:20] LABS: EOSINOPHILS % (MANUAL) 4 % (0-7); LYMPHOCYTES % (MANUAL) 2 % (19-48); MONOCYTES % (MANUAL) 10 % (3.4-9.0); NEUTROPHILS % (MANUAL) 84 % (40-74)
[2018-09-10 07:22] LABS: PLATELET ESTIMATE ADEQUATE; PLATELET MORPHOLOGY COMMENT NORMAL
[2018-09-10 07:23] LABS: ANISOCYTOSIS SLIGHT; HELMET CELLS SLIGHT; OVALOCYTES FEW; POIKILOCYTOSIS SLIGHT; RBC MORPHOLOGY COMMENT ABNORMAL
[2018-09-10 07:24] LABS: POLYCHROMASIA MODE
[2018-09-10] MEDS: INSULIN REGULAR, HUMAN 100 UNIT/1 ML 3ML VIAL SQ SCH ×4 (07:30→21:09)
[2018-09-10] MEDS: SPIRONOLACTONE 25 MG TAB PO SCH (08:32)
[2018-09-10] MEDS: FUROSEMIDE INJ 10 MG/ML 4 ML VIAL IV SCH ×2 (08:32→17:26)
[2018-09-10] MEDS ORDERED: FAMOTIDINE 20 MG/2 ML VIAL IV SCH (09:00)
[2018-09-10] MEDS ORDERED: LISINOPRIL 10 MG TAB PO SCH (09:00)
[2018-09-10] MEDS ORDERED: ACETAMINOPHEN 325 MG TAB PO PRN (09:15)
[2018-09-10] MEDS ORDERED: ALBUTEROL/IPRATROPIUM 3 ML NEB NEB PRN (09:15)
[2018-09-10] MEDS ORDERED: POTASSIUM CHLORIDE 10MEQ EA PO ONE (10:00)
[2018-09-10] MEDS ORDERED: ONDANSETRON HCL 4 MG ORAL DISINTEGRATING TAB PO PRN (12:45)
[2018-09-10 14:57] LABS: CREATINE KINASE MB 1.1 ng/mL (0-5.0)
[2018-09-10] MEDS: HYDROCODONE/APAP 10MG-325MG TAB PO PRN ×2 (15:05→19:25)
--- NOTE | 2018-09-10 15:10 | NUR ---
Nutrition Screen Note RD Recommendation for Physician: -Continue diet as ordered Plan of Care: RD following, monitoring for tolerance and adequacy Nutrition reason for involvement: Diagnosis Primary Diagnose(s): CHF exacerbation, anemia PMH: Parkinson's disease, rheumatoid arthritis, anemia, CAD, mild dementia, DM, HTN, HLD, COPD, CKD, stroke Ht: 64in Wt: 137lb BMI: 23.5kg/m2 IBW: 120lb +/- 10% RD Assessment: (09/10) Chart reviewed. Labs and meds reviewed. 78yo F, who was admitted for CHF exacerbation. CXR showed volume overload resulting in central pulmonary vascular congestion and moderate pulmonary edema. Visited pt in the room. Pt was sleeping; on bedside to provide hx. 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 stated she eats whatever she wants. Pt has been eating mostly fast foods and takeout as they cant cook. also noted that pt has gained some weight with reported UBW ~120lbs. Currently on lasix and strict I&O. didnt noted any GI complains as well as chewing or swallowing difficulty. Will continue to monitor and follow. Current Diet: ADA diet Malnutrition Evaluation (09/10/2018) The patient does not meet criteria for a specified degree of malnutrition at this time. Will re-evaluate at follow-up as appropriate. Diet Education Needs Assessment: Diet education indicated, pt is not appropriate at this time. Nutrition Care Level: low Signed: Eda Goetz, MS, RD, LD
[2018-09-10] MEDS ORDERED: ENOXAPARIN SOD INJ 40 MG/0.4 ML SYR SC SCH (17:00)
[2018-09-10] MEDS: CARBIDOPA/LEVODOPA 25/100 TAB PO SCH ×2 (17:26→21:07)
[2018-09-10] MEDS: CARVEDILOL 3.125 MG TAB PO SCH (17:26)
--- NOTE | 2018-09-10 18:40 | Consultation ---
DATE OF CONSULTATION: 09/10/2018 Cardiology Consultation Note Thank you so much for asking me to see this nice lady again in consultation. Ms. Mckeon is a complex and a very elderly 78-year-old woman, who left [facility] on September 01 against medical advice where she was hospitalized for congestive heart failure and COPD. HISTORY OF PRESENT ILLNESS: The patient reports she returns now because she had to set up to sleep and visited Dr. Medina in his office, who directed her to come back to the hospital. PAST MEDICAL HISTORY: Significant for recent hospitalization on August 29, 2018 at [facility] for congestive heart failure with congestive failure, shortness of breath, COPD, anemia. She had recently been getting intravenous iron infusions by her wax pattern assembler, Dr. Benavides. She and her reported that she had a myocardial infarction about a year ago without cardiac catheterization. It is not clear where this was. She has had a long-standing anemia, previous partial colectomy. She had a hip fracture in December of 2017. MEDICATIONS: Her recent home medications include: 1. Allopurinol 100 mg daily. 2. Carvedilol 3.125 mg twice a day. 3. Lorazepam 0.5 mg p.r.n. 4. Insulin. 5. Potassium 20 mEq. 6. Prednisone 5 mg daily. 7. Furosemide 40 mg b.i.d. 8. Atorvastatin 40 mg daily. 9. Iron sulfate 325 mg daily. 10. Lisinopril 40 mg daily. 11. Spironolactone 25 mg daily. 12. Carbidopa/levodopa. 13. Levothyroxine 125 mcg daily. 14. Pantoprazole 40 mg daily. PERSONAL AND SOCIAL HISTORY: She continues to smoke and lives at home with her . REVIEW OF SYSTEMS: CARDIAC: She denies any chest pain. Reports that her legs hurt from swelling. PHYSICAL EXAMINATION: GENERAL: At this time shows a sleepy elderly white woman with smoke-colored hair. VITAL SIGNS: Blood pressure 155/77, pulse 94 and regular. HEAD, EYES, EARS, NOSE, AND THROAT: Otherwise unremarkable. NECK: No jugular venous distention thorax. HEART: Sounds S1, S2 equal. No murmurs. LUNGS: Have faint bibasilar crackles. ABDOMEN: Protuberant. EXTREMITIES: Have 1+ pretibial edema and minor erythema distally. PERTINENT LABORATORY STUDIES: On admission show hemoglobin of 6.9, white count 13.3, platelets 261,000. Chemistries show a BUN of 30, creatinine 1.1, albumin 6.3. BNP is 2887, glucose 248. Chest x-ray shows volume overload. ASSESSMENT: 1. Congestive heart failure with echocardiogram performed on August 29, 2018 showing ejection fraction of 25% to 30% with apical akinesis and global hypokinesis. Trace mitral regurgitation. Trace aortic insufficiency. 2. Anemia, chronic. 3. Type 2 adult onset diabetes. 4. Chronic obstructive pulmonary disease and tobacco abuse. 5. Hypothyroidism. PLAN: We will continue with medical management. I have discussed daily weights with the . It is noted that they signed out of the hospital against medical advice on September 01, 2018. Discussion is given to nicotine use withdrawal and abuse. MD NOREEN Abreu/LISA /[id number] cc: Richar Medina
[2018-09-10] MEDS: ATORVASTATIN 40 MG TAB PO SCH (21:07)
[2018-09-10] MEDS: INSULIN GLARGINE 100 UNITS/ML VIAL SQ SCH (21:09)
--- NOTE | 2018-09-10 21:30 | NUR ---
Jawed to see pt, order to give 1 unit PRBC
[2018-09-10] MEDS ORDERED: SODIUM CHLORIDE 0.9% 250ML 250 ML ONE (23:29)
[2018-09-11] VITALS (7 sets, daily range): BP systolic 97–133; BP diastolic 51–78
--- NOTE | 2018-09-11 00:30 | NUR ---
lab will not release unit of PRBC due to pt Hgb of 7.8
[2018-09-11] MEDS: HYDROCODONE/APAP 10MG-325MG TAB PO PRN ×4 (01:38→22:34)
[2018-09-11] MEDS: LEVOTHYROXINE SODIUM 125 MCG TAB PO SCH (05:13)
[2018-09-11] MEDS: POTASSIUM CHLORIDE 10MEQ EA PO SCH ×2 (05:13→08:55)
[2018-09-11 05:27] LABS: BASOPHILS % 0.2 % (0.0-1.0); EOSINOPHILS # (AUTO) 0.3 (0.0-0.4); HEMATOCRIT 28.2 % (34.2-44.1); HEMOGLOBIN 7.6 g/dL (12.0-16.0); LYMPHOCYTES # (AUTO) 0.5 (1.0-3.2); LYMPHOCYTES % 6.3 % (18.0-39.1); MEAN CORPUSCULAR HEMOGLOBIN 23.2 pg (28-32); MONOCYTES % 11.7 % (4.4-11.3); NEUTROPHILS # (AUTO) 6.6 (2.1-6.9); NEUTROPHILS % 77.9 % (38.7-80.0); PLATELET COUNT 320 x10e3/uL (140-360); RED BLOOD COUNT 3.28 x10e6/uL (3.6-5.1); RED CELL DISTRIBUTION WIDTH 22.8 % (11.7-14.4)
[2018-09-11 05:48] LABS: CREATININE, SERUM 1.06 mg/dL (0.57-1.11)
--- NOTE | 2018-09-11 05:59 | Consultation ---
DATE OF CONSULTATION: 09/10/2018 REASON FOR CONSULT: Evaluation and management of the patient with anemia. HISTORY OF PRESENTING ILLNESS: Ms. Mckeon is a very pleasant 78-year-old female with multiple medical problems including known history of congestive heart failure, diabetes mellitus, hypertension, COPD, hypothyroidism, Parkinson disease, coronary artery disease, and history of iron deficiency anemia along with early myelodysplasia, presented to the primary care provider office due to worsening shortness of breath, fatigue, and tiredness. She was noted to have severe anemia, subsequently sent to the emergency department for further evaluation. In the emergency department, her workup revealed possible volume overload and congestive heart failure. CBC revealed severe anemia with a hemoglobin of 6.9. The patient was admitted to inpatient for further care. Hematology-Oncology has been consulted to assist with the management. Presently, the patient is lying comfortably, not in acute distress; however, still having fatigue and tiredness. She appeared to be drowsy. PAST MEDICAL HISTORY: 1. Iron deficiency anemia. 2. Early myelodysplastic syndrome. 3. Type 2 diabetes mellitus. 4. Hypertension. 5. Chronic obstructive pulmonary disease. 6. Congestive heart failure. 7. Parkinson disease. 8. Hypothyroidism. 9. Coronary artery disease, status post OH. 10. Osteoarthritis. PAST SURGICAL HISTORY: 1. Low back surgery. 2. Cataract surgery. 3. Hip surgery. 4. Hysterectomy. 5. Partial colon resection. 6. Port-A-Cath placement. ALLERGIES: MORPHINE. CURRENT MEDICATIONS: Reviewed as per electronic medical record. REVIEW OF SYSTEMS: A 14-point review of systems negative, except as mentioned per history of presenting illness. PHYSICAL EXAMINATION: VITAL SIGNS: Reviewed as per electronic medical record. HEENT: PERRLA. Extraocular movements are intact. Head is atraumatic and normocephalic. NECK: Supple. CVS: S1 and S2 audible. RESPIRATORY: Decreased bilateral air entry. ABDOMEN: Soft. Positive bowel sounds. EXTREMITIES: Positive edema. NEURO: The patient is alert and awake. LABORATORY DATA: Hemoglobin 7.8. ASSESSMENT AND PLAN: Ms. Mckeon is a very pleasant 78-year-old female with multiple medical problems including known history of coronary artery disease, congestive heart failure, hypothyroidism, chronic obstructive pulmonary disease, and iron-deficiency anemia as well as early myelodysplastic syndrome. The patient has been following with Dr. Benavides and has been receiving IV iron infusion in the outpatient setting. Apparently, she was recently hospitalized with a similar presentation and at that time, she underwent 2-unit of PRBC transfusion with improved count. She was not able to make it to Dr. Benavides for continuation of iron infusion. Now she has developed again severe anemia, subsequently presents to the emergency department, noted to have a hemoglobin in 6 range. She was hospitalized for further care. I have reviewed the record and discussed at length with the patient about her condition and the importance of further workup. She already has been seen and evaluated by Cardiology and started on diuretics. From anemia standpoint, her repeat hemoglobin is improved; however, I will give 1 unit of PRBC transfusion to bring hemoglobin at least above 8. Cause of anemia appeared to be more of now myelodysplastic syndrome rather than iron deficiency anemia. She will require bone marrow aspiration biopsy in the outpatient setting along with possible treatment with Procrit or low intensity chemotherapy. I will discuss case further with Dr. Benavides. We will continue supportive care. Thank you for the consult. I will continue to be available. Please call with questions. MD JONG Hewitt/MODL /[id number]
[2018-09-11 06:38] LABS: ANISOCYTOSIS SLIGHT; EOSINOPHILS % (MANUAL) 3 % (0-7); HYPOCHROMASIA SLIGHT; LYMPHOCYTES % (MANUAL) 6 % (19-48); MONOCYTES % (MANUAL) 10 % (3.4-9.0); MYELOCYTES % (MANUAL) 1 % (0-0); NEUTROPHILS % (MANUAL) 80 % (40-74)
[2018-09-11 06:39] LABS: PLATELET ESTIMATE ADEQUATE; PLATELET MORPHOLOGY COMMENT NORMAL; POLYCHROMASIA FEW; RBC MORPHOLOGY COMMENT ABNORMAL
--- NOTE | 2018-09-11 07:05 | NUR ---
received pt lying in bed with eyes closed, Resp even and unlabored. call light within reach.
[2018-09-11] MEDS: INSULIN REGULAR, HUMAN 100 UNIT/1 ML 3ML VIAL SQ SCH ×4 (07:30→20:54)
[2018-09-11] MEDS: CARVEDILOL 3.125 MG TAB PO SCH ×2 (08:47→17:00)
[2018-09-11] MEDS: LISINOPRIL 20 MG TAB PO SCH (08:47)
[2018-09-11] MEDS: PREDNISONE 5 MG TAB PO SCH (08:54)
[2018-09-11] MEDS: FERROUS SULFATE 325 MG TAB PO SCH (08:54)
[2018-09-11] MEDS: ESCITALOPRAM OXALATE 10 MG TAB PO SCH (08:54)
[2018-09-11] MEDS: ALLOPURINOL 100 MG TAB PO SCH (08:55)
[2018-09-11] MEDS: PANTOPRAZOLE SOD 40 MG TABEC PO SCH (08:55)
[2018-09-11] MEDS: SPIRONOLACTONE 25 MG TAB PO SCH (08:55)
[2018-09-11] MEDS: CARBIDOPA/LEVODOPA 25/100 TAB PO SCH ×3 (08:55→20:30)
[2018-09-11] MEDS: NICOTINE 21 MG/EA PATCH TOP SCH (08:55)
[2018-09-11] MEDS: ASPIRIN 81 MG CHEW TAB PO SCH (08:55)
[2018-09-11] MEDS: FUROSEMIDE INJ 10 MG/ML 4 ML VIAL IV SCH ×2 (08:55→17:00)
--- NOTE | 2018-09-11 14:40 | NUR ---
patient at bedside called using call light stating "someone come tack picker my she's in the smart." this nurse rushed towards room and Kayli with PT while holding exit door directed me towards exit stating patient had gone through door and was standing at top of staircase. This nurse was able to get to patient and noted patient agitated crying at the top of the staircase stating she wanted to , patient said "just let me , I'm going to throw myself and let my neck snap." this nurse made multiple attempts to convince patient to return to her room to talk and she refused, finally patient agreed to sit at the top of staircase with this nurse and talk. after several minutes of conversation patient was able to calm down and agreed to go back into her room. at bedside questioning patient in loud tone "why would you do that Sarai?" this nurse asked to please not provoke patient by screaming at her and to attempt to make more supportive comments instead, agreed. Dr.Tran damon, awaiting call back.
--- NOTE | 2018-09-11 15:00 | NUR ---
warehouse and receiving supervisor Juan made aware of incident.
[2018-09-11] MEDS: LORAZEPAM 0.5 MG TAB PO PRN (15:20)
--- NOTE | 2018-09-11 15:29 | NUR ---
spoke to in regards to incident and received new orders to consult Psych and for 1:1 sitter. patient moved to room closer to nurses station and remains at bedside.
--- NOTE | 2018-09-11 17:00 | NUR ---
left voicemail for (psych) to return call in regards to new consult. awaiting call back.
--- NOTE | 2018-09-11 19:30 | NUR ---
Patient visited in room during nursing rounds. Patient alert and oriented x2-3. On 1:1 care (per MD order) due to pt with suicidal ideations. Currently pt appear calm and lucid. Pt has intermittent confusion as evidenced by belief she will go home tonight even if there are no orders from the doctor (Dr. Joya) that pt will be discharged tonight. Pt has intermittent pain on both legs. Will medicate pt accordingly. Pt will be monitored closely.
[2018-09-11] MEDS: ATORVASTATIN 40 MG TAB PO SCH (20:30)
[2018-09-11] MEDS: INSULIN GLARGINE 100 UNITS/ML VIAL SQ SCH (20:54)
--- NOTE | 2018-09-11 21:52 | NUR ---
signal worker helper (Gissle) called and spoke with answering service for Dr. Farris. Will pass information to incoming dayshift to keep following up if Dr. Farris aware of consult and when he would see patient.
[2018-09-12] VITALS (8 sets, daily range): BP systolic 118–144; BP diastolic 59–69
[2018-09-12] MEDS: HYDROCODONE/APAP 10MG-325MG TAB PO PRN ×2 (04:14→19:25)
[2018-09-12] MEDS: LEVOTHYROXINE SODIUM 125 MCG TAB PO SCH (06:17)
[2018-09-12 06:21] LABS: BASOPHILS % 0.3 % (0.0-1.0); EOSINOPHILS # (AUTO) 0.3 (0.0-0.4); EOSINOPHILS % 2.6 % (0.0-6.0); HEMATOCRIT 26.8 % (34.2-44.1); HEMOGLOBIN 7.3 g/dL (12.0-16.0); LYMPHOCYTES # (AUTO) 0.6 (1.0-3.2); LYMPHOCYTES % 6.5 % (18.0-39.1); MEAN CORPUSCULAR HEMOGLOBIN 23.9 pg (28-32); MEAN CORPUSCULAR HGB CONC 27.2 g/dL (31-35); MEAN CORPUSCULAR VOLUME 87.9 fL (81-99); MONOCYTES # (AUTO) 1.3 (0.2-0.8); NEUTROPHILS # (AUTO) 7.5 (2.1-6.9); NEUTROPHILS % 76.8 % (38.7-80.0); PLATELET COUNT 313 x10e3/uL (140-360); RED BLOOD COUNT 3.05 x10e6/uL (3.6-5.1); RED CELL DISTRIBUTION WIDTH 22.7 % (11.7-14.4)
[2018-09-12] MEDS: PANTOPRAZOLE SOD 40 MG TABEC PO SCH (06:30)
[2018-09-12 06:34] LABS: ANION GAP 16.5 mmol/L (8-16); CALCIUM 9.1 mg/dL (8.4-10.2); CREATININE, SERUM 1.27 mg/dL (0.57-1.11); POTASSIUM 4.5 mmol/L (3.5-5.1)
--- NOTE | 2018-09-12 06:58 | NUR ---
Paged Dr. Brooks regarding Hgb level of 7.3 this morning. Awaiting on MD call back.
--- NOTE | 2018-09-12 07:01 | NUR ---
Received call from Dr. Brooks and informed him Hgb level 7.3 and Hct level 26.8 this morning. aware and ordered to give 2 units of PRBC stat. Information passed on to juan RN Riaz).
--- NOTE | 2018-09-12 07:08 | NUR ---
pt alert resp even and unlabored, no c/o pain, no distress noted at this time , call light in reach , pt has sitter at bedside.
[2018-09-12] MEDS ORDERED: SODIUM CHLORIDE 0.9% 250ML 250 ML IV ONE ×2 (07:15→09:30)
[2018-09-12] MEDS: SPIRONOLACTONE 25 MG TAB PO SCH (08:18)
[2018-09-12] MEDS: CARBIDOPA/LEVODOPA 25/100 TAB PO SCH ×3 (08:18→20:18)
[2018-09-12] MEDS: PREDNISONE 5 MG TAB PO SCH (08:18)
[2018-09-12] MEDS: FERROUS SULFATE 325 MG TAB PO SCH (08:18)
[2018-09-12] MEDS: ASPIRIN 81 MG CHEW TAB PO SCH (08:18)
[2018-09-12] MEDS: NICOTINE 21 MG/EA PATCH TOP SCH (08:18)
[2018-09-12] MEDS: LORAZEPAM 0.5 MG TAB PO PRN (08:18)
[2018-09-12] MEDS: ESCITALOPRAM OXALATE 10 MG TAB PO SCH (08:18)
[2018-09-12] MEDS: ALLOPURINOL 100 MG TAB PO SCH (08:18)
[2018-09-12] MEDS: FUROSEMIDE INJ 10 MG/ML 4 ML VIAL IV SCH ×2 (08:18→17:00)
[2018-09-12] MEDS ORDERED: ACETAMINOPHEN 325 MG TAB PO STA (08:48)
[2018-09-12] MEDS ORDERED: DIPHENHYDRAMINE HCL INJ 50 MG/ML VIAL IV ONE (09:00)
[2018-09-12] MEDS: POTASSIUM CHLORIDE 10MEQ EA PO SCH (09:00)
[2018-09-12] MEDS ORDERED: FUROSEMIDE INJ 10 MG/ML 2 ML VIAL IV SCH (09:00)
[2018-09-12] MEDS: CARVEDILOL 3.125 MG TAB PO SCH ×2 (09:42→17:00)
[2018-09-12] MEDS: LISINOPRIL 20 MG TAB PO SCH (09:43)
[2018-09-12] MEDS: INSULIN REGULAR, HUMAN 100 UNIT/1 ML 3ML VIAL SQ SCH ×4 (09:44→20:13)
--- NOTE | 2018-09-12 10:50 | NUR ---
Tylenol given, prior to infusion.
--- NOTE | 2018-09-12 10:56 | NUR ---
ist unit of blood started , pt tolerating well.
[2018-09-12 10:59] LABS: HYPOCHROMASIA MARKED
[2018-09-12 11:01] LABS: POIKILOCYTOSIS SLIGHT
[2018-09-12 11:03] LABS: ANISOCYTOSIS MODE; ROULEAU FEW
[2018-09-12 11:04] LABS: PLATELET ESTIMATE ADEQUATE; PLATELET MORPHOLOGY COMMENT NORMAL; RBC MORPHOLOGY COMMENT ABNORMAL
[2018-09-12] MEDS ORDERED: SODIUM CHLORIDE 0.9% 250ML 250 ML ONE (14:42)
--- NOTE | 2018-09-12 15:00 | NUR ---
second unit started, pt tolerating well. family member at bedside, call light in reach.
--- NOTE | 2018-09-12 15:04 | NUR ---
no tx pt getting transfused -1400, f/u odalys Addendum: 09/12/18 at 1505 by Lauri Santos PTA Amended: Links added.
--- NOTE | 2018-09-12 15:50 | NUR ---
pt c/o SOB, 02 placed on pt. Sat at 96% v/s 97.6, r 18, p82, 132/70, Dr Brooks was notifed orders to give lasix 20 mg iv, and continue with blood transfusion.
[2018-09-12] MEDS ORDERED: FUROSEMIDE INJ 10 MG/ML 2 ML VIAL IV ONE (16:00)
--- NOTE | 2018-09-12 17:00 | NUR ---
pt c/o of SOB at this time, v/s 145/77, r 24, p84, sats. 99, temp 97.4, Dr pa notified, 2 unit of blood stopped, per md orders, Dr Miles notified and 2nd dose of lasix 40mgs iv given as per ordered.
--- NOTE | 2018-09-12 17:15 | NUR ---
pt stated no SOB at this time pt has nasal canula in place, v/s stable, t 97.8, p 83, b/p 135/68, resp.22, no distress noted, 1:1 sitter at bedside, will cont to monitor, call light in reach.
[2018-09-12] MEDS ORDERED: DEXAMETHASONE SOD PHOS 10 MG/1 ML VIAL IV ONE (17:30)
[2018-09-12] MEDS ORDERED: FUROSEMIDE INJ 10 MG/ML 4 ML VIAL IV ONE (17:30)
--- NOTE | 2018-09-12 19:20 | NUR ---
report given to oncoming nurse, pt stable at this time.
--- NOTE | 2018-09-12 19:35 | NUR ---
Patient visited in room during nursing rounds. Patient alert and oriented x2-3. On 1:1 care (per MD order) due to pt with suicidal ideations. Currently pt appear calm and lucid. Pt has intermittent pain on both legs. Will medicate pt accordingly. Pt will be monitored closely.
[2018-09-12] MEDS: INSULIN GLARGINE 100 UNITS/ML VIAL SQ SCH (20:14)
[2018-09-12] MEDS: ATORVASTATIN 40 MG TAB PO SCH (20:18)
[2018-09-13] VITALS (8 sets, daily range): BP systolic 108–143; BP diastolic 56–83
[2018-09-13] MEDS: LEVOTHYROXINE SODIUM 125 MCG TAB PO SCH (06:40)
[2018-09-13] MEDS: PANTOPRAZOLE SOD 40 MG TABEC PO SCH (06:40)
[2018-09-13] MEDS: INSULIN REGULAR, HUMAN 100 UNIT/1 ML 3ML VIAL SQ SCH ×4 (07:30→21:00)
[2018-09-13 07:51] LABS: BASOPHILS # (AUTO) 0.1 (0.0-0.1); BASOPHILS % 0.5 % (0.0-1.0); EOSINOPHILS # (AUTO) 0.4 (0.0-0.4); EOSINOPHILS % 3.9 % (0.0-6.0); HEMATOCRIT 34.2 % (34.2-44.1); LYMPHOCYTES # (AUTO) 0.7 (1.0-3.2); LYMPHOCYTES % 7.5 % (18.0-39.1); MEAN CORPUSCULAR HEMOGLOBIN 24.9 pg (28-32); MEAN CORPUSCULAR HGB CONC 29.2 g/dL (31-35); MEAN CORPUSCULAR VOLUME 85.3 fL (81-99); MONOCYTES # (AUTO) 1.1 (0.2-0.8); MONOCYTES % 11.6 % (4.4-11.3); NEUTROPHILS # (AUTO) 6.9 (2.1-6.9); NEUTROPHILS % 75.5 % (38.7-80.0); PLATELET COUNT 297 x10e3/uL (140-360); RED BLOOD COUNT 4.01 x10e6/uL (3.6-5.1); RED CELL DISTRIBUTION WIDTH 20.9 % (11.7-14.4)
[2018-09-13 08:19] LABS: ANION GAP 15.1 mmol/L (8-16); CALCIUM 9.2 mg/dL (8.4-10.2); CREATININE, SERUM 1.09 mg/dL (0.57-1.11); POTASSIUM 4.1 mmol/L (3.5-5.1)
[2018-09-13] MEDS: LORAZEPAM 0.5 MG TAB PO PRN ×2 (09:55→17:16)
[2018-09-13] MEDS: HYDROCODONE/APAP 10MG-325MG TAB PO PRN ×3 (09:55→21:33)
[2018-09-13] MEDS: CARVEDILOL 3.125 MG TAB PO SCH ×2 (10:06→17:12)
[2018-09-13] MEDS: FUROSEMIDE INJ 10 MG/ML 4 ML VIAL IV SCH ×2 (10:06→17:12)
[2018-09-13] MEDS: SPIRONOLACTONE 25 MG TAB PO SCH (10:06)
[2018-09-13] MEDS: FERROUS SULFATE 325 MG TAB PO SCH (10:06)
[2018-09-13] MEDS: CARBIDOPA/LEVODOPA 25/100 TAB PO SCH ×3 (10:07→21:33)
[2018-09-13] MEDS: LISINOPRIL 20 MG TAB PO SCH (10:07)
[2018-09-13] MEDS: POTASSIUM CHLORIDE 10MEQ EA PO SCH (10:07)
[2018-09-13] MEDS: NICOTINE 21 MG/EA PATCH TOP SCH (10:07)
[2018-09-13] MEDS: PREDNISONE 5 MG TAB PO SCH (10:07)
[2018-09-13] MEDS: ESCITALOPRAM OXALATE 10 MG TAB PO SCH (10:07)
[2018-09-13] MEDS: ALLOPURINOL 100 MG TAB PO SCH (10:07)
--- NOTE | 2018-09-13 19:49 | NUR ---
report given to oncoming nurse, pt stable.
[2018-09-13] MEDS: ALBUTEROL/IPRATROPIUM 3 ML NEB NEB SCH (19:50)
[2018-09-13] MEDS: INSULIN GLARGINE 100 UNITS/ML VIAL SQ SCH (21:00)
--- NOTE | 2018-09-13 21:03 | NUR ---
PATIENT WHEELING OFF THE UNIT TO RADIOLOGY WITH SITTER ACCOMPANYING HER. SHE C/O PAIN TO THE LEGS AND ANKLES, SHE WILL BE MEDICATED FOR PAIN ONCE SHE GET BACK TO THE UNIT.
[2018-09-13] MEDS: ATORVASTATIN 40 MG TAB PO SCH (21:33)
--- NOTE | 2018-09-13 21:34 | NUR ---
PATIENT BACK ON THE UNIT FROM RADIOLOGY, MEDICATED WITH NORCO 1TAB FOR PAIN TO THE KNEES AND ANKLES. CALL LIGHT WITHIN EASY REACH, SITTER WITH THE PATIENT.
[2018-09-13] MEDS ORDERED: SODIUM CHLORIDE 0.9% 50ML 50 ML ONE (22:34)
[2018-09-13] MEDS ORDERED: IOPAMIDOL 370 MG/ML 200 ML INFUS..BTL INJ ONE (22:36)
--- NOTE | 2018-09-13 22:56 | Diagnostic Imaging Report ---
EXAM: CT Abdomen and Pelvis WITH contrast INDICATION: Recurrent anemia COMPARISON: None. TECHNIQUE: Abdomen and pelvis were scanned utilizing a multidetector helical scanner from the lung base to the pubic symphysis after administration of IV contrast. Coronal and sagittal reformations were obtained. Routine protocol was performed. Scan was performed when during portal venous phase. IV CONTRAST: 100 mL of Isovue 370 ORAL CONTRAST: None COMPLICATIONS: None RADIATION DOSE: Total DLP: 199 mGy*cm Estimated effective dose: (DLP x 0.015 x size factor) mSv CTDIvol has been reviewed. It is below the limits set by the Radiation Protocol Committee (RPC). Dose modulation, iterative reconstruction, and/or weight based adjustment of the mA/kV was utilized to reduce the radiation dose to as low as reasonably achievable. FINDINGS: LINES and TUBES: Ventriculoperitoneal shunt catheter descends through the presternal soft tissues and enters the peritoneal cavity at the right upper quadrant with tip anterior to the right inferior liver. LOWER THORAX: Moderate cardiomegaly, with thinning of the left ventricular apex. Aortic valve calcifications. Coronary artery calcifications. Right basilar atelectasis. HEPATOBILIARY: Nodular contour of the left hepatic lobe. Subcentimeter hypodensity in the left hepatic lobe, too small to characterize, likely benign No biliary ductal dilation. GALLBLADDER: Small gallstones. Trace pericholecystic fluid. Mild gallbladder wall enhancement. Slightly distended. SPLEEN: No splenomegaly. Multiple small calcified Splenic granulomas. PANCREAS: No focal masses or ductal dilatation. ADRENALS: No adrenal nodules KIDNEYS/URETERS: No hydronephrosis. No cystic or solid mass lesions. Atrophic left kidney. Left kidney is hypoenhancing. No stones. GI TRACT: No abnormal distention, wall thickening, or evidence of bowel obstruction. Moderate colonic stool burden and fecalization of enteric contents in the distal small bowel. Appendix is normal. PELVIC ORGANS/BLADDER: Unremarkable. LYMPH NODES: No lymphadenopathy. VESSELS: There is moderate atherosclerotic disease in the aorta and major arterial branches.Slightly dilated main portal vein measures 1.5 cm in diameter. Calcific atherosclerotic stenosis at the left renal ostia. Slightly dilated main portal vein, measures 1.5 cm in diameter. PERITONEUM / RETROPERITONEUM: No free air. Trace ascites around the CHIE[employer] FINANCE OFFICER shunt catheter tip in the right upper abdomen. BONES: Partially visualized right proximal femur intramedullary mounika and nail for a right intertrochanteric fracture in anatomic alignment. No evidence of hardware loosening or failure. There are degenerative changes in the lumbar spine. SOFT TISSUES: Unremarkable. IMPRESSION: 1. Moderate colonic stool burden and fecal is a patient of enteric contents in the distal small bowel, correlate for constipation. 2. Cholelithiasis and findings questionable for cholecystitis. Right upper quadrant ultrasound for further evaluation. 3. Nodular contour of the left hepatic lobe raises concern for hepatic cirrhosis with slightly dilated main portal vein. A 1 cm hypodensity in the left hepatic lobe, in the setting of cirrhosis, may be malignant. A nonemergent liver MRI with contrast could further characterize this hypodensity. 4. Left renal atrophy, with calcific atherosclerotic stenosis of the left renal ostia. 5. Moderate cardiomegaly, with calcific coronary artery and aortic valve disease. Signed by: Flynn Stacy DO on 09/13/2018 10:53 PM
--- NOTE | 2018-09-13 23:40 | NUR ---
PATIENT OBSERVED SOUNDLY ASLEEP WITHOUT RESPIRATORY DISTRESS, SHE'S EASY TO AROUSE. SHE DENIES PAIN TO THE LEGS, CALL LIGHT WITHIN EASY REACH, SITTER WITH THE PATIENT.
[2018-09-14] MEDS: ALBUTEROL/IPRATROPIUM 3 ML NEB NEB SCH ×4 (01:17→19:49)
--- NOTE | 2018-09-14 02:55 | NUR ---
NO RESPIRATORY DISTRESS OBSERVED, PATIENT DENIES PAIN. BED ALARM ON, CALL LIGHT WITHIN EASY REACH, SITTER WITH THE PATIENT.
[2018-09-14 03:35] VITALS: BP 119/57
[2018-09-14] MEDS: HYDROCODONE/APAP 10MG-325MG TAB PO PRN ×2 (04:28→22:02)
[2018-09-14] MEDS: LEVOTHYROXINE SODIUM 125 MCG TAB PO SCH (06:52)
[2018-09-14] MEDS: PANTOPRAZOLE SOD 40 MG TABEC PO SCH (06:52)
--- NOTE | 2018-09-14 07:20 | NUR ---
The pt is in bed and has no complaint at this time. The is in process of completing her morning meal. There is a sitter in attendance.
[2018-09-14] MEDS: CARVEDILOL 3.125 MG TAB PO SCH ×2 (08:00→17:13)
[2018-09-14 08:02] VITALS: BP 114/71
[2018-09-14] MEDS: INSULIN REGULAR, HUMAN 100 UNIT/1 ML 3ML VIAL SQ SCH ×4 (08:30→21:45)
[2018-09-14] MEDS: SPIRONOLACTONE 25 MG TAB PO SCH (08:58)
[2018-09-14] MEDS: FERROUS SULFATE 325 MG TAB PO SCH (08:58)
[2018-09-14] MEDS: ESCITALOPRAM OXALATE 10 MG TAB PO SCH (08:58)
[2018-09-14] MEDS: PREDNISONE 5 MG TAB PO SCH (08:58)
[2018-09-14] MEDS: POTASSIUM CHLORIDE 10MEQ EA PO SCH (08:58)
[2018-09-14] MEDS: FUROSEMIDE INJ 10 MG/ML 4 ML VIAL IV SCH ×2 (08:58→17:13)
[2018-09-14] MEDS: LISINOPRIL 20 MG TAB PO SCH (08:59)
[2018-09-14] MEDS: CARBIDOPA/LEVODOPA 25/100 TAB PO SCH ×3 (08:59→21:33)
[2018-09-14] MEDS: ALLOPURINOL 100 MG TAB PO SCH (08:59)
[2018-09-14] MEDS: NICOTINE 21 MG/EA PATCH TOP SCH (08:59)
[2018-09-14 09:00] VITALS: BP 114/71
--- NOTE | 2018-09-14 11:11 | NUR ---
The pt. and spouse are arguing loudly and the charge nurse was notified and is speaking with them as this display card writer was busy with another pt.
--- NOTE | 2018-09-14 11:28 | NUR ---
Spoke with Dr. Joya and explained the concern that the patient has no oxygen at home, she is wanting to go home and stated that she does not use oxygen at home, she has also been cleared by Cardiology and is ok to have a colonoscopy, but the patient refuses the procedure. This being said, Dr. Joya stated that if she continues to refuse treatment, he will send her home tomorrow. Calling Dr. Farris to update him and see if we can get someone out here to clear her psychiatrically.
[2018-09-14 11:55] VITALS: BP 107/55
--- NOTE | 2018-09-14 13:28 | NUR ---
CM TO THE PATIENT'S BEDSIDE TO DISCUSS PATIENT'S RIGHTS. IMM DISCUSSED AND QUESTIONS ANSWERED - PATIENT/FAMILY VEERBALIZED UNDERSTANDING OF DISCUSSION. SIGNATURE OBTAINED, COPY LEFT AT BEDSIDE AND PLACED IN PATIENT'S CHART.
--- NOTE | 2018-09-14 14:14 | NUR ---
Psychiatric services are here and has cleared the pt. I spoke with the pt. concerning the colonoscopy and she reports that she is not interested in this procedure.
--- NOTE | 2018-09-14 14:30 | NUR ---
CM spoke with LUIS FERNANDO Coulter for Dr. Farris (psych). States pt is cleared for discharge from their standpoint.
[2018-09-14 16:26] VITALS: BP 113/58
--- NOTE | 2018-09-14 17:19 | Consultation ---
DATE OF CONSULTATION: 09/14/2018 Psychiatric Consultation REASON FOR CONSULTATION: Suicidal ideation. HISTORY OF PRESENT ILLNESS: The patient is a 78-year-old female, admitted to hospital for anemia, CHF exacerbation. Psychiatric consultation is called to evaluate the patient's mood. According to nursing staff note, the patient was found by nursing staff crying stairway and reported to the staff at that time that she wanted to and kill herself off the staircase. That happened on September 11. Upon evaluation today, the patient is found to be in the room. She is alert, awake, and oriented to situation. Sitter is in the room. is in the room. The patient states that she was upset and frustrated that she was not able to go out to smoke and she made a comment, which she is regretful and states that she did not mean it. She denies any history of depression. She reports anxiety as she wants to go home. She denies any suicidal or homicidal ideation. She denies any hallucination. She denies any problem with sleep or appetite. The patient is not confused. She is oriented to situation, self, place, and time. She wants to go "home." Collaborative report from the who confirmed the story. He claims that the patient is not depressed and that majority of her problem is due to her smoking. Apparently, they have tried multiple attempts in the past including medication as well as including hypnosis to stop smoking, but she continued to smoke. wants to take the patient home. PAST PSYCHIATRIC HISTORY: The patient denies past psychiatric history. She denies past suicide attempts. She denies alcohol and drug use. FAMILY HISTORY: Denies. SOCIAL HISTORY: The patient lives with . MENTAL STATUS EXAM: The patient is elderly female. She is thin. She is alert, awake, and oriented to situation. Her mood is anxious. She denies any suicidal or homicidal ideation. She denies any hallucination. Affect is congruent with mood. Psychomotor state is passive. Thought process is concrete. No delusion elicited. Insight and judgment are fair. Memory appears to be grossly intact. CURRENT MEDICATIONS: 1. Albuterol. 2. Nicotine. 3. Lisinopril. 4. Sinemet. 5. Allopurinol. 6. Prednisolone. 7. Ferrous sulfate. 8. Lexapro. 9. Potassium chloride. 10. Spironolactone. 11. Sotalol. 12. Pantoprazole. 13. Synthroid. 14. [place]. 15. Atorvastatin. 16. Insulin. 17. Ativan p.r.n. 18. Benadryl p.r.n. 19. Insulin. 20. Furosemide. 21. Ondansetron. 22. Lisinopril. 23. Dextrose. 24. Ambien p.r.n. CURRENT LABS: WBC 9.17, RBC 4.01, hemoglobin 10.0, hematocrit 34.2, platelets 297. Sodium 142, potassium 4.1, chloride 103, CO2 28, BUN 30, creatinine 1.09. ASSESSMENT: Adjustment disorder with mixed mood. PLAN: 1. Discontinue Lexapro. 2. Add Wellbutrin 75 mg p.o. daily. 3. Continue Ativan p.r.n. p.o. 4. Continue with Ambien p.r.n. 5. Monitor for mood. 6. Supportive therapy. Thank you for this consultation. The patient is cleared from Psych standpoint. Dictated by Marylin Koehler PA-C Neftaly Farris MD QTV/MODL /[id number]
[2018-09-14 20:00] VITALS: BP 115/61
[2018-09-14] MEDS: ATORVASTATIN 40 MG TAB PO SCH (21:33)
[2018-09-14] MEDS: INSULIN GLARGINE 100 UNITS/ML VIAL SQ SCH (21:45)
[2018-09-15 00:30] VITALS: BP 109/61
[2018-09-15] MEDS: ALBUTEROL/IPRATROPIUM 3 ML NEB NEB SCH (01:38)
[2018-09-15] MEDS: HYDROCODONE/APAP 10MG-325MG TAB PO PRN (03:10)
[2018-09-15] MEDS: LORAZEPAM 0.5 MG TAB PO PRN (03:10)
[2018-09-15 04:00] VITALS: BP 107/58
[2018-09-15] MEDS: LEVOTHYROXINE SODIUM 125 MCG TAB PO SCH (05:16)
[2018-09-15] MEDS: PANTOPRAZOLE SOD 40 MG TABEC PO SCH (07:30)
[2018-09-15] MEDS: INSULIN REGULAR, HUMAN 100 UNIT/1 ML 3ML VIAL SQ SCH (07:30)
[2018-09-15] MEDS: FERROUS SULFATE 325 MG TAB PO SCH (08:30)
[2018-09-15] MEDS: CARVEDILOL 3.125 MG TAB PO SCH (08:30)
[2018-09-15] MEDS: FUROSEMIDE INJ 10 MG/ML 4 ML VIAL IV SCH (08:30)
[2018-09-15] MEDS: SPIRONOLACTONE 25 MG TAB PO SCH (08:30)
[2018-09-15] MEDS: LISINOPRIL 20 MG TAB PO SCH (08:31)
[2018-09-15] MEDS: PREDNISONE 5 MG TAB PO SCH (08:31)
[2018-09-15] MEDS: CARBIDOPA/LEVODOPA 25/100 TAB PO SCH (08:31)
[2018-09-15] MEDS: ALLOPURINOL 100 MG TAB PO SCH (08:31)
[2018-09-15] MEDS: POTASSIUM CHLORIDE 10MEQ EA PO SCH (08:31)
[2018-09-15] MEDS: NICOTINE 21 MG/EA PATCH TOP SCH (08:31)
[2018-09-15 08:38] VITALS: BP 126/65
[2018-09-15] MEDS ORDERED: BUPROPION HCL 75 MG TAB PO SCH (09:00)
[2018-09-15 10:39] VITALS: BP 126/65
--- NOTE | 2018-09-15 10:49 | NUR ---
The pt's iv,and tele were removed and discharge information given. The pt. was escorted to private car for transport home with spouse.
--- NOTE | 2018-09-15 20:21 | Progress Note ---
DATE: 09/15/2018 CHIEF COMPLAINT: The patient with severe anemia, admitted due to shortness of breath and not feeling well. OBJECTIVE: VITAL SIGNS: Reviewed as per electronic medical record. LABORATORY DATA: Reviewed as per electronic medical record. ASSESSMENT AND PLAN: Ms. Mckeon is a very pleasant 78-year-old female with longstanding history of iron-deficiency anemia, requiring IV iron infusion. Recently, her count has been gradually getting worse to the point that she has been requiring transfusion. The patient has been evaluated by GI Service. She has been advised to follow up in outpatient setting with Dr. Benavides, who is her primary home school teacher. Thank you for the consult. I will continue to be available. Please call with questions. MD JONG Hewitt/MODL /[id number]
--- NOTE | 2018-09-16 10:13 | Discharge Summary ---
CONSULTANTS: 1. Dr. Neftaly Farris. 2. Dr. Shane Miles. 3. Dr. Emani Brooks. 4. Dr. Giovanni Corcoran. FINAL DIAGNOSES: 1. Acute on chronic systolic dysfunction, congestive heart failure. 2. Acute exacerbation of chronic obstructive pulmonary disease. 3. Chronic anemia, status post blood transfusion. 4. Baseline myelodysplastic syndrome. SUMMARY: The patient is a 78-year-old female, came in with acute on chronic exacerbation of her systolic dysfunction, congestive heart failure. She has also had acute exacerbation of COPD. The patient remain a smoker. Discussed with patient at length. When she came in, her hemoglobin is also low at 7.8. Because of her symptoms, the patient underwent 2 units of blood transfusion. The patient is stable. She is comfortable at this time. Workup for anemia with GI workup. Consultation with Dr. Giovanni Corcoran, but the patient refused test. At this time, she adamantly want to go home. Her hemoglobin and hematocrit are 10 and 34.2. BUN and creatinine are 30 and 1.8. The patient is stable, discharged home. Medication reconciliation is done. She will follow up with Dr. Shane Miles for her congestive heart failure management. The patient is otherwise stable. Advise stop smoking. MD JENAE Kirkland/CARSONL /[id number]
== END 2018-09-15 10:45 | disposition home or self-care (01) | DRG 291 ==
LOC: ER 17:12 → ERHOLD 20:00 → MED/SURG2 21:50
PROVIDERS: ADMIT Internal Medicine; ATTEND Internal Medicine
PROC: 30233N1 Transfusion of Nonautologous Red Blood Cells into Peripheral Vein, Percutaneous Approach (ICD-10-PCS; principal; 2018-09-12)
DX: I11.0 Hypertensive heart disease with heart failure (principal); E43 Unspecified severe protein-calorie malnutrition; D59.9 Acquired hemolytic anemia, unspecified; J44.1 Chronic obstructive pulmonary disease with (acute) exacerbation; F17.213 Nicotine dependence, cigarettes, with withdrawal; I50.23 Acute on chronic systolic (congestive) heart failure; Z88.5 Allergy status to narcotic agent; D46.9 Myelodysplastic syndrome, unspecified; E11.9 Type 2 diabetes mellitus without complications; I25.2 Old myocardial infarction; E03.9 Hypothyroidism, unspecified; E78.5 Hyperlipidemia, unspecified; M10.9 Gout, unspecified; G20 Parkinson's disease; D63.8 Anemia in other chronic diseases classified elsewhere; R53.81 Other malaise; F41.9 Anxiety disorder, unspecified; I08.0 Rheumatic disorders of both mitral and aortic valves; Z79.4 Long term (current) use of insulin; Z98.0 Intestinal bypass and anastomosis status; F43.23 Adjustment disorder with mixed anxiety and depressed mood; Z68.23 Body mass index [BMI] 23.0-23.9, adult; D50.9 Iron deficiency anemia, unspecified; R13.10 Dysphagia, unspecified
CPT/HCPCS: 36415; 71045; 74177; 80048; 80053; 81001; 82550; 82553; 82948; 83880; 84484; 85025; 85610; 85730; 86850; 86900; 86920; 87086; 93005; 94640; 94760; 96372; 97139; 99285; J1100; J1200; J1815; J1817; J1940; J7050; J7512; P9016; Q9967

== ENCOUNTER 2018-11-14 12:10 | Observation (INO) | payer MEDICARE ==
[~2018-11-14] VITALS: Ht 162.6 cm; Wt 60.5 kg
[2018-11-14 12:53] LABS: BASOPHILS % 0.5 % (0.0-1.0); EOSINOPHILS # (AUTO) 0.2 (0.0-0.4); EOSINOPHILS % 2.2 % (0.0-6.0); HEMATOCRIT 24.8 % (34.2-44.1); LYMPHOCYTES # (AUTO) 0.7 (1.0-3.2); LYMPHOCYTES % 9.1 % (18.0-39.1); MEAN CORPUSCULAR HGB CONC 28.2 g/dL (31-35); MEAN CORPUSCULAR VOLUME 88.6 fL (81-99); MONOCYTES # (AUTO) 0.8 (0.2-0.8); MONOCYTES % 10.4 % (4.4-11.3); NEUTROPHILS # (AUTO) 5.7 (2.1-6.9); NEUTROPHILS % 76.7 % (38.7-80.0); PLATELET COUNT 276 x10e3/uL (140-360); RED CELL DISTRIBUTION WIDTH 17.4 % (11.7-14.4)
[2018-11-14 13:05] LABS: INR 0.92; PROTHROMBIN TIME 12.8 seconds (11.9-14.5)
[2018-11-14 13:06] LABS: PARTIAL THROMBOPLASTIN TIME 28.1 seconds (23.8-35.5)
[2018-11-14 13:10] LABS: ALBUMIN 3.3 g/dL (3.5-5.0); ALBUMIN/GLOBULIN RATIO 1.1 (0.8-2.0); ALKALINE PHOSPHATASE 82 IU/L (40-150); ANION GAP 12.5 mmol/L (8-16); BLOOD UREA NITROGEN 21 mg/dL (7-26); BUN/CREATININE RATIO 18 (6-25); CARBON DIOXIDE 29 mmol/L (22-29); CHLORIDE 102 mmol/L (98-107); CREATININE, SERUM 1.15 mg/dL (0.57-1.11); EST GLOMERULAR FILTRATION RATE 46 ML/MIN (60-); GLUCOSE 208 mg/dL (74-118); POTASSIUM 3.5 mmol/L (3.5-5.1); SODIUM 140 mmol/L (136-145)
[2018-11-14 13:11] LABS: ALANINE AMINOTRANSFERASE < 6 IU/L (0-55)
[2018-11-14] MEDS ORDERED: FUROSEMIDE INJ 10 MG/ML 2 ML VIAL IV NR (13:45)
[2018-11-14] MEDS ORDERED: DEXTROSE 50% SYRINGE 50 ML IV PRN (13:45)
[2018-11-14] MEDS ORDERED: ONDANSETRON HCL INJ 2MG/ML 2ML 2 MG/ML VIAL IV PRN (13:45)
[2018-11-14] MEDS ORDERED: ALBUTEROL/IPRATROPIUM 3 ML NEB NEB PRN (13:45)
[2018-11-14] MEDS ORDERED: SODIUM CHLORIDE 0.9% 250ML 250 ML IV ONE (13:45)
--- NOTE | 2018-11-14 14:18 | NUR ---
received report from davidson in er. awaiting for pt to arrive to floor
--- NOTE | 2018-11-14 14:26 | NUR ---
CONSENTS SIGNED FOR BLOOD PRODUCTS
--- NOTE | 2018-11-14 14:30 | Diagnostic Imaging Report ---
EXAMINATION: CHEST SINGLE (PORTABLE) INDICATION: ^ERMD ORDER ^[id number] ^[id number] ^Y COMPARISON: Chest radiograph 09/09/[address] chest 08/29/2018 FINDINGS: AP view TUBES and LINES: Right-sided chest port remains unchanged. LUNGS: Lungs are well inflated. Bilateral interstitial edema, decreased. Bibasilar atelectasis. PLEURA: Trace bilateral pleural effusions, unchanged. No pneumothorax. HEART AND MEDIASTINUM: Stable mild enlargement of the cardiac silhouette. BONES AND SOFT TISSUES: No acute osseous lesion. Soft tissues are unremarkable. UPPER ABDOMEN: No free air under the diaphragm. IMPRESSION: Bilateral interstitial edema, decreased when compared to 09/09/2018. Signed by: Dr. Netta Thomason M.D. on 11/14/2018 2:27 PM
[2018-11-14 15:08] VITALS: BP 137/69
[2018-11-14 15:30] VITALS: BP 137/69
[2018-11-14] MEDS ORDERED: NORCO 10-325 T1 EACH PO (15:40)
[2018-11-14 16:12] VITALS: BP 137/69
[2018-11-14] MEDS: INSULIN LISPRO 100 UNIT/1 ML 3ML VIAL SQ SCH ×2 (17:47→20:35)
[2018-11-14] MEDS ORDERED: SODIUM CHLORIDE 0.9% 250ML 250 ML ONE ×2 (18:06→23:27)
--- NOTE | 2018-11-14 18:20 | NUR ---
BLOOD TRANSFUSION STARTED- PATIENT IN STABLE CONDITION WITH NO S/S OF RESPIRATORY DISTRESS. NO TRANSFUSION REACTION NOTED.
[2018-11-14 19:26] VITALS: BP 119/72
--- NOTE | 2018-11-14 19:26 | NUR ---
PT IS BACK IN BED. RESPIRATION IS EVEN AND UNLABORED, NO DISTRESS NOTED. BED IN THE LOWEST POSITION, LOCKED, AND CALL LIGHT WITHIN REACH. WILL CONTINUE TO MONITOR.
[2018-11-14 19:40] VITALS: BP 157/79
--- NOTE | 2018-11-14 19:53 | NUR ---
PATIENT IS IN STABLE CONDITION WITH NO S/S OF RESPIRATORY DISTRESS. NO PAIN VOICED. BLOOD TRANSFUSION INFUSING. CALL LIGHT IS WITHIN REACH, PATIENT INSTRUCTED TO CALL FOR ASSISTANCE NEEDED. REPORT GIVEN TO ONCOMING NURSE.
[2018-11-14] MEDS: FUROSEMIDE INJ 10 MG/ML 2 ML VIAL IV SCH (22:47)
[2018-11-14] MEDS ORDERED: LORAZEPAM 0.5 MG TAB PO PRN (23:00)
[2018-11-14] MEDS ORDERED: ACETAMINOPHEN 325 MG TAB PO PRN (23:00)
[2018-11-14] MEDS: HYDROCODONE/APAP 7.5MG-325MG 1 EA TAB PO PRN (23:31)
[2018-11-15] VITALS: BP 164/86
[2018-11-15] MEDS: FUROSEMIDE INJ 10 MG/ML 2 ML VIAL IV SCH (02:35)
[2018-11-15 04:00] VITALS: BP 156/89
[2018-11-15] MEDS ORDERED: LEVOTHYROXINE SODIUM 125 MCG TAB PO SCH (06:00)
[2018-11-15] MEDS: HYDROCODONE/APAP 7.5MG-325MG 1 EA TAB PO PRN (06:14)
--- NOTE | 2018-11-15 06:50 | NUR ---
RECEIVED REPORT FROM OFF GOING NURSE. WALKING ROUNDS DONE. PATIENT IS RESTING IN BED. NO ACUTE DISTRESS NOTED. CALL LIGHT WITHIN REACH. BED IN THE LOWEST POSITION.
[2018-11-15 07:41] LABS: BASOPHILS # (AUTO) 0.1 (0.0-0.1); BASOPHILS % 0.8 % (0.0-1.0); EOSINOPHILS # (AUTO) 0.3 (0.0-0.4); HEMATOCRIT 33.4 % (34.2-44.1); HEMOGLOBIN 9.8 g/dL (12.0-16.0); LYMPHOCYTES # (AUTO) 0.6 (1.0-3.2); LYMPHOCYTES % 8.2 % (18.0-39.1); MEAN CORPUSCULAR HEMOGLOBIN 25.1 pg (28-32); MEAN CORPUSCULAR HGB CONC 29.3 g/dL (31-35); MEAN CORPUSCULAR VOLUME 85.4 fL (81-99); MONOCYTES # (AUTO) 0.8 (0.2-0.8); MONOCYTES % 10.4 % (4.4-11.3); NEUTROPHILS # (AUTO) 5.4 (2.1-6.9); NEUTROPHILS % 74.2 % (38.7-80.0); PLATELET COUNT 250 x10e3/uL (140-360); RED BLOOD COUNT 3.91 x10e6/uL (3.6-5.1); RED CELL DISTRIBUTION WIDTH 18.6 % (11.7-14.4)
[2018-11-15 08:00] VITALS: BP 177/84
[2018-11-15] MEDS: INSULIN LISPRO 100 UNIT/1 ML 3ML VIAL SQ SCH (08:29)
[2018-11-15] MEDS ORDERED: CARBIDOPA/LEVODOPA 25/100 TAB PO SCH (09:00)
[2018-11-15] MEDS ORDERED: PANTOPRAZOLE SOD 40 MG TABEC PO SCH (09:00)
[2018-11-15] MEDS ORDERED: ESCITALOPRAM OXALATE 10 MG TAB PO SCH (09:00)
[2018-11-15] MEDS ORDERED: FUROSEMIDE 40 MG TAB PO SCH (09:00)
[2018-11-15] MEDS ORDERED: POTASSIUM CHLORIDE 20 MEQ TAB CR PO SCH (09:00)
[2018-11-15] MEDS ORDERED: PREDNISONE 5 MG TAB PO SCH (09:00)
[2018-11-15] MEDS ORDERED: ALLOPURINOL 100 MG TAB PO SCH (09:00)
[2018-11-15] MEDS ORDERED: LISINOPRIL 20 MG TAB PO SCH (09:00)
[2018-11-15 09:33] VITALS: BP 177/84
[2018-11-15 09:44] VITALS: BP 156/71
--- NOTE | 2018-11-15 10:09 | NUR ---
RECEIVED DC ORDER FROM MD. PATIENT IS IN STABLE CONDITION. IV LINE TO LEFT FOREARM DCD WITH TIP INTACT, PRESSURE APPLIED TO SITE, NO BLEEDING NOTED. DISCHARGE TEACHING PROVIDED TO PATIENT, SHE VERBALIZED UNDERSTANDING. DC FOLDER WITH DC PAPERWORK AND PERSONAL ITEMS ON HAND. PATIENT ACCOMPANIED TO PRIVATE AUTO VIA WHEELCHAIR BY STAFF.
--- NOTE | 2018-11-15 11:40 | Discharge Summary ---
FINAL DIAGNOSES: Chronic anemia, required blood transfusion. The patient has myelodysplastic syndrome. She has symptomatic anemia worsening with chronic obstructive pulmonary disease, which is stable. SUMMARY: A 78-year-old female has not had blood transfusion for months, now needed 2 units of blood transfusion. Hemoglobin and hematocrit are 7 and 24.8. The patient received 2 units of blood transfusion. Hemoglobin is 9.8 and hematocrit 32.4. The patient is otherwise stable. The patient will be discharged home. Follow up with her oncologist. The patient will resume home medication. MD JENEA Kirkland/LISA /[id number]
[2018-11-15] MEDS ORDERED: ATORVASTATIN 20 MG TAB PO SCH (21:00)
[2018-11-15] MEDS ORDERED: INSULIN GLARGINE 100 UNITS/ML VIAL SQ SCH (21:00)
== END 2018-11-15 10:30 | disposition home or self-care (01) ==
LOC: ER 12:10 → ERHOLD 14:12 → MED/SURG3 14:45
PROVIDERS: ADMIT Internal Medicine; ATTEND Internal Medicine
DX: D46.9 Myelodysplastic syndrome, unspecified (principal); J44.9 Chronic obstructive pulmonary disease, unspecified; I10 Essential (primary) hypertension
CPT/HCPCS: 36415 ×2; 71045; 80053; 82948 ×2; 83880; 85025 ×2; 85610; 85730; 86850; 86900; 86920; 93005; 99284; G0378 ×2; J1940; J7050; J7512; P9016; S0164; J1815

== ENCOUNTER 2018-12-15 12:59 | Observation (INO) | payer MEDICARE ==
[~2018-12-15] VITALS: Ht 165.1 cm; Wt 61.4 kg
--- NOTE | 2018-12-15 14:00 | Diagnostic Imaging Report ---
EXAMINATION: CHEST SINGLE (PORTABLE) INDICATION: Chest pain COMPARISON: Chest radiograph of 09/09/2018, 11/14/2018 FINDINGS: LINES/TUBES:Right chest port unchanged. LUNGS:The lungs are moderately inflated. There is perihilar fullness and indistinctness of the pulmonary vasculature. PLEURA:No pleural effusion or pneumothorax. MEDIASTINUM:Cardiomediastinal silhouette is stably enlarged. Atherosclerotic calcifications of the thoracic aorta. BONES/SOFT TISSUES:No acute osseous injury. ABDOMEN:No free air under the diaphragm. IMPRESSION: Cardiomegaly and pulmonary edema, increased from 11/14/2018 Signed by: Aylin Andrew MD on 12/15/2018 1:57 PM
[2018-12-15] MEDS ORDERED: SODIUM CHLORIDE 0.9% 1000ML 1,000 ML IV STA (14:15)
[2018-12-15] MEDS ORDERED: METHYLPREDNISOLONE SOD SUCC 125 MG/2ML VIAL IV STA (14:15)
[2018-12-15] MEDS ORDERED: IPRATROPIUM BROMIDE 0.02% 2.5 ML NEB NEB STA (14:15)
[2018-12-15] MEDS ORDERED: SODIUM CHLORIDE 0.9% 1000ML 500 ML IV STA (14:15)
[2018-12-15] MEDS ORDERED: ALBUTEROL SULF 0.083% NEB SOLN 3 ML NEB NEB STA (14:15)
[2018-12-15 14:17] LABS: BASOPHILS % 0.6 % (0.0-1.0); EOSINOPHILS # (AUTO) 0.1 (0.0-0.4); EOSINOPHILS % 2.2 % (0.0-6.0); HEMATOCRIT 35.7 % (34.2-44.1); LYMPHOCYTES # (AUTO) 0.6 (1.0-3.2); LYMPHOCYTES % 9.6 % (18.0-39.1); MEAN CORPUSCULAR HEMOGLOBIN 23.6 pg (28-32); MEAN CORPUSCULAR VOLUME 84.2 fL (81-99); MONOCYTES # (AUTO) 0.7 (0.2-0.8); NEUTROPHILS # (AUTO) 4.9 (2.1-6.9); PLATELET COUNT 220 x10e3/uL (140-360); RED BLOOD COUNT 4.24 x10e6/uL (3.6-5.1); RED CELL DISTRIBUTION WIDTH 17.2 % (11.7-14.4)
[2018-12-15 14:18] LABS: BILIRUBIN,URINE NEGATIVE (NEGATIVE); CLARITY,URINE SL CLOUDY (CLEAR); COLOR,URINE YELLOW (YELLOW); KETONES,URINE NEGATIVE (NEGATIVE); LEUKOCYTE ESTERASE ,URINE NEGATIVE (NEGATIVE); NITRITE,URINE NEGATIVE (NEGATIVE); PROTEIN,URINE DIPSTICK TRACE (NEGATIVE); URINE UROBILINOGEN 0.2 mg/dL (0.2 - 1)
[2018-12-15 14:25] LABS: AMPHETAMINES SCREEN,URINE NEGATIVE (NEGATIVE); BENZODIAZEPINES SCREEN,URINE NEGATIVE (NEGATIVE); PHENCYCLIDINE SCREEN,URINE NEGATIVE (NEGATIVE)
[2018-12-15] MEDS ORDERED: DEXTROSE 50% SYRINGE 50 ML IV PRN ×2 (14:30→17:30)
[2018-12-15] MEDS ORDERED: CEFTRIAXONE SOD 1 GM/NS 50 ML 50 ML IV SCH (14:30)
[2018-12-15] MEDS ORDERED: LEVALBUTEROL HCL SOLN NEBU 1.25 MG/3 ML NEB INH PRN (14:30)
[2018-12-15] MEDS ORDERED: IPRATROPIUM BROMIDE 0.02% 2.5 ML NEB NEB PRN (14:30)
[2018-12-15] MEDS ORDERED: ONDANSETRON HCL INJ 2MG/ML 2ML 2 MG/ML VIAL IV PRN (14:30)
[2018-12-15 14:31] LABS: BACTERIA,URINE MODERATE /HPF; EPITHELIAL CELLS,URINE FEW /LPF
[2018-12-15 14:32] LABS: MUCUS,URINE MODERATE (RARE)
[2018-12-15 14:34] LABS: ALBUMIN 3.7 g/dL (3.5-5.0); ALBUMIN/GLOBULIN RATIO 1.1 (0.8-2.0); ANION GAP 12.7 mmol/L (8-16); CALCIUM 9.5 mg/dL (8.4-10.2); CREATININE, SERUM 0.93 mg/dL (0.57-1.11); POTASSIUM 3.7 mmol/L (3.5-5.1)
--- NOTE | 2018-12-15 14:38 | Diagnostic Imaging Report ---
EXAMINATION: Head CT HISTORY: Alteration of consciousness, lethargic COMPARISON: Head CT 12/17/2017 TECHNIQUE: Multidetector axial images were obtained without contrast from the foramen magnum to the vertex . The images were reconstructed using brain and bone algorithms. Thin section brain images were reformatted into coronal and sagittal planes. Image quality: Motion/streaking artifact limits the evaluation of the skull base and posterior cranial fossa. Dose modulation, iterative reconstruction, and/or weight based adjustment of the mA/kV was utilized to reduce the radiation dose to as low as reasonably achievable. FINDINGS: Parenchyma: 1. Persistent moderate chronic microvascular ischemic changes. 2. No mass or hemorrhage. No CT evidence of acute territorial vascular insult. Extra-axial spaces:No abnormalities. Brain volume: Normal for age. Ventricles: Right parietal ventricular shunt catheter traversing and ending in the right posterior body of the lateral ventricle , no hydrocephalus. Arteries: No density suggestive of thrombus. Dural sinuses: No abnormal density. Extra-axial spaces: No abnormal density. Foramen magnum: No mass, Chiari malformation, or basilar invagination. Sella: No obvious mass. Paranasal/mastoid sinuses: Imaged portions unremarkable. Possible small retention cyst in the right maxillary sinus. Skull/Scalp: Right parietal gary hole IMPRESSION: Suboptimal study due to patient's motion. 1. Grossly no acute intracranial hemorrhage, infarct, or mass. 2. Stable moderate chronic microvascular ischemic changes. 3. Right parietal ventricular catheter without hydrocephalus is unchanged. Signed by: Dr. Anabell Agustin M.D. on 12/15/2018 2:35 PM
[2018-12-15 14:41] LABS: CREATINE KINASE MB 5.9 ng/mL (0-5.0)
[2018-12-15] MEDS ORDERED: PANTOPRAZOLE 40 MG 10ML VIAL IV ONE (14:45)
[2018-12-15 14:49] LABS: MAGNESIUM 2.1 MG/DL (1.3-2.1)
[2018-12-15 14:50] LABS: ACETAMINOPHEN < 3 ug/mL (10-30); SALICYLATE < 5.0 mg/dL (0-30)
[2018-12-15 14:54] LABS: LIPASE 8 U/L (8-78)
[2018-12-15 15:13] LABS: THYROID STIMULATING HORMONE 33.957 uIU/mL (0.350-4.940)
[2018-12-15] MEDS ORDERED: INSULIN REGULAR, HUMAN 100 UNIT/1 ML 3ML VIAL SQ SCH (16:30)
[2018-12-15 16:48] LABS: ABG HCO3 23 mmol/L (23-28); ABG PCO2 41 mmHg (41-51); ABG PH 7.36 (7.31-7.41); ABG PO2 70 mmHg (80-105)
[2018-12-15 17:03] LABS: INR 0.92; PROTHROMBIN TIME 12.8 seconds (11.9-14.5)
[2018-12-15 17:04] LABS: PARTIAL THROMBOPLASTIN TIME 28.6 seconds (23.8-35.5)
[2018-12-15] MEDS ORDERED: NALOXONE HCL 2MG/2 ML SYRINGE ONE (17:16)
[2018-12-15] MEDS: SODIUM CHLORIDE 0.9% 1000ML 1,000 ML IV SCH ×2 (17:24→23:55)
[2018-12-15] MEDS ORDERED: NALOXONE HCL 2MG/2 ML SYRINGE IV NR (17:30)
[2018-12-15] MEDS: FAMOTIDINE 20 MG/2 ML VIAL IV SCH (18:01)
[2018-12-15 19:29] LABS: CREATINE KINASE MB 5.8 ng/mL (0-5.0)
[2018-12-15] MEDS ORDERED: ATORVASTATIN 20 MG TAB PO SCH (21:00)
[2018-12-15] MEDS: INSULIN REGULAR, HUMAN 100 UNIT/1 ML 3ML VIAL SQ SCH (23:00)
[2018-12-15] MEDS: CARBIDOPA/LEVODOPA 25/100 TAB PO SCH (23:54)
[2018-12-15] MEDS: METHYLPREDNISOLONE SOD SUCC 40 MG/ML VIAL 1ML IV SCH (23:54)
--- NOTE | 2018-12-15 23:55 | History and Physical ---
Ms. Mckeon is a very elderly 78-year-old woman, smoker, who was brought to the emergency room by ambulance when her reported that he could not wake her up. HISTORY OF PRESENT ILLNESS: The patient's tells me at the bedside that she had been taking some pain medications for hip pain and leg pain. He is not sure if she might have taken some additional narcotics. PAST MEDICAL HISTORY: Long and complex with hospitalizations in August and September of 2018 for congestive heart failure, COPD, anemia. Past medical history also significant for reported myocardial infarction about a year ago, at which apparently she had no cardiac catheterization and it is also not clear where this hospitalization occurred. She has longstanding anemia after previous partial colectomy, had a hip fracture in December 2017 and repair. RECENT HOME MEDICATIONS: Include allopurinol 100 mg daily, carvedilol 3.125 twice a day, lorazepam 0.5 mg p.r.n., sliding scale insulin, potassium 20 mEq daily, prednisone 5 mg daily, furosemide 40 mg b.i.d., atorvastatin 40 mg daily, iron sulfate 325 mg daily, lisinopril 40 mg daily, spironolactone 25 mg daily, carbidopa-levodopa, levothyroxine 125 mcg daily, Pantoprazole 40 mg daily. PERSONAL AND SOCIAL HISTORY: The patient continues to smoke and actually stays up at night to smoke. Lives with her . REVIEW OF SYSTEMS: Not available as the patient is unarousable at this time. PHYSICAL EXAMINATION: GENERAL: Shows an elderly woman, who is snoring, unarousable to my exam. VITAL SIGNS: Blood pressure is 140/80, pulse 80 and regular. HEAD, EYES, EARS, NOSE, AND THROAT: Unremarkable. NECK: No jugular venous distention. THORAX: Heart sounds S1 and S2 are equal. No murmurs. LUNGS: Clear. ABDOMEN: Protuberant. EXTREMITIES: No cyanosis, clubbing, or edema. PERTINENT LABORATORY STUDIES: Show a urine drug screen positive for opiates. Hemoglobin 10.0, hematocrit 35.7, white count 6.4, and platelets 220,000. TSH is 33. BNP is 1283. BUN 20, creatinine 0.9, glucose 66. ASSESSMENTS: 1. Drug overdose, may be accidental. Although of note that the patient had suicidal ideation when she was in [facility] in September and was seen by psychiatrist, Dr. Farris. 2. Congestive heart failure. 3. Chronic obstructive pulmonary disease. 4. Chronic anemia. 5. Chronic pain. 6. Type 2 adult onset diabetes. PLAN: We will use Narcan and monitor closely. Use sliding scale insulin and may resume medications when she is able to swallow things later on. Prognosis is guarded. This discussed with her at the bedside. MD NOREEN Arbeu/LISA /[id number] cc: Richar Medina
--- NOTE | 2018-12-16 | NUR ---
PT SAID SHE WANTS TO GO HOME BY AMS AND CALLED THE . CAME TO TAKE THE PT TO HOME BY AMS .THEN PT REFUSED TO GO HOME STAYE DIN THE ROOM WITH THE PT .
[2018-12-16 00:43] VITALS: BP 154/72
[2018-12-16 01:39] VITALS: BP 154/72
--- NOTE | 2018-12-16 01:55 | NUR ---
PT IS TRANSFERRED FROM ER AOX2.RESPIRATIONS ARE EVEN AND UNLABORED .SKIN WARM AND DRY TO TOUCH .RT AC 20G .TELE #34 SHOWS SR .ASSESSMENT DONE ..NOTED BILATER HANDS BRUISES ..CALL LIGHT WITH IN REACH .CONTINUE TO MONITOR
[2018-12-16 02:01] VITALS: BP 154/72
[2018-12-16 05:16] LABS: BASOPHILS % 0.2 % (0.0-1.0); HEMATOCRIT 29.9 % (34.2-44.1); HEMOGLOBIN 8.5 g/dL (12.0-16.0); LYMPHOCYTES # (AUTO) 0.3 (1.0-3.2); MEAN CORPUSCULAR HEMOGLOBIN 23.5 pg (28-32); MEAN CORPUSCULAR HGB CONC 28.4 g/dL (31-35); MEAN CORPUSCULAR VOLUME 82.8 fL (81-99); MONOCYTES # (AUTO) 0.1 (0.2-0.8); MONOCYTES % 0.8 % (4.4-11.3); NEUTROPHILS # (AUTO) 5.9 (2.1-6.9); NEUTROPHILS % 94.2 % (38.7-80.0); PLATELET COUNT 188 x10e3/uL (140-360); RED BLOOD COUNT 3.61 x10e6/uL (3.6-5.1); RED CELL DISTRIBUTION WIDTH 16.9 % (11.7-14.4)
[2018-12-16 05:44] LABS: ALBUMIN/GLOBULIN RATIO 1.1 (0.8-2.0); ALKALINE PHOSPHATASE 95 IU/L (40-150); ANION GAP 13.9 mmol/L (8-16); BLOOD UREA NITROGEN 17 mg/dL (7-26); BUN/CREATININE RATIO 20 (6-25); CALCIUM 8.7 mg/dL (8.4-10.2); CARBON DIOXIDE 21 mmol/L (22-29); CHLORIDE 109 mmol/L (98-107); CREATININE, SERUM 0.87 mg/dL (0.57-1.11); EST GLOMERULAR FILTRATION RATE > 60 ML/MIN (60-); GLUCOSE 257 mg/dL (74-118); MAGNESIUM 2.1 MG/DL (1.3-2.1); PHOSPHORUS 2.6 MG/DL (2.3-4.7); POTASSIUM 3.9 mmol/L (3.5-5.1); SODIUM 140 mmol/L (136-145)
[2018-12-16 05:45] LABS: ALANINE AMINOTRANSFERASE < 6 IU/L (0-55)
--- NOTE | 2018-12-16 05:45 | Diagnostic Imaging Report ---
EXAMINATION: CHEST SINGLE (PORTABLE) INDICATION: COPD. COMPARISON: Chest radiograph 12/15/2018. FINDINGS: LINES/TUBES:Right chest port with catheter tip terminating in the upper SVC. Right IJ non-tunneled central venous catheter with tip obscured, but likely in the right brachiocephalic vein. LUNGS:The lungs are moderately inflated. There is perihilar fullness and indistinctness of the pulmonary vasculature. PLEURA:No pleural effusion or pneumothorax. MEDIASTINUM: Cardiomediastinal silhouette is stably enlarged. Atherosclerotic calcifications of the thoracic aorta. BONES/SOFT TISSUES: No acute osseous abnormality. ABDOMEN:No free air under the diaphragm. IMPRESSION: Cardiomegaly with mild pulmonary interstitial edema. Signed by: Dr. Yousif Olsen MD on 12/16/2018 5:41 AM
[2018-12-16] MEDS ORDERED: LEVOTHYROXINE SODIUM 125 MCG TAB PO SCH (06:00)
--- NOTE | 2018-12-16 06:41 | NUR ---
PT RESTED DURING THE NIGHT .DENIES PAIN .NO ACUTE DISTRESS NOTED .CALL LIGHT WITH IN REACH .CONTINUE TO MONITOR
[2018-12-16] MEDS: METHYLPREDNISOLONE SOD SUCC 40 MG/ML VIAL 1ML IV SCH (06:43)
[2018-12-16] MEDS: SODIUM CHLORIDE 0.9% 1000ML 1,000 ML IV SCH (06:44)
--- NOTE | 2018-12-16 07:00 | NUR ---
RCD PT AT BED PT IS ALERT AND ORIENTED PT RESTING ON BED IV PATENT FAMILY AT BED SIDE BED LOW AND LOCKED CALL LIGHT IN REACH
[2018-12-16 07:01] VITALS: BP 149/68
--- NOTE | 2018-12-16 07:11 | NUR ---
BEDSIDE REPORT GIVEN TO THE ONCOMING NURSE .
--- NOTE | 2018-12-16 07:11 | NUR ---
BEDSIDE REPORT GIVEN TO THE ONCOMING NURSE .
[2018-12-16] MEDS: INSULIN REGULAR, HUMAN 100 UNIT/1 ML 3ML VIAL SQ SCH (07:30)
[2018-12-16] MEDS ORDERED: PANTOPRAZOLE SOD 40 MG TABEC PO SCH (07:30)
[2018-12-16 08:00] VITALS: BP 154/72
--- NOTE | 2018-12-16 08:00 | NUR ---
PT REQUESTED TO GO HOME BY AMA NOTIFIED THE THREAD CUTTER TENDER SHE SAID TALK TO THE CARPENTER SUPERVISOR ,CARPENTER SUPERVISOR SAID THEY DONT HAVE ANY ROLE DO IT BY HOSPITAL POLICY ,AGAIN NOTIFIED THE THREAD CUTTER TENDER SHE SAID SHE NEED TO TALK THE DIRECTOR REGARDING THIS
[2018-12-16 08:45] VITALS: BP 154/72
[2018-12-16] MEDS: FAMOTIDINE 20 MG/2 ML VIAL IV SCH (08:55)
[2018-12-16] MEDS: CARBIDOPA/LEVODOPA 25/100 TAB PO SCH (08:56)
[2018-12-16] MEDS ORDERED: FUROSEMIDE 40 MG TAB PO SCH (09:00)
[2018-12-16] MEDS ORDERED: PREDNISONE 5 MG TAB PO SCH (09:00)
[2018-12-16] MEDS ORDERED: ALLOPURINOL 100 MG TAB PO SCH (09:00)
[2018-12-16] MEDS ORDERED: POTASSIUM CHLORIDE 20 MEQ TAB CR PO SCH (09:00)
[2018-12-16] MEDS ORDERED: LISINOPRIL 20 MG TAB PO SCH (09:00)
[2018-12-16] MEDS ORDERED: ASPIRIN 81 MG CHEW TAB PO SCH (09:00)
--- NOTE | 2018-12-16 09:24 | NUR ---
GMAT INSTRUCTOR SAID NOTIFY DR MATSON SO PAGED DR MATSON TO NOTIFY THE PT REQUESTED TO GO HOME BY [facility]
--- NOTE | 2018-12-16 09:28 | NUR ---
DR MATSON RETURNED THE CALL HE LIMA HE IS COMING TO SEE THE PT
--- NOTE | 2018-12-16 09:40 | NUR ---
DR MATSON CAME TO SEE THE PT AND DISCHARGE THE PATIENT
--- NOTE | 2018-12-16 10:10 | NUR ---
PT WENT HOME IN SAFE CONDITION WITH HER
--- NOTE | 2018-12-17 05:40 | Discharge Summary ---
Ms. Mckeon is a very complex and very elderly 78-year-old woman with COPD, tobacco abuse, type 2 adult onset diabetes, chronic pain, and anemia, who presented to the emergency room by ambulance when her could not wake her up. HOSPITAL COURSE: The patient's urine drug screen was positive for opioids and she was given Narcan 1 dose by the power house engineer, which helped to wake her up somewhat. However, she became unarousable later in the emergency room, was given a second dose of 1 mg of Narcan. She was monitored overnight and given IV fluids, antibiotics, bronchodilators, and sliding scale insulin. Today, the patient is alert, responsive, very eager to be discharged to home. She tells me that she is not trying to kill herself and that she will follow up with [facility] for pain in her knees and hips and I have cautioned her about use of narcotics and he reports he will help supervise that. She is discharged home to resume her previous home medications. Please note, she saw Psychiatry on her previous visit here, Dr. Farris. DISCHARGE DIAGNOSES: 1. Narcotics drug overdose, accidental. 2. Chronic obstructive pulmonary disease. 3. Anemia. 4. Type 2 adult onset diabetes. FOLLOWUP: She will follow up with Dr. Medina on regular basis. MD NOREEN Abreu/LISA /[id number] cc: Richar Medina
== END 2018-12-16 10:10 | disposition home or self-care (01) ==
LOC: ER 12:59 → ERHOLD 14:20 → INTOOBSV 14:20 → MED/SURG2 22:39
PROVIDERS: ADMIT Internal Medicine Cardiovascular Disease; ATTEND Internal Medicine Cardiovascular Disease
DX: T40.601A Poisoning by unspecified narcotics, accidental (unintentional), initial encounter (principal); J44.9 Chronic obstructive pulmonary disease, unspecified; D64.9 Anemia, unspecified; E11.9 Type 2 diabetes mellitus without complications; I25.2 Old myocardial infarction; I11.0 Hypertensive heart disease with heart failure; I50.9 Heart failure, unspecified; I25.10 Atherosclerotic heart disease of native coronary artery without angina pectoris
CPT/HCPCS: 36415 ×2; 36600; 70450; 71045 ×2; 80053 ×2; 80307; 80320; 80329 ×2; 81001; 82550 ×2; 82553 ×2; 82805; 82948 ×2; 83690; 83735 ×2; 83880; 84100; 84443; 84484 ×2; 85025 ×2; 85610; 85730; 86850; 86900; 87040; 93005; 94640; 99284; C9113; G0378 ×2; J0696; J1817; J2310; J2920 ×2; J2930; J7030 ×2; J7512; S0164

== ENCOUNTER 2019-03-26 17:52 | Inpatient (IN) | payer MEDICARE ==
[~2019-03-26] VITALS: Ht 160 cm; Wt 63.1 kg
[~2019-03-26 17:52] MED LIST changes: +PANTOPRAZOLE SO40 MG PO
[2019-03-26 18:40] LABS: BASOPHILS % 0.4 % (0.0-1.0); EOSINOPHILS # (AUTO) 0.4 (0.0-0.4); EOSINOPHILS % 4.3 % (0.0-6.0); LYMPHOCYTES # (AUTO) 0.8 (1.0-3.2); LYMPHOCYTES % 10.1 % (18.0-39.1); MEAN CORPUSCULAR HGB CONC 28.3 g/dL (31-35); MEAN CORPUSCULAR VOLUME 84.9 fL (81-99); MONOCYTES # (AUTO) 0.7 (0.2-0.8); MONOCYTES % 8.7 % (4.4-11.3); NEUTROPHILS # (AUTO) 6.1 (2.1-6.9); NEUTROPHILS % 75.4 % (38.7-80.0); PLATELET COUNT 378 x10e3/uL (140-360); RED BLOOD COUNT 2.71 x10e6/uL (3.6-5.1); RED CELL DISTRIBUTION WIDTH 19.7 % (11.7-14.4)
[2019-03-26 18:41] LABS: HEMOGLOBIN 6.5 g/dL (12.0-16.0)
[2019-03-26 18:52] LABS: INR 1.04; PROTHROMBIN TIME 14.2 seconds (11.9-14.5)
[2019-03-26 18:53] LABS: PARTIAL THROMBOPLASTIN TIME 34.6 seconds (23.8-35.5)
[2019-03-26 18:58] LABS: ALBUMIN 3.2 g/dL (3.5-5.0); ALBUMIN/GLOBULIN RATIO 0.9 (0.8-2.0); ALKALINE PHOSPHATASE 123 IU/L (40-150); ANION GAP 14.8 mmol/L (8-16); BLOOD UREA NITROGEN 40 mg/dL (7-26); BUN/CREATININE RATIO 27 (6-25); CALCIUM 8.8 mg/dL (8.4-10.2); CARBON DIOXIDE 25 mmol/L (22-29); CHLORIDE 103 mmol/L (98-107); CREATININE, SERUM 1.49 mg/dL (0.57-1.11); EST GLOMERULAR FILTRATION RATE 34 ML/MIN (60-); GLUCOSE 151 mg/dL (74-118); POTASSIUM 3.8 mmol/L (3.5-5.1); SODIUM 139 mmol/L (136-145)
[2019-03-26] MEDS ORDERED: PANTOPRAZOLE 40 MG 10ML VIAL IV STA (18:58)
[2019-03-26] MEDS ORDERED: FUROSEMIDE INJ 10 MG/ML 2 ML VIAL IV PRN (19:00)
[2019-03-26] MEDS ORDERED: SODIUM CHLORIDE 0.9% 250ML 250 ML IV ONE ×2 (19:00→19:30)
[2019-03-26 19:06] LABS: ALANINE AMINOTRANSFERASE < 6 IU/L (0-55)
[2019-03-26] MEDS ORDERED: SODIUM CHLORIDE FLUSH 10 ML SYR INJ PRN (19:30)
[2019-03-26] MEDS ORDERED: DEXTROSE 50% SYRINGE 50 ML IV PRN (19:30)
[2019-03-26] MEDS: INSULIN REGULAR, HUMAN 100 UNIT/1 ML 3ML VIAL SQ SCH (21:40)
--- NOTE | 2019-03-26 22:01 | NUR ---
Patient arrived to unit from ER. In stable condition, no s/s of distress at this time. All safety measures in place. Will continue to monitor.
[2019-03-26] MEDS: SODIUM CHLORIDE 0.9% 1000ML 1,000 ML IV SCH (22:02)
--- NOTE | 2019-03-26 22:40 | NUR ---
4 units of Humulin R administered SQ to left stomach for fingerstick blood glucose level of 159.
[2019-03-26 22:41] VITALS: BP 134/61
[2019-03-26 22:48] VITALS: BP 134/61
[2019-03-26] MEDS ORDERED: SODIUM CHLORIDE 0.9% 250ML 250 ML ONE (23:08)
--- NOTE | 2019-03-26 23:25 | NUR ---
Transfusion of first unit of blood initiated. Vital signs stable, no s/s of distress or transfusion reaction. Will continue to monitor.
[2019-03-26 23:39] VITALS: BP 134/61
[2019-03-27] VITALS (8 sets, daily range): BP systolic 117–146; BP diastolic 59–72
--- NOTE | 2019-03-27 02:25 | NUR ---
Transfusion of first unit of blood completed. Vital signs stable, no s/s of distress or transfusion reaction. Will administer IV Lasix as ordered.
[2019-03-27] MEDS: FUROSEMIDE INJ 10 MG/ML 2 ML VIAL IV SCH ×2 (02:35→06:52)
[2019-03-27] MEDS ORDERED: SODIUM CHLORIDE 0.9% 250ML 250 ML ONE (03:26)
--- NOTE | 2019-03-27 03:43 | NUR ---
Transfusion of second unit of blood initiated. Vital signs stable, no s/s of distress or transfusion reaction. Will continue to monitor.
--- NOTE | 2019-03-27 06:52 | NUR ---
Second blood transfusion completed. Vital signs stable, no s/s of distress or transfusion reaction. IV Lasix administered as ordered.
--- NOTE | 2019-03-27 07:18 | NUR ---
Bedside report given to day nurse. Patient resting in bed, no s/s of distress. All safety measures in place.
[2019-03-27] MEDS: INSULIN REGULAR, HUMAN 100 UNIT/1 ML 3ML VIAL SQ SCH ×4 (07:30→21:12)
[2019-03-27] MEDS ORDERED: LORAZEPAM 0.5 MG TAB PO PRN (08:30)
[2019-03-27] MEDS ORDERED: DEXTROSE 50% SYRINGE 50 ML IV PRN (08:30)
[2019-03-27] MEDS ORDERED: HYDROCODONE/APAP 10MG-325MG TAB PO PRN ×2 (08:30→23:45)
[2019-03-27] MEDS ORDERED: ONDANSETRON HCL INJ 2MG/ML 2ML 2 MG/ML VIAL IV PRN (08:45)
[2019-03-27] MEDS ORDERED: MELATONIN 5 MG TABLET PO PRN (08:45)
[2019-03-27] MEDS ORDERED: HYDRALAZINE HCL 20 MG/ML VIAL IV PRN (08:45)
[2019-03-27] MEDS ORDERED: PANTOPRAZOLE 40 MG 10ML VIAL IV SCH ×2 (09:00)
[2019-03-27] MEDS: POTASSIUM CHLORIDE 20 MEQ TAB CR PO SCH (09:00)
[2019-03-27] MEDS: PREDNISONE 5 MG TAB PO SCH (09:00)
[2019-03-27] MEDS: FUROSEMIDE INJ 10 MG/ML 4 ML VIAL IV SCH (09:00)
[2019-03-27] MEDS: ALLOPURINOL 100 MG TAB PO SCH (09:00)
[2019-03-27] MEDS: OYST-CAL-D 500MG TABLET PO SCH (09:00)
[2019-03-27] MEDS: CARBIDOPA/LEVODOPA 25/100 TAB PO SCH ×3 (09:00→20:55)
[2019-03-27] MEDS: ESCITALOPRAM OXALATE 10 MG TAB PO SCH (09:00)
[2019-03-27] MEDS ORDERED: FUROSEMIDE 40 MG TAB PO SCH (09:00)
[2019-03-27] MEDS: LISINOPRIL 20 MG TAB PO SCH (09:00)
[2019-03-27] MEDS ORDERED: BISACODYL 5 MG TAB EC PO ONE ×3 (09:30→10:10)
[2019-03-27 09:31] LABS: HEMATOCRIT 31.6 % (34.2-44.1); HEMOGLOBIN 9.3 g/dL (12.0-16.0)
[2019-03-27] MEDS ORDERED: CITRATE OF MAGNESIA 300ML BOTTLE PO ONE ×2 (09:45→11:15)
[2019-03-27] MEDS: INSULIN LISPRO 100 UNIT/1 ML 3ML VIAL SQ SCH ×3 (11:30→20:55)
[2019-03-27 12:28] LABS: HEMATOCRIT 32.8 % (34.2-44.1); HEMOGLOBIN 9.7 g/dL (12.0-16.0)
[2019-03-27] MEDS ORDERED: MIDAZOLAM HCL 2 MG/2 ML VIAL ONE (13:14)
[2019-03-27] MEDS: SODIUM CHLORIDE 0.9% 1000ML 1,000 ML IV SCH (15:23)
[2019-03-27] MEDS ORDERED: HYOSCYAMINE 0.125 MG TAB ONE (17:47)
--- NOTE | 2019-03-27 18:05 | NUR ---
WHEELED OFF UNIT VIA BED FOR COLONOSCOPY, NO CHANGE IN CONDITION, AT SIDE
--- NOTE | 2019-03-27 18:54 | NUR ---
Received report from day nurse. Patient currently off unit for colonoscopy. Will continue to monitor upon return.
[2019-03-27] MEDS ORDERED: GLUCAGON FOR INJ 1 MG VIAL ONE (18:55)
[2019-03-27] MEDS ORDERED: PROPOFOL IV EMULSION 10 MG/ML 50 ML VIAL ONE (18:55)
--- NOTE | 2019-03-27 19:40 | NUR ---
Patient returned to unit from procedure. Vital signs stable, no s/s of distress or c/o pain at this time. All safety measures in place. Will continue to monitor.
[2019-03-27 19:59] LABS: FERRITIN 9.54 ng/mL (4.63-204.00)
--- NOTE | 2019-03-27 20:21 | NUR ---
Patient refusing blood draw at this time. No s/s of bleeding. Will continue to monitor and attempt again at a later time.
[2019-03-27] MEDS ORDERED: INSULIN GLARGINE 100 UNITS/ML VIAL SQ SCH (21:00)
[2019-03-27] MEDS ORDERED: ATORVASTATIN 40 MG TAB PO SCH (21:00)
[2019-03-28] VITALS: BP 123/65
--- NOTE | 2019-03-28 00:16 | NUR ---
H&H drawn and sent to lab.
[2019-03-28 00:17] LABS: HEMATOCRIT 31.9 % (34.2-44.1); HEMOGLOBIN 9.5 g/dL (12.0-16.0)
[2019-03-28] MEDS: SODIUM CHLORIDE 0.9% 1000ML 1,000 ML IV SCH (00:33)
--- NOTE | 2019-03-28 00:35 | Operative Report ---
DATE OF PROCEDURE: 03/27/2019 SURGEON: Giovanni Corcoran MD PROCEDURE: Colonoscopy with fulguration by APC probe of AVMs. INDICATIONS FOR COLONOSCOPY: Anemia. MEDICATIONS: The patient was done under MAC, please see anesthesiologist's note. PROCEDURE IN DETAIL: With the patient in left lateral decubitus position, flexible fiberoptic Olympus colonoscope was inserted into the rectum with ease and advanced all the way to the cecum. An AVM was noted in the cecum that was fulgurated with the APC probe. The scope was then withdrawn slowly and some diverticular disease or was noted in the ascending colon. An AVM was noted in the proximal transverse colon and that was fulgurated with the APC probe. The rest of the transverse, descending, and sigmoid other than for scattered diverticular disease was within normal limits. The mucosa overlying the rectum appeared to be within normal limits. The scope was then retroflexed into the distal rectum and the area around the dentate line appeared to be within normal limits. The scope was then straightened out it was subsequently withdrawn. The patient tolerated procedure well. IMPRESSION: 1. AVM cecum, fulgurated with APC probe. 2. AVM proximal transverse colon fulgurated with APC probe. 3. Diverticulosis scattered. PLAN: Follow H and H. The patient might benefit from an enteroscopy. This can be done on an outpatient basis. Giovanni Corcoran MD [facility]/MODL /[id number] cc: MD Giovanni Mcmahon MD
[2019-03-28 04:00] VITALS: BP 137/60
[2019-03-28] MEDS ORDERED: LEVOTHYROXINE SODIUM 125 MCG TAB PO SCH (06:00)
[2019-03-28] MEDS ORDERED: PANTOPRAZOLE SOD 40 MG TABEC PO SCH (06:00)
[2019-03-28 06:28] LABS: HEMATOCRIT 31.4 % (34.2-44.1); HEMOGLOBIN 9.3 g/dL (12.0-16.0)
--- NOTE | 2019-03-28 07:03 | NUR ---
Bedside report given to day nurse. Patient resting in bed, no s/s of distress or c/o pain at this time. All safety measures in place.
[2019-03-28 07:10] LABS: FOLATE 12.2 ng/mL (7.0-15.4)
[2019-03-28] MEDS: INSULIN LISPRO 100 UNIT/1 ML 3ML VIAL SQ SCH ×2 (07:30→11:30)
[2019-03-28] MEDS ORDERED: IRON SUCROSE 100 MG in SODIUM CHLORIDE 0.9% 100 ML 100 ML IV SCH (08:00)
[2019-03-28 08:21] VITALS: BP 107/70
[2019-03-28] MEDS ORDERED: DOCUSATE SODIU100 MG PO (08:26)
[2019-03-28] MEDS ORDERED: ASCORBIC ACID500 MG PO (08:26)
[2019-03-28] MEDS ORDERED: FERROUS SULFAT325 MG PO (08:26)
--- NOTE | 2019-03-28 08:30 | NUR ---
HOLDEN PEREZ INTO SEE PT, DISCUSSED DISCHARGE INSTRUCTIONS, PT VERBALIZED UNDERSTANDING
[2019-03-28] MEDS: PREDNISONE 5 MG TAB PO SCH (09:00)
[2019-03-28] MEDS: ALLOPURINOL 100 MG TAB PO SCH (09:00)
[2019-03-28] MEDS: FUROSEMIDE INJ 10 MG/ML 4 ML VIAL IV SCH (09:00)
[2019-03-28] MEDS: LISINOPRIL 20 MG TAB PO SCH (09:00)
[2019-03-28] MEDS: ESCITALOPRAM OXALATE 10 MG TAB PO SCH (09:00)
[2019-03-28] MEDS: POTASSIUM CHLORIDE 20 MEQ TAB CR PO SCH (09:00)
[2019-03-28] MEDS: OYST-CAL-D 500MG TABLET PO SCH (09:00)
[2019-03-28] MEDS: CARBIDOPA/LEVODOPA 25/100 TAB PO SCH (09:00)
--- NOTE | 2019-03-28 09:23 | NUR ---
0910 PT C/O CP 10/20, VS WNL, EKG IN PROGRESS, PT STATES CP AT 04/19 CURRENTLY, TELEPHONED HOLDEN PEREZ TO MAKE AWARE
[2019-03-28 09:28] VITALS: BP 140/62
[2019-03-28 12:21] LABS: HEMATOCRIT 31.5 % (34.2-44.1); HEMOGLOBIN 9.3 g/dL (12.0-16.0)
[2019-03-28 13:02] VITALS: BP 133/65
--- NOTE | 2019-03-28 13:33 | NUR ---
ALL LABS OKAY, DAIRY EQUIPMENT SPECIALIST ORDERED OKAY TO DISCHARGE, DISCHARGE INSTRUCTIONS REVIEWED, VERBALIZED UNDERSTANDING, WHEELED OFF UNIT FOR DISCHARGE, NO CHANGE IN CONDITION
--- NOTE | 2019-03-30 04:15 | Discharge Summary ---
ADMISSION DIAGNOSES: 1. Acute blood loss anemia secondary to gastrointestinal bleed. 2. Myelodysplastic syndrome. 3. Hypertension with chronic kidney disease 3. 4. Chronic systolic congestive heart failure. 5. Type 2 diabetes with chronic kidney disease 3. 6. Hypothyroidism. 7. Parkinson's disease. 8. Anxiety and depression. DISCHARGE DIAGNOSES: 1. Acute blood loss anemia secondary to gastrointestinal bleed. 2. Myelodysplastic syndrome. 3. Hypertension with chronic kidney disease 3. 4. Chronic systolic congestive heart failure. 5. Type 2 diabetes with chronic kidney disease 3. 6. Hypothyroidism. 7. Parkinson's disease. 8. Anxiety and depression. 9. Colonic arteriovenous malformation. 10. Rule out deep venous thrombosis. HISTORY: Type 2 diabetes, hypertension, COPD, hypothyroidism, Parkinson's disease, OA, CAD, myelodysplastic syndrome, anemia, chronic systolic CHF, CKD 3, anxiety, depression, hyperlipidemia, gout, gastric and colonic AVMs. SURGICAL HISTORY: Back surgery, left eye cataract surgery, right hip surgery, PAC placement. FAMILY HISTORY: The patient's grandmother had diabetes. SOCIAL HISTORY: The patient admits to smoking 1 pack of cigarettes a day. HOSPITAL COURSE: A 79-year-old female admits with complaints of anemia. Her primary care tractor hemoglobin was told with less than seven and that she should come to the ER. She denies bright red blood per rectum, abdominal pain, nausea, vomiting, and tarry stool. On admission, the patient's hemoglobin was 6.5, two PRBCs were ordered. Her hemoglobin remained stable after the blood. She was taken to get a colonoscopy per GI recommendation, which showed an AVM cecum, which was fulgurated with APB probe and AVM, proximal transverse colon fulgurated with APC probe. Due to left lower extremity swelling, a Venous Doppler was done, which was negative bilaterally. Because the hemoglobin is stable, the patient will discharge home with home medicines plus new prescription for iron vitamin C and Colace. The patient understands discharge instructions and agrees to plan. Dictated by Kate Prajapati NP Jae John MD [facility]LENA/MODL /[id number]
== END 2019-03-28 13:29 | disposition home or self-care (01) | DRG 378 ==
LOC: ER 17:52 → ERHOLD 19:23 → MED/SURG 22:08
PROVIDERS: ADMIT Internal Medicine; ATTEND Internal Medicine
PROC: 30233N1 Transfusion of Nonautologous Red Blood Cells into Peripheral Vein, Percutaneous Approach (ICD-10-PCS; 2019-03-26)
PROC: 0W3P8ZZ Control Bleeding in Gastrointestinal Tract, Via Natural or Artificial Opening Endoscopic (ICD-10-PCS; principal; 2019-03-27 17:58)
DX: K55.21 Angiodysplasia of colon with hemorrhage (principal); D62 Acute posthemorrhagic anemia; I13.0 Hypertensive heart and chronic kidney disease with heart failure and stage 1 through stage 4 chronic kidney disease, or unspecified chronic kidney disease; I50.22 Chronic systolic (congestive) heart failure; D46.9 Myelodysplastic syndrome, unspecified; E11.22 Type 2 diabetes mellitus with diabetic chronic kidney disease; N18.3 Chronic kidney disease, stage 3 (moderate); E03.9 Hypothyroidism, unspecified; G20 Parkinson's disease; M19.90 Unspecified osteoarthritis, unspecified site; F41.8 Other specified anxiety disorders; E78.5 Hyperlipidemia, unspecified; I25.10 Atherosclerotic heart disease of native coronary artery without angina pectoris; F17.210 Nicotine dependence, cigarettes, uncomplicated; K57.30 Diverticulosis of large intestine without perforation or abscess without bleeding; Z79.4 Long term (current) use of insulin; Z79.82 Long term (current) use of aspirin
CPT/HCPCS: 36415; 44391; 45378; 80053; 82607; 82728; 82746; 82948; 83540; 84466; 84484; 85014; 85018; 85025; 85045; 85610; 85730; 86850; 86900; 86920; 93005; 93970; 96361; 96372; 96374; 99284; J1610; J1756; J1815; J1817; J1940; J2250; J7030; J7050; J7512; P9016

== ENCOUNTER 2019-04-16 05:38 | Inpatient (IN) | payer MEDICARE ==
[~2019-04-16] VITALS: Ht 152.4 cm; Wt 56.8 kg
[~2019-04-16 05:38] MED LIST changes: +FERROUS SULFAT325 MG PO
[2019-04-16 06:00] LABS: BASOPHILS % 0.2 % (0.0-1.0); EOSINOPHILS # (AUTO) 0.2 (0.0-0.4); EOSINOPHILS % 2.6 % (0.0-6.0); LYMPHOCYTES # (AUTO) 0.5 (1.0-3.2); LYMPHOCYTES % 5.7 % (18.0-39.1); MEAN CORPUSCULAR HGB CONC 27.9 g/dL (31-35); MEAN CORPUSCULAR VOLUME 82.3 fL (81-99); MONOCYTES # (AUTO) 0.9 (0.2-0.8); MONOCYTES % 10.6 % (4.4-11.3); NEUTROPHILS # (AUTO) 7.1 (2.1-6.9); NEUTROPHILS % 80.4 % (38.7-80.0); PLATELET COUNT 259 x10e3/uL (140-360); RED BLOOD COUNT 2.48 x10e6/uL (3.6-5.1)
[2019-04-16 06:06] LABS: HEMATOCRIT 20.4 % (34.2-44.1); HEMOGLOBIN 5.7 g/dL (12.0-16.0)
[2019-04-16 06:08] LABS: INR 1.07; PROTHROMBIN TIME 14.6 seconds (11.9-14.5)
[2019-04-16 06:09] LABS: PARTIAL THROMBOPLASTIN TIME 37.8 seconds (23.8-35.5)
[2019-04-16 06:15] LABS: ALBUMIN/GLOBULIN RATIO 0.8 (0.8-2.0); ALKALINE PHOSPHATASE 107 IU/L (40-150); BLOOD UREA NITROGEN 34 mg/dL (7-26); BUN/CREATININE RATIO 30 (6-25); CALCIUM 8.8 mg/dL (8.4-10.2); CARBON DIOXIDE 24 mmol/L (22-29); CHLORIDE 103 mmol/L (98-107); CREATININE, SERUM 1.15 mg/dL (0.57-1.11); EST GLOMERULAR FILTRATION RATE 46 ML/MIN (60-); GLUCOSE 143 mg/dL (74-118); SODIUM 136 mmol/L (136-145)
[2019-04-16 06:16] LABS: ALANINE AMINOTRANSFERASE < 6 IU/L (0-55)
--- NOTE | 2019-04-16 06:28 | NUR ---
Informed consent obtained at this time for blood transfusion.
[2019-04-16] MEDS ORDERED: SODIUM CHLORIDE FLUSH 10 ML SYR INJ PRN (06:30)
[2019-04-16] MEDS ORDERED: SODIUM CHLORIDE 0.9% 250ML 250 ML IV ONE (06:30)
[2019-04-16] MEDS ORDERED: FUROSEMIDE INJ 10 MG/ML 2 ML VIAL IV PRN (06:30)
[2019-04-16] MEDS ORDERED: DEXTROSE 50% SYRINGE 50 ML IV PRN (06:30)
[2019-04-16] MEDS ORDERED: ONDANSETRON HCL INJ 2MG/ML 2ML 2 MG/ML VIAL IV PRN (06:30)
--- NOTE | 2019-04-16 06:39 | Diagnostic Imaging Report ---
EXAMINATION: CHEST SINGLE (PORTABLE) INDICATION: Short of breath COMPARISON: Chest x-ray 03/02/2019 FINDINGS: TUBES and LINES: Right chest wall port with right subclavian central venous catheter component, tip in the brachycephalic/superior vena cava junction. LUNGS: Normal lung volumes. Lungs are clear. Prominent central pulmonary vasculature and pulmonary interstitial lung markings. PLEURA: No pleural effusion or pneumothorax. HEART AND MEDIASTINUM: Cardiac size is moderately enlarged. There are atherosclerotic calcifications within the aorta. BONES AND SOFT TISSUES: Degenerative changes in the spine and shoulders. Soft tissues are unremarkable. UPPER ABDOMEN: No free air under the diaphragm. IMPRESSION: Mild cardiomegaly and pulmonary vascular congestion, mild pulmonary interstitial edema is possible. Signed by: Flynn Stacy DO on 04/16/2019 6:37 AM
[2019-04-16 06:44] LABS: CREATINE KINASE MB 2.9 ng/mL (0-5.0)
--- NOTE | 2019-04-16 06:53 | NUR ---
Report to STEVO Castillo.
[2019-04-16] MEDS: INSULIN REGULAR, HUMAN 100 UNIT/1 ML 3ML VIAL SQ SCH ×4 (07:29→21:28)
--- NOTE | 2019-04-16 07:48 | NUR ---
Pt placed in gown and given warm blankets. Asked patient if she needed a new brief due to incontinence. Patient stated that her brief was still dry. Educated patient that we are still awaiting for blood to be released from blood bank. Gave patient call mcmahon in order to notify me when she needed changed.
--- NOTE | 2019-04-16 08:47 | NUR ---
BLOOD PRODUCTS STARTED AT 0845, APPROPRIATE DOCUMENTATION COMPLETED, BLOOD PRODUCT REQUISITION FORM BEGAN. VITAL SIGNS STABLE. BLOOD PRODUCT VERIFIED WITH Scott LUDWIG LVN.
[2019-04-16 09:21] LABS: HYPOCHROMASIA SLIGHT
--- NOTE | 2019-04-16 11:14 | NUR ---
first unit of PRBC's completed. Awaiting for second unit to be released from blood bank.
[2019-04-16 12:26] VITALS: BP 122/58
--- NOTE | 2019-04-16 12:30 | NUR ---
patient received from ER via stretcher. see admit assess. family at BS. vitals stable with no distress. patient more lethargic than usual, we know each other from the past. she is easily arousable and does follow directions appropriately. will monitor status closely. awaiting second unit from blood bank.
[2019-04-16 12:33] VITALS: BP 122/58
[2019-04-16 15:38] VITALS: BP 144/75
[2019-04-16] MEDS: ACETAMINOPHEN 325 MG TAB PO PRN (17:20)
--- NOTE | 2019-04-16 18:45 | NUR ---
RECEIVED REPORT FROM PREVIOUS NURSE. CALL LIGHT WITHIN REACH. PATIENT IN BED ASLEEP.
[2019-04-16 19:47] VITALS: BP 121/70
[2019-04-16 20:13] VITALS: BP 121/70
[2019-04-17] VITALS (27 sets, daily range): BP systolic 112–153; BP diastolic 59–83
[2019-04-17] MEDS: ACETAMINOPHEN 325 MG TAB PO PRN (00:09)
[2019-04-17] MEDS: PANTOPRAZOLE 40 MG 10ML VIAL IV SCH ×2 (02:27→13:50)
--- NOTE | 2019-04-17 04:00 | NUR ---
PATIENT KEEPS YELLING OUT HELP AND SAYING SHE CAN NOT BREATH. HER OXYGEN SATURATION IS 98-99%. PATIENT. BED ALARM IS ON AND KEEPS GOING OFF BECAUSE PATIENT KEEPS TRYING TO GET OUT OF BED. THE SPLICER MACHINE OPERATOR'S AND I KEEP TAKING TURNS STAYING IN THE ROOM TO MAKE SURE SHE STAYS IN BED.
[2019-04-17 05:57] LABS: BASOPHILS % 0.2 % (0.0-1.0); EOSINOPHILS # (AUTO) 0.2 (0.0-0.4); EOSINOPHILS % 2.3 % (0.0-6.0); LYMPHOCYTES # (AUTO) 0.6 (1.0-3.2); LYMPHOCYTES % 6.8 % (18.0-39.1); MEAN CORPUSCULAR HEMOGLOBIN 23.5 pg (28-32); MEAN CORPUSCULAR HGB CONC 28.9 g/dL (31-35); MEAN CORPUSCULAR VOLUME 81.6 fL (81-99); MONOCYTES # (AUTO) 0.9 (0.2-0.8); MONOCYTES % 11.4 % (4.4-11.3); NEUTROPHILS # (AUTO) 6.5 (2.1-6.9); NEUTROPHILS % 78.7 % (38.7-80.0); PLATELET COUNT 290 x10e3/uL (140-360); RED BLOOD COUNT 2.93 x10e6/uL (3.6-5.1); RED CELL DISTRIBUTION WIDTH 19.5 % (11.7-14.4)
[2019-04-17] MEDS ORDERED: PANTOPRAZOLE SOD 40 MG TABEC PO SCH (06:00)
--- NOTE | 2019-04-17 06:00 | NUR ---
CALLED LAB AT MIDNIGHT AND NOW ASKING ABOUT THE UNIT OF BLOOD PATIENT SHOULD BE RECEIVING AND THEY SAID THEY WILL CALL WHEN IT IS AVAILABLE.
[2019-04-17 06:09] LABS: HEMOGLOBIN 6.9 g/dL (12.0-16.0)
[2019-04-17 06:10] LABS: HEMATOCRIT 23.9 % (34.2-44.1)
[2019-04-17 06:15] LABS: ANION GAP 8.7 mmol/L (8-16); BLOOD UREA NITROGEN 25 mg/dL (7-26); BUN/CREATININE RATIO 30 (6-25); CALCIUM 8.8 mg/dL (8.4-10.2); CARBON DIOXIDE 27 mmol/L (22-29); CHLORIDE 108 mmol/L (98-107); CREATININE, SERUM 0.83 mg/dL (0.57-1.11); EST GLOMERULAR FILTRATION RATE > 60 ML/MIN (60-); GLUCOSE 116 mg/dL (74-118); POTASSIUM 3.7 mmol/L (3.5-5.1); SODIUM 140 mmol/L (136-145)
--- NOTE | 2019-04-17 06:29 | NUR ---
PATIENT KEEPS YELLING STILL AND PRESSING THE CALL NUNO SAYING HELP AND SHE CAN NOT BREATH. SHE ALSO IS TRYING TO GET OUT OF BED AND HITTING HER HAND ON THE RAILING AND LAYING ON THE RAILING OF THE BED. WE GO INTO THE ROOM AND SHE TALKS TO US AND KEEPS PUSHING THE BUTTON TO PUT HER BED DOWN. HER OXYGEN SATURATION IS 93-99%. LAB CALLED ABOUT CRITICAL HEMOGLOBIN OF 6.9. CALLED DR. CAI OFFICE AND TALKED TO HOLDEN HERNANDEZ. I TOLD MARY EVERYTHING THAT HAPPENED THROUGHOUT THE NIGHT AND THE CRITICAL LAB VALUE. SHE SAID TO MAKE SURE SHE GETS THE OTHER UNIT OF BLOOD AND TO GIVE ONE DOSE OF LORAZEPAM.
[2019-04-17] MEDS ORDERED: LORAZEPAM 0.5 MG TAB PO ONE (06:30)
--- NOTE | 2019-04-17 06:38 | NUR ---
GAVE REPORT TO ONCOMING NURSE. CALL LIGHT WITHIN REACH. PATIENT IN BED YELLING.
[2019-04-17 06:56] LABS: FERRITIN 27.33 ng/mL (4.63-204.00)
[2019-04-17] MEDS ORDERED: VANCOMYCIN 1GM/NS 250 ML 250 ML IV ONE (07:30)
[2019-04-17] MEDS: INSULIN REGULAR, HUMAN 100 UNIT/1 ML 3ML VIAL SQ SCH ×4 (07:30→20:52)
[2019-04-17] MEDS ORDERED: CEFEPIME 1GM/NS 0.9% 50 ML 50 ML IV ONE (07:31)
[2019-04-17] MEDS ORDERED: VANCOMYCIN 1GM/NS 250 ML 250 ML ONE (07:31)
--- NOTE | 2019-04-17 08:00 | NUR ---
PATIENT FOUND AGITATED AND STATING CANT BREATH THIS AM. RAPID RESPONSE CALLED. RAPID TEAM ARRIVED AND PATIENT PLACED ON BIPAP, ABG DONE, ANTI-BIOTICS ORDERED, PATIENT TRANSFERRED TO ICU. DR BARRON GROUP ORDERED CONSULTATION OF DR CONTRERAS FOR CRITICAL CARE. LABS ALSO ORDERED. PATIENT TRANSFERRED TO ROOM 192 FOR CRITICAL CARE.
[2019-04-17] MEDS ORDERED: FUROSEMIDE INJ 10 MG/ML 10 ML VIAL ONE (08:30)
[2019-04-17 08:33] LABS: BASOPHILS # (AUTO) 0.1 (0.0-0.1); BASOPHILS % 0.5 % (0.0-1.0); EOSINOPHILS # (AUTO) 0.1 (0.0-0.4); EOSINOPHILS % 0.5 % (0.0-6.0); HEMATOCRIT 27.2 % (34.2-44.1); HEMOGLOBIN 7.8 g/dL (12.0-16.0); LYMPHOCYTES # (AUTO) 0.3 (1.0-3.2); MEAN CORPUSCULAR HEMOGLOBIN 23.6 pg (28-32); MEAN CORPUSCULAR HGB CONC 28.7 g/dL (31-35); MEAN CORPUSCULAR VOLUME 82.2 fL (81-99); MONOCYTES # (AUTO) 0.8 (0.2-0.8); MONOCYTES % 7.2 % (4.4-11.3); NEUTROPHILS # (AUTO) 9.8 (2.1-6.9); NEUTROPHILS % 88.1 % (38.7-80.0); PLATELET COUNT 344 x10e3/uL (140-360); RED BLOOD COUNT 3.31 x10e6/uL (3.6-5.1); RED CELL DISTRIBUTION WIDTH 19.4 % (11.7-14.4)
--- NOTE | 2019-04-17 08:37 | Diagnostic Imaging Report ---
EXAMINATION: CHEST SINGLE (PORTABLE) INDICATION: SOB. COMPARISON: Chest radiograph 04/16/2019. FINDINGS: TUBES and LINES: Right-sided chest port terminates in the mid SVC. Right IJ central venous catheter terminates in the upper SVC. LUNGS: Lungs are well inflated. Interval development of perihilar and interstitial opacities. Multifocal patchy opacities. PLEURA: Possible trace bilateral pleural effusions. No pneumothorax. HEART AND MEDIASTINUM: The cardiomediastinal silhouette is moderately enlarged. Atherosclerotic calcifications of the aortic arch. BONES AND SOFT TISSUES: No acute osseous lesion. Soft tissues are unremarkable. UPPER ABDOMEN: No free air under the diaphragm. IMPRESSION: Interval development of moderate pulmonary edema. Infection may have a similar appearance in the appropriate clinical setting. Signed by: Dr. Yousif Olsen MD on 04/17/2019 8:35 AM
[2019-04-17 08:51] LABS: ALBUMIN 3.1 g/dL (3.5-5.0); ALBUMIN/GLOBULIN RATIO 0.8 (0.8-2.0); ALKALINE PHOSPHATASE 112 IU/L (40-150); ANION GAP 10.9 mmol/L (8-16); BLOOD UREA NITROGEN 24 mg/dL (7-26); BUN/CREATININE RATIO 26 (6-25); CARBON DIOXIDE 27 mmol/L (22-29); CHLORIDE 107 mmol/L (98-107); CREATININE, SERUM 0.92 mg/dL (0.57-1.11); EST GLOMERULAR FILTRATION RATE 59 ML/MIN (60-); GLUCOSE 198 mg/dL (74-118); POTASSIUM 3.9 mmol/L (3.5-5.1); SODIUM 141 mmol/L (136-145)
[2019-04-17 08:52] LABS: ALANINE AMINOTRANSFERASE < 6 IU/L (0-55)
[2019-04-17] MEDS: ESCITALOPRAM OXALATE 10 MG TAB PO SCH ×2 (09:00→13:51)
[2019-04-17] MEDS ORDERED: METHYLPREDNISOLONE SOD SUCC 125 MG/2ML VIAL IV NR (09:30)
[2019-04-17] MEDS: CEFEPIME 1GM/NS 0.9% 50 ML 50 ML IV SCH (10:00)
[2019-04-17] MEDS ORDERED: SODIUM CHLORIDE 0.9% 250ML 250 ML ONE ×2 (10:06→10:08)
--- NOTE | 2019-04-17 12:17 | Consultation ---
DATE OF CONSULTATION: 04/17/2019 Pulmonary Critical Care Consultation CHIEF COMPLAINT: Difficulty breathing and recent transfer to the intensive care unit. HISTORY OF PRESENT ILLNESS: The patient is a 79-year-old woman. She has a history of cardiac disease with a prior myocardial infarction. She had a prior echocardiogram with an EF of 25% to 30%. She also has had prior cardiac catheterization. A CABG has been recommended in the past at one point. She has a history of COPD as well. She came in complaining of low hemoglobin. She has had a prior cardiac catheterization in the past. A CABG has been recommended previously. She also has a history of renal insufficiency, COPD, and recurrent anemia. She comes in frequently and receives transfusions. She has a Port-A-Cath placed because of her frequent transfusions. She presented to the hospital again with weakness and low hemoglobin of 5.3. She received packed red blood cells. Early this morning, rapid was called because she had worsening dyspnea. She was placed on BiPAP and sent to the intensive care unit. Her chest x-ray shows cardiomegaly and cephalization consistent with worsening pulmonary edema. She does not have fever. PAST SURGICAL HISTORY: 1. Status post right hip surgery. 2. Status post back surgery. 3. Status post appendectomy. 4. Status post cataract removal. PAST MEDICAL HISTORY: 1. History of hypertension. 2. History of COPD. 3. History of hypothyroidism. 4. History of recurrent anemia. 5. History of chronic back pain requiring treatment and pain management. SOCIAL HISTORY: The patient is not an active smoker or drinker. FAMILY HISTORY: Family history is significant for hypertension. ALLERGIES: THE PATIENT IS ALLERGIC TO CODEINE AND MORPHINE. REVIEW OF SYSTEMS: She had some weakness, but does not have fevers. She has no headache. She has no neck pain. She has no chest pain. She does have difficulty breathing and she has some cough. She has no nausea or vomiting. She has no abdominal pain. She does not have any leg edema. PHYSICAL EXAMINATION: VITAL SIGNS: The patient is afebrile. The blood pressure is 138/61 and the saturation is 99%. HEENT: Shows no facial swelling or erythema. CARDIAC: Reveals a regular rate and rhythm with normal S1 and S2. LUNGS: Auscultation of lungs reveals crackles in both lung chavarria. There is no wheezing. ABDOMEN: Soft and nontender. There is no rebound or guarding. EXTREMITIES: Shows no leg edema or calf tenderness. There is no cyanosis or clubbing. SKIN: Shows no rashes. NEUROLOGICAL: Shows no focal abnormalities. LABORATORY DATA: White blood cell count is 11 and the hemoglobin is 7.8. The platelet count is 344. The BUN to creatinine ratio is normal. The other electrolytes are within normal limits. The BNP is 1093.6. RADIOGRAPHIC DATA: Interval development of moderate pulmonary edema and cardiomegaly. IMPRESSION: 1. Tyyib-mi-jiiesad systolic congestive heart failure. 2. Oboqc-rp-dtvcmkt respiratory failure. 3. Anemia secondary to chronic blood loss, requiring recurrent transfusion. 4. Kttjy-ip-qypjgia kidney injury. 5. Chronic back pain. 6. Chronic obstructive pulmonary disease. PLAN: 1. The patient will receive Lasix 80 mg stat. 2. Continue BiPAP and switch back to oxygen with improvement. 3. The patient has been esquivel-cultured and antibiotics were given. 4. Continue bronchodilators. 5. The patient will need another unit of packed red blood cells. 6. Case discussed with the patient, nursing staff, family, and emergency department. Jasen Richardson MD [facility]/MODL /[id number]
[2019-04-17] MEDS ORDERED: ALPRAZOLAM 0.25 MG TAB PO NR (13:00)
[2019-04-17] MEDS ORDERED: ALPRAZOLAM 0.5 MG TAB ONE (13:01)
[2019-04-17] MEDS: HYDROCODONE/APAP 7.5MG-325MG 1 EA TAB PO PRN (13:50)
[2019-04-17] MEDS: NICOTINE 14 MG/EA PATCH TOP SCH (13:51)
[2019-04-17] MEDS: CARBIDOPA/LEVODOPA 25/100 TAB PO SCH ×2 (13:51→19:13)
[2019-04-17] MEDS: ALLOPURINOL 100 MG TAB PO SCH (13:51)
[2019-04-17] MEDS: LEVOTHYROXINE SODIUM 125 MCG TAB PO SCH (13:51)
[2019-04-17 18:03] LABS: BASOPHILS % 0.2 % (0.0-1.0); HEMATOCRIT 28.4 % (34.2-44.1); HEMOGLOBIN 8.5 g/dL (12.0-16.0); LYMPHOCYTES # (AUTO) 0.2 (1.0-3.2); LYMPHOCYTES % 1.9 % (18.0-39.1); MEAN CORPUSCULAR HEMOGLOBIN 24.1 pg (28-32); MEAN CORPUSCULAR HGB CONC 29.9 g/dL (31-35); MEAN CORPUSCULAR VOLUME 80.7 fL (81-99); MONOCYTES # (AUTO) 0.1 (0.2-0.8); NEUTROPHILS # (AUTO) 9.9 (2.1-6.9); PLATELET COUNT 324 x10e3/uL (140-360); RED BLOOD COUNT 3.52 x10e6/uL (3.6-5.1); RED CELL DISTRIBUTION WIDTH 18.8 % (11.7-14.4)
[2019-04-17 18:27] LABS: ALBUMIN 2.9 g/dL (3.5-5.0); ALBUMIN/GLOBULIN RATIO 0.8 (0.8-2.0); ALKALINE PHOSPHATASE 110 IU/L (40-150); ANION GAP 12.1 mmol/L (8-16); BLOOD UREA NITROGEN 23 mg/dL (7-26); BUN/CREATININE RATIO 26 (6-25); CALCIUM 8.7 mg/dL (8.4-10.2); CARBON DIOXIDE 26 mmol/L (22-29); CHLORIDE 106 mmol/L (98-107); CREATININE, SERUM 0.88 mg/dL (0.57-1.11); EST GLOMERULAR FILTRATION RATE > 60 ML/MIN (60-); GLUCOSE 194 mg/dL (74-118); POTASSIUM 4.1 mmol/L (3.5-5.1); SODIUM 140 mmol/L (136-145)
[2019-04-17 18:40] LABS: ALANINE AMINOTRANSFERASE < 6 IU/L (0-55)
--- NOTE | 2019-04-17 19:47 | NUR ---
patient admitted to icu after am auto painter helper called. pt respiratory distress. initiated bipap with good results. iv abx started. fernández catheter placed. lasix 80iv given . vhg=[id number]. pt less agitated with bipap but continues to c/o difficulty breathing. per , pt takes norco at home and smokes more than 1ppd cigarettes. nicotine patch applied. pain medication and anti anxiety medication given with good relief. pt much calmer. no distress and thankful for the assistance. at bedside. cardiology and gi consulted. 1 (the 2nd of two units)prbc given. no s/s reaction during or post transfusion.
--- NOTE | 2019-04-17 19:51 | NUR ---
nursing report given to car pincher STEVO Freitas.
--- NOTE | 2019-04-17 20:22 | NUR ---
Spoke with Steve at Dr. Corcoran's answering service regarding new consult.
[2019-04-17] MEDS ORDERED: ATORVASTATIN 20 MG TAB PO SCH (21:00)
--- NOTE | 2019-04-17 21:14 | Consultation ---
DATE OF CONSULTATION: 04/17/2019 CLINICAL HISTORY: This is a 79-year-old white woman, known to our service from multiple previous evaluations by Dr. Shane Miles, referred by Dr. Jasen Richardson because of congestive heart failure that required her transfer from the floor to the intensive care unit. This patient is known to have COPD and congestive heart failure with ejection fraction in the range of 35%. Apparently, she has had a myocardial infarction somewhere between 2017 and 2018, wherein her ejection fraction had dropped significantly. She, however, has not had a cardiac catheterization with us. There is a history that she may require bypass surgery, but apparently has refused to take it. Thus, however, I am not able to verify based on medical records. In the past, this patient has had history of medication overdose, history of hypothyroidism, anemia, dementia, insulin-dependent diabetes, hypertension, hyperlipidemia, chronic kidney disease, CVA, reported ventricular shunt, subaortic stenosis, carotid disease, and diastolic dysfunction. CURRENT MEDICATIONS: Included cefepime, insulin, pantoprazole, carbidopa/levodopa, acetaminophen with hydrocodone, Lasix, ondansetron, escitalopram oxalate, allopurinol, levothyroxine, and atorvastatin. PERSONAL AND SOCIAL HISTORY: She stopped smoking in 2002. Denies drinking. She was smoking one-pack per day for 45 years. PAST SURGICAL HISTORY: Included diverticulitis surgery, appendectomy, hand surgery x3, and tubal ligation. FAMILY HISTORY: Sister had coronary artery disease. Father had coronary artery disease. REVIEW OF SYSTEMS: Noncontributory. PHYSICAL EXAMINATION: VITAL SIGNS: Stable. CARDIAC: Jugular veins are not distended. S1 and S2 are regular. There are no appreciable murmurs. LUNGS: Clear. ABDOMEN: Soft. Bowel sounds are present. EXTREMITIES: Show no cyanosis, clubbing, or edema. LABORATORY STUDIES: The white count is 11,000, hemoglobin 7.8, previously was 5.7, and platelet count 344,000. INR is 1.07. BUN 24, creatinine 0.92, bicarb 27, and potassium 3.9. Chest x-ray showed pulmonary congestion, worsening from 04/16/2019. IMPRESSION: 1. Possible mild congestive heart failure with previous ejection fraction estimated at 35%. The last time her ejection fraction was normal, this was in 2017. 2. Chronic obstructive pulmonary disease with history of cigarette smoking for 45 years. 3. Dementia, unable to provide clear history at this time. 4. Presumed myocardial infarction, somewhere between 2017 and 2018. 5. Severe anemia. Hemoglobin 5.7. 6. Hypertension. 7. Hyperlipidemia. 8. Severe hypothyroidism. 9. Mild chronic kidney disease. 10. Chronic pain medication usage with history of overdose. 11. Multiple noncardiac surgeries, mentioned above. 12. Unclear history of cerebrovascular accident and ventricular shunt. 13. Mild subaortic stenosis, apparently diminishes her myocardial infarction. 14. Carotid artery disease, mostly on the right side. 15. History of Parkinson. RECOMMENDATIONS: The patient appears to have improved already with attempted usage of BiPAP and diuretics. She is currently maintained on antibiotics. We will continue current plans. Blood transfusion appears to have helped. MD BELEN CarrilloJ/MODL /[id number] cc: MD Jae Mart MD
[2019-04-18] VITALS (19 sets, daily range): BP systolic 94–121; BP diastolic 42–78
[2019-04-18] MEDS: HYDROCODONE/APAP 7.5MG-325MG 1 EA TAB PO PRN ×3 (00:30→21:00)
[2019-04-18] MEDS: PANTOPRAZOLE 40 MG 10ML VIAL IV SCH ×2 (03:16→14:13)
[2019-04-18] MEDS: LEVOTHYROXINE SODIUM 125 MCG TAB PO SCH (05:32)
[2019-04-18 05:40] LABS: BASOPHILS % 0.1 % (0.0-1.0); HEMATOCRIT 26.2 % (34.2-44.1); HEMOGLOBIN 7.6 g/dL (12.0-16.0); LYMPHOCYTES # (AUTO) 0.3 (1.0-3.2); LYMPHOCYTES % 4.3 % (18.0-39.1); MEAN CORPUSCULAR HEMOGLOBIN 23.4 pg (28-32); MEAN CORPUSCULAR VOLUME 80.6 fL (81-99); MONOCYTES # (AUTO) 0.3 (0.2-0.8); NEUTROPHILS # (AUTO) 7.2 (2.1-6.9); NEUTROPHILS % 91.1 % (38.7-80.0); PLATELET COUNT 311 x10e3/uL (140-360); RED BLOOD COUNT 3.25 x10e6/uL (3.6-5.1); RED CELL DISTRIBUTION WIDTH 19.2 % (11.7-14.4)
[2019-04-18 06:01] LABS: CALCIUM 8.5 mg/dL (8.4-10.2); CREATININE, SERUM 0.92 mg/dL (0.57-1.11)
--- NOTE | 2019-04-18 06:47 | NUR ---
Dr. Richardson notified of low UO and this AM's labs. Orders received.
[2019-04-18] MEDS ORDERED: FUROSEMIDE INJ 10 MG/ML 4 ML VIAL IV ONE (07:00)
[2019-04-18] MEDS: INSULIN REGULAR, HUMAN 100 UNIT/1 ML 3ML VIAL SQ SCH ×4 (08:12→21:56)
[2019-04-18] MEDS: CARBIDOPA/LEVODOPA 25/100 TAB PO SCH ×3 (08:12→17:21)
[2019-04-18] MEDS: CEFEPIME 1GM/NS 0.9% 50 ML 50 ML IV SCH (08:12)
[2019-04-18] MEDS: ESCITALOPRAM OXALATE 10 MG TAB PO SCH ×2 (08:13)
[2019-04-18] MEDS: NICOTINE 14 MG/EA PATCH TOP SCH (08:13)
[2019-04-18] MEDS: ALLOPURINOL 100 MG TAB PO SCH (08:13)
[2019-04-18] MEDS ORDERED: HYDROMORPHONE 1MG/1ML INJ IV ONE (09:24)
--- NOTE | 2019-04-18 10:55 | Progress Note ---
DATE: 04/18/2019 SUBJECTIVE: The patient has less dyspnea. She is on nasal cannula. She is not having fevers. She complains of some pain in the left knee. PHYSICAL EXAMINATION: VITAL SIGNS: The blood pressure is 108/70 and saturation is 99% on 4 liters. HEENT: Shows no facial swelling or erythema. CARDIAC: Reveals regular rate and rhythm with normal S1 and S2. There are no murmurs or rubs. RESPIRATORY: Auscultation of lungs show clear breath sounds bilaterally. There is no wheezing. ABDOMEN: Soft and nontender. There is no rebound or guarding. EXTREMITIES: Show mild edema and tenderness in the left leg. LABORATORY DATA: BUN to creatinine ratio is normal. Other electrolytes within normal limits. White blood cell count is 7.9, hemoglobin is 7.6, and the platelet count is 311. PT is 14.6. Chest x-ray shows interval pulmonary edema. IMPRESSION: 1. Acute on chronic systolic congestive heart failure. 2. Chronic obstructive pulmonary disease with acute exacerbation. 3. Anemia secondary to chronic blood loss requiring transfusions. 4. Chronic left leg pain. 5. Parkinson disease. PLAN: 1. Continue current cardiac regimen and diuretics. 2. Continue to monitor blood counts and transfuse as needed. 3. Await further input from Gastroenterology. Jasen Richardson MD [facility]/MODL /[id number]
[2019-04-18 11:18] LABS: HYPOCHROMASIA SLIGHT
[2019-04-18 15:41] LABS: BASOPHILS % 0.2 % (0.0-1.0); EOSINOPHILS % 0.2 % (0.0-6.0); HEMATOCRIT 26.2 % (34.2-44.1); HEMOGLOBIN 7.7 g/dL (12.0-16.0); LYMPHOCYTES # (AUTO) 0.7 (1.0-3.2); LYMPHOCYTES % 7.1 % (18.0-39.1); MEAN CORPUSCULAR HEMOGLOBIN 23.8 pg (28-32); MEAN CORPUSCULAR HGB CONC 29.4 g/dL (31-35); MEAN CORPUSCULAR VOLUME 81.1 fL (81-99); MONOCYTES # (AUTO) 1.1 (0.2-0.8); MONOCYTES % 10.9 % (4.4-11.3); NEUTROPHILS # (AUTO) 7.8 (2.1-6.9); NEUTROPHILS % 80.9 % (38.7-80.0); PLATELET COUNT 277 x10e3/uL (140-360); RED BLOOD COUNT 3.23 x10e6/uL (3.6-5.1); RED CELL DISTRIBUTION WIDTH 19.8 % (11.7-14.4)
[2019-04-18 15:54] LABS: ANION GAP 12.3 mmol/L (8-16); CALCIUM 8.5 mg/dL (8.4-10.2); CREATININE, SERUM 1.16 mg/dL (0.57-1.11); POTASSIUM 4.3 mmol/L (3.5-5.1)
[2019-04-18] MEDS: ALPRAZOLAM 0.25 MG TAB PO PRN (18:15)
--- NOTE | 2019-04-18 20:22 | NUR ---
Spoke with Ada at answering service for Dr. Farris regarding new consult at 2014.
--- NOTE | 2019-04-18 21:00 | NUR ---
Patient consistently income tax consultant light, however, when nurse goes to the room patient just states it was an accident.
[2019-04-19] VITALS (8 sets, daily range): BP systolic 106–140; BP diastolic 65–74
[2019-04-19] MEDS: ALPRAZOLAM 0.25 MG TAB PO PRN (01:00)
[2019-04-19] MEDS: PANTOPRAZOLE 40 MG 10ML VIAL IV SCH ×2 (02:34→08:26)
[2019-04-19 06:23] LABS: BASOPHILS % 0.3 % (0.0-1.0); EOSINOPHILS # (AUTO) 0.1 (0.0-0.4); EOSINOPHILS % 1.8 % (0.0-6.0); HEMATOCRIT 25.2 % (34.2-44.1); HEMOGLOBIN 7.3 g/dL (12.0-16.0); LYMPHOCYTES # (AUTO) 0.7 (1.0-3.2); MEAN CORPUSCULAR HEMOGLOBIN 23.3 pg (28-32); MEAN CORPUSCULAR VOLUME 80.5 fL (81-99); MONOCYTES # (AUTO) 0.9 (0.2-0.8); MONOCYTES % 12.6 % (4.4-11.3); NEUTROPHILS # (AUTO) 5.5 (2.1-6.9); NEUTROPHILS % 75.3 % (38.7-80.0); PLATELET COUNT 296 x10e3/uL (140-360); RED BLOOD COUNT 3.13 x10e6/uL (3.6-5.1); RED CELL DISTRIBUTION WIDTH 19.7 % (11.7-14.4)
[2019-04-19 06:55] LABS: ALBUMIN 2.8 g/dL (3.5-5.0); ALBUMIN/GLOBULIN RATIO 0.9 (0.8-2.0); ALKALINE PHOSPHATASE 86 IU/L (40-150); BLOOD UREA NITROGEN 31 mg/dL (7-26); BUN/CREATININE RATIO 27 (6-25); CALCIUM 8.4 mg/dL (8.4-10.2); CARBON DIOXIDE 29 mmol/L (22-29); CHLORIDE 106 mmol/L (98-107); CREATININE, SERUM 1.13 mg/dL (0.57-1.11); EST GLOMERULAR FILTRATION RATE 47 ML/MIN (60-); GLUCOSE 110 mg/dL (74-118); SODIUM 140 mmol/L (136-145)
[2019-04-19 06:56] LABS: ALANINE AMINOTRANSFERASE < 6 IU/L (0-55)
[2019-04-19] MEDS: HYDROCODONE/APAP 7.5MG-325MG 1 EA TAB PO PRN ×3 (07:15→21:41)
[2019-04-19] MEDS: LEVOTHYROXINE SODIUM 125 MCG TAB PO SCH (07:17)
[2019-04-19 07:23] LABS: MAGNESIUM 1.9 MG/DL (1.3-2.1)
[2019-04-19] MEDS: INSULIN REGULAR, HUMAN 100 UNIT/1 ML 3ML VIAL SQ SCH ×4 (07:30→20:15)
--- NOTE | 2019-04-19 07:31 | NUR ---
patient endorsed to next shift for continue of care.
[2019-04-19] MEDS: CARBIDOPA/LEVODOPA 25/100 TAB PO SCH ×3 (08:26→12:18)
[2019-04-19] MEDS: ALLOPURINOL 100 MG TAB PO SCH (08:26)
[2019-04-19] MEDS: NICOTINE 14 MG/EA PATCH TOP SCH (08:26)
[2019-04-19] MEDS: ESCITALOPRAM OXALATE 10 MG TAB PO SCH (08:26)
[2019-04-19] MEDS: IRON SUCROSE 100 MG in SODIUM CHLORIDE 0.9% 100 ML 100 ML IV SCH (08:43)
[2019-04-19] MEDS: ACETAMINOPHEN 325 MG TAB PO PRN (09:03)
[2019-04-19 09:09] LABS: HYPOCHROMASIA MODERATE
--- NOTE | 2019-04-19 09:24 | Diagnostic Imaging Report ---
EXAMINATION: CHEST SINGLE (PORTABLE) INDICATION: CHF COMPARISON: Multiple prior chest radiograph, most recently 04/17/2019 FINDINGS: LINES/TUBES:Right chest port unchanged. EKG leads overlie the chest. LUNGS:The lungs are moderately inflated. There is perihilar fullness and indistinctness of the pulmonary vasculature. PLEURA:No pleural effusion or pneumothorax. MEDIASTINUM:Cardiomediastinal silhouette is stably enlarged. Atherosclerotic calcifications of the thoracic aorta. BONES/SOFT TISSUES:No acute osseous injury. ABDOMEN:No free air under the diaphragm. IMPRESSION: Cardiomegaly and unchanged pulmonary edema. Signed by: Aylin Andrew MD on 04/19/2019 9:22 AM
--- NOTE | 2019-04-19 11:15 | Progress Note ---
DATE: 04/19/2019 SUBJECTIVE: The patient had more confusion. Her breathing is stable. She is not complaining of pain. PHYSICAL EXAMINATION: VITAL SIGNS: The blood pressure is 106/74. Saturation is 98%. Pulse is 73. HEENT: No facial swelling or erythema. The nasal mucosa is normal. The oropharynx is normal. LYMPHATIC: No submandibular, cervical, or supraclavicular adenopathy. CARDIAC: Regular rate and rhythm with normal S1, S2. LUNGS: Auscultation of lungs reveals rhonchorous breath sounds bilaterally. There is no wheezing. ABDOMEN: Soft and nontender. There is no rebound or guarding. EXTREMITIES: No leg edema or calf tenderness. There is no cyanosis or clubbing. SKIN: No rashes. NEUROLOGICAL: No focal abnormalities. IMPRESSION: 1. Acute on chronic systolic congestive heart failure. 2. Anemia secondary to chronic blood loss, requiring blood transfusions. 3. Metabolic encephalopathy. 4. Parkinson disease. 5. Chronic obstructive pulmonary disease. PLAN: 1. Continue current cardiac regimen. 2. Continue to monitor blood counts and transfuse as necessary. 3. Await input from Hematology and Gastroenterology. 4. Continue oxygen. Jasen Richardson MD [facility]ISA /[id number]
[2019-04-19] MEDS ORDERED: HALOPERIDOL LACTATE 5 MG/ML VIAL IM PRN (14:30)
[2019-04-19] MEDS ORDERED: RISPERIDONE 0.5 MG TAB PO PRN (14:30)
--- NOTE | 2019-04-19 18:45 | NUR ---
Report received. Assumed care. Assessment done. See interventions.
--- NOTE | 2019-04-19 20:58 | Consultation ---
DATE OF CONSULTATION: 04/19/2019 Psychiatric Consultation HISTORY OF PRESENT ILLNESS: The patient evaluated and events noted. The patient is in the room with . The patient is calm. She is alert, awake, and oriented to self, place, year. Knows the current president. She reports feeling anxious because she wants to go home. She denies any depression. She denies any suicidal or homicidal ideation. She denies any hallucination. Thought process is concrete. Answering questions appropriately. She is not paranoid. Denies any problem with sleep, appetite, although she is very thin looking. Collaborative report from the , who claims that the patient is hospitalized. She was found to have a low hemoglobin. claims the patient does have history of dementia, but no bipolar history. She does have mood swings. He admits that they own 10 to 12 guns at home and she occasionally get mad and would be shooting up on the ceiling. claims that almost all of the guns are locked and he has the ruffin, but he has one open underneath the pillow. Discussed gun safety with the and he verbalizes that she does not know where the gun is. However, he does admit to me that the gun is hidden underneath the pillow. As per the , patient is doing well. Psychiatrically, she has no paranoia. She is not depressed and she is eating, sleeping well. PAST PSYCHIATRIC HISTORY: The patient has history of dementia. She denies past suicide attempts. She does not drink alcohol or use any drugs. FAMILY HISTORY: None. SOCIAL HISTORY: The patient lives with her . MENTAL STATUS EXAM: The patient is elderly female. She is alert, awake, and oriented to situation. Her mood is fair. Affect is congruent with mood. Psychomotor state is passive. She denies any suicidal or homicidal ideation. She denies any hallucination. Thought process is concrete. No delusion or paranoia elicited. Insight and judgment are fair. Memory appears to be grossly intact. CURRENT MEDICATIONS: 1. Insulin. 2. Sinemet. 3. Tylenol. 4. Iron sucrose. 5. Nicotine. 6. Lexapro 5 mg p.o. daily. 7. Allopurinol. 8. Pantoprazole. 9. Levothyroxine. 10. [facility]. 11. Xanax 0.25 mg p.o. q.6h as needed. 12. Lasix. 13. Dextrose. 14. Sodium chloride. 15. Ondansetron. CURRENT LABORATORY DATA: WBC 7.33, RBC 3.13, hemoglobin 7.3, hematocrit 25.2, platelets 296. Sodium 140, potassium 4.0, chloride 106, CO2 of 29, BUN 31, creatinine 1.22. ASSESSMENT: 1. Adjustment disorder with mixed mood. 2. History of dementia. 3. Rule out psychosis. PLAN: 1. Discontinue Lexapro due to anemia. 2. Continue with Xanax p.r.n. 3. Add Risperdal p.r.n. p.o. 4. Add Haldol p.r.n. IM. 5. Monitor for mood and agitation. 6. We will discuss with Case Management to evaluate possible APS and gun safety discussion. Thank you for this consultation. Dictated by Marylin Koehler PA-C Neftaly Farris MD [facility]/CARSON[facility] /[id number]
--- NOTE | 2019-04-19 21:42 | NUR ---
Medicated for c/o pain 10/20 to bilat legs.
[2019-04-20] VITALS: BP 137/63
[2019-04-20] MEDS: ALPRAZOLAM 0.25 MG TAB PO PRN (02:15)
--- NOTE | 2019-04-20 02:15 | NUR ---
Medicated for anxiety.
[2019-04-20] MEDS: PANTOPRAZOLE 40 MG 10ML VIAL IV SCH (03:15)
[2019-04-20 04:00] VITALS: BP 139/70
[2019-04-20] MEDS: LEVOTHYROXINE SODIUM 125 MCG TAB PO SCH (05:49)
[2019-04-20 06:33] LABS: ABG PH 7.36 (7.31-7.41)
[2019-04-20 06:34] LABS: ABG BASE EXCESS -0.7 mmol/L (-2 - 3); ABG HCO3 25 mmol/L (23-28); ABG PCO2 46 mmHg (41-51); ABG PO2 231 mmHg (80-105)
[2019-04-20 06:34] LABS: BASOPHILS % 0.8 % (0.0-1.0); EOSINOPHILS # (AUTO) 0.3 (0.0-0.4); EOSINOPHILS % 5.3 % (0.0-6.0); HEMATOCRIT 25.7 % (34.2-44.1); HEMOGLOBIN 7.4 g/dL (12.0-16.0); LYMPHOCYTES # (AUTO) 0.7 (1.0-3.2); LYMPHOCYTES % 14.8 % (18.0-39.1); MEAN CORPUSCULAR HEMOGLOBIN 23.7 pg (28-32); MEAN CORPUSCULAR HGB CONC 28.8 g/dL (31-35); MEAN CORPUSCULAR VOLUME 82.4 fL (81-99); MONOCYTES # (AUTO) 0.8 (0.2-0.8); MONOCYTES % 15.8 % (4.4-11.3); NEUTROPHILS # (AUTO) 3.1 (2.1-6.9); NEUTROPHILS % 62.7 % (38.7-80.0); PLATELET COUNT 269 x10e3/uL (140-360); RED BLOOD COUNT 3.12 x10e6/uL (3.6-5.1); RED CELL DISTRIBUTION WIDTH 19.8 % (11.7-14.4)
[2019-04-20 06:35] LABS: ABG OXYGEN SATURATION 99.5 % (95-98)
--- NOTE | 2019-04-20 06:36 | NUR ---
c/o SOB. Placed on Bipap per request. Throughout the night has had multiple wet diapers and pericare done with each one.
[2019-04-20] MEDS: HYDROCODONE/APAP 7.5MG-325MG 1 EA TAB PO PRN (07:22)
[2019-04-20] MEDS: CARBIDOPA/LEVODOPA 25/100 TAB PO SCH ×2 (07:22→11:33)
[2019-04-20] MEDS: IRON SUCROSE 100 MG in SODIUM CHLORIDE 0.9% 100 ML 100 ML IV SCH (07:25)
[2019-04-20] MEDS: INSULIN REGULAR, HUMAN 100 UNIT/1 ML 3ML VIAL SQ SCH ×2 (07:30→11:35)
[2019-04-20 08:00] VITALS: BP 134/64
--- NOTE | 2019-04-20 09:25 | Progress Note ---
DATE: 04/20/2019 SUBJECTIVE: The patient feels better. She is receiving an iron transfusion this morning. PHYSICAL EXAMINATION: VITAL SIGNS: Blood pressure is 139/70, saturation is 94%. HEENT: Shows no facial swelling or erythema. CARDIAC: Reveals a regular rate and rhythm with normal S1 and S2. LUNGS: Auscultation of lungs reveals clear breath sounds bilaterally. There is no wheezing. ABDOMEN: Soft, nontender. There is no rebound or guarding. EXTREMITIES: Show no leg edema or calf tenderness. There is no cyanosis or clubbing. SKIN: Shows no rashes. LABORATORY DATA: White blood cell count is 4.88, hemoglobin 7.4. The platelet count is 269. Blood sugar is 239. IMPRESSION: 1. Ldulf-gg-tksyitc systolic congestive heart failure. 2. Anemia secondary to chronic blood loss, requiring recurrent transfusions. 3. Metabolic encephalopathy. 4. Parkinson disease. 5. Chronic obstructive pulmonary disease. PLAN: 1. Continue Ferrlecit infusions. 2. Continue to follow recommendations of Hematology and GI. 3. Continue current cardiac regimen. 4. Out of bed as tolerated. Jasen Richardson MD [facility]/MODL /[id number]
[2019-04-20] MEDS: ALLOPURINOL 100 MG TAB PO SCH (09:29)
[2019-04-20] MEDS: NICOTINE 14 MG/EA PATCH TOP SCH (09:29)
[2019-04-20 10:22] LABS: HYPOCHROMASIA SLIGHT; PLATELET ESTIMATE ADEQUATE; RBC MORPHOLOGY COMMENT ABNORMAL
[2019-04-20 10:23] LABS: ANISOCYTOSIS SLIGHT; PLATELET MORPHOLOGY COMMENT FEW LARGE; POLYCHROMASIA FEW
[2019-04-20] MEDS ORDERED: RISPERDAL0.5 MG PO (11:46)
[2019-04-20] MEDS ORDERED: ALPRAZOLAM0.25 MG PO (11:46)
--- NOTE | 2019-04-21 07:30 | Discharge Summary ---
CHIEF COMPLAINT: Weakness due to low hemoglobin. HISTORY OF PRESENT ILLNESS: Ms. Mckeon is a 79-year-old female with history of recurrent blood transfusions. They got admitted with fatigue and weakness. She is a poor historian. She was found to be lethargic. PAST MEDICAL HISTORY: Her history from past medical records include; hypertension, type 2 diabetes mellitus, COPD, hypothyroidism, CHF, anemia, hyperlipidemia, and chronic back pain. Myelodysplastic syndrome, hypertension with chronic kidney disease stage 3, chronic systolic congestive heart failure, type 2 diabetes mellitus with chronic kidney disease stage 3, Parkinson's disease, anxiety, depression, chronic arteriovenous malformation. PAST SURGICAL HISTORY: Right hip surgery, back surgery, appendectomy, tubal ligation, . Left eye cataract surgery, Port-A-Cath placement. FAMILY HISTORY: Hypertension. The patient's grandmother had diabetes. ALLERGIES: CODEINE, MORPHINE. SOCIAL HISTORY: The patient admitted to smoking one pack of cigarettes per day. ADMITTING DIAGNOSES: 1. Anemia due to GI bleed. 2. Hypertension. 3. History of chronic systolic congestive heart failure. 4. Type 2 diabetes mellitus, chronic kidney disease stage 3. 5. Pulmonary edema. DISCHARGE DIAGNOSES: 1. Chronic anemia, status post 2 units of blood transfused. 2. Acute on chronic systolic congestive heart failure with acute pulmonary edema and ejection fraction of 30% to 35%. 3. Chronic obstructive pulmonary disease without exacerbation, active smoker. 4. Controlled hypertension with acute on chronic systolic congestive heart failure and chronic kidney disease stage 3. 5. Controlled type 2 diabetes mellitus with chronic kidney disease stage 3. 6. Chronic kidney disease stage 3. 7. Hyperlipidemia. 8. Parkinson's, anxiety, depression, adjustment disorder with mixed mood. 9. Hypothyroidism. PHYSICAL EXAMINATION: The patient was afebrile during her stay. T-max 99.6. LABORATORY DATA: On admission, hemoglobin 5.7, hematocrit 20.4, platelets 259,000. Today, the day of discharge, hemoglobin 7.4, hematocrit 25.7, platelets 269,000. On April , PT 14.6, INR 1.07, PTT 37.8. On admission; B-type natriuretic peptide 1093.6. Cardiac enzymes/bowel markers were normal. On admission; BUN 25, creatinine 0.83, GFR greater than 60. On April 16; iron 11, TIBC 342, percent saturation 3, transferrin 244, ferritin 27.33, vitamin B12 of 450. Folate pending. Yesterday; BUN 31, creatinine 1.13, GFR 47. Blood culture showed no growth after 72 hours. Chest x-ray on April 18 showed cardiomegaly and unchanged pulmonary edema. ASSESSMENT AND PLAN: The patient is seen in her room. She is sitting on the edge of the bed, awake, alert, oriented, anxious to leave. is at the bedside. Consultations during her stay include Dr. Neftaly Farris with Psychiatry, who followed due to adjustment disorder with mixed mood; Dr. Shane Miles of Cardiology; Dr. Emani Brooks with Hematology/Oncology; Dr. Jasen Richardson with Pulmonology; and Dr. Giovanni Corcoran of Gastroenterology. The patient required BiPAP at one point during her stay due to shortness of breath. Bronchodilators were utilized. Iron infusions were used to low iron and low iron saturation. The patient was on fluid restriction of 1.5 L per day and Lasix was given post blood transfusions. The patient is to continue ADA diet. Activity level as tolerated. Per at the bedside, they will plan on making an appointment for a bone marrow biopsy at [facility] as discussed with Dacia Liang PA-C. Follow up with other consultants as directed. Haptoglobin pending. Follow up with PCP, Dr. John in 1-2 weeks. Dictated by Sridhar Mcclelland NP Jae John MD [facility]/MODL /[id number]
== END 2019-04-20 12:59 | disposition home or self-care (01) | DRG 291 ==
LOC: ER 05:38 → ERHOLD 06:30 → MED/SURG 12:10 → ICU 04-17 07:47 → OBSVTOIN 04-17 08:19 → IMCU 04-18 20:51
PROVIDERS: ADMIT Internal Medicine; ATTEND Internal Medicine
DX: I13.0 Hypertensive heart and chronic kidney disease with heart failure and stage 1 through stage 4 chronic kidney disease, or unspecified chronic kidney disease (principal); J96.20 Acute and chronic respiratory failure, unspecified whether with hypoxia or hypercapnia; Q24.4 Congenital subaortic stenosis; I50.23 Acute on chronic systolic (congestive) heart failure; N17.9 Acute kidney failure, unspecified; J44.1 Chronic obstructive pulmonary disease with (acute) exacerbation; D50.0 Iron deficiency anemia secondary to blood loss (chronic); F03.90 Unspecified dementia, unspecified severity, without behavioral disturbance, psychotic disturbance, mood disturbance, and anxiety; E78.5 Hyperlipidemia, unspecified; N18.3 Chronic kidney disease, stage 3 (moderate); F43.23 Adjustment disorder with mixed anxiety and depressed mood; Z86.73 Personal history of transient ischemic attack (TIA), and cerebral infarction without residual deficits; J44.9 Chronic obstructive pulmonary disease, unspecified; F17.210 Nicotine dependence, cigarettes, uncomplicated; E03.9 Hypothyroidism, unspecified; Z79.899 Other long term (current) drug therapy; E11.22 Type 2 diabetes mellitus with diabetic chronic kidney disease; G20 Parkinson's disease
CPT/HCPCS: 36415; 36600; 51701; 71045; 80048; 80053; 82550; 82553; 82607; 82728; 82746; 82805; 82948; 83010; 83540; 83605; 83615; 83735; 83880; 84100; 84466; 84484; 85025; 85045; 85610; 85730; 86850; 86900; 86920; 87040; 93005; 93306; 93970; 94660; 99284; G0378; J0692; J1170; J1756; J1817; J1940; J2930; J3370; J7050; P9016

== ENCOUNTER 2019-04-28 12:29 | Observation (INO) | payer MEDICARE ==
[~2019-04-28] VITALS: Ht 160 cm; Wt 62.1 kg
[~2019-04-28 12:29] MED LIST changes: +ALPRAZOLAM0.25 MG PO; +RISPERDAL0.5 MG PO
[2019-04-28 13:38] VITALS: BP 119/72
[2019-04-28] MEDS ORDERED: SODIUM CHLORIDE 0.9% 250ML 250 ML IV ONE (14:00)
--- NOTE | 2019-04-28 14:00 | NUR ---
Patient arrived to unit. bakery sales clerk at bedside to complete admission process.
--- NOTE | 2019-04-28 14:30 | NUR ---
inserted 20g IV to patients right forearm.
--- NOTE | 2019-04-28 15:00 | NUR ---
radiologist declined to proceed with bone marrow biopsy. LUIS FERNANDO Julian, notified. no further orders received.
[2019-04-28 15:02] LABS: BASOPHILS % 0.4 % (0.0-1.0); EOSINOPHILS # (AUTO) 0.4 (0.0-0.4); EOSINOPHILS % 4.4 % (0.0-6.0); HEMATOCRIT 24.6 % (34.2-44.1); LYMPHOCYTES # (AUTO) 0.6 (1.0-3.2); LYMPHOCYTES % 7.7 % (18.0-39.1); MEAN CORPUSCULAR HEMOGLOBIN 23.6 pg (28-32); MEAN CORPUSCULAR HGB CONC 27.6 g/dL (31-35); MEAN CORPUSCULAR VOLUME 85.4 fL (81-99); MONOCYTES # (AUTO) 0.8 (0.2-0.8); MONOCYTES % 10.2 % (4.4-11.3); NEUTROPHILS # (AUTO) 6.2 (2.1-6.9); NEUTROPHILS % 76.6 % (38.7-80.0); PLATELET COUNT 242 x10e3/uL (140-360); RED BLOOD COUNT 2.88 x10e6/uL (3.6-5.1); RED CELL DISTRIBUTION WIDTH 21.2 % (11.7-14.4)
[2019-04-28 15:10] LABS: INR 1.01; PROTHROMBIN TIME 13.9 seconds (11.9-14.5)
[2019-04-28 15:11] LABS: HEMOGLOBIN 6.8 g/dL (12.0-16.0)
[2019-04-28 15:20] LABS: ALBUMIN 3.2 g/dL (3.5-5.0); ALBUMIN/GLOBULIN RATIO 0.8 (0.8-2.0); ANION GAP 13.5 mmol/L (8-16); CALCIUM 8.9 mg/dL (8.4-10.2); CREATININE, SERUM 1.4 mg/dL (0.57-1.11); POTASSIUM 4.5 mmol/L (3.5-5.1)
--- NOTE | 2019-04-28 15:30 | NUR ---
Blood bank working on obtaining unit of ordered PRBC. will transfuse when ready.
[2019-04-28] MEDS ORDERED: LANTUS 3ML100 UNITS/ SC (15:53)
[2019-04-28] MEDS ORDERED: NORCO 10-325 T1 EACH PO (15:53)
[2019-04-28] MEDS ORDERED: NOVOLIN N100 UNIT/1 (15:53)
[2019-04-28 16:12] VITALS: BP 119/64
--- NOTE | 2019-04-28 16:33 | NUR ---
hgb of 6.8 called to unit. LUIS FERNANDO Julian notified and aware that unit of blood may take some time to get here to hospital.
[2019-04-28] MEDS ORDERED: DEXTROSE 50% SYRINGE 50 ML IV PRN (17:30)
[2019-04-28] MEDS ORDERED: HYDRALAZINE HCL 20 MG/ML VIAL IV PRN (17:30)
[2019-04-28] MEDS ORDERED: ONDANSETRON HCL INJ 2MG/ML 2ML 2 MG/ML VIAL IV PRN (17:30)
[2019-04-28] MEDS ORDERED: ACETAMINOPHEN 325 MG TAB PO PRN (17:30)
[2019-04-28] MEDS ORDERED: RISPERIDONE 0.5 MG TAB PO PRN (17:30)
[2019-04-28] MEDS ORDERED: SODIUM FERRIC GLUCONATE COMPLX 125 MG in SODIUM CHLORIDE 0.9% 100 ML 100 ML IV SCH (17:30)
--- NOTE | 2019-04-28 19:15 | NUR ---
RECEIVED THE PATIENT IN REPORT.LYEING IN THE BED.ASSESSMENT DONE.NO RESP.DISTRESS.MARVIN.LOWER EXTREMITY EDEMA NOTED.BED ALARM.ON.BED LOCKED AND IN LOWEST POSITION.PHONE AND CALL LIGHT WITHIN REACH.INSTRUCTED TO CALL FOR ASSISTANCE NEEDED.
[2019-04-28 20:00] VITALS: BP 133/68
[2019-04-28] MEDS: INSULIN LISPRO 100 UNIT/1 ML 3ML VIAL SQ SCH (21:00)
[2019-04-28] MEDS ORDERED: INSULIN GLARGINE 100 UNITS/ML VIAL SC SCH (21:00)
[2019-04-28] MEDS: CARBIDOPA/LEVODOPA 25/100 TAB PO SCH (21:59)
[2019-04-28] MEDS: ATORVASTATIN 40 MG TAB PO SCH (21:59)
[2019-04-28 22:00] VITALS: BP 133/68
--- NOTE | 2019-04-28 23:15 | NUR ---
BLOOD TRANSFUSION STARTED AFTER VERIFIED WITH STEVO HOANG.V/S STABLE.
--- NOTE | 2019-04-28 23:30 | NUR ---
CALL PLACED TO REGARDING BONE BIOPSY.HE CANCELLED THE ORDER.BECAUSE RADIOLOGY IS NOT DOING THE PROCEDURE.HE ORDERED ANOTHER UNIT OF BLOOD FOR TOMORROW.
[2019-04-29] VITALS (7 sets, daily range): BP systolic 108–143; BP diastolic 56–77
[2019-04-29] MEDS ORDERED: FUROSEMIDE INJ 10 MG/ML 2 ML VIAL IV ONE (02:00)
[2019-04-29] MEDS ORDERED: ALBUTEROL/IPRATROPIUM 3 ML NEB NEB PRN (02:00)
--- NOTE | 2019-04-29 02:22 | NUR ---
BLOOD TRANSFUSION COMPLETED.STABLE CONDITION.
--- NOTE | 2019-04-29 02:29 | NUR ---
HAS SHORTNESS OF BREATH.NOTIFIED TO HOLDEN DONAHUE.RECEIVED NEW ORDERS.INJ LASIX 20MMG IV GIVEN.KEP MONITOR THE PATIENT.
[2019-04-29] MEDS ORDERED: SODIUM CHLORIDE 0.9% 250ML 250 ML IV ONE ×2 (02:45→10:30)
[2019-04-29] MEDS: LEVOTHYROXINE SODIUM 125 MCG TAB PO SCH (05:33)
[2019-04-29 05:48] LABS: BASOPHILS % 0.4 % (0.0-1.0); EOSINOPHILS # (AUTO) 0.3 (0.0-0.4); EOSINOPHILS % 2.9 % (0.0-6.0); HEMATOCRIT 26.2 % (34.2-44.1); HEMOGLOBIN 7.4 g/dL (12.0-16.0); LYMPHOCYTES # (AUTO) 0.6 (1.0-3.2); LYMPHOCYTES % 5.8 % (18.0-39.1); MEAN CORPUSCULAR HEMOGLOBIN 24.1 pg (28-32); MEAN CORPUSCULAR HGB CONC 28.2 g/dL (31-35); MEAN CORPUSCULAR VOLUME 85.3 fL (81-99); MONOCYTES # (AUTO) 1.1 (0.2-0.8); MONOCYTES % 10.2 % (4.4-11.3); NEUTROPHILS # (AUTO) 8.3 (2.1-6.9); NEUTROPHILS % 79.9 % (38.7-80.0); PLATELET COUNT 223 x10e3/uL (140-360); RED BLOOD COUNT 3.07 x10e6/uL (3.6-5.1)
[2019-04-29 06:05] LABS: ANION GAP 11.3 mmol/L (8-16); CALCIUM 8.9 mg/dL (8.4-10.2); CREATININE, SERUM 1.05 mg/dL (0.57-1.11); POTASSIUM 4.3 mmol/L (3.5-5.1)
--- NOTE | 2019-04-29 06:15 | NUR ---
SECOND UNIT OF BLOOD STARTED.V/S STABLE.
--- NOTE | 2019-04-29 06:30 | NUR ---
HAD A CUP OF APPLE JUICE.
--- NOTE | 2019-04-29 07:00 | NUR ---
BED SIDE SHIFT REPORT GIVEN TO ONCOMING RN.STABLE CONDITION.
[2019-04-29] MEDS: INSULIN LISPRO 100 UNIT/1 ML 3ML VIAL SQ SCH ×4 (07:30→20:29)
[2019-04-29] MEDS: FAMOTIDINE 20 MG TAB PO SCH ×2 (08:30→16:45)
--- NOTE | 2019-04-29 08:44 | NUR ---
Hematology/Oncology Admission Note: Reason for admission: Anemia HPI: Resting comfortably, no new complaints; discussed with at bedside 12 point ROS negative unless otherwise stated in HPI. Physical Exam: Vitals: reviewed per EMR. General: Awake, alert, no acute distress HEENT: NC, AT, EOMI Respiratory: Decreased breath sounds bilaterally Cardiovascular: Regular rate, rhythm Abdomen: Soft, non-tender, non-distended Extremities: 1+ pitting edema bilateral LE Neurological: Awake, alert Psych: Cooperative Labs: 04/28/19: WBC: 10.39 Hgb: 7.4 Hct: 26.2 Platelet: 223 BUN: 36 Creatinine: 1.05 Assessment and Plan: Ms. Mckeon is a pleasant 79-year-old female with a past medical history of hypertension, diabetes mellitus, congestive heart failure, coronary artery disease, osteoarthritis, Parkinson's, gout, and long-standing history of anemia. She states she has been anemic for 15 years, does follow with Dr. Galloway for anemia. She has been receiving intermittent IV iron infusions. Last GI workup was 6 weeks ago when she had EGD and colonoscopy, patient does state she had bleeding lesions that were discovered and subsequently cauterized during this most recent endoscopy. Patient was seen in clinic on 04/27/19, as a new patient for anemia. Subsequent lab work revealed hemoglobin of 7.0. Patient was contacted regarding abnormal lab results and admitted to [facility] for further management, including blood transfusion. 1. Anemia: Acute on chronic. History of EVELYN/GIB, on IV iron infusions with recent anemia panel revealing severe EVELYN. FISH and flow cytometry also requested in clinic and plan to follow up results as there is concern for underlying MDS. Patient would benefit from bone marrow biopsy, however can be done outpatient in clinic. S/p 1 unit PRBC transfused and 1 dose of IV iron. Hgb 7.4, receiving 1 more unit PRBC currently. No signs of overt GIB at this time. Plan to transfuse to keep hgb >8. Monitor for now. Discussed with primary. 2. History of CHF: Continue home medications. Managed per primary team. 3. CKD: Creatinine improving on IVF. Monitor for now. 4. Medical Management: Internal medicine on borad. 5. DVT proph: SCDs for now secondary to anemia. Above plan discused with Dr. Brooks. I will be available. Please call with questions.
[2019-04-29] MEDS: LISINOPRIL 20 MG TAB PO SCH (09:00)
[2019-04-29] MEDS: POTASSIUM CHLORIDE 20 MEQ TAB CR PO SCH (09:00)
[2019-04-29] MEDS: ESCITALOPRAM OXALATE 10 MG TAB PO SCH (09:00)
[2019-04-29] MEDS: CARBIDOPA/LEVODOPA 25/100 TAB PO SCH ×3 (09:00→19:57)
[2019-04-29] MEDS ORDERED: FUROSEMIDE 40 MG TAB PO SCH (09:00)
[2019-04-29] MEDS: ALLOPURINOL 100 MG TAB PO SCH (09:00)
[2019-04-29] MEDS: HYDROCODONE/APAP 10MG-325MG TAB PO PRN ×2 (10:15→23:30)
--- NOTE | 2019-04-29 13:03 | Diagnostic Imaging Report ---
EXAMINATION: CHEST SINGLE (PORTABLE) INDICATION: Shortness of breath COMPARISON: Multiple prior chest radiograph most recently 04/19/2019 FINDINGS: LINES/TUBES:Right chest port unchanged. LUNGS:The lungs are moderately inflated. There is perihilar fullness and indistinctness of the pulmonary vasculature. Increasing interstitial and bibasilar airspace opacities. PLEURA:No pleural effusion or pneumothorax. MEDIASTINUM:Cardiomediastinal silhouette is stably enlarged. Atherosclerotic calcifications of the thoracic aorta. BONES/SOFT TISSUES:No acute osseous injury. ABDOMEN:No free air under the diaphragm. IMPRESSION: Increasing interstitial opacities and bibasilar patchy airspace opacities, more likely increase in pulmonary edema than superimposed pneumonia. Unchanged cardiomegaly. Signed by: Aylin Andrew MD on 04/29/2019 1:00 PM
[2019-04-29 14:04] LABS: HEMATOCRIT 28.8 % (34.2-44.1); HEMOGLOBIN 8.6 g/dL (12.0-16.0)
--- NOTE | 2019-04-29 14:24 | NUR ---
SPOKE WITH IMER, MOTOR MAN WITH DR ANDERSON, MADE AWARE OF HH, ORDERS NOTED FOR CBC IN AM, AND IF SHE IS STABLE, OKAY TO DC IN AM FROM HER STANDPOINT
[2019-04-29] MEDS: ALPRAZOLAM 0.25 MG TAB PO PRN (19:57)
[2019-04-29] MEDS: ATORVASTATIN 40 MG TAB PO SCH (19:57)
--- NOTE | 2019-04-29 20:00 | NUR ---
PATIENT COMPLAINT OF RESTLESS. XANAX GIVEN PER MD ORDERED
[2019-04-29] MEDS ORDERED: INSULIN GLARGINE 100 UNITS/ML VIAL SC SCH (21:00)
--- NOTE | 2019-04-29 22:30 | NUR ---
PATIENT IS HALLUCINATING. PATIENT KEPT YELLING AND TOLD NURSE TO GET OUT AND NOT TO COME TO HER ROOM. NOTIFIED CHARGE NURSE
[2019-04-30 04:00] VITALS: BP 130/69
[2019-04-30] MEDS: LEVOTHYROXINE SODIUM 125 MCG TAB PO SCH (05:52)
[2019-04-30 05:56] LABS: BASOPHILS % 0.6 % (0.0-1.0); EOSINOPHILS # (AUTO) 0.3 (0.0-0.4); HEMATOCRIT 29.5 % (34.2-44.1); HEMOGLOBIN 8.4 g/dL (12.0-16.0); LYMPHOCYTES # (AUTO) 0.7 (1.0-3.2); LYMPHOCYTES % 9.7 % (18.0-39.1); MEAN CORPUSCULAR HEMOGLOBIN 24.5 pg (28-32); MEAN CORPUSCULAR HGB CONC 28.5 g/dL (31-35); MONOCYTES # (AUTO) 0.8 (0.2-0.8); MONOCYTES % 11.8 % (4.4-11.3); NEUTROPHILS % 73.5 % (38.7-80.0); PLATELET COUNT 221 x10e3/uL (140-360); RED BLOOD COUNT 3.43 x10e6/uL (3.6-5.1); RED CELL DISTRIBUTION WIDTH 19.3 % (11.7-14.4)
[2019-04-30 06:18] LABS: ANION GAP 9.2 mmol/L (8-16); CALCIUM 8.9 mg/dL (8.4-10.2); CREATININE, SERUM 0.94 mg/dL (0.57-1.11); POTASSIUM 4.2 mmol/L (3.5-5.1)
[2019-04-30] MEDS: ALPRAZOLAM 0.25 MG TAB PO PRN (07:03)
[2019-04-30] MEDS: HYDROCODONE/APAP 10MG-325MG TAB PO PRN (07:04)
[2019-04-30 07:28] LABS: FREE T4 (FREE THYROXINE) 0.84 ng/dL (0.8-1.8); THYROID STIMULATING HORMONE 6.744 uIU/mL (0.350-4.940)
[2019-04-30] MEDS: INSULIN LISPRO 100 UNIT/1 ML 3ML VIAL SQ SCH (07:30)
[2019-04-30 07:58] VITALS: BP 139/82
[2019-04-30] MEDS: CARBIDOPA/LEVODOPA 25/100 TAB PO SCH (08:10)
[2019-04-30] MEDS: ESCITALOPRAM OXALATE 10 MG TAB PO SCH (08:10)
[2019-04-30] MEDS: POTASSIUM CHLORIDE 20 MEQ TAB CR PO SCH (08:10)
[2019-04-30] MEDS: FAMOTIDINE 20 MG TAB PO SCH (08:10)
[2019-04-30] MEDS: LISINOPRIL 20 MG TAB PO SCH (08:10)
[2019-04-30] MEDS: ALLOPURINOL 100 MG TAB PO SCH (08:10)
[2019-04-30 08:42] VITALS: BP 139/82
[2019-04-30] MEDS ORDERED: LEVOTHYROXINE112 MCG PO (09:00)
[2019-04-30] MEDS ORDERED: FUROSEMIDE INJ 10 MG/ML 4 ML VIAL IV SCH (09:00)
[2019-04-30] MEDS ORDERED: SODIUM FERRIC GLUCONATE COMPLX 125 MG in SODIUM CHLORIDE 0.9% 100 ML 100 ML IV SCH (09:00)
[2019-04-30] MEDS ORDERED: FUROSEMIDE INJ 10 MG/ML 2 ML VIAL IV ONE (09:40)
--- NOTE | 2019-04-30 10:00 | NUR ---
Hematology/Oncology Progress Note: Reason for admission: Anemia HPI: Resting comfortably, no new complaints; discussed with at bedside 12 point ROS negative unless otherwise stated in HPI. Physical Exam: Vitals: reviewed per EMR. General: Awake, alert, no acute distress HEENT: NC, AT, EOMI Respiratory: Decreased breath sounds bilaterally Cardiovascular: Regular rate, rhythm Abdomen: Soft, non-tender, non-distended Extremities: Trace edema bilateral LE Neurological: Awake, alert Psych: Cooperative Labs: 04/30/19: WBC: 6.77 Hgb: 8.4 Hct: 29.5 Platelet: 221 BUN: 23 Creatinine: 0.94 Assessment and Plan: Ms. Mckeon is a pleasant 79-year-old female with a past medical history of hypertension, diabetes mellitus, congestive heart failure, coronary artery disease, osteoarthritis, Parkinson's, gout, and long-standing history of anemia. She states she has been anemic for 15 years, does follow with Dr. Galloway for anemia. She has been receiving intermittent IV iron infusions. Last GI workup was 6 weeks ago when she had EGD and colonoscopy, patient does state she had bleeding lesions that were discovered and subsequently cauterized during this most recent endoscopy. Patient was seen in clinic on 04/27/19, as a new patient for anemia. Subsequent lab work revealed hemoglobin of 7.0. Patient was contacted regarding abnormal lab results and admitted to [facility] for further management, including blood transfusion. 1. Anemia: Acute on chronic. History of EVELYN/GIB, on IV iron infusions with recent anemia panel revealing severe EVELYN. FISH and flow cytometry also requested in clinic and plan to follow up results as there is concern for underlying MDS. Patient would benefit from bone marrow biopsy, however can be done outpatient in clinic. S/p 1 unit PRBC transfused and 1 dose of IV iron. Hgb improved to 8.4 s/p 2 unit PRBC. Give dose of IV Iron today. No signs of overt GIB at this time. Monitor for now. Discussed with primary. 2. History of CHF: Continue home medications. Managed per primary team. 3. CKD: Creatinine improving on IVF. Monitor for now. 4. Medical Management: Internal medicine on borad. 5. DVT proph: SCDs for now secondary to anemia. 6. Dispo: Patient clear for discharge from HemOnc standpoint. Follow up in clinic on Friday. Above plan discused with Dr. Brooks. I will be available. Please call with questions.
--- NOTE | 2019-05-01 09:21 | Discharge Summary ---
ADMISSION DIAGNOSES: 1. Myelodysplastic syndrome/anemia. 2. Hypertension. 3. Chronic kidney disease 3. 4. Acute on chronic systolic congestive heart failure. 5. Type 2 diabetes with CKD 3. 6. Parkinson's disease. 7. Hypothyroidism. 8. Anxiety and depression. DISCHARGE DIAGNOSES: 1. Myelodysplastic syndrome/anemia. 2. Hypertension. 3. Chronic kidney disease 3. 4. Acute on chronic systolic congestive heart failure. 5. Type 2 diabetes with CKD 3. 6. Parkinson's disease. 7. Hypothyroidism. 8. Anxiety and depression. HISTORY: Hypertension, type 2 diabetes, CKD 3, COPD, hypothyroidism, chronic systolic CHF, anemia/myelodysplastic syndrome, Parkinson's disease, anxiety and depression, chronic AVM, OA, gout. SURGICAL HISTORY: Right hip surgery, back surgery, appendectomy, tubal ligation, left eye cataract surgery, Port-A-Cath placement, . FAMILY HISTORY: The patient's grandmother had diabetes. SOCIAL HISTORY: The patient smokes one pack of cigarettes a day. HOSPITAL COURSE: A 79-year-old female admitted from Dr. Brooks's office for hemoglobin of 6.8. She has a history of anemia and requires frequent transfusions of blood and iron. Her noted more weakness and fatigue lately. On admission, hemoglobin was 6.8. Chest x-ray showed increasing interstitial opacities and bibasilar patchy airspace opacity, more likely pulmonary edema, then pneumonia. The patient was transfused 2 units of PRBCs, which brought her hemoglobin up to 8.4, which remained stable overnight. Due to elevated TSH, the patient's levothyroxine dose was increased to 150 mcg per Hematology recommendation and insistence of the patient, she will discharge home. She will follow up with primary care in 1 to [address] Brooks for bone marrow biopsy. The patient and understand discharge instructions and agreed to plan. Vital signs stable. The patient afebrile. Dictated by Kate Prajapati NP Jae John MD LUZ ELENA/MODL /[id number]
== END 2019-04-30 10:40 | disposition home or self-care (01) ==
LOC: INTOOBSV 13:09 → MED/SURG 13:09
PROVIDERS: ADMIT Internal Medicine; ATTEND Internal Medicine
DX: D46.9 Myelodysplastic syndrome, unspecified (principal); D63.8 Anemia in other chronic diseases classified elsewhere; Z88.5 Allergy status to narcotic agent; I13.0 Hypertensive heart and chronic kidney disease with heart failure and stage 1 through stage 4 chronic kidney disease, or unspecified chronic kidney disease; E11.22 Type 2 diabetes mellitus with diabetic chronic kidney disease; N18.3 Chronic kidney disease, stage 3 (moderate); I50.23 Acute on chronic systolic (congestive) heart failure; E03.9 Hypothyroidism, unspecified; G20 Parkinson's disease; F41.9 Anxiety disorder, unspecified; F32.9 Major depressive disorder, single episode, unspecified; Z83.3 Family history of diabetes mellitus; F17.210 Nicotine dependence, cigarettes, uncomplicated; Z79.4 Long term (current) use of insulin
CPT/HCPCS: 36415; 71045; 80048; 80053; 82948; 83036; 83880; 84439; 84443; 85014; 85018; 85025; 85610; 86850; 86900; 86920; G0378; J1815; J1940; J2916; P9016

== ENCOUNTER 2019-08-22 20:03 | Emergency (ER) | payer MEDICARE ==
[~2019-08-22] VITALS: Ht 160 cm; Wt 62.1 kg
[~2019-08-22 20:03] MED LIST changes: +LANTUS 3ML100 UNITS/ SC; +LEVOTHYROXINE112 MCG PO; +NOVOLIN N100 UNIT/1
--- NOTE | 2019-08-22 21:33 | Diagnostic Imaging Report ---
EXAMINATION: Head CT without contrast. HISTORY:Altered mental status. COMPARISON:CT brain from 12/15/2018. TECHNIQUE: Multidetector axial images were obtained from the foramen magnum to the vertex without contrast. The images were reconstructed using brain and bone algorithms. Thin section brain images were reformatted into coronal and sagittal planes. Dose modulation, iterative reconstruction, and/or weight based adjustment of the mA/kV was utilized to reduce the radiation dose to as low as reasonably achievable. Intravenous contrast: None IMAGE QUALITY: Acceptable. FINDINGS: Skull/scalp: Unchanged postoperative changes from prior right parietal gary hole for ventricular catheter placement. Parenchyma: Nonspecific bilateral frontoparietal confluent and patchy white matter hypodensity are likely related to small vessel ischemic changes. No acute hemorrhage, mass or acute major vascular territorial infarct. Arteries: No density suggestive of thrombosis. Atherosclerotic calcification in bilateral carotid siphon and V4 segment of the vertebral arteries. Dural sinuses: No abnormal density suggestive of thrombosis. Ventricles: Unchanged right parietal approach ventricular catheter, with the tip in the posterior body of right lateral ventricle. Unchanged moderate ventricular dilatation. No acute hydrocephalus. Extra-axial spaces: No abnormal density. Brain volume: Normal for age. Craniocervical junction: No mass, Chiari malformation, or basilar invagination. Sella: No mass. Paranasal/mastoid sinuses: Imaged portions unremarkable. IMPRESSION: 1. No acute intracranial abnormality. 2. No change since CT brain from 12/15/2018. Chronic findings: 1. Moderate supratentorial white matter microvascular ischemic changes. 2. Expected postoperative changes from prior right parietal ventricular catheter without hydrocephalus. Signed by: Dr. Nati Hubbard M.D. on 08/22/2019 9:29 PM
--- NOTE | 2019-08-22 21:49 | Emergency Department Note ---
History of Present Illnes History of Present Illness Chief Complaint: Neurological History of Present Illness This is a 79 year old female who presents to the emergency room with a chief complaint of confusion. Patient has a chronic anemia for myelodysplastic syndrome with frequent transfusions. She was last transfused during an admission on April 28, 2019. Patient denies any symptoms, however the emesis called by her . was reached to send the reason he called him once was the fact that he had some difficulty waking his up, and when he was successfully able to wake her up she was "crying for her mama" and "wanted to be taken out of the house in a body bag". The patient is on [place] for chronic lower back pain. The patient states that her last [place] was this morning she took only one pill. The denies the patient overdosing on due to the fact that he controls her medicines and she does not have access. The patient says there is no change to her chronic lower extremity pain. She denies a fever or any known covert exposures. She states she has a chronic cough with no change which is due to smoking. She denies any dysuria or difficulty urinating. Head headache or any neck pain or stiffness. She denies any chest pain or shortness of breath. 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 Sack Maker Required: No Onset (how long ago): minute(s) Quality: denies pain Severity: unable to specify Onset quality: unable to specify Relieving factors: none Exacerbating factors: none Past Medical/Family History Physician Review I have reviewed the patient's past medical and family history. Any updates have been documented here. Past Medical History Past Medical History: Hypertension, COPD, Hypothyroidism, Anxiety Other Medical History: smokes Past Surgical History: Appendectomy, Tubal Ligation, , Back Surgery, Cataract Removal Other Surgery: RIGHT UPPER CHEST PORT FOR IRON/BLOOD TRANSFUSION SHUNT IN RIGHT SIDE OF HEAD (BEHIND RIGHT EAR) RIGHT HIP SURGERY (2018) BACK SURGERY (25 YEARS AGO) Social History Smoking Cessation: Current every day smoker Counseling Performed: Yes Any Illegal Drug Use: No Other Last Tetanus: UNKNOWN Review of Systems Review of Systems Constitutional: Denies chills, Denies diaphoresis, Denies fever, Denies malaise EENTM: Denies nose congestion, Denies throat pain, Denies throat swelling Cardiovascular: Denies chest pain, Denies edema, Denies palpitations, Denies syncope Respiratory: Reports cough (chronic from smoking. Denies change in baseline); Denies hemoptysis, Denies excessive phlegm production Gastrointestinal: Denies abdominal pain, Denies diarrhea, Denies nausea Genitourinary: Reports no symptoms Musculoskeletal: Reports no symptoms Neurological: Reports no symptoms Psychological: Reports no symptoms Hematological/Lymphatic: Denies easy bleeding, Denies easy bruising Physical Exam Related Data Allergies: Coded Allergies: morphine (Verified Allergy, Mild, RASH,ITCHING, 01/02/18) codeine (Verified Allergy, Unknown, 03/27/19) Physical Exam CONSTITUTIONAL Constitutional: Present well-developed, Present well-nourished HENT HENT: Present normocephalic, Present atraumatic, Present oropharynx normal HENT L/R: Present left TM normal, Present right TM normal EYES NECK Neck: Present ROM normal, Present supple PULMONARY Pulmonary: Present effort normal, Present breath sounds normal, Present rales; Absent respiratory distress CARDIOVASCULAR Cardiovascular: Present regular rhythm, Present heart sounds normal, Present capillary refill normal, Present normal rate GASTROINTESTINAL Abdominal: Present soft, Present nontender, Present bowel sounds normal GENITOURINARY SKIN Skin: Present warm, Present dry; Absent rash MUSCULOSKELETAL Musculoskeletal: Absent edema NEUROLOGICAL Neurological: Present alert, Present oriented x 3, Present DTRs normal, Present no gross motor or sensory deficits, Present cranial nerve deficit, Present sensory deficit, Present abnormal DTRs PSYCHOLOGICAL Psychological: Present behavior normal Results Laboratory Lab results reviewed: Yes Laboratory comments WBCs is 6.6, hemoglobin is 7.5, hematocrit is 24.9, platelet count is 212. A urinalysis shows positive nitrites with negative leukocytes. The urinalysis has small bilirubin and no glucose and no blood. Sodium is 144, potassium is 3.8 bicarbonate is 29, chloride is 104, glucose 117 BUN is 30/10/18 1.4, ALT, AST, & T bili are all normal. The patient's lactate is normal at 1.55., Troponin is normal Imaging Impressions No acute intracranial abnormality. Moderate cardiomegaly and probable mild interstitial lung disease. Hyperexpanded lungs indicative of emphysema. Airspace infection cannot be excluded. Chronic focal hazy opacity in the lateral aspect of the right midlung there is an atelectasis/scarring or treated disease. Diagnostics Tests Diagnostic test(s) reviewed: Yes Diagnostic comments Patient's hemoglobin today is 7.5. Her discharge summary from April05/31/19 was reviewed and noted she was admitted with a hemoglobin of 6.8. She was transfused 2 units of PRBCs which brought her hemoglobin to 8.4 at discharge. Procedures 12 Lead ECG Interpretation ECG Interpretation : ECG: ECG 1 Sack Maker: Interpreted by ED physician Rhythm: sinus rhythm Rate: normal BPM: 68 QRS axis: normal ST segments normal: Yes T waves normal: Yes Q waves: II, III, aVF Clinical Impression: abnormal ECG Assessment & Plan Medical Decision Making MDM Differential for altered mental status includes but is not limited to sepsis, stroke, arrhythmia, anemia, coronary artery disease ([place], angina), dehydration. Patient has a UTI, however has NO signs of sepsis with a normal white count she is not tachycardic and has a normal lactate Reassessment Reassessment time: 21:15 Reassessment Patient seen upright in bed awake alert, appropriate, and oriented 3. at the bedside and confirmed that the patient is on her baseline metal status. The and the requests discharge. Assessment & Plan Final Impression: (1) UTI (urinary tract infection) Depart Disposition: HOME, SELF-longterm Meds Active Scripts Nitrofurantoin Macrocrystal (NITROFURANTOIN) 100 Mg Capsule, 100 MG PO BID for urine infection for 7 Days, #14 Prov:AMARI MILLER MD 08/22/19 Levothyroxine Sodium (LEVOTHYROXINE SODIUM) 112 Mcg Tablet, 150 MCG PO DAILY, #30 TAB 2 Refills RECHECK TSH IN 3 MONTHS Prov:ANA MOONEY NP 04/30/19 Risperidone (RISPERDAL) 0.5 Mg Tablet, 0.5 MG PO Q6H PRN for agitation/psychsis for 14 Days, #30 TAB 0 Refills Prov:GENESIS DONAHUE NP 04/20/19 Alprazolam (ALPRAZOLAM) 0.25 Mg Tablet, 0.25 MG PO Q6H PRN for ANXIETY for 14 Days, #30 TAB 0 Refills Prov:GENESIS DONAHUE NP 04/20/19 Ferrous Sulfate (FERROUS SULFATE) 325 Mg Tablet, 325 MG PO DAILY, #30 Prov:ANA MOONEY NP 03/28/19 Escitalopram Oxalate (LEXAPRO) 10 Mg Tablet, 5 MG PO DAILY for 30 Days Prov:GENESIS DONAHUE HAIR DRESSER 01/26/18 Reported Medications Hydrocodone Bit/Acetaminophen (NORCO 10-325 TABLET) 1 Each Tablet, 1 TAB PO Q6H PRN for SEVERE PAIN (7-10) 04/28/19 Nph, Human Insulin Isophane (NOVOLIN N) 100 Unit/1 Ml Vial 04/28/19 Insulin Glargine (LANTUS 3ML PEN) 100 Units/1 Ml Inj, 60 SC HS 04/28/19 Furosemide (FUROSEMIDE) 40 Mg Tablet, 40 MG PO Daily, #30 TAB 03/26/18 Atorvastatin Calcium (ATORVASTATIN CALCIUM) 20 Mg Tablet, 40 MG PO HS, #30 TAB 03/26/18 Lisinopril (PRINAVIL / ZESTRIL) 20 Mg Tablet, 40 MG PO DAILY 03/26/18 Carbidopa/Levodopa (SINEMET 25-100 MG TABLET) 1 Each Tablet, 1 TAB PO TID, #30 TAB 03/26/18 Potassium Chloride (POTASSIUM CHLORIDE) 20 Meq Tab.er.prt, 20 MEQ PO DAILY 01/25/18 Allopurinol (ALLOPURINOL) 100 Mg Tablet, 100 MG PO DAILY, #30 TAB 12/17/17 AMARI MILLER MD Aug 22, 2019 20:56
--- NOTE | 2019-08-22 22:01 | Diagnostic Imaging Report ---
EXAMINATION: CXR [facility] INDICATION: Confusion, cough COMPARISON: Chest x-ray 2019, Chest CT 08/29/2018 FINDINGS: TUBES and LINES: Right chest port with right IJ central venous catheter component, tip in the mid SVC. Partially visualized right ventriculoperitoneal shunt catheter. LUNGS: Hyperexpanded lungs. Chronic focal hazy opacity in the lateral aspect of the right midlung. Prominent pulmonary interstitial markings. No consolidations. PLEURA: No pleural effusion or pneumothorax. HEART AND MEDIASTINUM: Cardiac size is moderately enlarged. Aortic calcifications. BONES AND SOFT TISSUES: No acute osseous lesion. Soft tissues are unremarkable. Degenerative changes. UPPER ABDOMEN: No free air under the diaphragm. IMPRESSION: Moderate cardiomegaly and probable mild interstitial lung disease. Hyperexpanded lungs indicative of emphysema. Airspace infection cannot be excluded. Chronic focal hazy opacity in the lateral aspect of the right midlung there is an atelectasis/scarring or treated disease. Signed by: Flynn Stacy DO on 08/22/2019 9:58 PM
[2019-08-22] MEDS ORDERED: NITROFURANTOIN100 MG PO (22:10)
== END 2019-08-22 22:32 | disposition home or self-care (01) ==
LOC: FSED 20:20
DX: N39.0 Urinary tract infection, site not specified (principal); I10 Essential (primary) hypertension; J44.9 Chronic obstructive pulmonary disease, unspecified; E03.9 Hypothyroidism, unspecified; F41.9 Anxiety disorder, unspecified; M54.9 Dorsalgia, unspecified; G89.29 Other chronic pain; F17.210 Nicotine dependence, cigarettes, uncomplicated
CPT/HCPCS: 70450; 71045; 80048; 80076; 81003; 84484; 85025; 93005; 99284

== ENCOUNTER 2019-09-24 12:27 | Observation (INO) | payer MEDICARE, OTHER ==
[~2019-09-24] VITALS: Ht 162.6 cm; Wt 62.1 kg
[~2019-09-24 12:27] MED LIST changes: +NITROFURANTOIN100 MG PO
[2019-09-24 13:06] LABS: BASOPHILS % 0.3 % (0.0-1.0); EOSINOPHILS # (AUTO) 0.2 (0.0-0.4); EOSINOPHILS % 3.3 % (0.0-6.0); HEMATOCRIT 26.7 % (34.2-44.1); HEMOGLOBIN 7.3 g/dL (12.0-16.0); LYMPHOCYTES # (AUTO) 0.5 (1.0-3.2); LYMPHOCYTES % 8.8 % (18.0-39.1); MEAN CORPUSCULAR HEMOGLOBIN 24.9 pg (28-32); MEAN CORPUSCULAR HGB CONC 27.3 g/dL (31-35); MEAN CORPUSCULAR VOLUME 91.1 fL (81-99); MONOCYTES # (AUTO) 0.7 (0.2-0.8); MONOCYTES % 10.6 % (4.4-11.3); NEUTROPHILS # (AUTO) 4.7 (2.1-6.9); NEUTROPHILS % 76.5 % (38.7-80.0); PLATELET COUNT 235 x10e3/uL (140-360); RED BLOOD COUNT 2.93 x10e6/uL (3.6-5.1)
[2019-09-24 13:12] LABS: CLARITY,URINE SL CLOUDY (CLEAR); COLOR,URINE YELLOW (YELLOW)
[2019-09-24 13:13] LABS: KETONES,URINE NEGATIVE (NEGATIVE); LEUKOCYTE ESTERASE ,URINE NEGATIVE (NEGATIVE); NITRITE,URINE NEGATIVE (NEGATIVE); PROTEIN,URINE DIPSTICK NEGATIVE (NEGATIVE)
[2019-09-24 13:14] LABS: BACTERIA,URINE RARE /HPF; BILIRUBIN,URINE NEGATIVE (NEGATIVE); EPITHELIAL CELLS,URINE FEW /LPF; RBC,URINE 0-5 /HPF (0-5); URINE UROBILINOGEN 0.2 mg/dL (0.2 - 1); WBC,URINE (MAN) 0-5 /HPF (0-5)
[2019-09-24 13:16] LABS: INR 0.98; PROTHROMBIN TIME 13.5 seconds (11.9-14.5)
[2019-09-24 13:17] LABS: PARTIAL THROMBOPLASTIN TIME 27.2 seconds (23.8-35.5)
[2019-09-24 13:23] LABS: ALBUMIN 3.5 g/dL (3.5-5.0); ALBUMIN/GLOBULIN RATIO 1.2 (0.8-2.0); ALKALINE PHOSPHATASE 93 IU/L (40-150); BLOOD UREA NITROGEN 29 mg/dL (7-26); BUN/CREATININE RATIO 17 (6-25); CALCIUM 8.5 mg/dL (8.4-10.2); CARBON DIOXIDE 25 mmol/L (22-29); CHLORIDE 104 mmol/L (98-107); CREATINE KINASE 89 IU/L (29-168); CREATININE, SERUM 1.68 mg/dL (0.57-1.11); EST GLOMERULAR FILTRATION RATE 29 ML/MIN (60-); GLUCOSE 201 mg/dL (74-118); SODIUM 141 mmol/L (136-145)
[2019-09-24 13:26] LABS: ALANINE AMINOTRANSFERASE < 6 IU/L (0-55)
[2019-09-24] MEDS ORDERED: SODIUM CHLORIDE 0.9% 250ML 250 ML IV ONE (15:45)
[2019-09-24 17:58] VITALS: BP 137/56
[2019-09-24] MEDS ORDERED: ALPRAZOLAM 0.25 MG TAB PO PRN (18:30)
[2019-09-24] MEDS ORDERED: RISPERIDONE 0.5 MG TAB PO PRN (18:30)
[2019-09-24] MEDS ORDERED: DEXTROSE 50% SYRINGE 50 ML IV PRN (18:30)
[2019-09-24] MEDS ORDERED: NEURONTIN300 MG PO (18:45)
[2019-09-24 19:00] LABS: % IRON SATURATION 5 % (15-50); IRON 19 ug/dL (50-170); TOTAL IRON BINDING CAPACITY 391 ug/dL (261-478); TRANSFERRIN 279 mg/dL (180-382)
[2019-09-24 20:44] VITALS: BP 139/63
[2019-09-24 21:01] VITALS: BP 139/63
[2019-09-24] MEDS: INSULIN LISPRO 100 UNIT/1 ML 3ML VIAL SQ SCH (21:19)
[2019-09-24] MEDS: CARBIDOPA/LEVODOPA 25/100 TAB PO SCH (21:19)
[2019-09-24] MEDS: INSULIN GLARGINE 100 UNITS/ML VIAL SQ SCH (21:19)
[2019-09-24] MEDS: ATORVASTATIN 40 MG TAB PO SCH (21:19)
[2019-09-24] MEDS ORDERED: SODIUM CHLORIDE 0.9% 250ML 250 ML ONE (21:54)
[2019-09-25] VITALS (8 sets, daily range): BP systolic 105–168; BP diastolic 61–82
[2019-09-25] MEDS ORDERED: SODIUM CHLORIDE 0.9% 250ML 250 ML ONE (01:12)
[2019-09-25] MEDS: LEVOTHYROXINE SODIUM 75 MCG TAB PO SCH (05:12)
[2019-09-25] MEDS: INSULIN LISPRO 100 UNIT/1 ML 3ML VIAL SQ SCH ×4 (07:30→20:21)
[2019-09-25 08:22] LABS: BASOPHILS % 0.5 % (0.0-1.0); EOSINOPHILS # (AUTO) 0.2 (0.0-0.4); EOSINOPHILS % 1.8 % (0.0-6.0); HEMATOCRIT 35.3 % (34.2-44.1); HEMOGLOBIN 10.2 g/dL (12.0-16.0); LYMPHOCYTES # (AUTO) 0.6 (1.0-3.2); MEAN CORPUSCULAR HEMOGLOBIN 25.8 pg (28-32); MEAN CORPUSCULAR HGB CONC 28.9 g/dL (31-35); MEAN CORPUSCULAR VOLUME 89.1 fL (81-99); MONOCYTES # (AUTO) 0.9 (0.2-0.8); MONOCYTES % 10.2 % (4.4-11.3); NEUTROPHILS # (AUTO) 6.7 (2.1-6.9); PLATELET COUNT 215 x10e3/uL (140-360); RED BLOOD COUNT 3.96 x10e6/uL (3.6-5.1); RED CELL DISTRIBUTION WIDTH 17.6 % (11.7-14.4)
[2019-09-25 08:40] LABS: ALBUMIN 3.3 g/dL (3.5-5.0); ALBUMIN/GLOBULIN RATIO 1.1 (0.8-2.0); ALKALINE PHOSPHATASE 90 IU/L (40-150); ANION GAP 13.8 mmol/L (8-16); BLOOD UREA NITROGEN 24 mg/dL (7-26); BUN/CREATININE RATIO 19 (6-25); CALCIUM 8.4 mg/dL (8.4-10.2); CARBON DIOXIDE 24 mmol/L (22-29); CHLORIDE 107 mmol/L (98-107); CREATININE, SERUM 1.25 mg/dL (0.57-1.11); EST GLOMERULAR FILTRATION RATE 41 ML/MIN (60-); GLUCOSE 74 mg/dL (74-118); POTASSIUM 3.8 mmol/L (3.5-5.1); SODIUM 141 mmol/L (136-145)
[2019-09-25 08:41] LABS: ALANINE AMINOTRANSFERASE < 6 IU/L (0-55)
[2019-09-25] MEDS: POTASSIUM CHLORIDE 20 MEQ TAB CR PO SCH (09:18)
[2019-09-25] MEDS: FERROUS SULFATE 325 MG TAB PO SCH (09:18)
[2019-09-25] MEDS: ESCITALOPRAM OXALATE 10 MG TAB PO SCH (09:20)
[2019-09-25] MEDS: CARBIDOPA/LEVODOPA 25/100 TAB PO SCH ×3 (09:20→20:10)
[2019-09-25] MEDS: LISINOPRIL 20 MG TAB PO SCH (09:20)
[2019-09-25] MEDS: PANTOPRAZOLE SOD 40 MG TABEC PO SCH ×2 (09:20→17:20)
[2019-09-25] MEDS: ALLOPURINOL 100 MG TAB PO SCH (09:21)
[2019-09-25] MEDS: FUROSEMIDE 40 MG TAB PO SCH (09:30)
[2019-09-25] MEDS: HYDROCODONE/APAP 10MG-325MG TAB PO PRN (20:10)
[2019-09-25] MEDS: ATORVASTATIN 40 MG TAB PO SCH (20:10)
[2019-09-25] MEDS: INSULIN GLARGINE 100 UNITS/ML VIAL SQ SCH (20:22)
[2019-09-25] MEDS ORDERED: ZOLPIDEM TARTRATE 5 MG TAB PO PRN (20:30)
[2019-09-26 04:05] VITALS: BP 125/64
[2019-09-26] MEDS: HYDROCODONE/APAP 10MG-325MG TAB PO PRN (04:56)
[2019-09-26] MEDS: LEVOTHYROXINE SODIUM 75 MCG TAB PO SCH (05:36)
[2019-09-26 08:00] VITALS: BP 103/48
[2019-09-26] MEDS: FERROUS SULFATE 325 MG TAB PO SCH (08:24)
[2019-09-26] MEDS: POTASSIUM CHLORIDE 20 MEQ TAB CR PO SCH (08:25)
[2019-09-26] MEDS: FUROSEMIDE 40 MG TAB PO SCH (08:25)
[2019-09-26] MEDS: CARBIDOPA/LEVODOPA 25/100 TAB PO SCH (08:26)
[2019-09-26] MEDS: PANTOPRAZOLE SOD 40 MG TABEC PO SCH (08:26)
[2019-09-26] MEDS: ESCITALOPRAM OXALATE 10 MG TAB PO SCH (08:26)
[2019-09-26] MEDS: LISINOPRIL 20 MG TAB PO SCH (08:26)
[2019-09-26] MEDS: ALLOPURINOL 100 MG TAB PO SCH (08:28)
[2019-09-26] MEDS: INSULIN LISPRO 100 UNIT/1 ML 3ML VIAL SQ SCH (08:46)
== END 2019-09-26 09:00 | disposition home or self-care (01) ==
LOC: ER 12:55 → ERHOLD 15:42 → MED/SURG 17:53
PROVIDERS: ADMIT Family Medicine; ATTEND Family Medicine
DX: D50.0 Iron deficiency anemia secondary to blood loss (chronic) (principal); J44.9 Chronic obstructive pulmonary disease, unspecified; I25.10 Atherosclerotic heart disease of native coronary artery without angina pectoris; E03.9 Hypothyroidism, unspecified; G20 Parkinson's disease; N17.9 Acute kidney failure, unspecified; Z88.5 Allergy status to narcotic agent; I12.9 Hypertensive chronic kidney disease with stage 1 through stage 4 chronic kidney disease, or unspecified chronic kidney disease; N18.3 Chronic kidney disease, stage 3 (moderate); E11.22 Type 2 diabetes mellitus with diabetic chronic kidney disease; Z11.59 Encounter for screening for other viral diseases; Z79.4 Long term (current) use of insulin
CPT/HCPCS: 36415 ×3; 80053 ×2; 81001; 82550; 82553; 82948 ×3; 83540; 83605; 83880; 84443; 84466; 84484; 85025 ×2; 85610; 85730; 86850; 86900; 86920; 87040; 87086; 93005; 96372 ×3; G0378 ×3; J1815; J7050 ×2; P9016 ×2; S0164 ×2; U0002

== ENCOUNTER 2019-10-27 18:53 | Emergency (ER) | payer MEDICARE, OTHER ==
[~2019-10-27] VITALS: Ht 162.6 cm; Wt 62.6 kg
[~2019-10-27 18:53] MED LIST changes: +NEURONTIN300 MG PO
[2019-10-27] MEDS ORDERED: ALBUTEROL SULFATE HFA 8GM INHALATION AEROSOL INH ONE (19:00)
[2019-10-27] MEDS ORDERED: METHYLPREDNISOLONE SOD SUCC 125 MG/2ML VIAL IV ONE (19:00)
--- NOTE | 2019-10-27 19:33 | Diagnostic Imaging Report ---
Examination: Single AP view of the chest. COMPARISON: AP chest 08/22/2019 INDICATION: Chest pain, productive cough IMPRESSION: Exam limited by patient rotation. 1. Lines and Tubes: Stable right upper chest Port-A-Cath. 2. Lungs are well-inflated. Increased interstitial markings extending from the kang bilaterally, which may reflect superimposed interstitial edema or atypical (including viral) infection.. Stable 1.4 cm nodular density in the right upper lung. No consolidation. Questionable right-sided effusion 3. Stable enlargement of the cardiac silhouette. Central pulmonary venous congestion, increased since prior exam. 4. No acute bony abnormalities. Signed by: Dr. Wilman Wallace M.D. on 10/27/2019 7:30 PM
[2019-10-27 19:44] LABS: BASOPHILS % 0.4 % (0.0-1.0); EOSINOPHILS # (AUTO) 0.3 (0.0-0.4); EOSINOPHILS % 4.6 % (0.0-6.0); HEMATOCRIT 29.4 % (34.2-44.1); HEMOGLOBIN 8.2 g/dL (12.0-16.0); LYMPHOCYTES # (AUTO) 0.6 (1.0-3.2); MEAN CORPUSCULAR HEMOGLOBIN 25.4 pg (28-32); MEAN CORPUSCULAR HGB CONC 27.9 g/dL (31-35); MONOCYTES # (AUTO) 0.7 (0.2-0.8); MONOCYTES % 9.6 % (4.4-11.3); NEUTROPHILS # (AUTO) 5.4 (2.1-6.9); PLATELET COUNT 195 x10e3/uL (140-360); RED BLOOD COUNT 3.23 x10e6/uL (3.6-5.1); RED CELL DISTRIBUTION WIDTH 18.2 % (11.7-14.4)
--- NOTE | 2019-10-27 19:46 | Emergency Department Note ---
History of Present Illnes History of Present Illness Chief Complaint: Chest Pain History of Present Illness This is a 79 year old female WITH H/O COPD AND CHF brought in by EMS for c/o intermittent chest pain. Patient also c/o productive cough. No distress noted at this time. Patient denies chest pain at this time. RR even and unlabored.. 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 Any updates have been documented here. Past Medical History Recent Fever: No Clinical Suspicion of Infectio: No New/Unexplained Change in Ment: No Past Medical History: Hypertension, Diabetes, COPD, CHF, Hypothyroidism, Anxiety Other Medical History: smokes Past Surgical History: Appendectomy, Tubal Ligation, , Back Surgery, Cataract Removal Other Surgery: RIGHT UPPER CHEST PORT FOR IRON/BLOOD TRANSFUSION SHUNT IN RIGHT SIDE OF HEAD (BEHIND RIGHT EAR) RIGHT HIP SURGERY (2018) BACK SURGERY (25 YEARS AGO) Social History Smoking Cessation: Current every day smoker Alcohol Use: None Any Illegal Drug Use: No Family History Family history of heart diseas: Yes Other family history HTN,DM,CAD Other Last Tetanus: UNKNOWN Review of Systems Review of Systems Constitutional: Reports no symptoms EENTM: Reports no symptoms Cardiovascular: Reports as per HPI Respiratory: Reports as per HPI Gastrointestinal: Reports no symptoms Genitourinary: Reports no symptoms Musculoskeletal: Reports no symptoms Integumentary: Reports no symptoms Neurological: Reports no symptoms Psychological: Reports no symptoms Endocrine: Reports no symptoms Hematological/Lymphatic: Reports no symptoms Physical Exam Related Data Allergies: Coded Allergies: morphine (Verified Allergy, Mild, RASH,ITCHING, 01/02/18) codeine (Verified Allergy, Unknown, 03/27/19) Triage Vital Signs Vital Signs Date Time Temp Pulse Resp B/P (MAP) Pulse Ox O2 Delivery O2 Flow Rate FiO2 10/27/19 19:07 98.2 70 18 168/83 97 Room Air Vital signs reviewed: Yes Physical Exam CONSTITUTIONAL Constitutional: Present well-developed, Present well-nourished; Absent distressed HENT HENT: Present normocephalic, Present atraumatic, Present oropharynx c lear/moist, Present nose normal HENT L/R: Present left ext ear normal, Present right ext ear normal EYES Eyes: Reports PERRL, Reports conjunctivae normal NECK Neck: Present ROM normal PULMONARY Pulmonary: Present effort normal, Present other (COARSE BREATH SOUNDS BILATERAL) CARDIOVASCULAR Cardiovascular: Present regular rhythm, Present heart sounds normal, Present capillary refill normal, Present normal rate GASTROINTESTINAL Abdominal: Present soft, Present nontender, Present bowel sounds normal GENITOURINARY Genitourinary: Present exam deferred SKIN Skin: Present warm, Present dry MUSCULOSKELETAL Musculoskeletal: Present ROM normal NEUROLOGICAL Neurological: Present alert, Present oriented x 3, Present no gross motor or sensory deficits PSYCHOLOGICAL Psychological: Present mood/affect normal, Present judgement normal Results Laboratory Laboratory Laboratory Tests Test 10/27/19 19:29 Procedures 12 Lead ECG Interpretation ECG Interpretation : ECG: ECG 1 [place]: Interpreted by ED physician Date: Oct 27, 2019 Time: 19:04 Rhythm: sinus rhythm Rate: normal BPM: 70 QRS axis: normal ST segments normal: Yes T waves normal: Yes Q waves: III, aVF Clinical Impression: abnormal ECG Assessment & Plan Medical Decision Making [facility] PT WITH H/O COPD AND CHF WITH C/O PRODUCTIVE COUGH CBC,CMP, EKG, CXR, CARDIAC ENZYMES ORDERED TO EVAL FOR PNEUMONIA, CHF, MYOCARDIAL INFARCTION Reassessment Reassessment time: 19:44 Reassessment PT WANTS TO LEAVE, STATES SHE FEELS OK AND DOES NOT WANT LABS OR XRAYS NOW PT DISCHARGED WITH DIAGNOSIS OF CHRONIC COPD, WELCOME TO RETURN IF SYMPTOMS BECOME WORSE Assessment & Plan Final Impression: (1) COPD (chronic obstructive pulmonary disease) (2) Dyspnea Depart Disposition: HOME, SELF-CARE Last Vital Signs Date Time Temp Pulse Resp B/P (MAP) Pulse Ox O2 Delivery O2 Flow Rate FiO2 10/27/19 19:07 98.2 70 18 168/83 97 Room Air Home Meds Active Scripts Nitrofurantoin Macrocrystal (NITROFURANTOIN) 100 Mg Capsule, 100 MG PO BID for urine infection for 7 Days, #14 Prov:AMARI MILLER MD 08/22/19 Levothyroxine Sodium (LEVOTHYROXINE SODIUM) 112 Mcg Tablet, 150 MCG PO DAILY, #30 TAB 2 Refills RECHECK TSH IN 3 MONTHS Prov:ANA MOONEY NP 04/30/19 Risperidone (RISPERDAL) 0.5 Mg Tablet, 0.5 MG PO Q6H PRN for agitation/psychsis for 14 Days, #30 TAB 0 Refills Prov:GENESIS DONAHUE PARTY PLAN DEALER 04/20/19 Alprazolam (ALPRAZOLAM) 0.25 Mg Tablet, 0.25 MG PO Q6H PRN for ANXIETY for 14 Days, #30 TAB 0 Refills Prov:GENESIS DONAHUE NP 04/20/19 Ferrous Sulfate (FERROUS SULFATE) 325 Mg Tablet, 325 MG PO DAILY, #30 Prov:ANA MOONEY PARTY PLAN DEALER 03/28/19 Escitalopram Oxalate (LEXAPRO) 10 Mg Tablet, 5 MG PO DAILY for 30 Days Prov:GENESIS DONAHUE NP 01/26/18 Reported Medications Gabapentin (NEURONTIN) 300 Mg Capsule, 600 MG PO TID PRN for pain, CAP 09/24/19 Hydrocodone Bit/Acetaminophen (NORCO 10-325 TABLET) 1 Each Tablet, 1 TAB PO Q6H PRN for SEVERE PAIN (7-10) 04/28/19 Nph, Human Insulin Isophane (NOVOLIN N) 100 Unit/1 Ml Vial 04/28/19 Insulin Glargine (LANTUS 3ML PEN) 100 Units/1 Ml Inj, 60 SC HS 04/28/19 Furosemide (FUROSEMIDE) 40 Mg Tablet, 40 MG PO Daily, #30 TAB 03/26/18 Atorvastatin Calcium (ATORVASTATIN CALCIUM) 20 Mg Tablet, 40 MG PO HS, #30 TAB 03/26/18 Lisinopril (PRINAVIL / ZESTRIL) 20 Mg Tablet, 40 MG PO DAILY 03/26/18 Carbidopa/Levodopa (SINEMET 25-100 MG TABLET) 1 Each Tablet, 1 TAB PO TID, #30 TAB 03/26/18 Potassium Chloride (POTASSIUM CHLORIDE) 20 Meq Tab.er.prt, 20 MEQ PO DAILY 01/25/18 Allopurinol (ALLOPURINOL) 100 Mg Tablet, 100 MG PO DAILY, #30 TAB 12/17/17 Medications in the ED Albuterol 2 gm ONCE ONCE INH ; Start 10/27/19 at 19:00; Stop 10/27/19 at 19:01; Status DC Methylprednisolone Sodium Succinate 125 mg ONCE ONCE IV ; Start 10/27/19 at 19:00; Stop 10/27/19 at 19:01; Status DC GUSTAVO RITTER MD Oct 27, 2019 19:46
[2019-10-27 19:49] VITALS: BP 165/83
[2019-10-27 20:01] LABS: ALBUMIN 3.8 g/dL (3.5-5.0); ALBUMIN/GLOBULIN RATIO 1.4 (0.8-2.0); ANION GAP 12.2 mmol/L (8-16); CALCIUM 8.4 mg/dL (8.4-10.2); CREATININE, SERUM 1.02 mg/dL (0.57-1.11); POTASSIUM 4.2 mmol/L (3.5-5.1)
[2019-10-27 20:10] LABS: CREATINE KINASE MB 5.1 ng/mL (0-5.0)
--- NOTE | 2019-10-27 20:15 | NUR ---
Patient was still here when cardiac markers were obtained. I spoke to patient in detail regarding risk of leaving. ER MD also spoke to patient and she stated she did not want to stay here and wanted to go home.
== END 2019-10-27 19:53 | disposition home or self-care (01) ==
LOC: ER 19:40
DX: J44.9 Chronic obstructive pulmonary disease, unspecified (principal); R06.00 Dyspnea, unspecified; R05 Cough; R94.31 Abnormal electrocardiogram [ECG] [EKG]; I10 Essential (primary) hypertension; E11.9 Type 2 diabetes mellitus without complications; F41.9 Anxiety disorder, unspecified; F17.210 Nicotine dependence, cigarettes, uncomplicated
CPT/HCPCS: 36415; 71045; 80053; 82550; 82553; 83880; 84484; 85025; 93005; 99284

== ENCOUNTER 2019-11-16 19:42 | Emergency (ER) | payer MEDICARE, OTHER ==
[~2019-11-16] VITALS: Ht 162.6 cm; Wt 62.6 kg
[2019-11-16] MEDS ORDERED: ASPIRIN 81 MG CHEW TAB PO ONE (20:00)
[2019-11-16 20:10] LABS: BASOPHILS % 0.6 % (0.0-1.0); EOSINOPHILS # (AUTO) 0.3 (0.0-0.4); EOSINOPHILS % 4.1 % (0.0-6.0); HEMATOCRIT 27.7 % (34.2-44.1); HEMOGLOBIN 7.9 g/dL (12.0-16.0); LYMPHOCYTES # (AUTO) 0.7 (1.0-3.2); LYMPHOCYTES % 9.1 % (18.0-39.1); MEAN CORPUSCULAR HEMOGLOBIN 25.6 pg (28-32); MEAN CORPUSCULAR HGB CONC 28.5 g/dL (31-35); MEAN CORPUSCULAR VOLUME 89.9 fL (81-99); MONOCYTES # (AUTO) 0.7 (0.2-0.8); MONOCYTES % 10.2 % (4.4-11.3); NEUTROPHILS # (AUTO) 5.5 (2.1-6.9); NEUTROPHILS % 75.3 % (38.7-80.0); PLATELET COUNT 213 x10e3/uL (140-360); RED BLOOD COUNT 3.08 x10e6/uL (3.6-5.1); RED CELL DISTRIBUTION WIDTH 17.6 % (11.7-14.4)
[2019-11-16 20:30] LABS: ALBUMIN 3.2 g/dL (3.5-5.0); ANION GAP 14.9 mmol/L (8-16); CALCIUM 8.4 mg/dL (8.4-10.2); CREATININE, SERUM 1.32 mg/dL (0.57-1.11); POTASSIUM 3.9 mmol/L (3.5-5.1)
[2019-11-16 20:38] LABS: CREATINE KINASE MB 4.9 ng/mL (0-5.0)
[2019-11-16 22:20] VITALS: BP 136/81
== END 2019-11-16 22:05 | disposition home or self-care (01) ==
LOC: ER 21:08
DX: R07.9 Chest pain, unspecified (principal); I10 Essential (primary) hypertension; E11.9 Type 2 diabetes mellitus without complications; J44.9 Chronic obstructive pulmonary disease, unspecified; I51.7 Cardiomegaly
CPT/HCPCS: 36415; 71045; 80053; 82550; 82553; 83880; 84484; 85025; 93005; 99284

== ENCOUNTER 2019-12-25 09:21 | Emergency (ER) | payer MEDICARE ==
[~2019-12-25] VITALS: Ht 160 cm; Wt 61.2 kg
[2019-12-25 09:44] LABS: BASOPHILS % 0.6 % (0.0-1.0); EOSINOPHILS # (AUTO) 0.3 (0.0-0.4); EOSINOPHILS % 4.3 % (0.0-6.0); HEMATOCRIT 27.3 % (34.2-44.1); HEMOGLOBIN 7.8 g/dL (12.0-16.0); LYMPHOCYTES # (AUTO) 0.4 (1.0-3.2); LYMPHOCYTES % 6.9 % (18.0-39.1); MEAN CORPUSCULAR HEMOGLOBIN 26.8 pg (28-32); MEAN CORPUSCULAR HGB CONC 28.6 g/dL (31-35); MEAN CORPUSCULAR VOLUME 93.8 fL (81-99); MONOCYTES # (AUTO) 0.5 (0.2-0.8); MONOCYTES % 8.6 % (4.4-11.3); NEUTROPHILS # (AUTO) 4.9 (2.1-6.9); NEUTROPHILS % 78.8 % (38.7-80.0); PLATELET COUNT 225 x10e3/uL (140-360); RED BLOOD COUNT 2.91 x10e6/uL (3.6-5.1); RED CELL DISTRIBUTION WIDTH 19.1 % (11.7-14.4)
[2019-12-25 09:48] LABS: INR 0.99; PROTHROMBIN TIME 13.6 seconds (11.9-14.5)
[2019-12-25 09:49] LABS: PARTIAL THROMBOPLASTIN TIME 29.2 seconds (23.8-35.5)
--- NOTE | 2019-12-25 09:51 | NUR ---
consent signed and on chart, blood transfusion sheet on chart. */
[2019-12-25 09:58] LABS: ALANINE AMINOTRANSFERASE < 6 IU/L (0-55); ALBUMIN 3.5 g/dL (3.5-5.0); ALBUMIN/GLOBULIN RATIO 1.1 (0.8-2.0); ALKALINE PHOSPHATASE 104 IU/L (40-150); ANION GAP 14.6 mmol/L (8-16); BLOOD UREA NITROGEN 24 mg/dL (7-26); BUN/CREATININE RATIO 17 (6-25); CALCIUM 8.6 mg/dL (8.4-10.2); CARBON DIOXIDE 29 mmol/L (22-29); CHLORIDE 101 mmol/L (98-107); CREATINE KINASE 124 IU/L (29-168); EST GLOMERULAR FILTRATION RATE 36 ML/MIN (60-); GLUCOSE 216 mg/dL (74-118); POTASSIUM 3.6 mmol/L (3.5-5.1); SODIUM 141 mmol/L (136-145)
--- NOTE | 2019-12-25 10:03 | Emergency Department Note ---
History of Present Illnes History of Present Illness Chief Complaint: General Medicine Complaints History of Present Illness This is a 79 year old female pt came in via POV, pt states that she was advised to come to the ED for evaluation of anemia, as per , the last time patient had labs drawn (3 DAYS AGO), her hemoglobin was 7.1 so "i'm pretty sure it's lower than that now and she needs a blood transfusion", pt has no complaints at this time. 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 Arrival Mode: Car Envelope Machine Adjuster Required: No Location: NO COMPLAINTS Radiation: Reports non-radiation Severity: mild Progression: unchanged Chronicity: chronic Relieving factors: none Exacerbating factors: none Associated symptoms: Reports denies other symptoms Past Medical/Family History Physician Review I have reviewed the patient's past medical and family history. Any updates have been documented here. Past Medical History Recent Fever: No Clinical Suspicion of Infectio: No New/Unexplained Change in Ment: No Past Medical History: Hypertension, Diabetes, COPD, CHF, Hypothyroidism, Anemia, Anxiety Other Medical History: smokes Past Surgical History: Appendectomy, Tubal Ligation, , Back Surgery, Cataract Removal Other Surgery: RIGHT UPPER CHEST PORT FOR IRON/BLOOD TRANSFUSION SHUNT IN RIGHT SIDE OF HEAD (BEHIND RIGHT EAR) RIGHT HIP SURGERY (2018) BACK SURGERY (25 YEARS AGO) Social History Smoking Cessation: Current every day smoker Counseling Performed: No (WHEN ASKED IF SHE SMOKES SHE SAID "HELL YES AND I'M NOT QUITTING") Alcohol Use: None Any Illegal Drug Use: No TB Exposure/Symptoms: No Physically hurt or threatened: No Family History Family history of heart diseas: No Other Last Tetanus: UNKNOWN Any Pre-Existing Lines (PICC,: No Review of Systems Review of Systems Constitutional: Reports no symptoms EENTM: Reports no symptoms Cardiovascular: Reports no symptoms Respiratory: Reports no symptoms Gastrointestinal: Reports no symptoms Genitourinary: Reports no symptoms Musculoskeletal: Reports no symptoms Integumentary: Reports no symptoms Neurological: Reports no symptoms Psychological: Reports no symptoms Endocrine: Reports no symptoms Hematological/Lymphatic: Reports no symptoms Physical Exam Related Data Allergies: Coded Allergies: morphine (Verified Allergy, Mild, RASH,ITCHING, 01/02/18) codeine (Verified Allergy, Unknown, 03/27/19) Triage Vital Signs Vital Signs Date Time Temp Pulse Resp B/P (MAP) Pulse Ox O2 Delivery O2 Flow Rate FiO2 11/14/20 09:28 98.6 77 20 104/48 94 Room Air Vital signs reviewed: Yes Physical Exam CONSTITUTIONAL Constitutional: Present well-developed, Present well-nourished HENT HENT: Present normocephalic, Present atraumatic, Present oropharynx clear/moist, Present nose normal HENT L/R: Present left ext ear normal, Present right ext ear normal EYES Eyes: Reports PERRL, Reports conjunctivae normal NECK Neck: Present ROM normal PULMONARY Pulmonary: Present effort normal, Present other (DECR BS's THROUGHOUT); Absent respiratory distress CARDIOVASCULAR Cardiovascular: Present regular rhythm, Present heart sounds normal, Present capillary refill normal, Present normal rate GASTROINTESTINAL Abdominal: Present soft, Present nontender, Present bowel sounds normal GENITOURINARY Genitourinary: Present exam deferred SKIN Skin: Present warm, Present dry MUSCULOSKELETAL Musculoskeletal: Present ROM normal NEUROLOGICAL Neurological: Present alert, Present oriented x 3, Present no gross motor or sensory deficits PSYCHOLOGICAL Psychological: Present mood/affect normal, Present judgement normal Results Laboratory Result Diagram: 12/25/19 0820 Laboratory Laboratory Tests Test 12/25/19 08:20 White Blood Count 6.26 x10e3/uL (4.8-10.8) Red Blood Count 2.91 x10e6/uL (3.6-5.1) Hemoglobin 7.8 g/dL (12.0-16.0) Hematocrit 27.3 % (34.2-44.1) Mean Corpuscular Volume 93.8 fL (81-99) Mean Corpuscular Hemoglobin 26.8 pg (28-32) Mean Corpuscular Hemoglobin Concent 28.6 g/dL (31-35) Red Cell Distribution Width 19.1 % (11.7-14.4) Platelet Count 225 x10e3/uL (140-360) Neutrophils (%) (Auto) 78.8 % (38.7-80.0) Lymphocytes (%) (Auto) 6.9 % (18.0-39.1) Monocytes (%) (Auto) 8.6 % (4.4-11.3) Eosinophils (%) (Auto) 4.3 % (0.0-6.0) Basophils (%) (Auto) 0.6 % (0.0-1.0) Neutrophils # (Auto) 4.9 (2.1-6.9) Lymphocytes # (Auto) 0.4 (1.0-3.2) Monocytes # (Auto) 0.5 (0.2-0.8) Eosinophils # (Auto) 0.3 (0.0-0.4) Basophils # (Auto) 0.0 (0.0-0.1) Absolute Immature Granulocyte (auto 0.05 x10e3/uL (0-0.1) Prothrombin Time 13.6 seconds (11.9-14.5) Prothromb Time International Ratio 0.99 Activated Partial Thromboplast Time 29.2 seconds (23.8-35.5) Sodium Level 141 mmol/L (136-145) Potassium Level 3.6 mmol/L (3.5-5.1) Chloride Level 101 mmol/L (98-107) Carbon Dioxide Level 29 mmol/L (22-29) Anion Gap 14.6 mmol/L (8-16) Blood Urea Nitrogen 24 mg/dL (7-26) Creatinine 1.40 mg/dL (0.57-1.11) Estimat Glomerular Filtration Rate 36 ML/MIN (60-) BUN/Creatinine Ratio 17 (6-25) Glucose Level 216 mg/dL (74-118) Calcium Level 8.6 mg/dL (8.4-10.2) Total Bilirubin 0.2 mg/dL (0.2-1.2) Aspartate Amino Transf (AST/SGOT) 13 IU/L (5-34) Alanine Aminotransferase (ALT/SGPT) < 6 IU/L (0-55) Alkaline Phosphatase 104 IU/L (40-150) Creatine Kinase 124 IU/L (29-168) Total Protein 6.7 g/dL (6.5-8.1) Albumin 3.5 g/dL (3.5-5.0) Globulin 3.2 g/dL (2.3-3.5) Albumin/Globulin Ratio 1.1 (0.8-2.0) Laboratory Tests Test 12/25/19 08:20 White Blood Count 6.26 x10e3/uL (4.8-10.8) Red Blood Count 2.91 x10e6/uL (3.6-5.1) Hemoglobin 7.8 g/dL (12.0-16.0) Hematocrit 27.3 % (34.2-44.1) Mean Corpuscular Volume 93.8 fL (81-99) Mean Corpuscular Hemoglobin 26.8 pg (28-32) Mean Corpuscular Hemoglobin Concent 28.6 g/dL (31-35) Red Cell Distribution Width 19.1 % (11.7-14.4) Platelet Count 225 x10e3/uL (140-360) Neutrophils (%) (Auto) 78.8 % (38.7-80.0) Lymphocytes (%) (Auto) 6.9 % (18.0-39.1) Monocytes (%) (Auto) 8.6 % (4.4-11.3) Eosinophils (%) (Auto) 4.3 % (0.0-6.0) Basophils (%) (Auto) 0.6 % (0.0-1.0) Neutrophils # (Auto) 4.9 (2.1-6.9) Lymphocytes # (Auto) 0.4 (1.0-3.2) Monocytes # (Auto) 0.5 (0.2-0.8) Eosinophils # (Auto) 0.3 (0.0-0.4) Basophils # (Auto) 0.0 (0.0-0.1) Absolute Immature Granulocyte (auto 0.05 x10e3/uL (0-0.1) Prothrombin Time 13.6 seconds (11.9-14.5) Prothromb Time International Ratio 0.99 Activated Partial Thromboplast Time 29.2 seconds (23.8-35.5) Lab results reviewed: Yes Assessment & Plan Medical Decision Making MDM PT CAME THINKING HER HGB IS NOW LESS THAN 7 AND MAY NEED TRANSFUSION BUT SHE HAS BEEN GETTING IRON INFUSIONS QWEEK, HAS NO SYMPTOMS - CHECK CBC, CHEM, T&S - R/O WORSENING ANEMIA <7 HGB Reassessment Reassessment HGB 7.6 - DC HOME, F/U PCP AND DR RUSSO, RTED PRN Assessment & Plan Final Impression: (1) Myelodysplastic syndrome (2) Anemia Depart Disposition: HOME, SELF-CARE Last Vital Signs Date Time Temp Pulse Resp B/P (MAP) Pulse Ox O2 Delivery O2 Flow Rate FiO2 12/25/19 09:55 18 102/47 12/25/19 09:28 98.6 77 94 Room Air Home Meds Active Scripts Nitrofurantoin Macrocrystal (NITROFURANTOIN) 100 Mg Capsule, 100 MG PO BID for urine infection for 7 Days, #14 Prov:AMARI MILLER MD 08/22/19 Levothyroxine Sodium (LEVOTHYROXINE SODIUM) 112 Mcg Tablet, 150 MCG PO DAILY, #30 TAB 2 Refills RECHECK TSH IN 3 MONTHS Prov:ANA MOONEY CLOTH EXAMINER 04/30/19 Risperidone (RISPERDAL) 0.5 Mg Tablet, 0.5 MG PO Q6H PRN for agitation/psychsis for 14 Days, #30 TAB 0 Refills Prov:GENESIS DONAHUE CLOTH EXAMINER 04/20/19 Alprazolam (ALPRAZOLAM) 0.25 Mg Tablet, 0.25 MG PO Q6H PRN for ANXIETY for 14 Days, #30 TAB 0 Refills Prov:GENESIS DONAHUE CLOTH EXAMINER 04/20/19 Ferrous Sulfate (FERROUS SULFATE) 325 Mg Tablet, 325 MG PO DAILY, #30 Prov:ANA MOONEY CLOTH EXAMINER 03/28/19 Escitalopram Oxalate (LEXAPRO) 10 Mg Tablet, 5 MG PO DAILY for 30 Days Prov:GENESIS DONAHUE CLOTH EXAMINER 01/26/18 Reported Medications Gabapentin (NEURONTIN) 300 Mg Capsule, 600 MG PO TID PRN for pain, CAP 09/24/19 Hydrocodone Bit/Acetaminophen (NORCO 10-325 TABLET) 1 Each Tablet, 1 TAB PO Q6H PRN for SEVERE PAIN (7-10) 04/28/19 Nph, Human Insulin Isophane (NOVOLIN N) 100 Unit/1 Ml Vial 04/28/19 Insulin Glargine (LANTUS 3ML PEN) 100 Units/1 Ml Inj, 60 SC HS 04/28/19 Furosemide (FUROSEMIDE) 40 Mg Tablet, 40 MG PO Daily, #30 TAB 03/26/18 Atorvastatin Calcium (ATORVASTATIN CALCIUM) 20 Mg Tablet, 40 MG PO HS, #30 TAB 03/26/18 Lisinopril (PRINAVIL / ZESTRIL) 20 Mg Tablet, 40 MG PO DAILY 03/26/18 Carbidopa/Levodopa (SINEMET 25-100 MG TABLET) 1 Each Tablet, 1 TAB PO TID, #30 TAB 03/26/18 Potassium Chloride (POTASSIUM CHLORIDE) 20 Meq Tab.er.prt, 20 MEQ PO DAILY 01/25/18 Allopurinol (ALLOPURINOL) 100 Mg Tablet, 100 MG PO DAILY, #30 TAB 12/17/17 BONITA GIBBS MD Dec 25, 2019 10:03
== END 2019-12-25 10:09 | disposition home or self-care (01) ==
LOC: ER 09:39
DX: D46.9 Myelodysplastic syndrome, unspecified (principal); E11.65 Type 2 diabetes mellitus with hyperglycemia; I10 Essential (primary) hypertension; J44.9 Chronic obstructive pulmonary disease, unspecified; E03.9 Hypothyroidism, unspecified; F41.9 Anxiety disorder, unspecified; F17.210 Nicotine dependence, cigarettes, uncomplicated
CPT/HCPCS: 36415; 80053; 82550; 82553; 84484; 85025; 85610; 85730; 86850; 86900; 99284

== ENCOUNTER 2020-02-12 09:50 | Observation (INO) | payer MEDICARE ==
[~2020-02-12] VITALS: Ht 160 cm; Wt 61.2 kg
[2020-02-12 11:01] LABS: BASOPHILS % 0.5 % (0.0-1.0); EOSINOPHILS # (AUTO) 0.1 (0.0-0.4); EOSINOPHILS % 2.3 % (0.0-6.0); LYMPHOCYTES # (AUTO) 0.5 (1.0-3.2); LYMPHOCYTES % 8.6 % (18.0-39.1); MEAN CORPUSCULAR HEMOGLOBIN 24.4 pg (28-32); MEAN CORPUSCULAR HGB CONC 27.5 g/dL (31-35); MEAN CORPUSCULAR VOLUME 88.5 fL (81-99); MONOCYTES # (AUTO) 0.7 (0.2-0.8); MONOCYTES % 11.7 % (4.4-11.3); NEUTROPHILS # (AUTO) 4.7 (2.1-6.9); NEUTROPHILS % 76.1 % (38.7-80.0); PLATELET COUNT 194 x10e3/uL (140-360); RED BLOOD COUNT 2.79 x10e6/uL (3.6-5.1)
[2020-02-12 11:06] LABS: HEMATOCRIT 24.7 % (34.2-44.1); HEMOGLOBIN 6.8 g/dL (12.0-16.0)
[2020-02-12] MEDS ORDERED: SODIUM CHLORIDE 0.9% 250ML 250 ML IV ONE (11:30)
[2020-02-12 11:31] LABS: ANION GAP 12.1 mmol/L (8-16); CALCIUM 7.8 mg/dL (8.4-10.2); CREATININE, SERUM 1.28 mg/dL (0.57-1.11); POTASSIUM 4.1 mmol/L (3.5-5.1)
[2020-02-12 11:38] LABS: CREATINE KINASE MB 5.4 ng/mL (0-5.0)
[2020-02-12] MEDS ORDERED: SODIUM CHLORIDE 0.9% 250ML 250 ML ONE (15:53)
[2020-02-12] MEDS ORDERED: HYDROCODONE/APAP 5MG-325MG TAB PO ONE (17:45)
[2020-02-12] MEDS ORDERED: GABAPENTIN 300 MG CAP PO PRN (18:00)
[2020-02-12] MEDS ORDERED: HYDROCODONE/APAP 10MG-325MG TAB PO PRN (18:00)
[2020-02-12] MEDS ORDERED: DEXTROSE 50% SYRINGE 50 ML IV PRN (18:00)
[2020-02-12] MEDS ORDERED: ALPRAZOLAM 0.25 MG TAB PO PRN (18:00)
[2020-02-12] MEDS ORDERED: RISPERIDONE 0.5 MG TAB PO PRN (18:00)
[2020-02-12] MEDS ORDERED: PANTOPRAZOLE SOD 40 MG TABEC PO SCH (18:13)
[2020-02-12] MEDS ORDERED: INSULIN GLARGINE 100 UNITS/ML VIAL SC SCH (21:00)
[2020-02-12] MEDS ORDERED: INSULIN LISPRO 100 UNIT/1 ML 3ML VIAL SQ SCH (21:00)
[2020-02-12] MEDS ORDERED: ATORVASTATIN 20 MG TAB PO SCH (21:00)
[2020-02-12] MEDS ORDERED: CARBIDOPA/LEVODOPA 25/100 TAB PO SCH (21:00)
[2020-02-13] MEDS ORDERED: LEVOTHYROXINE SODIUM 75 MCG TAB PO SCH (09:00)
[2020-02-13] MEDS ORDERED: POTASSIUM CHLORIDE 20 MEQ TAB CR PO SCH (09:00)
[2020-02-13] MEDS ORDERED: ESCITALOPRAM OXALATE 10 MG TAB PO SCH (09:00)
[2020-02-13] MEDS ORDERED: LISINOPRIL 20 MG TAB PO SCH (09:00)
[2020-02-13] MEDS ORDERED: ALLOPURINOL 100 MG TAB PO SCH (09:00)
[2020-02-13] MEDS ORDERED: FUROSEMIDE 40 MG TAB PO SCH (09:00)
[2020-02-13] MEDS ORDERED: FERROUS SULFATE 325 MG TAB PO SCH (09:00)
== END 2020-02-15 20:45 | disposition left against medical advice (07) ==
LOC: ER 10:10 → ERHOLD 11:23
PROVIDERS: ADMIT Internal Medicine; ATTEND Internal Medicine
DX: D50.9 Iron deficiency anemia, unspecified (principal)
CPT/HCPCS: 36415; 36430; 71045; 80053; 82550; 82553; 84484; 85025; 86850; 86900; 86920; 99284; G0378 ×4; J7050; P9016

== ENCOUNTER 2020-03-22 14:48 | Inpatient (IN) | payer MEDICARE ==
[~2020-03-22] VITALS: Ht 160 cm; Wt 61.2 kg
[2020-03-22 15:57] LABS: BASOPHILS % 0.4 % (0.0-1.0); EOSINOPHILS # (AUTO) 0.2 (0.0-0.4); EOSINOPHILS % 2.1 % (0.0-6.0); HEMATOCRIT 24.8 % (34.2-44.1); LYMPHOCYTES # (AUTO) 0.6 (1.0-3.2); LYMPHOCYTES % 7.2 % (18.0-39.1); MEAN CORPUSCULAR HEMOGLOBIN 26.9 pg (28-32); MEAN CORPUSCULAR VOLUME 99.6 fL (81-99); MONOCYTES # (AUTO) 0.9 (0.2-0.8); MONOCYTES % 11.1 % (4.4-11.3); NEUTROPHILS # (AUTO) 6.1 (2.1-6.9); NEUTROPHILS % 76.8 % (38.7-80.0); PLATELET COUNT 273 x10e3/uL (140-360); RED BLOOD COUNT 2.49 x10e6/uL (3.6-5.1); RED CELL DISTRIBUTION WIDTH 19.9 % (11.7-14.4)
[2020-03-22 15:59] LABS: HEMOGLOBIN 6.7 g/dL (12.0-16.0)
[2020-03-22 16:08] LABS: CALCIUM 8.3 mg/dL (8.4-10.2); CREATININE, SERUM 1.57 mg/dL (0.57-1.11)
[2020-03-22] MEDS ORDERED: SODIUM CHLORIDE 0.9% 250ML 250 ML IV ONE (16:15)
[2020-03-22 18:00] VITALS: BP 133/71
[2020-03-22] MEDS ORDERED: GABAPENTIN 300 MG CAP PO PRN (18:45)
[2020-03-22] MEDS ORDERED: RISPERIDONE 0.5 MG TAB PO PRN (18:45)
[2020-03-22] MEDS ORDERED: HYDROCODONE/APAP 10MG-325MG TAB PO PRN (18:45)
[2020-03-22] MEDS ORDERED: ALPRAZOLAM 0.25 MG TAB PO PRN (18:45)
[2020-03-22] MEDS ORDERED: HYDRALAZINE HCL 20 MG/ML VIAL IV PRN (19:00)
[2020-03-22] MEDS ORDERED: ACETAMINOPHEN 325 MG TAB PO PRN (19:00)
[2020-03-22] MEDS ORDERED: MELATONIN 5 MG TABLET PO PRN (19:00)
[2020-03-22] MEDS ORDERED: ONDANSETRON HCL INJ 2MG/ML 2ML 2 MG/ML VIAL IV PRN (19:00)
[2020-03-22 19:10] VITALS: BP 128/62
[2020-03-22 21:00] VITALS: BP 128/62
[2020-03-22] MEDS ORDERED: ATORVASTATIN 40 MG TAB PO SCH (21:00)
[2020-03-22] MEDS ORDERED: INSULIN GLARGINE 100 UNITS/ML VIAL SQ SCH (21:00)
[2020-03-22] MEDS: CARBIDOPA/LEVODOPA 25/100 TAB PO SCH (21:13)
[2020-03-23 00:07] VITALS: BP 139/58
[2020-03-23] MEDS ORDERED: SODIUM CHLORIDE 0.9% 250ML 250 ML ONE (00:38)
[2020-03-23 05:26] LABS: BASOPHILS % 0.5 % (0.0-1.0); EOSINOPHILS # (AUTO) 0.2 (0.0-0.4); HEMATOCRIT 25.5 % (34.2-44.1); LYMPHOCYTES # (AUTO) 0.5 (1.0-3.2); LYMPHOCYTES % 6.8 % (18.0-39.1); MEAN CORPUSCULAR HEMOGLOBIN 27.4 pg (28-32); MEAN CORPUSCULAR HGB CONC 27.1 g/dL (31-35); MEAN CORPUSCULAR VOLUME 101.2 fL (81-99); MONOCYTES # (AUTO) 0.8 (0.2-0.8); MONOCYTES % 10.5 % (4.4-11.3); NEUTROPHILS # (AUTO) 5.7 (2.1-6.9); PLATELET COUNT 167 x10e3/uL (140-360); RED BLOOD COUNT 2.52 x10e6/uL (3.6-5.1); RED CELL DISTRIBUTION WIDTH 18.7 % (11.7-14.4)
[2020-03-23 05:28] VITALS: BP 132/71
[2020-03-23 05:42] LABS: ALBUMIN 2.9 g/dL (3.5-5.0); ALBUMIN/GLOBULIN RATIO 1.1 (0.8-2.0); ALKALINE PHOSPHATASE 77 IU/L (40-150); ANION GAP 13.4 mmol/L (8-16); BLOOD UREA NITROGEN 31 mg/dL (7-26); BUN/CREATININE RATIO 27 (6-25); CALCIUM 7.8 mg/dL (8.4-10.2); CARBON DIOXIDE 26 mmol/L (22-29); CHLORIDE 110 mmol/L (98-107); CREATININE, SERUM 1.14 mg/dL (0.57-1.11); EST GLOMERULAR FILTRATION RATE 46 ML/MIN (60-); GLUCOSE 90 mg/dL (74-118); HEMOGLOBIN 6.9 g/dL (12.0-16.0); POTASSIUM 4.4 mmol/L (3.5-5.1); SODIUM 145 mmol/L (136-145)
[2020-03-23] MEDS ORDERED: LEVOTHYROXINE SODIUM 75 MCG TAB PO SCH (06:00)
[2020-03-23 07:02] LABS: ALANINE AMINOTRANSFERASE < 6 IU/L (0-55)
[2020-03-23 07:40] LABS: EOSINOPHILS % (MANUAL) 3 % (0-7); HYPOCHROMASIA SLIGHT; LYMPHOCYTES % (MANUAL) 9 % (19-48); MONOCYTES % (MANUAL) 6 % (3.4-9.0); MYELOCYTES % (MANUAL) 2 % (0-0); NEUTROPHILS % (MANUAL) 80 % (40-74)
[2020-03-23 07:41] LABS: PLATELET ESTIMATE ADEQUATE; PLATELET MORPHOLOGY COMMENT NORMAL; POLYCHROMASIA FEW; RBC MORPHOLOGY COMMENT NORMAL
[2020-03-23 07:45] VITALS: BP 113/60
[2020-03-23 08:48] VITALS: BP 113/60
[2020-03-23] MEDS: CARBIDOPA/LEVODOPA 25/100 TAB PO SCH (08:58)
[2020-03-23] MEDS ORDERED: POTASSIUM CHLORIDE 20 MEQ TAB CR PO SCH (09:00)
[2020-03-23] MEDS ORDERED: FUROSEMIDE 40 MG TAB PO SCH (09:00)
[2020-03-23] MEDS ORDERED: ALLOPURINOL 100 MG TAB PO SCH (09:00)
[2020-03-23] MEDS ORDERED: LISINOPRIL 20 MG TAB PO SCH (09:00)
[2020-03-23] MEDS ORDERED: FERROUS SULFATE 325 MG TAB PO SCH (09:00)
[2020-03-23] MEDS ORDERED: FUROSEMIDE INJ 10 MG/ML 4 ML VIAL IV ONE (11:00)
[2020-03-23 11:06] VITALS: BP 154/82
== END 2020-03-23 11:00 | disposition left against medical advice (07) | DRG 812 ==
LOC: ER 15:37 → ERHOLD 16:26 → INTOOBSV 16:26 → OBSVTOIN 16:26 → MED/SURG2 17:40
PROVIDERS: ADMIT Internal Medicine; ATTEND Internal Medicine
PROC: 30233N1 Transfusion of Nonautologous Red Blood Cells into Peripheral Vein, Percutaneous Approach (ICD-10-PCS; principal; 2020-03-23)
DX: D46.9 Myelodysplastic syndrome, unspecified (principal); I13.0 Hypertensive heart and chronic kidney disease with heart failure and stage 1 through stage 4 chronic kidney disease, or unspecified chronic kidney disease; I50.22 Chronic systolic (congestive) heart failure; D63.8 Anemia in other chronic diseases classified elsewhere; Z88.5 Allergy status to narcotic agent; E11.22 Type 2 diabetes mellitus with diabetic chronic kidney disease; N18.30 Chronic kidney disease, stage 3 unspecified; E78.5 Hyperlipidemia, unspecified; F41.9 Anxiety disorder, unspecified; F32.9 Major depressive disorder, single episode, unspecified; G20 Parkinson's disease; E03.9 Hypothyroidism, unspecified; Z83.3 Family history of diabetes mellitus; Z79.4 Long term (current) use of insulin
CPT/HCPCS: 36415; 80048; 80053; 82948; 83880; 85025; 86850; 86900; 86920; 99284; J1940; J7050; P9016; U0002

== ENCOUNTER 2020-04-07 15:18 | Observation (INO) | payer MEDICARE ==
[~2020-04-07] VITALS: Ht 167.6 cm; Wt 61.2 kg
[2020-04-07 16:32] LABS: BASOPHILS % 0.4 % (0.0-1.0); EOSINOPHILS # (AUTO) 0.1 (0.0-0.4); EOSINOPHILS % 1.2 % (0.0-6.0); HEMATOCRIT 24.4 % (34.2-44.1); LYMPHOCYTES # (AUTO) 0.6 (1.0-3.2); LYMPHOCYTES % 7.6 % (18.0-39.1); MEAN CORPUSCULAR HEMOGLOBIN 24.8 pg (28-32); MEAN CORPUSCULAR HGB CONC 27.5 g/dL (31-35); MEAN CORPUSCULAR VOLUME 90.4 fL (81-99); MONOCYTES # (AUTO) 0.9 (0.2-0.8); MONOCYTES % 12.9 % (4.4-11.3); NEUTROPHILS # (AUTO) 5.5 (2.1-6.9); NEUTROPHILS % 76.4 % (38.7-80.0); PLATELET COUNT 241 x10e3/uL (140-360); RED CELL DISTRIBUTION WIDTH 19.5 % (11.7-14.4)
[2020-04-07 16:35] LABS: HEMOGLOBIN 6.7 g/dL (12.0-16.0)
[2020-04-07] MEDS ORDERED: SODIUM CHLORIDE 0.9% 250ML 250 ML IV ONE (16:45)
[2020-04-07 16:48] LABS: ALBUMIN 3.2 g/dL (3.5-5.0); ALBUMIN/GLOBULIN RATIO 1.1 (0.8-2.0); ALKALINE PHOSPHATASE 104 IU/L (40-150); ANION GAP 15.4 mmol/L (8-16); BLOOD UREA NITROGEN 30 mg/dL (7-26); BUN/CREATININE RATIO 22 (6-25); CALCIUM 8.2 mg/dL (8.4-10.2); CARBON DIOXIDE 25 mmol/L (22-29); CHLORIDE 105 mmol/L (98-107); CREATININE, SERUM 1.35 mg/dL (0.57-1.11); EST GLOMERULAR FILTRATION RATE 38 ML/MIN (60-); GLUCOSE 219 mg/dL (74-118); POTASSIUM 4.4 mmol/L (3.5-5.1); SODIUM 141 mmol/L (136-145)
[2020-04-07 16:50] LABS: ALANINE AMINOTRANSFERASE < 6 IU/L (0-55)
[2020-04-07 20:15] VITALS: BP 159/67
[2020-04-07 20:30] VITALS: BP 159/67
[2020-04-07] MEDS ORDERED: HYDROCODONE/APAP 10MG-325MG TAB PO PRN (20:30)
[2020-04-07] MEDS ORDERED: ALPRAZOLAM 0.25 MG TAB PO PRN (20:30)
[2020-04-07] MEDS ORDERED: ACETAMINOPHEN 325 MG TAB PO PRN (20:30)
[2020-04-07] MEDS ORDERED: ALBUTEROL/IPRATROPIUM 3 ML NEB NEB PRN (20:30)
[2020-04-07] MEDS ORDERED: HYDRALAZINE HCL 20 MG/ML VIAL IV PRN (20:30)
[2020-04-07] MEDS ORDERED: GABAPENTIN 300 MG CAP PO PRN (20:30)
[2020-04-07] MEDS ORDERED: RISPERIDONE 0.5 MG TAB PO PRN (20:30)
[2020-04-07] MEDS ORDERED: ONDANSETRON HCL INJ 2MG/ML 2ML 2 MG/ML VIAL IV PRN (20:30)
[2020-04-07] MEDS: FUROSEMIDE INJ 10 MG/ML 4 ML VIAL IV SCH (20:59)
[2020-04-07] MEDS ORDERED: INSULIN GLARGINE 100 UNITS/ML VIAL SQ SCH (21:00)
[2020-04-07] MEDS ORDERED: ATORVASTATIN 20 MG TAB PO SCH (21:00)
[2020-04-07] MEDS: CARBIDOPA/LEVODOPA 25/100 TAB PO SCH (22:42)
[2020-04-07 23:53] VITALS: BP 159/67
[2020-04-08] VITALS: BP 141/80
[2020-04-08 04:00] VITALS: BP 138/74
[2020-04-08 06:27] LABS: BASOPHILS % 0.4 % (0.0-1.0); EOSINOPHILS # (AUTO) 0.1 (0.0-0.4); EOSINOPHILS % 1.2 % (0.0-6.0); HEMATOCRIT 28.7 % (34.2-44.1); HEMOGLOBIN 7.9 g/dL (12.0-16.0); LYMPHOCYTES # (AUTO) 0.4 (1.0-3.2); LYMPHOCYTES % 5.6 % (18.0-39.1); MEAN CORPUSCULAR HGB CONC 27.5 g/dL (31-35); MEAN CORPUSCULAR VOLUME 90.8 fL (81-99); MONOCYTES # (AUTO) 0.8 (0.2-0.8); MONOCYTES % 10.7 % (4.4-11.3); NEUTROPHILS # (AUTO) 6.3 (2.1-6.9); NEUTROPHILS % 81.3 % (38.7-80.0); PLATELET COUNT 209 x10e3/uL (140-360); RED BLOOD COUNT 3.16 x10e6/uL (3.6-5.1); RED CELL DISTRIBUTION WIDTH 18.4 % (11.7-14.4)
[2020-04-08 06:51] LABS: CALCIUM 8.4 mg/dL (8.4-10.2); CREATININE, SERUM 1.11 mg/dL (0.57-1.11)
[2020-04-08] MEDS ORDERED: LEVOTHYROXINE SODIUM 100 MCG TAB PO SCH (07:30)
[2020-04-08] MEDS: CARBIDOPA/LEVODOPA 25/100 TAB PO SCH (08:12)
[2020-04-08] MEDS: FUROSEMIDE INJ 10 MG/ML 4 ML VIAL IV SCH (08:12)
[2020-04-08 08:16] VITALS: BP 112/61
[2020-04-08 08:33] VITALS: BP 112/61
[2020-04-08] MEDS ORDERED: ESCITALOPRAM OXALATE 10 MG TAB PO SCH (09:00)
[2020-04-08] MEDS ORDERED: FERROUS SULFATE 325 MG TAB PO SCH (09:00)
[2020-04-08] MEDS ORDERED: ALLOPURINOL 100 MG TAB PO SCH (09:00)
[2020-04-08 12:33] VITALS: BP 118/64
[2020-04-08] MEDS ORDERED: AZITHROMYCIN 250 MG TAB PO SCH (12:45)
[2020-04-08] MEDS ORDERED: ZITHROMAX500 MG PO (12:46)
== END 2020-04-08 13:26 | disposition home or self-care (01) ==
LOC: ER 15:30 → ERHOLD 19:29 → MED/SURG 19:45
PROVIDERS: ADMIT Internal Medicine; ATTEND Internal Medicine
DX: D46.9 Myelodysplastic syndrome, unspecified (principal); D63.8 Anemia in other chronic diseases classified elsewhere; J44.1 Chronic obstructive pulmonary disease with (acute) exacerbation; F41.9 Anxiety disorder, unspecified; F32.9 Major depressive disorder, single episode, unspecified; G20 Parkinson's disease; E11.9 Type 2 diabetes mellitus without complications; E03.9 Hypothyroidism, unspecified; F17.210 Nicotine dependence, cigarettes, uncomplicated; Z20.822 Contact with and (suspected) exposure to COVID-19; Z79.4 Long term (current) use of insulin
CPT/HCPCS: 36415 ×2; 36430; 71046; 80048; 80053; 82948 ×2; 85025 ×2; 86850; 86900; 86920; 94640; 94660; 99284; G0378 ×2; J1815; J1940 ×2; J7050; P9016; U0002

== ENCOUNTER 2020-04-22 09:14 | Observation (INO) | payer MEDICARE ==
[~2020-04-22] VITALS: Ht 162.6 cm; Wt 60.8 kg
[~2020-04-22 09:14] MED LIST changes: +ZITHROMAX500 MG PO
[2020-04-22] MEDS ORDERED: FUROSEMIDE INJ 10 MG/ML 2 ML VIAL IV PRN (09:30)
[2020-04-22] MEDS ORDERED: SODIUM CHLORIDE 0.9% 250ML 250 ML IV ONE (09:30)
[2020-04-22 09:44] LABS: BASOPHILS % 0.5 % (0.0-1.0); EOSINOPHILS # (AUTO) 0.2 (0.0-0.4); EOSINOPHILS % 2.4 % (0.0-6.0); HEMATOCRIT 25.8 % (34.2-44.1); LYMPHOCYTES # (AUTO) 0.6 (1.0-3.2); LYMPHOCYTES % 7.3 % (18.0-39.1); MEAN CORPUSCULAR HGB CONC 26.7 g/dL (31-35); MEAN CORPUSCULAR VOLUME 89.6 fL (81-99); MONOCYTES # (AUTO) 1.1 (0.2-0.8); MONOCYTES % 12.2 % (4.4-11.3); NEUTROPHILS # (AUTO) 6.5 (2.1-6.9); NEUTROPHILS % 75.4 % (38.7-80.0); PLATELET COUNT 287 x10e3/uL (140-360); RED BLOOD COUNT 2.88 x10e6/uL (3.6-5.1); RED CELL DISTRIBUTION WIDTH 18.8 % (11.7-14.4)
[2020-04-22 09:46] LABS: HEMOGLOBIN 6.9 g/dL (12.0-16.0)
[2020-04-22 09:50] LABS: INR 1.04; PROTHROMBIN TIME 14.2 seconds (11.9-14.5)
[2020-04-22 09:51] LABS: PARTIAL THROMBOPLASTIN TIME 26.2 seconds (23.8-35.5)
[2020-04-22] MEDS ORDERED: ONDANSETRON HCL INJ 2MG/ML 2ML 2 MG/ML VIAL IV PRN (10:00)
[2020-04-22] MEDS ORDERED: SODIUM CHLORIDE 0.9% 1000ML 1,000 ML IV SCH (10:00)
[2020-04-22 10:01] LABS: ALBUMIN 3.7 g/dL (3.5-5.0); ALKALINE PHOSPHATASE 130 IU/L (40-150); BLOOD UREA NITROGEN 31 mg/dL (7-26); BUN/CREATININE RATIO 21 (6-25); CALCIUM 8.1 mg/dL (8.4-10.2); CARBON DIOXIDE 26 mmol/L (22-29); CHLORIDE 99 mmol/L (98-107); CREATINE KINASE 91 IU/L (29-168); CREATININE, SERUM 1.51 mg/dL (0.57-1.11); EST GLOMERULAR FILTRATION RATE 33 ML/MIN (60-); GLUCOSE 263 mg/dL (74-118); SODIUM 139 mmol/L (136-145)
[2020-04-22 10:07] LABS: ALANINE AMINOTRANSFERASE < 6 IU/L (0-55)
[2020-04-22] MEDS: PANTOPRAZOLE 40 MG 10ML VIAL IV SCH ×2 (10:27→21:30)
[2020-04-22 11:55] VITALS: BP 146/66
[2020-04-22 12:00] VITALS: BP_SYST 130; BP_SYST 146; BP_DIAS 66; BP_DIAS 76
[2020-04-22] MEDS ORDERED: OMEPRAZOLE40 MG PO (12:23)
[2020-04-22] MEDS ORDERED: ALBUTEROL1.25 MG/3 NEB (12:24)
[2020-04-22 12:26] LABS: ANISOCYTOSIS SLIGHT; HYPOCHROMASIA SLIGHT
[2020-04-22] MEDS ORDERED: PREDNISONE5 MG/5 ML PO (12:26)
[2020-04-22 12:27] LABS: PLATELET ESTIMATE ADEQUATE; PLATELET MORPHOLOGY COMMENT NORMAL; POIKILOCYTOSIS SLIGHT; POLYCHROMASIA FEW; RBC MORPHOLOGY COMMENT ABNORMAL
[2020-04-22] MEDS ORDERED: DEXTROSE 50% SYRINGE 50 ML IV PRN (12:45)
[2020-04-22] MEDS ORDERED: SODIUM CHLORIDE 0.9% 250ML 250 ML ONE (13:11)
[2020-04-22] MEDS ORDERED: HYDROCODONE/APAP 5MG-325MG TAB PO ONE (13:30)
[2020-04-22] MEDS ORDERED: GABAPENTIN 300 MG CAP PO PRN (15:00)
[2020-04-22] MEDS: CARBIDOPA/LEVODOPA 25/100 TAB PO SCH ×2 (15:26→21:30)
[2020-04-22] MEDS: INSULIN REGULAR, HUMAN 100 UNIT/1 ML 3ML VIAL SQ SCH ×2 (16:30→21:45)
[2020-04-22] MEDS: NICOTINE 14 MG/EA PATCH TOP SCH (16:45)
[2020-04-22] MEDS: HYDROCODONE/APAP 7.5MG-325MG 1 EA TAB PO PRN (19:17)
[2020-04-22 20:00] VITALS: BP 138/67
[2020-04-22 21:00] VITALS: BP 138/67
[2020-04-22] MEDS ORDERED: ATORVASTATIN 20 MG TAB PO SCH (21:00)
[2020-04-22 23:48] LABS: HEMATOCRIT 27.4 % (34.2-44.1); HEMOGLOBIN 7.9 g/dL (12.0-16.0)
[2020-04-23] VITALS: BP 156/78
[2020-04-23 04:00] VITALS: BP 155/87
[2020-04-23] MEDS: ALBUTEROL/IPRATROPIUM 3 ML NEB NEB PRN ×2 (06:21→13:03)
[2020-04-23 06:24] LABS: BASOPHILS % 0.5 % (0.0-1.0); EOSINOPHILS # (AUTO) 0.2 (0.0-0.4); EOSINOPHILS % 2.7 % (0.0-6.0); HEMATOCRIT 28.9 % (34.2-44.1); HEMOGLOBIN 8.4 g/dL (12.0-16.0); LYMPHOCYTES # (AUTO) 0.4 (1.0-3.2); LYMPHOCYTES % 4.9 % (18.0-39.1); MEAN CORPUSCULAR HEMOGLOBIN 25.8 pg (28-32); MEAN CORPUSCULAR HGB CONC 29.1 g/dL (31-35); MEAN CORPUSCULAR VOLUME 88.7 fL (81-99); MONOCYTES # (AUTO) 0.9 (0.2-0.8); MONOCYTES % 11.6 % (4.4-11.3); NEUTROPHILS # (AUTO) 5.8 (2.1-6.9); NEUTROPHILS % 77.8 % (38.7-80.0); PLATELET COUNT 195 x10e3/uL (140-360); RED BLOOD COUNT 3.26 x10e6/uL (3.6-5.1); RED CELL DISTRIBUTION WIDTH 17.6 % (11.7-14.4)
[2020-04-23 07:10] LABS: FERRITIN 20.32 ng/mL (4.63-204.00)
[2020-04-23 07:15] LABS: ALANINE AMINOTRANSFERASE < 6 IU/L (0-55); ALBUMIN 3.2 g/dL (3.5-5.0); ALKALINE PHOSPHATASE 107 IU/L (40-150); ANION GAP 13.1 mmol/L (8-16); BLOOD UREA NITROGEN 29 mg/dL (7-26); BUN/CREATININE RATIO 22 (6-25); CALCIUM 7.8 mg/dL (8.4-10.2); CARBON DIOXIDE 25 mmol/L (22-29); CHLORIDE 104 mmol/L (98-107); CREATININE, SERUM 1.31 mg/dL (0.57-1.11); EST GLOMERULAR FILTRATION RATE 39 ML/MIN (60-); GLUCOSE 200 mg/dL (74-118); POTASSIUM 4.1 mmol/L (3.5-5.1); SODIUM 138 mmol/L (136-145)
[2020-04-23] MEDS: INSULIN REGULAR, HUMAN 100 UNIT/1 ML 3ML VIAL SQ SCH ×2 (07:30→11:30)
[2020-04-23 08:30] VITALS: BP 145/70
[2020-04-23] MEDS: CARBIDOPA/LEVODOPA 25/100 TAB PO SCH (08:50)
[2020-04-23] MEDS: PANTOPRAZOLE 40 MG 10ML VIAL IV SCH (08:50)
[2020-04-23] MEDS: HYDROCODONE/APAP 7.5MG-325MG 1 EA TAB PO PRN (08:50)
[2020-04-23] MEDS: NICOTINE 14 MG/EA PATCH TOP SCH (08:50)
[2020-04-23] MEDS ORDERED: ESCITALOPRAM OXALATE 10 MG TAB PO SCH (09:00)
[2020-04-23] MEDS ORDERED: PANTOPRAZOLE SOD 40 MG TABEC PO SCH (09:00)
[2020-04-23] MEDS ORDERED: FUROSEMIDE 40 MG TAB PO SCH (09:00)
[2020-04-23] MEDS ORDERED: FERROUS SULFATE 325 MG TAB PO SCH (09:00)
[2020-04-23 09:12] VITALS: BP 145/70
[2020-04-23 12:05] VITALS: BP 136/69
[2020-04-23] MEDS ORDERED: ACETAMINOPHEN 325 MG TAB PO PRN (13:45)
[2020-04-23] MEDS ORDERED: HYDRALAZINE HCL 20 MG/ML VIAL IV PRN (13:45)
[2020-04-23] MEDS ORDERED: IRON SUCROSE 100 MG in SODIUM CHLORIDE 0.9% 100 ML 100 ML IV SCH (16:30)
[2020-04-23 16:57] VITALS: BP 125/61
== END 2020-04-23 16:57 | disposition left against medical advice (07) ==
LOC: ER 09:33 → ERHOLD 10:00 → MED/SURG2 11:25
PROVIDERS: ADMIT Internal Medicine; ATTEND Internal Medicine
DX: D64.9 Anemia, unspecified (principal); E11.29 Type 2 diabetes mellitus with other diabetic kidney complication; E78.5 Hyperlipidemia, unspecified; J44.9 Chronic obstructive pulmonary disease, unspecified; N17.9 Acute kidney failure, unspecified; I12.9 Hypertensive chronic kidney disease with stage 1 through stage 4 chronic kidney disease, or unspecified chronic kidney disease; E11.22 Type 2 diabetes mellitus with diabetic chronic kidney disease; N18.30 Chronic kidney disease, stage 3 unspecified; Z88.5 Allergy status to narcotic agent; Z72.0 Tobacco use; Z91.19 Patient's noncompliance with other medical treatment and regimen; Z20.822 Contact with and (suspected) exposure to COVID-19
CPT/HCPCS: 36415 ×2; 36430; 71045; 80053 ×2; 82550; 82553; 82607; 82728; 82746; 82948 ×2; 83540; 83735; 84466; 84484; 85014; 85018; 85025 ×2; 85045; 85610; 85730; 86850; 86900; 86920; 93005; 94640 ×2; 99284; C9113 ×2; G0378 ×2; J1756; J1817; J1940; J7050; P9016; U0002

== ENCOUNTER 2020-05-31 07:56 | Inpatient (IN) | payer MEDICARE ==
[~2020-05-31] VITALS: Ht 162.6 cm; Wt 60.8 kg
[~2020-05-31 07:56] MED LIST changes: +ALBUTEROL1.25 MG/3 NEB; +PREDNISONE5 MG/5 ML PO
[2020-05-31] MEDS ORDERED: NALOXONE HCL INJ 0.4 MG/ML AMP IV ONE (08:15)
[2020-05-31 08:35] LABS: BASOPHILS % 0.3 % (0.0-1.0); HEMOGLOBIN 8.5 g/dL (12.0-16.0); LYMPHOCYTES # (AUTO) 0.3 (1.0-3.2); LYMPHOCYTES % 2.3 % (18.0-39.1); MEAN CORPUSCULAR HEMOGLOBIN 25.9 pg (28-32); MEAN CORPUSCULAR HGB CONC 29.3 g/dL (31-35); MEAN CORPUSCULAR VOLUME 88.4 fL (81-99); MONOCYTES # (AUTO) 1.4 (0.2-0.8); MONOCYTES % 9.8 % (4.4-11.3); NEUTROPHILS # (AUTO) 12.7 (2.1-6.9); NEUTROPHILS % 86.8 % (38.7-80.0); PLATELET COUNT 288 x10e3/uL (140-360); RED BLOOD COUNT 3.28 x10e6/uL (3.6-5.1)
[2020-05-31 08:54] LABS: SALICYLATE < 5.0 mg/dL (0-30)
[2020-05-31 08:55] LABS: ALBUMIN 3.5 g/dL (3.5-5.0); ALKALINE PHOSPHATASE 157 IU/L (40-150); ANION GAP 13.9 mmol/L (8-16); BLOOD UREA NITROGEN 27 mg/dL (7-26); BUN/CREATININE RATIO 20 (6-25); CALCIUM 8.5 mg/dL (8.4-10.2); CARBON DIOXIDE 26 mmol/L (22-29); CHLORIDE 102 mmol/L (98-107); CREATINE KINASE 745 IU/L (29-168); CREATININE, SERUM 1.36 mg/dL (0.57-1.11); EST GLOMERULAR FILTRATION RATE 38 ML/MIN (60-); SODIUM 139 mmol/L (136-145)
[2020-05-31 08:56] LABS: ALANINE AMINOTRANSFERASE < 6 IU/L (0-55); INR 0.84; PROTHROMBIN TIME 12.1 seconds (11.9-14.5)
[2020-05-31 08:57] LABS: GLUCOSE 25 mg/dL (74-118); PARTIAL THROMBOPLASTIN TIME 27.8 seconds (23.8-35.5); POTASSIUM 2.9 mmol/L (3.5-5.1)
[2020-05-31] MEDS ORDERED: DEXTROSE 50% SYRINGE 50 ML IV STA (08:57)
[2020-05-31 09:04] LABS: B-TYPE NATRIURETIC PEPTIDE2 565.2 pg/mL (0-100)
[2020-05-31] MEDS ORDERED: DEXTROSE 50% SYRINGE 50 ML IV ONE (09:07)
[2020-05-31 09:33] LABS: AMPHETAMINES SCREEN,URINE NEGATIVE (NEGATIVE); BENZODIAZEPINES SCREEN,URINE NEGATIVE (NEGATIVE); PHENCYCLIDINE SCREEN,URINE NEGATIVE (NEGATIVE)
[2020-05-31 09:36] LABS: CLARITY,URINE CLEAR (CLEAR); COLOR,URINE YELLOW (YELLOW)
[2020-05-31 09:37] LABS: KETONES,URINE NEGATIVE (NEGATIVE); LEUKOCYTE ESTERASE ,URINE NEGATIVE (NEGATIVE); NITRITE,URINE NEGATIVE (NEGATIVE); PROTEIN,URINE DIPSTICK 1+ (NEGATIVE); URINE UROBILINOGEN 0.2 mg/dL (0.2 - 1)
[2020-05-31] MEDS ORDERED: POTASSIUM CHLORIDE 20 MEQ TAB CR PO STA (11:29)
[2020-05-31] MEDS ORDERED: DEXTROSE 50% SYRINGE 50 ML IV PRN (11:45)
[2020-05-31] MEDS ORDERED: ONDANSETRON HCL INJ 2MG/ML 2ML 2 MG/ML VIAL IV PRN (11:45)
[2020-05-31] MEDS: KCL 20MEQ/.9 SOD CHL 1,000 ML IV SCH ×2 (12:16→21:04)
[2020-05-31 16:09] VITALS: BP 153/64
[2020-05-31] MEDS: INSULIN LISPRO 100 UNIT/1 ML 3ML VIAL SQ SCH ×2 (16:16→20:23)
[2020-05-31] MEDS ORDERED: PREDNISONE 5 MG TAB PO PRN (17:15)
[2020-05-31] MEDS ORDERED: DEXTROSE 5%/0.9% SOD CHL 1,000 ML IV ONE (17:30)
[2020-05-31 18:21] VITALS: BP 153/64
[2020-05-31 19:20] LABS: CREATINE KINASE MB 17.8 ng/mL (0-5.0)
[2020-05-31] MEDS ORDERED: ASPIRIN 81 MG CHEW TAB PO ONE (20:45)
[2020-05-31 21:00] VITALS: BP 114/62
[2020-05-31] MEDS: ATORVASTATIN 40 MG TAB PO SCH (21:00)
[2020-05-31] MEDS: CARBIDOPA/LEVODOPA 25/100 TAB PO SCH (21:00)
[2020-06-01 05:01] LABS: BASOPHILS % 0.3 % (0.0-1.0); EOSINOPHILS # (AUTO) 0.1 (0.0-0.4); HEMATOCRIT 29.4 % (34.2-44.1); HEMOGLOBIN 8.6 g/dL (12.0-16.0); LYMPHOCYTES # (AUTO) 0.5 (1.0-3.2); LYMPHOCYTES % 6.3 % (18.0-39.1); MEAN CORPUSCULAR HEMOGLOBIN 25.7 pg (28-32); MEAN CORPUSCULAR HGB CONC 29.3 g/dL (31-35); MEAN CORPUSCULAR VOLUME 87.8 fL (81-99); MONOCYTES # (AUTO) 0.6 (0.2-0.8); MONOCYTES % 8.7 % (4.4-11.3); NEUTROPHILS # (AUTO) 6.1 (2.1-6.9); NEUTROPHILS % 82.9 % (38.7-80.0); PLATELET COUNT 222 x10e3/uL (140-360); RED BLOOD COUNT 3.35 x10e6/uL (3.6-5.1); RED CELL DISTRIBUTION WIDTH 18.9 % (11.7-14.4)
[2020-06-01 05:21] LABS: ALBUMIN 2.8 g/dL (3.5-5.0); ALBUMIN/GLOBULIN RATIO 0.9 (0.8-2.0); ALKALINE PHOSPHATASE 132 IU/L (40-150); ANION GAP 11.3 mmol/L (8-16); BLOOD UREA NITROGEN 22 mg/dL (7-26); BUN/CREATININE RATIO 21 (6-25); CALCIUM 8.1 mg/dL (8.4-10.2); CARBON DIOXIDE 28 mmol/L (22-29); CHLORIDE 108 mmol/L (98-107); CREATININE, SERUM 1.04 mg/dL (0.57-1.11); EST GLOMERULAR FILTRATION RATE 51 ML/MIN (60-); POTASSIUM 4.3 mmol/L (3.5-5.1); SODIUM 143 mmol/L (136-145)
[2020-06-01 05:23] LABS: ALANINE AMINOTRANSFERASE < 6 IU/L (0-55)
[2020-06-01 05:24] LABS: GLUCOSE 50 mg/dL (74-118)
[2020-06-01 05:38] LABS: CREATINE KINASE MB 8.3 ng/mL (0-5.0)
[2020-06-01] MEDS: LEVOTHYROXINE SODIUM 75 MCG TAB PO SCH (05:50)
[2020-06-01] MEDS: INSULIN LISPRO 100 UNIT/1 ML 3ML VIAL SQ SCH ×4 (07:30→21:00)
[2020-06-01 08:04] VITALS: BP 143/73
[2020-06-01 08:43] VITALS: BP 143/73
[2020-06-01] MEDS ORDERED: FUROSEMIDE 40 MG TAB PO SCH (09:00)
[2020-06-01] MEDS: ALLOPURINOL 100 MG TAB PO SCH (09:53)
[2020-06-01] MEDS: PANTOPRAZOLE SOD 40 MG TABEC PO SCH (09:53)
[2020-06-01] MEDS: LISINOPRIL 20 MG TAB PO SCH (09:53)
[2020-06-01] MEDS: CARBIDOPA/LEVODOPA 25/100 TAB PO SCH ×3 (09:53→20:39)
[2020-06-01] MEDS: FUROSEMIDE INJ 10 MG/ML 4 ML VIAL IV SCH (09:59)
[2020-06-01] MEDS: ASPIRIN 81 MG CHEW TAB PO SCH (09:59)
[2020-06-01] MEDS: FERROUS SULFATE 325 MG TAB PO SCH (09:59)
[2020-06-01] MEDS: ESCITALOPRAM OXALATE 10 MG TAB PO SCH (10:00)
[2020-06-01] MEDS: POTASSIUM CHLORIDE 20 MEQ TAB CR PO SCH (10:10)
[2020-06-01] MEDS: HYDROCODONE/APAP 10MG-325MG TAB PO PRN (10:55)
[2020-06-01 11:46] VITALS: BP 155/84
[2020-06-01 15:34] VITALS: BP 123/75
[2020-06-01 15:49] LABS: CREATINE KINASE MB 3.7 ng/mL (0-5.0)
[2020-06-01 20:12] VITALS: BP 123/75
[2020-06-01] MEDS: ATORVASTATIN 40 MG TAB PO SCH (20:39)
[2020-06-01] MEDS: ALPRAZOLAM 0.25 MG TAB PO PRN (20:39)
[2020-06-01] MEDS: GABAPENTIN 300 MG CAP PO PRN (20:41)
[2020-06-02] MEDS: HYDROCODONE/APAP 10MG-325MG TAB PO PRN (01:25)
[2020-06-02] MEDS: ALPRAZOLAM 0.25 MG TAB PO PRN ×2 (04:41→22:19)
[2020-06-02 05:10] LABS: BASOPHILS % 0.3 % (0.0-1.0); EOSINOPHILS # (AUTO) 0.1 (0.0-0.4); EOSINOPHILS % 1.9 % (0.0-6.0); HEMATOCRIT 27.2 % (34.2-44.1); HEMOGLOBIN 7.7 g/dL (12.0-16.0); LYMPHOCYTES # (AUTO) 0.5 (1.0-3.2); LYMPHOCYTES % 6.8 % (18.0-39.1); MEAN CORPUSCULAR HEMOGLOBIN 25.1 pg (28-32); MEAN CORPUSCULAR HGB CONC 28.3 g/dL (31-35); MEAN CORPUSCULAR VOLUME 88.6 fL (81-99); MONOCYTES # (AUTO) 0.8 (0.2-0.8); MONOCYTES % 10.7 % (4.4-11.3); NEUTROPHILS # (AUTO) 5.7 (2.1-6.9); NEUTROPHILS % 79.9 % (38.7-80.0); PLATELET COUNT 209 x10e3/uL (140-360); RED BLOOD COUNT 3.07 x10e6/uL (3.6-5.1); RED CELL DISTRIBUTION WIDTH 19.1 % (11.7-14.4)
[2020-06-02 05:31] LABS: ALBUMIN 2.6 g/dL (3.5-5.0); ALBUMIN/GLOBULIN RATIO 0.9 (0.8-2.0); ALKALINE PHOSPHATASE 124 IU/L (40-150); ANION GAP 12.2 mmol/L (8-16); BLOOD UREA NITROGEN 19 mg/dL (7-26); BUN/CREATININE RATIO 16 (6-25); CALCIUM 7.9 mg/dL (8.4-10.2); CARBON DIOXIDE 26 mmol/L (22-29); CHLORIDE 107 mmol/L (98-107); CREATININE, SERUM 1.19 mg/dL (0.57-1.11); EST GLOMERULAR FILTRATION RATE 44 ML/MIN (60-); GLUCOSE 127 mg/dL (74-118); MAGNESIUM 2.2 MG/DL (1.3-2.1); POTASSIUM 4.2 mmol/L (3.5-5.1); SODIUM 141 mmol/L (136-145)
[2020-06-02 05:32] LABS: ALANINE AMINOTRANSFERASE < 6 IU/L (0-55)
[2020-06-02] MEDS: LEVOTHYROXINE SODIUM 75 MCG TAB PO SCH (05:36)
[2020-06-02 08:13] VITALS: BP 148/65
[2020-06-02 08:22] VITALS: BP 148/65
[2020-06-02 08:50] LABS: BAND NEUTROPHILS % (MANUAL) 1 %; EOSINOPHILS % (MANUAL) 2 % (0-7); LYMPHOCYTES % (MANUAL) 4 % (19-48); MONOCYTES % (MANUAL) 12 % (3.4-9.0); NEUTROPHILS % (MANUAL) 81 % (40-74)
[2020-06-02 08:51] LABS: PLATELET ESTIMATE ADEQUATE; PLATELET MORPHOLOGY COMMENT NORMAL; RBC MORPHOLOGY COMMENT NORMAL
[2020-06-02 08:52] LABS: HYPOCHROMASIA SLIGHT
[2020-06-02] MEDS: FERROUS SULFATE 325 MG TAB PO SCH (08:52)
[2020-06-02] MEDS: ASPIRIN 81 MG CHEW TAB PO SCH (08:52)
[2020-06-02] MEDS: POTASSIUM CHLORIDE 20 MEQ TAB CR PO SCH (08:53)
[2020-06-02] MEDS: ESCITALOPRAM OXALATE 10 MG TAB PO SCH (08:54)
[2020-06-02] MEDS: LISINOPRIL 20 MG TAB PO SCH (08:54)
[2020-06-02] MEDS: CARBIDOPA/LEVODOPA 25/100 TAB PO SCH ×3 (08:55→20:54)
[2020-06-02] MEDS: PANTOPRAZOLE SOD 40 MG TABEC PO SCH (08:55)
[2020-06-02] MEDS: ALLOPURINOL 100 MG TAB PO SCH (08:56)
[2020-06-02] MEDS: FUROSEMIDE INJ 10 MG/ML 4 ML VIAL IV SCH (08:58)
[2020-06-02] MEDS: LIDOCAINE 4% PATCH TP SCH (09:04)
[2020-06-02] MEDS: INSULIN LISPRO 100 UNIT/1 ML 3ML VIAL SQ SCH ×4 (09:14→21:15)
[2020-06-02 12:41] VITALS: BP 130/70
[2020-06-02 15:10] VITALS: BP 134/62
[2020-06-02] MEDS: HYDROCODONE/APAP 5MG-325MG TAB PO PRN (16:59)
[2020-06-02 20:00] VITALS: BP 151/62
[2020-06-02] MEDS: GABAPENTIN 300 MG CAP PO PRN (20:54)
[2020-06-02] MEDS: ATORVASTATIN 40 MG TAB PO SCH (20:54)
[2020-06-03] MEDS: HYDROCODONE/APAP 5MG-325MG TAB PO PRN ×4 (00:20→17:45)
[2020-06-03] MEDS: LEVOTHYROXINE SODIUM 75 MCG TAB PO SCH (05:13)
[2020-06-03] MEDS: ALPRAZOLAM 0.25 MG TAB PO PRN ×2 (05:30→19:57)
[2020-06-03] MEDS: INSULIN LISPRO 100 UNIT/1 ML 3ML VIAL SQ SCH ×4 (07:30→21:30)
[2020-06-03 07:57] VITALS: BP 116/55
[2020-06-03] MEDS: POTASSIUM CHLORIDE 20 MEQ TAB CR PO SCH (08:31)
[2020-06-03] MEDS: FUROSEMIDE INJ 10 MG/ML 4 ML VIAL IV SCH (08:31)
[2020-06-03] MEDS: ASPIRIN 81 MG CHEW TAB PO SCH (08:31)
[2020-06-03] MEDS: ESCITALOPRAM OXALATE 10 MG TAB PO SCH (08:31)
[2020-06-03] MEDS: LISINOPRIL 20 MG TAB PO SCH (08:31)
[2020-06-03] MEDS: FERROUS SULFATE 325 MG TAB PO SCH (08:31)
[2020-06-03] MEDS: PANTOPRAZOLE SOD 40 MG TABEC PO SCH (08:32)
[2020-06-03] MEDS: CARBIDOPA/LEVODOPA 25/100 TAB PO SCH ×3 (08:32→19:57)
[2020-06-03] MEDS: ALLOPURINOL 100 MG TAB PO SCH (08:32)
[2020-06-03] MEDS: LIDOCAINE 4% PATCH TP SCH (08:32)
[2020-06-03 08:33] VITALS: BP 116/55
[2020-06-03 08:46] LABS: BASOPHILS % 0.5 % (0.0-1.0); EOSINOPHILS # (AUTO) 0.2 (0.0-0.4); EOSINOPHILS % 2.9 % (0.0-6.0); HEMATOCRIT 26.7 % (34.2-44.1); HEMOGLOBIN 7.6 g/dL (12.0-16.0); LYMPHOCYTES # (AUTO) 0.4 (1.0-3.2); LYMPHOCYTES % 5.3 % (18.0-39.1); MEAN CORPUSCULAR HEMOGLOBIN 25.3 pg (28-32); MEAN CORPUSCULAR HGB CONC 28.5 g/dL (31-35); MONOCYTES # (AUTO) 0.8 (0.2-0.8); MONOCYTES % 12.7 % (4.4-11.3); NEUTROPHILS # (AUTO) 5.2 (2.1-6.9); NEUTROPHILS % 77.8 % (38.7-80.0); PLATELET COUNT 174 x10e3/uL (140-360); RED CELL DISTRIBUTION WIDTH 18.6 % (11.7-14.4)
[2020-06-03 09:00] LABS: ALBUMIN 2.8 g/dL (3.5-5.0); ALBUMIN/GLOBULIN RATIO 0.9 (0.8-2.0); ALKALINE PHOSPHATASE 126 IU/L (40-150); ANION GAP 11.7 mmol/L (8-16); BLOOD UREA NITROGEN 21 mg/dL (7-26); BUN/CREATININE RATIO 19 (6-25); CALCIUM 7.9 mg/dL (8.4-10.2); CARBON DIOXIDE 24 mmol/L (22-29); CHLORIDE 107 mmol/L (98-107); CREATININE, SERUM 1.12 mg/dL (0.57-1.11); EST GLOMERULAR FILTRATION RATE 47 ML/MIN (60-); GLUCOSE 183 mg/dL (74-118); POTASSIUM 3.7 mmol/L (3.5-5.1); SODIUM 139 mmol/L (136-145)
[2020-06-03 09:02] LABS: ALANINE AMINOTRANSFERASE < 6 IU/L (0-55)
[2020-06-03 12:00] VITALS: BP 168/78
[2020-06-03] MEDS ORDERED: SODIUM CHLORIDE 0.9% 250ML 250 ML ONE (12:04)
[2020-06-03] MEDS: IRON SUCROSE 100 MG in SODIUM CHLORIDE 0.9% 100 ML 100 ML IV SCH (12:53)
[2020-06-03] MEDS ORDERED: FUROSEMIDE INJ 10 MG/ML 2 ML VIAL IV PRN (14:45)
[2020-06-03] MEDS ORDERED: SODIUM CHLORIDE 0.9% 250ML 250 ML IV ONE (15:30)
[2020-06-03 15:52] VITALS: BP 122/57
[2020-06-03 19:54] VITALS: BP 117/53
[2020-06-03] MEDS: ATORVASTATIN 40 MG TAB PO SCH (19:57)
[2020-06-03] MEDS: GABAPENTIN 300 MG CAP PO PRN (21:56)
[2020-06-03 21:58] VITALS: BP 117/53
[2020-06-04 00:06] VITALS: BP 131/64
[2020-06-04] MEDS: HYDROCODONE/APAP 5MG-325MG TAB PO PRN ×3 (01:51→13:24)
[2020-06-04 05:24] VITALS: BP 129/63
[2020-06-04] MEDS: LEVOTHYROXINE SODIUM 75 MCG TAB PO SCH (05:51)
[2020-06-04 07:41] VITALS: BP 139/63
[2020-06-04] MEDS: ESCITALOPRAM OXALATE 10 MG TAB PO SCH (08:16)
[2020-06-04] MEDS: FUROSEMIDE INJ 10 MG/ML 4 ML VIAL IV SCH (08:16)
[2020-06-04] MEDS: POTASSIUM CHLORIDE 20 MEQ TAB CR PO SCH (08:16)
[2020-06-04] MEDS: ASPIRIN 81 MG CHEW TAB PO SCH (08:16)
[2020-06-04] MEDS: FERROUS SULFATE 325 MG TAB PO SCH (08:16)
[2020-06-04] MEDS: LIDOCAINE 4% PATCH TP SCH (08:17)
[2020-06-04] MEDS: ALLOPURINOL 100 MG TAB PO SCH (08:17)
[2020-06-04] MEDS: LISINOPRIL 20 MG TAB PO SCH (08:17)
[2020-06-04] MEDS: CARBIDOPA/LEVODOPA 25/100 TAB PO SCH (08:17)
[2020-06-04] MEDS: PANTOPRAZOLE SOD 40 MG TABEC PO SCH (08:17)
[2020-06-04] MEDS: INSULIN LISPRO 100 UNIT/1 ML 3ML VIAL SQ SCH ×2 (08:18→12:30)
[2020-06-04 08:20] VITALS: BP 139/63
[2020-06-04 11:59] VITALS: BP 143/69
[2020-06-04] MEDS: IRON SUCROSE 100 MG in SODIUM CHLORIDE 0.9% 100 ML 100 ML IV SCH (12:00)
== END 2020-06-04 13:30 | DRG 291 ==
LOC: ER 08:20 → ERHOLD 11:48 → MED/SURG2 14:50 → OBSVTOIN 06-01 09:05
PROVIDERS: ADMIT Internal Medicine; ATTEND Internal Medicine
DX: I11.0 Hypertensive heart disease with heart failure (principal); G93.41 Metabolic encephalopathy; I50.23 Acute on chronic systolic (congestive) heart failure; E11.649 Type 2 diabetes mellitus with hypoglycemia without coma; D46.9 Myelodysplastic syndrome, unspecified; Z53.29 Procedure and treatment not carried out because of patient's decision for other reasons; J44.9 Chronic obstructive pulmonary disease, unspecified; E11.65 Type 2 diabetes mellitus with hyperglycemia; I25.2 Old myocardial infarction; Z20.822 Contact with and (suspected) exposure to COVID-19
CPT/HCPCS: 36415; 70450; 70551; 71045; 71250; 80053; 80307; 80320; 80329; 81001; 82140; 82270; 82550; 82553; 82948; 83735; 83880; 84484; 85025; 85610; 85730; 86850; 86900; 86920; 87040; 87086; 93005; 93306; 96361; 99284; G0378; J1756; J1940; J2310; J7042; J7050; J7512; J7799; P9016; U0002

== ENCOUNTER → 2021-01-24 | Outpatient (CLI) | payer MEDICARE | LOC: US 10:50 | PROVIDERS: ATTEND Internal Medicine | DX: R74.01 Elevation of levels of liver transaminase levels (principal) | CPT/HCPCS: 76705 ==

== ENCOUNTER 2021-05-21 11:10 | Inpatient (IN) | payer MEDICARE, OTHER ==
[~2021-05-21] VITALS: Ht 162.6 cm; Wt 60.8 kg
[2021-05-21 12:12] LABS: BASOPHILS # (AUTO) 0.1 (0.0-0.1); BASOPHILS % 1.1 % (0.0-1.0); EOSINOPHILS # (AUTO) 0.2 (0.0-0.4); EOSINOPHILS % 3.2 % (0.0-6.0); LYMPHOCYTES # (AUTO) 0.5 (1.0-3.2); LYMPHOCYTES % 9.6 % (18.0-39.1); MEAN CORPUSCULAR HEMOGLOBIN 23.4 pg (28-32); MEAN CORPUSCULAR HGB CONC 27.3 g/dL (31-35); MEAN CORPUSCULAR VOLUME 85.7 fL (81-99); MONOCYTES # (AUTO) 0.6 (0.2-0.8); MONOCYTES % 10.3 % (4.4-11.3); PLATELET COUNT 231 x10e3/uL (140-360); RED BLOOD COUNT 2.65 x10e6/uL (3.6-5.1); RED CELL DISTRIBUTION WIDTH 18.8 % (11.7-14.4)
[2021-05-21 12:20] LABS: HEMATOCRIT 22.7 % (34.2-44.1); HEMOGLOBIN 6.2 g/dL (12.0-16.0)
[2021-05-21] MEDS ORDERED: SODIUM CHLORIDE 0.9% 250ML 250 ML IV ONE (12:30)
[2021-05-21 12:32] LABS: ALBUMIN 3.7 g/dL (3.5-5.0); ANION GAP 13.3 mmol/L (8-16); CALCIUM 8.3 mg/dL (8.4-10.2); CREATININE, SERUM 1.65 mg/dL (0.57-1.11); POTASSIUM 4.3 mmol/L (3.5-5.1)
[2021-05-21 14:45] VITALS: BP 162/75
[2021-05-21 17:08] VITALS: BP 162/75
[2021-05-21] MEDS ORDERED: PREDNISONE 5 MG/5 ML SOLN PO PRN (17:30)
[2021-05-21] MEDS ORDERED: ALBUTEROL SULFATE HFA 8GM INHALATION AEROSOL INH PRN (17:30)
[2021-05-21] MEDS ORDERED: ALPRAZOLAM 0.25 MG TAB PO PRN (17:30)
[2021-05-21] MEDS: ALBUTEROL/IPRATROPIUM 3 ML NEB NEB SCH ×2 (18:00→23:05)
[2021-05-21] MEDS ORDERED: FUROSEMIDE INJ 10 MG/ML 4 ML VIAL IV ONE (18:25)
[2021-05-21 20:00] VITALS: BP 137/82
[2021-05-21] MEDS: METHYLPREDNISOLONE SOD SUCC 40 MG/ML VIAL 1ML IV SCH ×2 (20:10→21:19)
[2021-05-21] MEDS: INSULIN GLARGINE 100 UNITS/ML VIAL SC SCH (21:00)
[2021-05-22] VITALS (8 sets, daily range): BP systolic 118–149; BP diastolic 64–95
[2021-05-22] MEDS: ALBUTEROL/IPRATROPIUM 3 ML NEB NEB SCH ×7 (02:40→23:00)
[2021-05-22] MEDS: METHYLPREDNISOLONE SOD SUCC 40 MG/ML VIAL 1ML IV SCH ×3 (05:53→20:16)
[2021-05-22] MEDS: METOPROLOL TARTRATE 25 MG TAB PO SCH ×3 (05:54→20:17)
[2021-05-22 07:26] LABS: BASOPHILS % 0.1 % (0.0-1.0); HEMATOCRIT 28.8 % (34.2-44.1); HEMOGLOBIN 7.8 g/dL (12.0-16.0); LYMPHOCYTES # (AUTO) 0.4 (1.0-3.2); LYMPHOCYTES % 3.3 % (18.0-39.1); MEAN CORPUSCULAR HEMOGLOBIN 24.4 pg (28-32); MEAN CORPUSCULAR HGB CONC 27.1 g/dL (31-35); MONOCYTES # (AUTO) 1.2 (0.2-0.8); MONOCYTES % 10.2 % (4.4-11.3); NEUTROPHILS # (AUTO) 10.2 (2.1-6.9); NEUTROPHILS % 85.6 % (38.7-80.0); PLATELET COUNT 255 x10e3/uL (140-360); RED CELL DISTRIBUTION WIDTH 17.7 % (11.7-14.4)
[2021-05-22 07:50] LABS: ANION GAP 13.9 mmol/L (8-16); CALCIUM 8.2 mg/dL (8.4-10.2); CREATININE, SERUM 1.91 mg/dL (0.57-1.11); POTASSIUM 4.9 mmol/L (3.5-5.1)
[2021-05-22] MEDS: FUROSEMIDE INJ 10 MG/ML 2 ML VIAL IV SCH ×2 (08:20→17:05)
[2021-05-22] MEDS: NICOTINE 21 MG/EA PATCH TOP SCH (08:20)
[2021-05-22] MEDS: ESCITALOPRAM OXALATE 10 MG TAB PO SCH (08:20)
[2021-05-22 08:43] LABS: FERRITIN 11.98 ng/mL (4.63-204.00)
[2021-05-22] MEDS ORDERED: FUROSEMIDE INJ 10 MG/ML 4 ML VIAL ONE (08:44)
[2021-05-22] MEDS ORDERED: FUROSEMIDE INJ 10 MG/ML 4 ML VIAL IV ONE (09:00)
[2021-05-22] MEDS: GABAPENTIN 300 MG CAP PO PRN ×2 (16:03→20:34)
[2021-05-22] MEDS ORDERED: SODIUM FERRIC GLUCONATE COMPLX 125 MG in SODIUM CHLORIDE 0.9% 100 ML 100 ML IV SCH (17:00)
[2021-05-22 19:53] LABS: ABG HCO3 28 mmol/L (22-26); ABG PCO2 47 mmHg (35-45); ABG PH 7.38 (7.35-7.45); ABG PO2 59 mmHg (80-105); ABG TCO2 29
[2021-05-22] MEDS: INSULIN GLARGINE 100 UNITS/ML VIAL SC SCH (20:15)
[2021-05-23 00:14] VITALS: BP 120/87
[2021-05-23] MEDS: TRAMADOL HCL 50 MG TAB PO PRN ×2 (00:26→10:55)
[2021-05-23] MEDS: ALBUTEROL/IPRATROPIUM 3 ML NEB NEB SCH ×4 (03:00→15:00)
[2021-05-23] MEDS: METHYLPREDNISOLONE SOD SUCC 40 MG/ML VIAL 1ML IV SCH ×2 (05:22→14:06)
[2021-05-23 05:23] VITALS: BP 126/66
[2021-05-23] MEDS: METOPROLOL TARTRATE 25 MG TAB PO SCH ×2 (05:23→14:06)
[2021-05-23 08:00] VITALS: BP 124/62
[2021-05-23 08:14] VITALS: BP 124/62
[2021-05-23] MEDS: ESCITALOPRAM OXALATE 10 MG TAB PO SCH (09:00)
[2021-05-23] MEDS: FUROSEMIDE INJ 10 MG/ML 2 ML VIAL IV SCH (09:00)
[2021-05-23] MEDS: NICOTINE 21 MG/EA PATCH TOP SCH (09:00)
[2021-05-23 10:10] LABS: BASOPHILS % 0.1 % (0.0-1.0); HEMATOCRIT 25.9 % (34.2-44.1); HEMOGLOBIN 7.5 g/dL (12.0-16.0); LYMPHOCYTES # (AUTO) 0.2 (1.0-3.2); MEAN CORPUSCULAR HEMOGLOBIN 24.4 pg (28-32); MEAN CORPUSCULAR VOLUME 84.1 fL (81-99); MONOCYTES # (AUTO) 0.4 (0.2-0.8); MONOCYTES % 3.5 % (4.4-11.3); NEUTROPHILS # (AUTO) 11.1 (2.1-6.9); NEUTROPHILS % 93.6 % (38.7-80.0); PLATELET COUNT 219 x10e3/uL (140-360); RED BLOOD COUNT 3.08 x10e6/uL (3.6-5.1); RED CELL DISTRIBUTION WIDTH 18.2 % (11.7-14.4)
[2021-05-23 10:26] LABS: ANION GAP 14.9 mmol/L (8-16); CALCIUM 8.4 mg/dL (8.4-10.2); CREATININE, SERUM 1.96 mg/dL (0.57-1.11); POTASSIUM 4.9 mmol/L (3.5-5.1)
[2021-05-23 12:23] VITALS: BP 147/77
[2021-05-23] MEDS ORDERED: PREDNISONE20 MG PO (15:52)
[2021-05-23] MEDS ORDERED: FUROSEMIDE40 MG PO (15:52)
[2021-05-23] MEDS ORDERED: PANTOPRAZOLE SOD 40 MG TABEC PO SCH (16:30)
[2021-05-23 16:50] VITALS: BP 117/70
[2021-05-23] MEDS ORDERED: FUROSEMIDE 20 MG TAB PO SCH (17:00)
== END 2021-05-23 17:08 | disposition home or self-care (01) | DRG 291 ==
LOC: ER 11:18 → ERHOLD 12:41 → MED/SURG2 16:05 → OBSVTOIN 05-22 00:50 → MED/SURG2 05-22 01:00
PROVIDERS: ADMIT Internal Medicine; ATTEND Internal Medicine
PROC: 30233N1 Transfusion of Nonautologous Red Blood Cells into Peripheral Vein, Percutaneous Approach (ICD-10-PCS; principal; 2021-05-21)
DX: I13.0 Hypertensive heart and chronic kidney disease with heart failure and stage 1 through stage 4 chronic kidney disease, or unspecified chronic kidney disease (principal); J96.00 Acute respiratory failure, unspecified whether with hypoxia or hypercapnia; N17.9 Acute kidney failure, unspecified; D64.9 Anemia, unspecified; I50.9 Heart failure, unspecified; E11.22 Type 2 diabetes mellitus with diabetic chronic kidney disease; N18.30 Chronic kidney disease, stage 3 unspecified; J44.9 Chronic obstructive pulmonary disease, unspecified; F41.9 Anxiety disorder, unspecified; E78.5 Hyperlipidemia, unspecified; G20 Parkinson's disease; F17.210 Nicotine dependence, cigarettes, uncomplicated; Z88.5 Allergy status to narcotic agent; Z79.4 Long term (current) use of insulin
CPT/HCPCS: 36415; 36600; 71045; 80048; 80053; 82607; 82728; 82746; 82805; 82948; 83540; 84466; 85025; 86850; 86900; 86920; 94799; 97139; 99284; G0378; J1940; J2916; J2920; J7050; P9016; U0002

== ENCOUNTER 2021-06-01 21:53 | Inpatient (IN) | payer MEDICARE, OTHER ==
[~2021-06-01] VITALS: Ht 162.6 cm; Wt 57.8 kg
[~2021-06-01 21:53] MED LIST changes: +ETOMIDATE 2 MG/ML 10 ML INJ IV ONE; +PREDNISONE20 MG PO; +SUCCINYLCHOLINE CHLORIDE 20 MG/ML 10ML VIAL ONE
[2021-06-01] MEDS ORDERED: FUROSEMIDE INJ 10 MG/ML 4 ML VIAL IV ONE ×2 (22:00→23:00)
[2021-06-01] MEDS ORDERED: FUROSEMIDE INJ 10 MG/ML 4 ML VIAL ONE (22:24)
[2021-06-01 22:25] LABS: BASOPHILS # (AUTO) 0.1 (0.0-0.1); BASOPHILS % 0.6 % (0.0-1.0); EOSINOPHILS # (AUTO) 0.2 (0.0-0.4); EOSINOPHILS % 0.9 % (0.0-6.0); HEMATOCRIT 31.4 % (34.2-44.1); HEMOGLOBIN 8.4 g/dL (12.0-16.0); LYMPHOCYTES # (AUTO) 2.6 (1.0-3.2); LYMPHOCYTES % 14.5 % (18.0-39.1); MEAN CORPUSCULAR HEMOGLOBIN 22.8 pg (28-32); MEAN CORPUSCULAR HGB CONC 26.8 g/dL (31-35); MEAN CORPUSCULAR VOLUME 85.3 fL (81-99); MONOCYTES # (AUTO) 1.5 (0.2-0.8); MONOCYTES % 8.4 % (4.4-11.3); NEUTROPHILS # (AUTO) 13.5 (2.1-6.9); NEUTROPHILS % 74.5 % (38.7-80.0); PLATELET COUNT 215 x10e3/uL (140-360); RED BLOOD COUNT 3.68 x10e6/uL (3.6-5.1); RED CELL DISTRIBUTION WIDTH 19.7 % (11.7-14.4)
[2021-06-01 22:46] LABS: ALANINE AMINOTRANSFERASE < 6 IU/L (0-55); ALBUMIN 3.8 g/dL (3.5-5.0); ALBUMIN/GLOBULIN RATIO 0.9 (0.8-2.0); ALKALINE PHOSPHATASE 100 IU/L (40-150); ANION GAP 15.4 mmol/L (8-16); BLOOD UREA NITROGEN 20 mg/dL (7-26); BUN/CREATININE RATIO 13 (6-25); CALCIUM 9.2 mg/dL (8.4-10.2); CARBON DIOXIDE 25 mmol/L (22-29); CHLORIDE 105 mmol/L (98-107); CREATINE KINASE 59 IU/L (29-168); CREATININE, SERUM 1.51 mg/dL (0.57-1.11); EST GLOMERULAR FILTRATION RATE 33 ML/MIN (60-); GLUCOSE 354 mg/dL (74-118); POTASSIUM 4.4 mmol/L (3.5-5.1); SODIUM 141 mmol/L (136-145)
[2021-06-01 22:55] LABS: ABG HCO3 29 mmol/L (22-26); ABG PCO2 66 mmHg (35-45); ABG PH 7.24 (7.35-7.45); ABG PO2 109 mmHg (80-105)
[2021-06-01 22:56] LABS: ABG TCO2 31
[2021-06-01] MEDS ORDERED: LORAZEPAM INJ 2 MG/ML VIAL IV ONE (23:00)
[2021-06-01 23:06] LABS: B-TYPE NATRIURETIC PEPTIDE2 2596.6 pg/mL (0-100)
[2021-06-01 23:55] LABS: CLARITY,URINE CLOUDY (CLEAR); COLOR,URINE YELLOW (YELLOW); LEUKOCYTE ESTERASE ,URINE 2+ (NEGATIVE); NITRITE,URINE NEGATIVE (NEGATIVE)
[2021-06-01 23:56] LABS: AMPHETAMINES SCREEN,URINE NEGATIVE (NEGATIVE); BENZODIAZEPINES SCREEN,URINE NEGATIVE (NEGATIVE); KETONES,URINE NEGATIVE (NEGATIVE); PHENCYCLIDINE SCREEN,URINE NEGATIVE (NEGATIVE); PROTEIN,URINE DIPSTICK >=300 (NEGATIVE); URINE UROBILINOGEN 1 mg/dL (0.2 - 1)
[2021-06-02] VITALS (72 sets, daily range): BP systolic 72–164; BP diastolic 36–115
[2021-06-02 00:11] LABS: BACTERIA,URINE MANY /HPF; EPITHELIAL CELLS,URINE FEW /LPF; RBC,URINE 21-50 /HPF (0-5); WBC,URINE (MAN) >50 /HPF (0-5)
[2021-06-02] MEDS ORDERED: DEXTROSE 50% SYRINGE 50 ML IV PRN (00:15)
[2021-06-02 00:53] LABS: CREATINE KINASE MB 2.9 ng/mL (0-5.0)
[2021-06-02] MEDS ORDERED: ONDANSETRON HCL INJ 2MG/ML 2ML 2 MG/ML VIAL IV PRN (01:30)
[2021-06-02] MEDS ORDERED: GUAIFENESIN/DEXTROMETHORPHAN LIQD 5 ML UDC PO PRN (01:30)
[2021-06-02] MEDS ORDERED: HYDRALAZINE HCL 20 MG/ML VIAL IV PRN (01:30)
[2021-06-02] MEDS ORDERED: ALPRAZOLAM 0.25 MG TAB PO PRN (01:30)
[2021-06-02] MEDS ORDERED: FUROSEMIDE INJ 10 MG/ML 4 ML VIAL IV ONE (04:15)
[2021-06-02 04:25] LABS: ABG PH 7.06 (7.35-7.45)
[2021-06-02 04:26] LABS: ABG PCO2 96 mmHg (35-45)
[2021-06-02 04:27] LABS: ABG HCO3 27 mmol/L (22-26); ABG PO2 55 mmHg (80-105); ABG TCO2 30
[2021-06-02] MEDS ORDERED: PROPOFOL IV EMULSION 10MG/ML 100 ML IV SCH ×2 (04:45→22:30)
[2021-06-02] MEDS ORDERED: METHYLPREDNISOLONE SOD SUCC 125 MG/2ML VIAL IV STA (04:46)
[2021-06-02] MEDS ORDERED: SODIUM CHLORIDE 0.9% 1000ML 1,000 ML ONE ×2 (05:00→10:53)
[2021-06-02] MEDS ORDERED: PROPOFOL IV EMULSION 10MG/ML 100 ML ONE ×2 (05:14→22:30)
[2021-06-02] MEDS ORDERED: SUCCINYLCHOLINE 200 MG/10 ML SYR IV STA (05:15)
[2021-06-02] MEDS ORDERED: SODIUM CHLORIDE 0.9% 1000ML 1,000 ML IV ONE (05:15)
[2021-06-02] MEDS ORDERED: FENTANYL CITRATE/PF 100MCG/2 ML INJ IV PRN (05:15)
[2021-06-02] MEDS ORDERED: ETOMIDATE 2 MG/ML 10 ML INJ IV STA (05:15)
[2021-06-02] MEDS ORDERED: Vancomycin IV 1 GM in SODIUM CHLORIDE 0.9% 250ML 250 ML IV ONE (05:30)
[2021-06-02] MEDS ORDERED: FUROSEMIDE INJ 10 MG/ML 4 ML VIAL IV SCH ×2 (06:00→09:00)
[2021-06-02] MEDS: IPRATROPIUM BROMIDE 0.02% 2.5 ML NEB NEB SCH ×6 (06:18→23:00)
[2021-06-02] MEDS ORDERED: INSULIN GLARGINE 100 UNITS/ML VIAL SQ ONE (06:30)
[2021-06-02] MEDS ORDERED: INSULIN REGULAR, HUMAN 100 UNIT/1 ML SQ ONE (06:30)
[2021-06-02] MEDS ORDERED: INSULIN REGULAR, HUMAN 100 UNIT/1 ML SQ SCH (07:30)
[2021-06-02 07:48] LABS: BASOPHILS % 0.1 % (0.0-1.0); HEMATOCRIT 26.9 % (34.2-44.1); HEMOGLOBIN 7.2 g/dL (12.0-16.0); LYMPHOCYTES # (AUTO) 0.1 (1.0-3.2); LYMPHOCYTES % 0.7 % (18.0-39.1); MEAN CORPUSCULAR HEMOGLOBIN 23.3 pg (28-32); MEAN CORPUSCULAR HGB CONC 26.8 g/dL (31-35); MEAN CORPUSCULAR VOLUME 87.1 fL (81-99); MONOCYTES # (AUTO) 0.8 (0.2-0.8); MONOCYTES % 4.6 % (4.4-11.3); NEUTROPHILS # (AUTO) 15.6 (2.1-6.9); NEUTROPHILS % 93.8 % (38.7-80.0); PLATELET COUNT 141 x10e3/uL (140-360); RED BLOOD COUNT 3.09 x10e6/uL (3.6-5.1); RED CELL DISTRIBUTION WIDTH 19.1 % (11.7-14.4)
[2021-06-02 08:05] LABS: ANION GAP 16.2 mmol/L (8-16); CREATININE, SERUM 1.91 mg/dL (0.57-1.11); POTASSIUM 5.2 mmol/L (3.5-5.1)
[2021-06-02 08:08] LABS: ABG HCO3 25 mmol/L (22-26); ABG PCO2 60 mmHg (35-45); ABG PH 7.24 (7.35-7.45); ABG PO2 274 mmHg (80-105); ABG TCO2 27
[2021-06-02] MEDS ORDERED: INSULIN REGULAR, HUMAN 3ML VL 100 UNIT in SODIUM CHLORIDE 0.9% 100 ML 100 ML IV SCH ×2 (08:15)
[2021-06-02 08:24] LABS: CREATINE KINASE MB 3.1 ng/mL (0-5.0)
[2021-06-02 08:38] LABS: MAGNESIUM 2.2 MG/DL (1.3-2.1); PHOSPHORUS 5.7 MG/DL (2.3-4.7)
[2021-06-02] MEDS: POTASSIUM CHLORIDE 20 MEQ TAB CR PO SCH (08:43)
[2021-06-02] MEDS: FERROUS SULFATE 325 MG TAB PO SCH (08:43)
[2021-06-02] MEDS: MULTIVITAMINS/MINERALS TAB PO SCH (08:44)
[2021-06-02] MEDS: LEVOTHYROXINE SODIUM 50 MCG TAB PO SCH (08:44)
[2021-06-02] MEDS: CARBIDOPA/LEVODOPA 25/100 TAB PO SCH ×3 (08:44→20:36)
[2021-06-02] MEDS: ALLOPURINOL 100 MG TAB PO SCH (08:44)
[2021-06-02 08:55] LABS: FERRITIN 20.44 ng/mL (4.63-204.00)
[2021-06-02 08:58] LABS: THYROID STIMULATING HORMONE 38.117 uIU/mL (0.350-4.940)
[2021-06-02] MEDS: METHYLPREDNISOLONE SOD SUCC 40 MG/ML VIAL 1ML IV SCH ×2 (08:58→20:35)
[2021-06-02] MEDS ORDERED: PANTOPRAZOLE SOD 40 MG TABEC PO SCH (09:00)
[2021-06-02] MEDS ORDERED: ESCITALOPRAM OXALATE 10 MG TAB PO SCH (09:00)
[2021-06-02] MEDS ORDERED: OMEPRAZOL/SOD BICARB 40MG PWDR PKT PO SCH (09:00)
[2021-06-02] MEDS: INSULIN REGULAR, HUMAN 3ML VL 100 UNIT in SODIUM CHLORIDE 0.9% 100 ML 100 ML IV SCH ×2 (09:30)
[2021-06-02 13:18] LABS: ABG HCO3 24 mmol/L (22-26); ABG PCO2 36 mmHg (35-45); ABG PH 7.43 (7.35-7.45); ABG PO2 98 mmHg (80-105); ABG TCO2 25
[2021-06-02] MEDS ORDERED: NOREPINEPHRINE 8 MG/D5W 250 ML 250 ML IV PRN (13:45)
[2021-06-02] MEDS: FUROSEMIDE INJ 10 MG/ML 4 ML VIAL IV SCH ×2 (14:17→22:46)
[2021-06-02] MEDS ORDERED: ENOXAPARIN SOD INJ 40 MG/0.4 ML SYR SC SCH (17:00)
[2021-06-02 17:40] LABS: CREATINE KINASE MB 1.9 ng/mL (0-5.0)
[2021-06-02] MEDS ORDERED: FENTANYL 2000MCG/NS 250 250 ML IV SCH (19:00)
[2021-06-02] MEDS: ATORVASTATIN 20 MG TAB PO SCH (20:36)
[2021-06-02] MEDS ORDERED: ATORVASTATIN 20 MG TAB PO SCH (21:00)
[2021-06-02] MEDS ORDERED: INSULIN GLARGINE 100 UNITS/ML VIAL SQ SCH (21:00)
[2021-06-03] VITALS (74 sets, daily range): BP systolic 88–186; BP diastolic 46–119
[2021-06-03] MEDS: IPRATROPIUM BROMIDE 0.02% 2.5 ML NEB NEB SCH ×6 (02:45→22:50)
[2021-06-03] MEDS ORDERED: ENOXAPARIN INJ 80 MG/0.8 ML SYR SC SCH (05:00)
[2021-06-03] MEDS: FUROSEMIDE INJ 10 MG/ML 4 ML VIAL IV SCH ×3 (05:26→22:02)
[2021-06-03 05:43] LABS: BASOPHILS % 0.2 % (0.0-1.0); HEMATOCRIT 24.2 % (34.2-44.1); LYMPHOCYTES # (AUTO) 0.4 (1.0-3.2); LYMPHOCYTES % 2.5 % (18.0-39.1); MEAN CORPUSCULAR HEMOGLOBIN 22.8 pg (28-32); MEAN CORPUSCULAR HGB CONC 28.5 g/dL (31-35); MEAN CORPUSCULAR VOLUME 79.9 fL (81-99); MONOCYTES # (AUTO) 0.7 (0.2-0.8); MONOCYTES % 4.1 % (4.4-11.3); NEUTROPHILS # (AUTO) 15.6 (2.1-6.9); NEUTROPHILS % 92.4 % (38.7-80.0); PLATELET COUNT 144 x10e3/uL (140-360); RED BLOOD COUNT 3.03 x10e6/uL (3.6-5.1); RED CELL DISTRIBUTION WIDTH 19.8 % (11.7-14.4)
[2021-06-03 05:52] LABS: HEMOGLOBIN 6.9 g/dL (12.0-16.0)
[2021-06-03 06:11] LABS: CREATINE KINASE MB 1.4 ng/mL (0-5.0)
[2021-06-03 06:17] LABS: ALBUMIN 2.8 g/dL (3.5-5.0); ALBUMIN/GLOBULIN RATIO 0.8 (0.8-2.0); ALKALINE PHOSPHATASE 75 IU/L (40-150); ANION GAP 15.8 mmol/L (8-16); BLOOD UREA NITROGEN 40 mg/dL (7-26); BUN/CREATININE RATIO 21 (6-25); CALCIUM 8.5 mg/dL (8.4-10.2); CARBON DIOXIDE 24 mmol/L (22-29); CHLORIDE 108 mmol/L (98-107); CREATININE, SERUM 1.88 mg/dL (0.57-1.11); EST GLOMERULAR FILTRATION RATE 26 ML/MIN (60-); GLUCOSE 95 mg/dL (74-118); POTASSIUM 3.8 mmol/L (3.5-5.1); SODIUM 144 mmol/L (136-145)
[2021-06-03 06:18] LABS: ALANINE AMINOTRANSFERASE < 6 IU/L (0-55)
[2021-06-03] MEDS ORDERED: SODIUM CHLORIDE 0.9% 250ML 250 ML IV ONE (06:30)
[2021-06-03] MEDS: PANTOPRAZOLE SODIUM 40 MG SUSPDR.PKT PO SCH (07:30)
[2021-06-03] MEDS: ALBUTEROL SULF 0.083% NEB SOLN 3 ML NEB NEB PRN ×3 (07:45→15:06)
[2021-06-03] MEDS: FERROUS SULFATE 325 MG TAB PO SCH (07:59)
[2021-06-03] MEDS: METHYLPREDNISOLONE SOD SUCC 40 MG/ML VIAL 1ML IV SCH ×2 (07:59→20:33)
[2021-06-03] MEDS: ASPIRIN 81 MG CHEW TAB PO SCH (07:59)
[2021-06-03] MEDS: LEVOTHYROXINE SODIUM 50 MCG TAB PO SCH (08:00)
[2021-06-03] MEDS: CARBIDOPA/LEVODOPA 25/100 TAB PO SCH ×3 (08:00→20:30)
[2021-06-03] MEDS: POTASSIUM CHLORIDE 20 MEQ TAB CR PO SCH (08:00)
[2021-06-03] MEDS: MULTIVITAMINS/MINERALS TAB PO SCH (08:00)
[2021-06-03] MEDS: ALLOPURINOL 100 MG TAB PO SCH (08:00)
[2021-06-03] MEDS: INSULIN REGULAR, HUMAN 3ML VL 100 UNIT in SODIUM CHLORIDE 0.9% 100 ML 100 ML IV SCH ×2 (08:01)
[2021-06-03 08:41] LABS: ABG HCO3 30 mmol/L (22-26); ABG PCO2 53 mmHg (35-45); ABG PH 7.36 (7.35-7.45); ABG PO2 139 mmHg (80-105); ABG TCO2 31
[2021-06-03] MEDS ORDERED: SODIUM CHLORIDE 0.9% 250ML 250 ML ONE (10:17)
[2021-06-03 15:30] LABS: FREE T4 (FREE THYROXINE) 0.56 ng/dL (0.8-1.8); THYROID STIMULATING HORMONE 25.457 uIU/mL (0.350-4.940)
[2021-06-03] MEDS: INSULIN LISPRO 100 UNIT/1 ML 3ML VIAL SQ SCH ×2 (16:30→20:56)
[2021-06-03 16:50] LABS: HEMATOCRIT 30.4 % (34.2-44.1); HEMOGLOBIN 8.7 g/dL (12.0-16.0)
[2021-06-03] MEDS ORDERED: CARVEDILOL 3.125 MG TAB PO SCH (17:00)
[2021-06-03] MEDS: ENOXAPARIN 30 MG/0.3 ML SYR SC SCH (17:09)
[2021-06-03] MEDS: ATORVASTATIN 20 MG TAB PO SCH (20:29)
[2021-06-03] MEDS: INSULIN GLARGINE 100 UNITS/ML VIAL SQ SCH (20:58)
[2021-06-04] VITALS (45 sets, daily range): BP systolic 129–168; BP diastolic 57–95
[2021-06-04] MEDS: IPRATROPIUM BROMIDE 0.02% 2.5 ML NEB NEB SCH ×6 (02:25→22:45)
[2021-06-04 05:44] LABS: BASOPHILS % 0.1 % (0.0-1.0); HEMATOCRIT 27.9 % (34.2-44.1); HEMOGLOBIN 8.1 g/dL (12.0-16.0); LYMPHOCYTES # (AUTO) 0.3 (1.0-3.2); LYMPHOCYTES % 1.9 % (18.0-39.1); MEAN CORPUSCULAR HEMOGLOBIN 23.7 pg (28-32); MEAN CORPUSCULAR VOLUME 81.6 fL (81-99); MONOCYTES # (AUTO) 0.5 (0.2-0.8); MONOCYTES % 3.7 % (4.4-11.3); NEUTROPHILS # (AUTO) 12.9 (2.1-6.9); NEUTROPHILS % 93.6 % (38.7-80.0); PLATELET COUNT 138 x10e3/uL (140-360); RED BLOOD COUNT 3.42 x10e6/uL (3.6-5.1)
[2021-06-04 06:02] LABS: ALBUMIN/GLOBULIN RATIO 0.8 (0.8-2.0); ANION GAP 16.7 mmol/L (8-16); CALCIUM 8.5 mg/dL (8.4-10.2); CREATININE, SERUM 1.77 mg/dL (0.57-1.11); POTASSIUM 3.7 mmol/L (3.5-5.1)
[2021-06-04] MEDS: FUROSEMIDE INJ 10 MG/ML 4 ML VIAL IV SCH ×3 (06:10→22:13)
[2021-06-04] MEDS ORDERED: ASPIRIN 81 MG CHEW TAB PO ONE (07:15)
[2021-06-04] MEDS: ACETAMINOPHEN 325 MG TAB PO PRN ×2 (07:20→10:46)
[2021-06-04] MEDS: PANTOPRAZOLE SODIUM 40 MG SUSPDR.PKT PO SCH (07:30)
[2021-06-04] MEDS: INSULIN LISPRO 100 UNIT/1 ML 3ML VIAL SQ SCH ×4 (07:30→20:47)
[2021-06-04 07:34] LABS: CREATINE KINASE MB 2.5 ng/mL (0-5.0)
[2021-06-04] MEDS: ASPIRIN 81 MG CHEW TAB PO SCH (10:17)
[2021-06-04] MEDS: METHYLPREDNISOLONE SOD SUCC 40 MG/ML VIAL 1ML IV SCH ×2 (10:17→20:14)
[2021-06-04] MEDS: LEVOTHYROXINE SODIUM 50 MCG TAB PO SCH (10:17)
[2021-06-04] MEDS: ALLOPURINOL 100 MG TAB PO SCH (10:17)
[2021-06-04] MEDS: FERROUS SULFATE 325 MG TAB PO SCH (10:17)
[2021-06-04] MEDS: CARBIDOPA/LEVODOPA 25/100 TAB PO SCH ×3 (10:17→20:27)
[2021-06-04] MEDS: MULTIVITAMINS/MINERALS TAB PO SCH (10:17)
[2021-06-04] MEDS: CARVEDILOL 3.125 MG TAB PO SCH ×2 (10:17→18:11)
[2021-06-04] MEDS: POTASSIUM CHLORIDE 20 MEQ TAB CR PO SCH (10:17)
[2021-06-04] MEDS ORDERED: CYMBALTA30 MG (12:53)
[2021-06-04] MEDS ORDERED: ARICEPT5 MG PO (12:53)
[2021-06-04] MEDS ORDERED: VICODIN HP 10-1 EAC1 PO (12:54)
[2021-06-04] MEDS: ENOXAPARIN 30 MG/0.3 ML SYR SC SCH (18:11)
[2021-06-04] MEDS: ATORVASTATIN 40 MG TAB PO SCH (20:27)
[2021-06-04] MEDS: INSULIN GLARGINE 100 UNITS/ML VIAL SQ SCH (20:48)
[2021-06-04] MEDS ORDERED: SODIUM CHLORIDE 0.9% 250ML 250 ML ONE (22:20)
[2021-06-05] VITALS (25 sets, daily range): BP systolic 116–156; BP diastolic 50–99
[2021-06-05] MEDS: IPRATROPIUM BROMIDE 0.02% 2.5 ML NEB NEB SCH ×5 (02:02→22:40)
[2021-06-05] MEDS: MELATONIN 3 MG TAB PO PRN ×2 (02:39→20:49)
[2021-06-05] MEDS: GABAPENTIN 300 MG CAP PO PRN ×2 (02:39→20:49)
[2021-06-05 05:05] LABS: BASOPHILS % 0.1 % (0.0-1.0); HEMATOCRIT 28.8 % (34.2-44.1); HEMOGLOBIN 8.4 g/dL (12.0-16.0); LYMPHOCYTES # (AUTO) 0.3 (1.0-3.2); LYMPHOCYTES % 2.2 % (18.0-39.1); MEAN CORPUSCULAR HGB CONC 29.2 g/dL (31-35); MEAN CORPUSCULAR VOLUME 82.3 fL (81-99); MONOCYTES # (AUTO) 0.6 (0.2-0.8); MONOCYTES % 4.9 % (4.4-11.3); NEUTROPHILS # (AUTO) 10.7 (2.1-6.9); NEUTROPHILS % 92.3 % (38.7-80.0); PLATELET COUNT 152 x10e3/uL (140-360); RED CELL DISTRIBUTION WIDTH 19.3 % (11.7-14.4)
[2021-06-05 05:45] LABS: ALBUMIN 3.1 g/dL (3.5-5.0); ALBUMIN/GLOBULIN RATIO 0.8 (0.8-2.0); ANION GAP 14.5 mmol/L (8-16); CALCIUM 8.2 mg/dL (8.4-10.2); CREATININE, SERUM 1.59 mg/dL (0.57-1.11); POTASSIUM 3.5 mmol/L (3.5-5.1)
[2021-06-05] MEDS: FUROSEMIDE INJ 10 MG/ML 4 ML VIAL IV SCH ×3 (05:56→20:48)
[2021-06-05] MEDS: PANTOPRAZOLE SODIUM 40 MG SUSPDR.PKT PO SCH (07:45)
[2021-06-05] MEDS: INSULIN LISPRO 100 UNIT/1 ML 3ML VIAL SQ SCH ×5 (07:48→21:00)
[2021-06-05] MEDS: CARVEDILOL 3.125 MG TAB PO SCH ×2 (08:15→17:16)
[2021-06-05] MEDS: ASPIRIN 81 MG CHEW TAB PO SCH (08:15)
[2021-06-05] MEDS: LEVOTHYROXINE SODIUM 50 MCG TAB PO SCH (08:15)
[2021-06-05] MEDS: POTASSIUM CHLORIDE 20 MEQ TAB CR PO SCH (08:15)
[2021-06-05] MEDS: MULTIVITAMINS/MINERALS TAB PO SCH (08:15)
[2021-06-05] MEDS: FERROUS SULFATE 325 MG TAB PO SCH (08:15)
[2021-06-05] MEDS: METHYLPREDNISOLONE SOD SUCC 40 MG/ML VIAL 1ML IV SCH ×2 (08:15→20:48)
[2021-06-05] MEDS: CARBIDOPA/LEVODOPA 25/100 TAB PO SCH ×3 (08:15→20:48)
[2021-06-05] MEDS: ALLOPURINOL 100 MG TAB PO SCH (08:16)
[2021-06-05] MEDS: ACETAMINOPHEN 325 MG TAB PO PRN (12:43)
[2021-06-05] MEDS: ENOXAPARIN 30 MG/0.3 ML SYR SC SCH (17:15)
[2021-06-05] MEDS ORDERED: AZITHROMYCIN 250 MG TAB PO SCH (20:00)
[2021-06-05] MEDS ORDERED: SODIUM CHLORIDE 0.9% 250ML 250 ML ONE (20:44)
[2021-06-05] MEDS: ATORVASTATIN 40 MG TAB PO SCH (20:48)
[2021-06-05] MEDS ORDERED: INSULIN GLARGINE 100 UNITS/ML VIAL SQ SCH (21:00)
[2021-06-06 00:11] VITALS: BP 123/55
[2021-06-06] MEDS: ACETAMINOPHEN 325 MG TAB PO PRN (02:34)
[2021-06-06] MEDS: IPRATROPIUM BROMIDE 0.02% 2.5 ML NEB NEB SCH ×2 (02:35→07:08)
[2021-06-06] MEDS: GABAPENTIN 300 MG CAP PO PRN ×2 (03:46→10:11)
[2021-06-06 05:00] VITALS: BP 127/85
[2021-06-06] MEDS: FUROSEMIDE INJ 10 MG/ML 4 ML VIAL IV SCH ×2 (05:26→14:35)
[2021-06-06 07:47] VITALS: BP 156/73
[2021-06-06 08:10] VITALS: BP 156/73
[2021-06-06] MEDS: ASPIRIN 81 MG CHEW TAB PO SCH (09:20)
[2021-06-06] MEDS: METHYLPREDNISOLONE SOD SUCC 40 MG/ML VIAL 1ML IV SCH (09:20)
[2021-06-06] MEDS: MULTIVITAMINS/MINERALS TAB PO SCH (09:21)
[2021-06-06] MEDS: CARVEDILOL 3.125 MG TAB PO SCH (09:21)
[2021-06-06] MEDS: LEVOTHYROXINE SODIUM 50 MCG TAB PO SCH (09:21)
[2021-06-06] MEDS: CARBIDOPA/LEVODOPA 25/100 TAB PO SCH ×2 (09:21→15:56)
[2021-06-06] MEDS: FERROUS SULFATE 325 MG TAB PO SCH (09:21)
[2021-06-06] MEDS: POTASSIUM CHLORIDE 20 MEQ TAB CR PO SCH (09:21)
[2021-06-06] MEDS: ALLOPURINOL 100 MG TAB PO SCH (09:21)
[2021-06-06] MEDS: INSULIN LISPRO 100 UNIT/1 ML 3ML VIAL SQ SCH ×6 (09:23→15:58)
[2021-06-06] MEDS ORDERED: PREDNISONE20 MG PO (10:18)
[2021-06-06] MEDS ORDERED: MULTIVITAMINS1 EAC6 PO (10:18)
[2021-06-06] MEDS ORDERED: FUROSEMIDE40 MG PO (10:18)
[2021-06-06] MEDS ORDERED: COREG3.125 MG PO (10:18)
[2021-06-06] MEDS ORDERED: POTASSIUM CHLO10 ME1 PO (10:18)
[2021-06-06] MEDS ORDERED: ECOTRIN81 MG PO (10:20)
[2021-06-06] MEDS ORDERED: CIPRO250 MG PO (10:20)
[2021-06-06] MEDS ORDERED: Insulin Glargine SQ (10:22)
[2021-06-06] MEDS ORDERED: PANTOPRAZOLE SOD 40 MG TABEC PO ONE (11:30)
[2021-06-06 11:47] VITALS: BP 151/80
[2021-06-06] MEDS ORDERED: ONDANSETRON HCL 4 MG ORAL DISINTEGRATING TAB PO PRN (12:45)
[2021-06-06] MEDS ORDERED: HEPARIN 500 UNITS/5ML MDV INJ ONE (14:15)
[2021-06-06 15:46] VITALS: BP 100/59
[2021-06-06] MEDS ORDERED: INSULIN GLARGINE 100 UNITS/ML VIAL SQ SCH (21:00)
[2021-06-07] MEDS ORDERED: METHYLPREDNISOLONE SOD SUCC 40 MG/ML VIAL 1ML IV SCH (06:00)
== END 2021-06-06 16:23 | disposition home or self-care (01) | DRG 871 ==
LOC: ER 21:59 → ERHOLD 06-02 00:19 → ICU 06-02 01:40 → MED/SURG3 06-05 14:00
PROVIDERS: ADMIT Internal Medicine; ATTEND Internal Medicine
PROC: 5A09457 Assistance with Respiratory Ventilation, 24-96 Consecutive Hours, Continuous Positive Airway Pressure (ICD-10-PCS; 2021-06-01)
PROC: 0BH18EZ Insertion of Endotracheal Airway into Trachea, Via Natural or Artificial Opening Endoscopic (ICD-10-PCS; principal; 2021-06-02)
PROC: 3E033XZ Introduction of Vasopressor into Peripheral Vein, Percutaneous Approach (ICD-10-PCS; 2021-06-02)
PROC: 3E03329 Introduction of Other Anti-infective into Peripheral Vein, Percutaneous Approach (ICD-10-PCS; 2021-06-02)
PROC: 30233N1 Transfusion of Nonautologous Red Blood Cells into Peripheral Vein, Percutaneous Approach (ICD-10-PCS; 2021-06-03)
DX: A41.50 Gram-negative sepsis, unspecified (principal); R65.21 Severe sepsis with septic shock; G93.41 Metabolic encephalopathy; J96.22 Acute and chronic respiratory failure with hypercapnia; J96.21 Acute and chronic respiratory failure with hypoxia; I50.23 Acute on chronic systolic (congestive) heart failure; J69.0 Pneumonitis due to inhalation of food and vomit; I21.A1 Myocardial infarction type 2; I13.0 Hypertensive heart and chronic kidney disease with heart failure and stage 1 through stage 4 chronic kidney disease, or unspecified chronic kidney disease; N17.9 Acute kidney failure, unspecified; J44.1 Chronic obstructive pulmonary disease with (acute) exacerbation; N39.0 Urinary tract infection, site not specified; N18.30 Chronic kidney disease, stage 3 unspecified; G20 Parkinson's disease; E11.22 Type 2 diabetes mellitus with diabetic chronic kidney disease; E11.65 Type 2 diabetes mellitus with hyperglycemia; F41.1 Generalized anxiety disorder; R13.12 Dysphagia, oropharyngeal phase; F02.80 Dementia in other diseases classified elsewhere, unspecified severity, without behavioral disturbance, psychotic disturbance, mood disturbance, and anxiety; D50.0 Iron deficiency anemia secondary to blood loss (chronic); I35.0 Nonrheumatic aortic (valve) stenosis; I07.1 Rheumatic tricuspid insufficiency; Z88.5 Allergy status to narcotic agent; E03.9 Hypothyroidism, unspecified; E11.40 Type 2 diabetes mellitus with diabetic neuropathy, unspecified; F17.210 Nicotine dependence, cigarettes, uncomplicated; Z20.822 Contact with and (suspected) exposure to COVID-19
CPT/HCPCS: 36415; 36600; 51700; 71045; 74018; 74230; 80048; 80053; 80307; 81001; 82550; 82553; 82728; 82805; 82948; 83036; 83540; 83605; 83735; 83880; 84100; 84439; 84443; 84466; 84484; 85014; 85018; 85025; 86850; 86900; 86920; 87040; 87070; 87086; 87186; 87205; 93005; 93306; 93970; 94003; 94640; 94799; 97139; 99251; 99284; J0330; J0456; J0692; J0696; J1650; J1815; J1817; J1940; J2060; J2920; J2930; J3370; J7030; J7050; P9016; U0002

== ENCOUNTER 2021-06-14 17:42 | Inpatient (IN) | payer MEDICARE, OTHER ==
[~2021-06-14] VITALS: Ht 162.6 cm; Wt 57.6 kg
[~2021-06-14 17:42] MED LIST changes: +ARICEPT5 MG PO; +CIPRO250 MG PO; +CYMBALTA30 MG; +ECOTRIN81 MG PO; -ETOMIDATE 2 MG/ML 10 ML INJ IV ONE; +Insulin Glargine SQ; +MULTIVITAMINS1 EAC6 PO; +POTASSIUM CHLO10 ME1 PO; -SUCCINYLCHOLINE CHLORIDE 20 MG/ML 10ML VIAL ONE; +VICODIN HP 10-1 EAC1 PO
[2021-06-14 18:04] LABS: ABG HCO3 29 mmol/L (22-26); ABG PCO2 39 mmHg (35-45); ABG PH 7.48 (7.35-7.45); ABG PO2 95 mmHg (80-105); ABG TCO2 30
[2021-06-14 18:13] LABS: BASOPHILS % 0.3 % (0.0-1.0); HEMATOCRIT 24.7 % (34.2-44.1); HEMOGLOBIN 7.3 g/dL (12.0-16.0); LYMPHOCYTES # (AUTO) 0.2 (1.0-3.2); LYMPHOCYTES % 2.1 % (18.0-39.1); MEAN CORPUSCULAR HEMOGLOBIN 24.5 pg (28-32); MEAN CORPUSCULAR HGB CONC 29.6 g/dL (31-35); MEAN CORPUSCULAR VOLUME 82.9 fL (81-99); MONOCYTES # (AUTO) 0.2 (0.2-0.8); MONOCYTES % 1.6 % (4.4-11.3); NEUTROPHILS # (AUTO) 10.6 (2.1-6.9); NEUTROPHILS % 94.5 % (38.7-80.0); PLATELET COUNT 265 x10e3/uL (140-360); RED BLOOD COUNT 2.98 x10e6/uL (3.6-5.1); RED CELL DISTRIBUTION WIDTH 20.8 % (11.7-14.4)
[2021-06-14 18:30] LABS: ALBUMIN 3.2 g/dL (3.5-5.0); ALBUMIN/GLOBULIN RATIO 0.9 (0.8-2.0); ALKALINE PHOSPHATASE 72 IU/L (40-150); BLOOD UREA NITROGEN 47 mg/dL (7-26); BUN/CREATININE RATIO 23 (6-25); CALCIUM 8.4 mg/dL (8.4-10.2); CARBON DIOXIDE 26 mmol/L (22-29); CHLORIDE 97 mmol/L (98-107); CREATINE KINASE 82 IU/L (29-168); CREATININE, SERUM 2.03 mg/dL (0.57-1.11); EST GLOMERULAR FILTRATION RATE 24 ML/MIN (60-); SODIUM 134 mmol/L (136-145)
[2021-06-14 18:31] LABS: ALANINE AMINOTRANSFERASE < 6 IU/L (0-55); GLUCOSE 472 mg/dL (74-118)
[2021-06-14 18:38] LABS: B-TYPE NATRIURETIC PEPTIDE2 383.3 pg/mL (0-100)
[2021-06-14] MEDS ORDERED: INSULIN REGULAR, HUMAN 100 UNIT/1 ML IV STA (18:51)
[2021-06-14] MEDS ORDERED: DEXTROSE 50% SYRINGE 50 ML IV PRN (19:00)
[2021-06-14] MEDS ORDERED: GABAPENTIN 300 MG CAP PO PRN (19:15)
[2021-06-14] MEDS ORDERED: DOCUSATE SODIUM 100 MG CAP PO PRN (19:30)
[2021-06-14] MEDS ORDERED: ACETAMINOPHEN 325 MG TAB PO PRN (19:30)
[2021-06-14] MEDS ORDERED: ONDANSETRON HCL INJ 2MG/ML 2ML 2 MG/ML VIAL IV PRN (19:30)
[2021-06-14] MEDS: FUROSEMIDE 40 MG TAB PO SCH (19:34)
[2021-06-14 20:41] VITALS: BP 119/73
[2021-06-14] MEDS ORDERED: INSULIN GLARGINE 20 UNIT SQ SCH (21:00)
[2021-06-14 22:31] VITALS: BP 119/73
[2021-06-14] MEDS: DONEPEZIL HCL 5 MG TAB PO SCH (23:14)
[2021-06-14] MEDS: CARBIDOPA/LEVODOPA 25/100 TAB PO SCH (23:14)
[2021-06-14] MEDS: ATORVASTATIN 40 MG TAB PO SCH (23:14)
[2021-06-14] MEDS: INSULIN GLARGINE 100 UNITS/ML VIAL SQ SCH (23:20)
[2021-06-14] MEDS: HEPARIN SOD (PORCINE) 5,000 UNIT/ML VIAL SC SCH (23:20)
[2021-06-14] MEDS: INSULIN REGULAR, HUMAN 100 UNIT/1 ML SQ SCH (23:20)
[2021-06-14 23:26] VITALS: BP 119/73
[2021-06-15] VITALS (9 sets, daily range): BP systolic 106–135; BP diastolic 58–87
[2021-06-15 00:21] LABS: CLARITY,URINE CLEAR (CLEAR); COLOR,URINE YELLOW (YELLOW); KETONES,URINE NEGATIVE (NEGATIVE); LEUKOCYTE ESTERASE ,URINE NEGATIVE (NEGATIVE); NITRITE,URINE NEGATIVE (NEGATIVE); PROTEIN,URINE DIPSTICK NEGATIVE (NEGATIVE); URINE UROBILINOGEN 0.2 mg/dL (0.2 - 1)
[2021-06-15 00:22] LABS: BACTERIA,URINE FEW /HPF; EPITHELIAL CELLS,URINE FEW /LPF; RBC,URINE 0-5 /HPF (0-5); WBC,URINE (MAN) 0-5 /HPF (0-5)
[2021-06-15] MEDS: LEVOTHYROXINE SODIUM 75 MCG TAB PO SCH (06:01)
[2021-06-15] MEDS: HEPARIN SOD (PORCINE) 5,000 UNIT/ML VIAL SC SCH ×3 (06:02→22:00)
[2021-06-15 06:13] LABS: BASOPHILS % 0.2 % (0.0-1.0); EOSINOPHILS % 0.4 % (0.0-6.0); HEMATOCRIT 25.7 % (34.2-44.1); HEMOGLOBIN 7.2 g/dL (12.0-16.0); LYMPHOCYTES # (AUTO) 0.7 (1.0-3.2); LYMPHOCYTES % 6.5 % (18.0-39.1); MEAN CORPUSCULAR HEMOGLOBIN 23.9 pg (28-32); MEAN CORPUSCULAR VOLUME 85.4 fL (81-99); MONOCYTES # (AUTO) 0.9 (0.2-0.8); MONOCYTES % 9.1 % (4.4-11.3); NEUTROPHILS # (AUTO) 8.5 (2.1-6.9); NEUTROPHILS % 82.8 % (38.7-80.0); PLATELET COUNT 271 x10e3/uL (140-360); RED BLOOD COUNT 3.01 x10e6/uL (3.6-5.1)
[2021-06-15 06:22] LABS: ALKALINE PHOSPHATASE 71 IU/L (40-150); ANION GAP 14.1 mmol/L (8-16); BLOOD UREA NITROGEN 40 mg/dL (7-26); BUN/CREATININE RATIO 25 (6-25); CALCIUM 8.3 mg/dL (8.4-10.2); CARBON DIOXIDE 27 mmol/L (22-29); CHLORIDE 100 mmol/L (98-107); CREATININE, SERUM 1.57 mg/dL (0.57-1.11); EST GLOMERULAR FILTRATION RATE 32 ML/MIN (60-); GLUCOSE 226 mg/dL (74-118); POTASSIUM 4.1 mmol/L (3.5-5.1); SODIUM 137 mmol/L (136-145)
[2021-06-15 06:30] LABS: ALANINE AMINOTRANSFERASE < 6 IU/L (0-55)
[2021-06-15 08:15] LABS: CREATINE KINASE MB 4.7 ng/mL (0-5.0)
[2021-06-15 09:17] LABS: ANION GAP 10.9 mmol/L (8-16); CALCIUM 8.5 mg/dL (8.4-10.2); CREATININE, SERUM 1.58 mg/dL (0.57-1.11); POTASSIUM 3.9 mmol/L (3.5-5.1)
[2021-06-15] MEDS: CARVEDILOL 3.125 MG TAB PO SCH ×2 (09:48→16:54)
[2021-06-15] MEDS: FERROUS SULFATE 325 MG TAB PO SCH (09:49)
[2021-06-15] MEDS: MULTIVITAMINS/MINERALS TAB PO SCH (09:49)
[2021-06-15] MEDS: DULOXETINE HCL 30 MG DELAYED RELEASE PO SCH (09:49)
[2021-06-15] MEDS: ESCITALOPRAM OXALATE 10 MG TAB PO SCH (09:49)
[2021-06-15] MEDS: FUROSEMIDE 40 MG TAB PO SCH ×2 (09:49→21:00)
[2021-06-15] MEDS: PREDNISONE 20 MG TAB PO SCH ×2 (09:50→16:54)
[2021-06-15] MEDS: ALLOPURINOL 100 MG TAB PO SCH (09:50)
[2021-06-15] MEDS: CARBIDOPA/LEVODOPA 25/100 TAB PO SCH ×3 (09:50→21:00)
[2021-06-15] MEDS: PANTOPRAZOLE SOD 40 MG TABEC PO SCH (09:55)
[2021-06-15] MEDS: INSULIN REGULAR, HUMAN 100 UNIT/1 ML SQ SCH ×4 (10:21→21:00)
[2021-06-15 14:49] LABS: CREATINE KINASE MB 3.1 ng/mL (0-5.0)
[2021-06-15] MEDS: ATORVASTATIN 40 MG TAB PO SCH (21:00)
[2021-06-15] MEDS: INSULIN GLARGINE 100 UNITS/ML VIAL SQ SCH (21:00)
[2021-06-15] MEDS: DONEPEZIL HCL 5 MG TAB PO SCH (21:00)
[2021-06-15] MEDS ORDERED: SODIUM CHLORIDE 0.9% 250ML 250 ML ONE (22:37)
[2021-06-16] VITALS: BP 124/56
[2021-06-16 04:00] VITALS: BP 118/53
[2021-06-16] MEDS: HEPARIN SOD (PORCINE) 5,000 UNIT/ML VIAL SC SCH (06:00)
[2021-06-16] MEDS: LEVOTHYROXINE SODIUM 75 MCG TAB PO SCH (06:31)
[2021-06-16] MEDS: INSULIN REGULAR, HUMAN 100 UNIT/1 ML SQ SCH (07:30)
[2021-06-16] MEDS ORDERED: ALBUTEROL/IPRATROPIUM 3 ML NEB NEB PRN (07:45)
[2021-06-16 08:04] VITALS: BP 115/51
[2021-06-16 08:34] VITALS: BP 115/51
[2021-06-16] MEDS ORDERED: CEPHALEXIN500 MG PO (09:18)
[2021-06-16] MEDS ORDERED: PREDNISONE20 MG PO (09:18)
[2021-06-16] MEDS: ESCITALOPRAM OXALATE 10 MG TAB PO SCH (09:23)
[2021-06-16] MEDS: DULOXETINE HCL 30 MG DELAYED RELEASE PO SCH (09:23)
[2021-06-16] MEDS: CARVEDILOL 3.125 MG TAB PO SCH (09:23)
[2021-06-16] MEDS: FERROUS SULFATE 325 MG TAB PO SCH (09:23)
[2021-06-16] MEDS: FUROSEMIDE 40 MG TAB PO SCH (09:23)
[2021-06-16] MEDS: ALLOPURINOL 100 MG TAB PO SCH (09:24)
[2021-06-16] MEDS: CARBIDOPA/LEVODOPA 25/100 TAB PO SCH (09:24)
[2021-06-16] MEDS: MULTIVITAMINS/MINERALS TAB PO SCH (09:24)
[2021-06-16] MEDS: PREDNISONE 20 MG TAB PO SCH (09:24)
[2021-06-16] MEDS: PANTOPRAZOLE SOD 40 MG TABEC PO SCH (09:24)
[2021-06-16 09:39] LABS: ANION GAP 17.9 mmol/L (8-16); CALCIUM 8.6 mg/dL (8.4-10.2); CREATININE, SERUM 1.6 mg/dL (0.57-1.11); POTASSIUM 3.9 mmol/L (3.5-5.1)
[2021-06-16] MEDS ORDERED: ACETAMINOPHEN 325 MG TAB PO PRN (10:00)
== END 2021-06-16 11:30 | disposition home or self-care (01) | DRG 189 ==
LOC: ER 18:00 → ERHOLD 18:48 → MED/SURG3 20:41
PROVIDERS: ADMIT Internal Medicine; ATTEND Internal Medicine
DX: J96.02 Acute respiratory failure with hypercapnia (principal); I13.0 Hypertensive heart and chronic kidney disease with heart failure and stage 1 through stage 4 chronic kidney disease, or unspecified chronic kidney disease; J44.1 Chronic obstructive pulmonary disease with (acute) exacerbation; N17.9 Acute kidney failure, unspecified; I50.32 Chronic diastolic (congestive) heart failure; J96.01 Acute respiratory failure with hypoxia; E11.22 Type 2 diabetes mellitus with diabetic chronic kidney disease; N18.30 Chronic kidney disease, stage 3 unspecified; G20 Parkinson's disease; E78.5 Hyperlipidemia, unspecified; F17.210 Nicotine dependence, cigarettes, uncomplicated; Z88.5 Allergy status to narcotic agent; Z20.822 Contact with and (suspected) exposure to COVID-19; Z95.828 Presence of other vascular implants and grafts; E11.65 Type 2 diabetes mellitus with hyperglycemia; Z79.82 Long term (current) use of aspirin; Z79.4 Long term (current) use of insulin
CPT/HCPCS: 36415; 36600; 71045; 78580; 80048; 80053; 80061; 81001; 82550; 82553; 82805; 82948; 83036; 83605; 83880; 84484; 85025; 85379; 87040; 93005; 93306; 94799; 96372; 97139; 99284; A9540; J0696; J1644; J1815; J1817; J2405; J7050; J7512; U0002

== ENCOUNTER 2021-07-04 12:18 | Observation (INO) | payer MEDICARE, OTHER ==
[~2021-07-04] VITALS: Ht 162.6 cm; Wt 58.5 kg
[~2021-07-04 12:18] MED LIST changes: +CEPHALEXIN500 MG PO
[2021-07-04 13:33] LABS: BASOPHILS % 0.3 % (0.0-1.0); EOSINOPHILS % 0.1 % (0.0-6.0); HEMATOCRIT 25.8 % (34.2-44.1); LYMPHOCYTES # (AUTO) 0.9 (1.0-3.2); MEAN CORPUSCULAR HGB CONC 27.1 g/dL (31-35); MEAN CORPUSCULAR VOLUME 92.1 fL (81-99); MONOCYTES % 11.5 % (4.4-11.3); NEUTROPHILS # (AUTO) 6.9 (2.1-6.9); NEUTROPHILS % 76.5 % (38.7-80.0); PLATELET COUNT 254 x10e3/uL (140-360)
[2021-07-04 13:46] LABS: INR 0.99; PARTIAL THROMBOPLASTIN TIME 24.2 seconds (23.8-35.5)
[2021-07-04 13:56] LABS: CLARITY,URINE CLEAR (CLEAR); COLOR,URINE ORANGE (YELLOW); KETONES,URINE NEGATIVE (NEGATIVE); LEUKOCYTE ESTERASE ,URINE NEGATIVE (NEGATIVE); NITRITE,URINE POSITIVE (NEGATIVE); PROTEIN,URINE DIPSTICK 1+ (NEGATIVE)
[2021-07-04 13:57] LABS: URINE UROBILINOGEN 1 mg/dL (0.2 - 1)
[2021-07-04 14:00] LABS: ALBUMIN 3.4 g/dL (3.5-5.0); ALBUMIN/GLOBULIN RATIO 0.9 (0.8-2.0); ANION GAP 14.8 mmol/L (8-16); CALCIUM 8.7 mg/dL (8.4-10.2); CREATININE, SERUM 1.71 mg/dL (0.57-1.11); POTASSIUM 3.8 mmol/L (3.5-5.1)
[2021-07-04 14:07] LABS: CREATINE KINASE MB 4.4 ng/mL (0-5.0)
[2021-07-04 14:12] LABS: BACTERIA,URINE RARE /HPF; EPITHELIAL CELLS,URINE RARE /LPF; RBC,URINE 0-5 /HPF (0-5); WBC,URINE (MAN) 0-5 /HPF (0-5)
[2021-07-04] MEDS ORDERED: FUROSEMIDE INJ 10 MG/ML 2 ML VIAL IV PRN (15:30)
[2021-07-04] MEDS ORDERED: SODIUM CHLORIDE 0.9% 250ML 250 ML IV ONE (15:30)
[2021-07-04] MEDS ORDERED: ONDANSETRON HCL INJ 2MG/ML 2ML 2 MG/ML VIAL IV PRN (15:45)
[2021-07-04] MEDS ORDERED: DEXTROSE 50% SYRINGE 50 ML IV PRN (15:45)
[2021-07-04 16:15] VITALS: BP 129/64
[2021-07-04] MEDS: INSULIN LISPRO 100 UNIT/1 ML 3ML VIAL SQ SCH ×2 (16:30→22:12)
[2021-07-04 16:46] VITALS: BP 156/83
[2021-07-04 17:47] LABS: CREATINE KINASE MB 4.2 ng/mL (0-5.0)
[2021-07-04 20:00] VITALS: BP 122/55
[2021-07-04] MEDS: FUROSEMIDE 40 MG TAB PO SCH (22:45)
[2021-07-04 22:48] VITALS: BP 122/55
[2021-07-04] MEDS ORDERED: METOPROLOL TARTRATE INJ 1 MG/ML VIAL IV PRN (23:00)
[2021-07-04] MEDS ORDERED: POLYETHYLENE GLYCOL 3350 17 GM PACK PO PRN (23:00)
[2021-07-04] MEDS ORDERED: ACETAMINOPHEN 325 MG TAB PO PRN (23:00)
[2021-07-04] MEDS ORDERED: FUROSEMIDE INJ 10 MG/ML 2 ML VIAL IV ONE (23:00)
[2021-07-05] VITALS (8 sets, daily range): BP systolic 139–160; BP diastolic 66–82
[2021-07-05] MEDS ORDERED: SODIUM CHLORIDE 0.9% 250ML 250 ML ONE ×2 (00:24→05:09)
[2021-07-05] MEDS: FUROSEMIDE 40 MG TAB PO SCH (05:46)
[2021-07-05] MEDS: INSULIN LISPRO 100 UNIT/1 ML 3ML VIAL SQ SCH ×4 (08:00→21:00)
[2021-07-05] MEDS: DOCUSATE SODIUM 100 MG CAP PO SCH ×2 (09:00→17:00)
[2021-07-05] MEDS: FERROUS SULFATE 325 MG TAB PO SCH (09:00)
[2021-07-05] MEDS: CARVEDILOL 3.125 MG TAB PO SCH ×2 (09:47→17:18)
[2021-07-05] MEDS: ASPIRIN 81 MG ENTERIC COATED PO SCH (09:47)
[2021-07-05] MEDS: FUROSEMIDE INJ 10 MG/ML 4 ML VIAL IV SCH ×2 (09:47→20:20)
[2021-07-05] MEDS ORDERED: GABAPENTIN300 MG PO (10:41)
[2021-07-05] MEDS ORDERED: HYDROCODON-ACE1 EAC9 PO (10:43)
[2021-07-05] MEDS ORDERED: NOVOLOG100 UNIT/1 SC (10:50)
[2021-07-05] MEDS ORDERED: ONDANSETRON ODT8 MG PO (10:50)
[2021-07-05] MEDS ORDERED: ZESTRIL20 MG PO (10:50)
[2021-07-05] MEDS ORDERED: VITAMIN D350 MCG PO (10:50)
[2021-07-05 14:04] LABS: BASOPHILS % 0.4 % (0.0-1.0); EOSINOPHILS # (AUTO) 0.1 (0.0-0.4); EOSINOPHILS % 0.5 % (0.0-6.0); HEMATOCRIT 36.1 % (34.2-44.1); HEMOGLOBIN 10.4 g/dL (12.0-16.0); LYMPHOCYTES # (AUTO) 0.5 (1.0-3.2); LYMPHOCYTES % 4.9 % (18.0-39.1); MEAN CORPUSCULAR HEMOGLOBIN 25.9 pg (28-32); MEAN CORPUSCULAR HGB CONC 28.8 g/dL (31-35); MEAN CORPUSCULAR VOLUME 89.8 fL (81-99); MONOCYTES # (AUTO) 0.6 (0.2-0.8); MONOCYTES % 6.6 % (4.4-11.3); NEUTROPHILS # (AUTO) 8.1 (2.1-6.9); NEUTROPHILS % 86.3 % (38.7-80.0); PLATELET COUNT 242 x10e3/uL (140-360); RED BLOOD COUNT 4.02 x10e6/uL (3.6-5.1); RED CELL DISTRIBUTION WIDTH 22.6 % (11.7-14.4)
[2021-07-05 14:25] LABS: ALBUMIN 3.3 g/dL (3.5-5.0); ALBUMIN/GLOBULIN RATIO 0.8 (0.8-2.0); ANION GAP 16.4 mmol/L (8-16); CALCIUM 8.8 mg/dL (8.4-10.2); CREATININE, SERUM 1.71 mg/dL (0.57-1.11); POTASSIUM 3.4 mmol/L (3.5-5.1)
[2021-07-05 15:00] LABS: MAGNESIUM 1.9 MG/DL (1.3-2.1); PHOSPHORUS 3.3 MG/DL (2.3-4.7)
[2021-07-05] MEDS: CARBIDOPA/LEVODOPA 25/100 TAB PO SCH ×2 (15:04→20:20)
[2021-07-05 15:10] LABS: CREATINE KINASE MB 2.4 ng/mL (0-5.0)
[2021-07-05] MEDS: ALPRAZOLAM 0.25 MG TAB PO PRN (20:00)
[2021-07-05] MEDS ORDERED: ATORVASTATIN 40 MG TAB PO SCH (21:00)
[2021-07-06] VITALS: BP 136/55
[2021-07-06] MEDS: ALPRAZOLAM 0.25 MG TAB PO PRN ×2 (02:41→10:39)
[2021-07-06 04:00] VITALS: BP 134/68
[2021-07-06 06:31] LABS: BASOPHILS % 0.5 % (0.0-1.0); EOSINOPHILS % 0.5 % (0.0-6.0); HEMATOCRIT 37.6 % (34.2-44.1); LYMPHOCYTES # (AUTO) 0.5 (1.0-3.2); LYMPHOCYTES % 6.7 % (18.0-39.1); MEAN CORPUSCULAR HEMOGLOBIN 26.2 pg (28-32); MEAN CORPUSCULAR HGB CONC 29.3 g/dL (31-35); MEAN CORPUSCULAR VOLUME 89.5 fL (81-99); MONOCYTES # (AUTO) 0.7 (0.2-0.8); MONOCYTES % 8.7 % (4.4-11.3); NEUTROPHILS # (AUTO) 6.3 (2.1-6.9); NEUTROPHILS % 82.7 % (38.7-80.0); PLATELET COUNT 232 x10e3/uL (140-360); RED CELL DISTRIBUTION WIDTH 22.8 % (11.7-14.4)
[2021-07-06 07:04] LABS: ALANINE AMINOTRANSFERASE < 6 IU/L (0-55); ALBUMIN 3.4 g/dL (3.5-5.0); ALKALINE PHOSPHATASE 81 IU/L (40-150); BLOOD UREA NITROGEN 19 mg/dL (7-26); BUN/CREATININE RATIO 15 (6-25); CALCIUM 9.2 mg/dL (8.4-10.2); CARBON DIOXIDE 30 mmol/L (22-29); CHLORIDE 100 mmol/L (98-107); CREATININE, SERUM 1.29 mg/dL (0.57-1.11); EST GLOMERULAR FILTRATION RATE 40 ML/MIN (60-); GLUCOSE 152 mg/dL (74-118); SODIUM 142 mmol/L (136-145)
[2021-07-06 08:03] VITALS: BP 139/85
[2021-07-06 08:52] VITALS: BP 139/85
[2021-07-06] MEDS: ASPIRIN 81 MG ENTERIC COATED PO SCH (10:25)
[2021-07-06] MEDS: FERROUS SULFATE 325 MG TAB PO SCH (10:25)
[2021-07-06] MEDS: CARBIDOPA/LEVODOPA 25/100 TAB PO SCH (10:26)
[2021-07-06] MEDS: CARVEDILOL 3.125 MG TAB PO SCH (10:26)
[2021-07-06] MEDS: DOCUSATE SODIUM 100 MG CAP PO SCH (10:26)
[2021-07-06] MEDS: FUROSEMIDE INJ 10 MG/ML 4 ML VIAL IV SCH (10:36)
[2021-07-06 10:40] LABS: PLATELET ESTIMATE ADEQUATE; PLATELET MORPHOLOGY COMMENT NORMAL
[2021-07-06 10:41] LABS: ANISOCYTOSIS SLIGHT; POLYCHROMASIA FEW; RBC MORPHOLOGY COMMENT NORMAL
[2021-07-06] MEDS: INSULIN LISPRO 100 UNIT/1 ML 3ML VIAL SQ SCH ×2 (10:56→12:03)
[2021-07-06] MEDS ORDERED: CYANOCOBALAMIN INJ 1,000 MCG/ML VIAL IM ONE (11:30)
[2021-07-06 11:43] VITALS: BP 157/76
[2021-07-06] MEDS ORDERED: POTASSIUM CHLORIDE 20 MEQ TAB CR PO ONE (12:00)
[2021-07-06] MEDS ORDERED: IRON SUCROSE 100 MG in SODIUM CHLORIDE 0.9% 100 ML 100 ML IV SCH (12:00)
== END 2021-07-06 13:31 | disposition home or self-care (01) ==
LOC: ER 12:31 → ERHOLD 14:45 → MED/SURG2 16:29
PROVIDERS: ADMIT Internal Medicine; ATTEND Internal Medicine
DX: N39.0 Urinary tract infection, site not specified (principal); G93.41 Metabolic encephalopathy; D64.9 Anemia, unspecified; J44.9 Chronic obstructive pulmonary disease, unspecified; J96.10 Chronic respiratory failure, unspecified whether with hypoxia or hypercapnia; Z99.81 Dependence on supplemental oxygen; E11.9 Type 2 diabetes mellitus without complications; G20 Parkinson's disease; I13.0 Hypertensive heart and chronic kidney disease with heart failure and stage 1 through stage 4 chronic kidney disease, or unspecified chronic kidney disease; I50.23 Acute on chronic systolic (congestive) heart failure; N18.30 Chronic kidney disease, stage 3 unspecified; Z20.822 Contact with and (suspected) exposure to COVID-19; I35.0 Nonrheumatic aortic (valve) stenosis
CPT/HCPCS: 36415 ×3; 70450; 71045; 80053 ×3; 81001; 82550 ×2; 82553 ×2; 82948 ×2; 83735 ×2; 83880; 84100; 84484 ×2; 85025 ×3; 85610; 85730; 86850; 86900; 86920; 87086; 92526 ×2; 92610; 93005; 93306; 94799 ×3; 97161; 97530; 99285; G0378 ×3; J1756; J1940 ×4; J3420; J7050; P9016; U0002

== ENCOUNTER → 2021-07-25 | Outpatient (CLI) | payer MEDICARE, OTHER ==
[~2021-07-25] MED LIST changes: +GABAPENTIN300 MG PO; +HYDROCODON-ACE1 EAC9 PO; +NOVOLOG100 UNIT/1 SC; +VITAMIN D350 MCG PO; +ZESTRIL20 MG PO
== END ==
LOC: RAD 13:17
PROVIDERS: ATTEND Family Medicine
DX: M25.551 Pain in right hip (principal)

== ENCOUNTER 2022-03-29 12:06 | Emergency (ER) | payer MEDICARE, OTHER ==
[~2022-03-29] VITALS: Ht 162.6 cm; Wt 58.5 kg
[2022-03-29 13:03] LABS: BASOPHILS # (AUTO) 0.1 (0.0-0.1); BASOPHILS % 0.7 % (0.0-1.0); EOSINOPHILS # (AUTO) 0.2 (0.0-0.4); EOSINOPHILS % 2.2 % (0.0-6.0); HEMATOCRIT 34.7 % (34.2-44.1); HEMOGLOBIN 10.4 g/dL (12.0-16.0); LYMPHOCYTES # (AUTO) 0.6 (1.0-3.2); MEAN CORPUSCULAR VOLUME 86.8 fL (81-99); MONOCYTES # (AUTO) 0.9 (0.2-0.8); NEUTROPHILS # (AUTO) 7.2 (2.1-6.9); NEUTROPHILS % 78.9 % (38.7-80.0); PLATELET COUNT 192 x10e3/uL (140-360); RED CELL DISTRIBUTION WIDTH 17.2 % (11.7-14.4)
[2022-03-29 13:11] LABS: INR 0.99; PROTHROMBIN TIME 13.3 seconds (11.9-14.5)
[2022-03-29 13:12] LABS: PARTIAL THROMBOPLASTIN TIME 26.1 seconds (23.8-35.5)
[2022-03-29 13:14] LABS: CLARITY,URINE SL CLOUDY (CLEAR); COLOR,URINE YELLOW (YELLOW); KETONES,URINE NEGATIVE (NEGATIVE); LEUKOCYTE ESTERASE ,URINE NEGATIVE (NEGATIVE); NITRITE,URINE NEGATIVE (NEGATIVE); PROTEIN,URINE DIPSTICK 2+ (NEGATIVE); URINE UROBILINOGEN 0.2 mg/dL (0.2 - 1)
[2022-03-29 13:17] LABS: BACTERIA,URINE MODERATE /HPF; EPITHELIAL CELLS,URINE RARE /LPF
[2022-03-29 13:24] LABS: ALBUMIN 3.6 g/dL (3.5-5.0); ALKALINE PHOSPHATASE 80 IU/L (40-150); ANION GAP 14.3 mmol/L (8-16); BLOOD UREA NITROGEN 35 mg/dL (7-26); BUN/CREATININE RATIO 30 (6-25); CALCIUM 9.2 mg/dL (8.4-10.2); CARBON DIOXIDE 25 mmol/L (22-29); CHLORIDE 107 mmol/L (98-107); CREATINE KINASE 97 IU/L (29-168); CREATININE, SERUM 1.17 mg/dL (0.57-1.11); GLUCOSE 166 mg/dL (74-118); MAGNESIUM 1.8 MG/DL (1.3-2.1); POTASSIUM 4.3 mmol/L (3.5-5.1); SODIUM 142 mmol/L (136-145)
[2022-03-29 13:27] LABS: ALANINE AMINOTRANSFERASE < 6 IU/L (0-55)
[2022-03-29] MEDS ORDERED: SODIUM CHLORIDE 0.9% 500ML 500 ML IV ONE (13:45)
[2022-03-29] MEDS ORDERED: IOPAMIDOL 370 MG/ML 100 ML INFUS..BTL INJ ONE (14:49)
[2022-03-29] MEDS ORDERED: SODIUM CHLORIDE 0.9% 100 ML ONE (14:49)
[2022-03-29 20:40] VITALS: BP 148/63
== END 2022-03-29 21:27 | disposition other institution (70) ==
LOC: ER 12:16
DX: T85.09XA Other mechanical complication of ventricular intracranial (communicating) shunt, initial encounter (principal); G91.9 Hydrocephalus, unspecified; R41.82 Altered mental status, unspecified; N39.0 Urinary tract infection, site not specified; R94.31 Abnormal electrocardiogram [ECG] [EKG]
CPT/HCPCS: 0223U; 36415; 70496; 71045; 80053; 81001; 82550; 82553; 83735; 83880; 84484; 85025; 85610; 85730; 87086; 87186; 93005; 99285; J2543; J7040; J7050; Q9967

== ENCOUNTER 2022-05-03 18:36 | Emergency (ER) | payer MEDICARE, OTHER ==
[~2022-05-03] VITALS: Ht 162.6 cm; Wt 58.5 kg
[2022-05-03 19:13] LABS: BASOPHILS % 0.5 % (0.0-1.0); EOSINOPHILS # (AUTO) 0.1 (0.0-0.4); EOSINOPHILS % 1.2 % (0.0-6.0); HEMOGLOBIN 6.2 g/dL (12.0-16.0); LYMPHOCYTES # (AUTO) 0.8 (1.0-3.2); MEAN CORPUSCULAR HEMOGLOBIN 24.8 pg (28-32); MEAN CORPUSCULAR HGB CONC 27.3 g/dL (31-35); MEAN CORPUSCULAR VOLUME 90.8 fL (81-99); MONOCYTES # (AUTO) 0.8 (0.2-0.8); NEUTROPHILS # (AUTO) 5.4 (2.1-6.9); NEUTROPHILS % 74.1 % (38.7-80.0); PLATELET COUNT 217 x10e3/uL (140-360); RED CELL DISTRIBUTION WIDTH 17.7 % (11.7-14.4)
[2022-05-03 19:16] LABS: HEMATOCRIT 22.7 % (34.2-44.1)
[2022-05-03] MEDS ORDERED: SODIUM CHLORIDE 0.9% 250ML 250 ML IV ONE (19:30)
[2022-05-03 19:34] LABS: ALBUMIN 3.4 g/dL (3.5-5.0); ALBUMIN/GLOBULIN RATIO 1.1 (0.8-2.0); ANION GAP 14.8 mmol/L (8-16); CALCIUM 8.7 mg/dL (8.4-10.2); CREATININE, SERUM 1.93 mg/dL (0.57-1.11); POTASSIUM 3.8 mmol/L (3.5-5.1)
[2022-05-04] MEDS: FUROSEMIDE INJ 10 MG/ML 2 ML VIAL IV PRN ×2 (01:10→04:15)
[2022-05-04] MEDS ORDERED: SODIUM CHLORIDE 0.9% 250ML 250 ML ONE (01:32)
[2022-05-04 04:15] VITALS: O2SAT 98
== END 2022-05-04 05:15 | disposition home or self-care (01) ==
LOC: ER 18:40
DX: D64.9 Anemia, unspecified (principal); I10 Essential (primary) hypertension; E11.65 Type 2 diabetes mellitus with hyperglycemia; J44.9 Chronic obstructive pulmonary disease, unspecified; E78.5 Hyperlipidemia, unspecified; I50.9 Heart failure, unspecified; G20 Parkinson's disease; M10.9 Gout, unspecified; F41.9 Anxiety disorder, unspecified
CPT/HCPCS: 36415; 71045; 80053; 85025; 86850; 86900; 86920; 99284; J1940; J7050 ×2; P9016

== ENCOUNTER 2022-06-05 21:46 | Emergency (ER) | payer MEDICARE, OTHER ==
[~2022-06-05] VITALS: Ht 162.6 cm; Wt 58.5 kg
[2022-06-05 22:16] LABS: BASOPHILS % 0.1 % (0.0-1.0); EOSINOPHILS % 0.3 % (0.0-6.0); HEMATOCRIT 23.6 % (34.2-44.1); LYMPHOCYTES # (AUTO) 0.5 (1.0-3.2); LYMPHOCYTES % 6.7 % (18.0-39.1); MEAN CORPUSCULAR HGB CONC 28.4 g/dL (31-35); MEAN CORPUSCULAR VOLUME 95.2 fL (81-99); MONOCYTES # (AUTO) 0.5 (0.2-0.8); MONOCYTES % 6.5 % (4.4-11.3); NEUTROPHILS % 85.6 % (38.7-80.0); PLATELET COUNT 200 x10e3/uL (140-360); RED BLOOD COUNT 2.48 x10e6/uL (3.6-5.1); RED CELL DISTRIBUTION WIDTH 18.4 % (11.7-14.4)
[2022-06-05 22:18] LABS: HEMOGLOBIN 6.7 g/dL (12.0-16.0)
[2022-06-05 22:30] LABS: ANION GAP 16.1 mmol/L (8-16); CALCIUM 8.8 mg/dL (8.4-10.2); CREATININE, SERUM 1.84 mg/dL (0.57-1.11); POTASSIUM 4.1 mmol/L (3.5-5.1)
[2022-06-05] MEDS ORDERED: FUROSEMIDE INJ 10 MG/ML 2 ML VIAL IV SCH (22:30)
[2022-06-05] MEDS ORDERED: SODIUM CHLORIDE 0.9% 250ML 250 ML IV ONE (22:30)
[2022-06-06 03:13] VITALS: O2SAT 100
== END 2022-06-06 03:29 ==
LOC: ER 21:55
DX: D64.9 Anemia, unspecified (principal); I12.9 Hypertensive chronic kidney disease with stage 1 through stage 4 chronic kidney disease, or unspecified chronic kidney disease; E11.22 Type 2 diabetes mellitus with diabetic chronic kidney disease; N18.9 Chronic kidney disease, unspecified; E78.5 Hyperlipidemia, unspecified; G20 Parkinson's disease; J44.9 Chronic obstructive pulmonary disease, unspecified; I50.9 Heart failure, unspecified; M10.9 Gout, unspecified; F32.A Depression, unspecified
CPT/HCPCS: 36415; 80048; 85025; 86850; 86900; 86920; 99284; J1940; J7050; P9016

== ENCOUNTER 2022-07-11 13:13 | Emergency (ER) | payer MEDICARE, OTHER ==
[~2022-07-11] VITALS: Ht 162.6 cm; Wt 58.5 kg
[2022-07-11 14:26] LABS: BASOPHILS % 0.3 % (0.0-1.0); EOSINOPHILS % 0.5 % (0.0-6.0); LYMPHOCYTES # (AUTO) 0.7 (1.0-3.2); LYMPHOCYTES % 12.1 % (18.0-39.1); MEAN CORPUSCULAR HEMOGLOBIN 27.8 pg (28-32); MEAN CORPUSCULAR HGB CONC 28.8 g/dL (31-35); MEAN CORPUSCULAR VOLUME 96.6 fL (81-99); MONOCYTES # (AUTO) 0.6 (0.2-0.8); NEUTROPHILS # (AUTO) 4.4 (2.1-6.9); NEUTROPHILS % 75.5 % (38.7-80.0); PLATELET COUNT 188 x10e3/uL (140-360); RED BLOOD COUNT 2.37 x10e6/uL (3.6-5.1); RED CELL DISTRIBUTION WIDTH 15.5 % (11.7-14.4)
[2022-07-11 14:27] LABS: HEMATOCRIT 22.9 % (34.2-44.1); HEMOGLOBIN 6.6 g/dL (12.0-16.0)
[2022-07-11] MEDS ORDERED: SODIUM CHLORIDE 0.9% 250ML 250 ML IV ONE (14:45)
[2022-07-11 14:47] LABS: ALBUMIN 3.5 g/dL (3.5-5.0); ALBUMIN/GLOBULIN RATIO 1.2 (0.8-2.0); ANION GAP 15.9 mmol/L (8-16); CALCIUM 8.5 mg/dL (8.4-10.2); CREATININE, SERUM 2.23 mg/dL (0.57-1.11); POTASSIUM 3.9 mmol/L (3.5-5.1)
[2022-07-11 21:14] VITALS: BP 111/66; PULSE 57; RESP 17; TEMP 97.8; O2SAT 100
== END 2022-07-11 21:17 ==
LOC: ER 13:25
DX: D64.9 Anemia, unspecified (principal); I10 Essential (primary) hypertension; E11.65 Type 2 diabetes mellitus with hyperglycemia; J44.9 Chronic obstructive pulmonary disease, unspecified; I50.9 Heart failure, unspecified; E78.5 Hyperlipidemia, unspecified; N28.9 Disorder of kidney and ureter, unspecified; F41.9 Anxiety disorder, unspecified; M10.9 Gout, unspecified
CPT/HCPCS: 36415; 80053; 85025; 86850; 86900; 86920; 99283; J7050; P9016

== ENCOUNTER 2022-08-08 15:31 | Inpatient (IN) | payer MEDICARE, OTHER ==
[~2022-08-08] VITALS: Ht 162.6 cm; Wt 68.0 kg
[2022-08-08] MEDS ORDERED: SODIUM CHLORIDE 0.9% 1000ML 1,000 ML IV ONE ×2 (16:00→17:45)
[2022-08-08 16:35] LABS: BASOPHILS % 0.2 % (0.0-1.0); EOSINOPHILS % 0.1 % (0.0-6.0); HEMOGLOBIN 6.6 g/dL (12.0-16.0); LYMPHOCYTES # (AUTO) 0.5 (1.0-3.2); LYMPHOCYTES % 3.8 % (18.0-39.1); MEAN CORPUSCULAR HEMOGLOBIN 27.8 pg (28-32); MEAN CORPUSCULAR HGB CONC 29.1 g/dL (31-35); MEAN CORPUSCULAR VOLUME 95.8 fL (81-99); MONOCYTES # (AUTO) 1.2 (0.2-0.8); MONOCYTES % 9.3 % (4.4-11.3); NEUTROPHILS # (AUTO) 11.1 (2.1-6.9); NEUTROPHILS % 85.7 % (38.7-80.0); PLATELET COUNT 231 x10e3/uL (140-360); RED BLOOD COUNT 2.37 x10e6/uL (3.6-5.1); RED CELL DISTRIBUTION WIDTH 18.3 % (11.7-14.4)
[2022-08-08 16:37] LABS: HEMATOCRIT 22.7 % (34.2-44.1)
[2022-08-08 16:40] LABS: CLARITY,URINE CLOUDY (CLEAR); COLOR,URINE YELLOW (YELLOW)
[2022-08-08 16:41] LABS: KETONES,URINE NEGATIVE (NEGATIVE); LEUKOCYTE ESTERASE ,URINE LARGE (NEGATIVE); NITRITE,URINE NEGATIVE (NEGATIVE); PROTEIN,URINE DIPSTICK 1+ (NEGATIVE); URINE UROBILINOGEN 0.2 mg/dL (0.2 - 1)
[2022-08-08 16:55] LABS: BACTERIA,URINE MANY /HPF; WBC,URINE (MAN) >50 /HPF (0-5)
[2022-08-08 17:27] LABS: ALBUMIN 3.4 g/dL (3.5-5.0); ALBUMIN/GLOBULIN RATIO 1.3 (0.8-2.0); ANION GAP 15.5 mmol/L (8-16); CALCIUM 8.4 mg/dL (8.4-10.2); CREATININE, SERUM 2.58 mg/dL (0.57-1.11); POTASSIUM 3.5 mmol/L (3.5-5.1)
[2022-08-08] MEDS ORDERED: SODIUM CHLORIDE 0.9% 250ML 250 ML IV ONE (17:45)
[2022-08-08] MEDS ORDERED: ONDANSETRON HCL INJ 2MG/ML 2ML 2 MG/ML VIAL IV PRN (18:00)
[2022-08-08] MEDS ORDERED: DEXTROSE 50% SYRINGE 50 ML IV PRN ×2 (18:30→19:30)
[2022-08-08 19:45] LABS: CHOL/HDL RATIO 3.2 (3.0-3.6)
[2022-08-08] MEDS: INSULIN REGULAR, HUMAN 100 UNIT/1 ML SQ SCH (21:00)
[2022-08-08] MEDS ORDERED: INSULIN REGULAR, HUMAN 100 UNIT/1 ML SQ SCH (21:00)
[2022-08-08] MEDS: SODIUM CHLORIDE 0.9% 1000ML 1,000 ML IV SCH (22:04)
[2022-08-09] VITALS (19 sets, daily range): BP systolic 103–138; BP diastolic 58–74; PULSE 61–77; RESP 11–19; TEMP 97.4–98.6; O2SAT 94–100
[2022-08-09] MEDS: SODIUM CHLORIDE 0.9% 1000ML 1,000 ML IV SCH ×4 (03:54→22:34)
[2022-08-09] MEDS: LEVOTHYROXINE SODIUM 75 MCG TAB PO SCH (05:14)
[2022-08-09 06:43] LABS: BASOPHILS % 0.4 % (0.0-1.0); EOSINOPHILS % 0.2 % (0.0-6.0); HEMATOCRIT 27.6 % (34.2-44.1); HEMOGLOBIN 8.1 g/dL (12.0-16.0); LYMPHOCYTES # (AUTO) 0.4 (1.0-3.2); LYMPHOCYTES % 3.2 % (18.0-39.1); MEAN CORPUSCULAR HEMOGLOBIN 29.1 pg (28-32); MEAN CORPUSCULAR HGB CONC 29.3 g/dL (31-35); MONOCYTES # (AUTO) 0.6 (0.2-0.8); MONOCYTES % 5.2 % (4.4-11.3); NEUTROPHILS # (AUTO) 9.9 (2.1-6.9); NEUTROPHILS % 90.1 % (38.7-80.0); PLATELET COUNT 174 x10e3/uL (140-360); RED BLOOD COUNT 2.78 x10e6/uL (3.6-5.1); RED CELL DISTRIBUTION WIDTH 16.8 % (11.7-14.4)
[2022-08-09 06:46] LABS: MEAN CORPUSCULAR VOLUME 99.3 fL (81-99)
[2022-08-09 06:56] LABS: INR 0.97; PARTIAL THROMBOPLASTIN TIME 24.4 seconds (23.8-35.5); PROTHROMBIN TIME 13.4 seconds (11.9-14.5)
[2022-08-09 07:20] LABS: ALBUMIN 3.4 g/dL (3.5-5.0); ALBUMIN/GLOBULIN RATIO 1.4 (0.8-2.0); ANION GAP 14.1 mmol/L (8-16); CREATININE, SERUM 2.16 mg/dL (0.57-1.11); POTASSIUM 3.1 mmol/L (3.5-5.1)
[2022-08-09] MEDS: INSULIN REGULAR, HUMAN 100 UNIT/1 ML SQ SCH ×4 (07:30→21:00)
[2022-08-09] MEDS ORDERED: PANTOPRAZOLE SOD 40 MG TABEC PO SCH (09:00)
[2022-08-09] MEDS ORDERED: POTASSIUM CHLORIDE 20MEQ/100ML 100 ML IV ONE (09:00)
[2022-08-09] MEDS: MUPIROCIN 2% OINT 22 GM TUBE TOP SCH ×2 (09:28→18:00)
[2022-08-09] MEDS: HYDROMORPHONE 1MG/1ML INJ IV PRN ×2 (10:57→18:01)
[2022-08-09] MEDS: LINEZOLID 600 MG/D5W 300ML 300 ML IV SCH (19:31)
[2022-08-10] VITALS (22 sets, daily range): BP systolic 94–164; BP diastolic 52–109; PULSE 60–70; RESP 7–23; TEMP 97–98.4; O2SAT 92–100
[2022-08-10] MEDS: HYDROMORPHONE 1MG/1ML INJ IV PRN
[2022-08-10] MEDS: LINEZOLID 600 MG/D5W 300ML 300 ML IV SCH ×2 (05:33→17:33)
[2022-08-10] MEDS: LEVOTHYROXINE SODIUM 75 MCG TAB PO SCH (05:33)
[2022-08-10 06:43] LABS: BASOPHILS % 0.2 % (0.0-1.0); EOSINOPHILS # (AUTO) 0.1 (0.0-0.4); EOSINOPHILS % 0.6 % (0.0-6.0); HEMATOCRIT 26.8 % (34.2-44.1); HEMOGLOBIN 7.6 g/dL (12.0-16.0); LYMPHOCYTES # (AUTO) 0.6 (1.0-3.2); LYMPHOCYTES % 5.4 % (18.0-39.1); MEAN CORPUSCULAR HEMOGLOBIN 28.4 pg (28-32); MEAN CORPUSCULAR HGB CONC 28.4 g/dL (31-35); MONOCYTES # (AUTO) 1.1 (0.2-0.8); NEUTROPHILS # (AUTO) 10.1 (2.1-6.9); NEUTROPHILS % 84.3 % (38.7-80.0); PLATELET COUNT 179 x10e3/uL (140-360); RED BLOOD COUNT 2.68 x10e6/uL (3.6-5.1); RED CELL DISTRIBUTION WIDTH 17.1 % (11.7-14.4)
[2022-08-10 07:04] LABS: ALBUMIN 3.3 g/dL (3.5-5.0); ALBUMIN/GLOBULIN RATIO 1.2 (0.8-2.0); ANION GAP 14.1 mmol/L (8-16); CALCIUM 7.6 mg/dL (8.4-10.2); CREATININE, SERUM 1.8 mg/dL (0.57-1.11); POTASSIUM 3.1 mmol/L (3.5-5.1)
[2022-08-10] MEDS: INSULIN REGULAR, HUMAN 100 UNIT/1 ML SQ SCH ×4 (07:30→20:08)
[2022-08-10] MEDS: MUPIROCIN 2% OINT 22 GM TUBE TOP SCH ×2 (09:29→17:29)
[2022-08-10] MEDS: SODIUM BICARBONATE 650 MG TAB PO SCH ×2 (09:29→20:01)
[2022-08-10] MEDS: SODIUM CHLORIDE 0.9% 1000ML 1,000 ML IV SCH (09:30)
[2022-08-10] MEDS ORDERED: POTASSIUM CHLORIDE 20MEQ/100ML 100 ML IV ONE (09:45)
[2022-08-10] MEDS: LACTATED RINGER'S 1,000 ML INJ SCH ×2 (09:53→20:01)
[2022-08-10] MEDS: HYDROCODONE/APAP 10MG-325MG TAB PO PRN ×2 (13:36→20:27)
[2022-08-11] VITALS (14 sets, daily range): BP systolic 102–150; BP diastolic 49–98; PULSE 61–75; RESP 9–18; TEMP 96.9–98.2; O2SAT 94–100
[2022-08-11] MEDS: LINEZOLID 600 MG/D5W 300ML 300 ML IV SCH ×2 (06:10→17:41)
[2022-08-11] MEDS: LEVOTHYROXINE SODIUM 75 MCG TAB PO SCH (06:10)
[2022-08-11] MEDS: HYDROCODONE/APAP 10MG-325MG TAB PO PRN ×2 (06:22→19:54)
[2022-08-11 06:57] LABS: BASOPHILS % 0.2 % (0.0-1.0); EOSINOPHILS % 0.4 % (0.0-6.0); HEMATOCRIT 24.9 % (34.2-44.1); HEMOGLOBIN 7.3 g/dL (12.0-16.0); LYMPHOCYTES # (AUTO) 0.5 (1.0-3.2); MEAN CORPUSCULAR HEMOGLOBIN 28.7 pg (28-32); MEAN CORPUSCULAR HGB CONC 29.3 g/dL (31-35); MONOCYTES # (AUTO) 0.9 (0.2-0.8); MONOCYTES % 8.7 % (4.4-11.3); NEUTROPHILS # (AUTO) 8.8 (2.1-6.9); NEUTROPHILS % 85.2 % (38.7-80.0); PLATELET COUNT 168 x10e3/uL (140-360); RED BLOOD COUNT 2.54 x10e6/uL (3.6-5.1); RED CELL DISTRIBUTION WIDTH 16.3 % (11.7-14.4)
[2022-08-11 07:09] LABS: ALBUMIN 3.2 g/dL (3.5-5.0); ALBUMIN/GLOBULIN RATIO 1.2 (0.8-2.0); CALCIUM 7.6 mg/dL (8.4-10.2); CREATININE, SERUM 1.61 mg/dL (0.57-1.11)
[2022-08-11] MEDS: INSULIN REGULAR, HUMAN 100 UNIT/1 ML SQ SCH ×4 (07:30→20:07)
[2022-08-11] MEDS: MUPIROCIN 2% OINT 22 GM TUBE TOP SCH ×2 (08:16→17:00)
[2022-08-11] MEDS: SODIUM BICARBONATE 650 MG TAB PO SCH ×2 (08:16→20:00)
[2022-08-11] MEDS ORDERED: POTASSIUM CHLORIDE 10MEQ/100ML 200 ML IV ONE (10:00)
[2022-08-11] MEDS ORDERED: POTASSIUM CHLORIDE 20MEQ/100ML 100 ML IV ONE (11:30)
[2022-08-12] VITALS (16 sets, daily range): BP systolic 124–157; BP diastolic 61–100; PULSE 17–82; RESP 10–16; TEMP 97.6–98.5; O2SAT 91–100
[2022-08-12] MEDS: LACTATED RINGER'S 1,000 ML INJ SCH (03:24)
[2022-08-12] MEDS: LINEZOLID 600 MG/D5W 300ML 300 ML IV SCH (05:26)
[2022-08-12] MEDS: LEVOTHYROXINE SODIUM 75 MCG TAB PO SCH (05:26)
[2022-08-12] MEDS: HYDROCODONE/APAP 10MG-325MG TAB PO PRN (06:26)
[2022-08-12 06:38] LABS: BASOPHILS % 0.4 % (0.0-1.0); EOSINOPHILS # (AUTO) 0.2 (0.0-0.4); EOSINOPHILS % 2.8 % (0.0-6.0); HEMATOCRIT 25.3 % (34.2-44.1); HEMOGLOBIN 7.4 g/dL (12.0-16.0); LYMPHOCYTES # (AUTO) 0.6 (1.0-3.2); LYMPHOCYTES % 7.6 % (18.0-39.1); MEAN CORPUSCULAR HEMOGLOBIN 28.4 pg (28-32); MEAN CORPUSCULAR HGB CONC 29.2 g/dL (31-35); MEAN CORPUSCULAR VOLUME 96.9 fL (81-99); MONOCYTES # (AUTO) 0.7 (0.2-0.8); MONOCYTES % 8.7 % (4.4-11.3); NEUTROPHILS # (AUTO) 6.2 (2.1-6.9); NEUTROPHILS % 79.7 % (38.7-80.0); PLATELET COUNT 164 x10e3/uL (140-360); RED BLOOD COUNT 2.61 x10e6/uL (3.6-5.1); RED CELL DISTRIBUTION WIDTH 15.8 % (11.7-14.4)
[2022-08-12 07:05] LABS: ANION GAP 14.4 mmol/L (8-16); CALCIUM 7.9 mg/dL (8.4-10.2); CREATININE, SERUM 1.39 mg/dL (0.57-1.11); POTASSIUM 3.4 mmol/L (3.5-5.1)
[2022-08-12] MEDS: INSULIN REGULAR, HUMAN 100 UNIT/1 ML SQ SCH ×2 (07:40→11:30)
[2022-08-12] MEDS: SODIUM BICARBONATE 650 MG TAB PO SCH (08:07)
[2022-08-12] MEDS: MUPIROCIN 2% OINT 22 GM TUBE TOP SCH (08:08)
[2022-08-12] MEDS ORDERED: POTASSIUM CHLORIDE 20 MEQ TAB CR PO ONE (08:15)
== END 2022-08-12 17:46 | DRG 872 ==
LOC: ER 15:41 → ERHOLD 17:56 → ICU 08-09 02:04
PROVIDERS: ADMIT Internal Medicine; ATTEND Internal Medicine
PROC: 3E03329 Introduction of Other Anti-infective into Peripheral Vein, Percutaneous Approach (ICD-10-PCS; principal; 2022-08-08)
PROC: 30243N1 Transfusion of Nonautologous Red Blood Cells into Central Vein, Percutaneous Approach (ICD-10-PCS; 2022-08-08)
DX: A41.9 Sepsis, unspecified organism (principal); A04.9 Bacterial intestinal infection, unspecified; G91.2 (Idiopathic) normal pressure hydrocephalus; I13.0 Hypertensive heart and chronic kidney disease with heart failure and stage 1 through stage 4 chronic kidney disease, or unspecified chronic kidney disease; K55.1 Chronic vascular disorders of intestine; K81.0 Acute cholecystitis; N39.0 Urinary tract infection, site not specified; N17.9 Acute kidney failure, unspecified; Q27.30 Arteriovenous malformation, site unspecified; I50.22 Chronic systolic (congestive) heart failure; K55.9 Vascular disorder of intestine, unspecified; B96.1 Klebsiella pneumoniae [K. pneumoniae] as the cause of diseases classified elsewhere; B96.5 Pseudomonas (aeruginosa) (mallei) (pseudomallei) as the cause of diseases classified elsewhere; E11.22 Type 2 diabetes mellitus with diabetic chronic kidney disease; N18.30 Chronic kidney disease, stage 3 unspecified; I25.10 Atherosclerotic heart disease of native coronary artery without angina pectoris; E03.9 Hypothyroidism, unspecified; G20 Parkinson's disease; M19.90 Unspecified osteoarthritis, unspecified site; E78.5 Hyperlipidemia, unspecified; J44.9 Chronic obstructive pulmonary disease, unspecified; M10.9 Gout, unspecified; F41.9 Anxiety disorder, unspecified; F32.A Depression, unspecified; E86.1 Hypovolemia; D46.9 Myelodysplastic syndrome, unspecified; K57.90 Diverticulosis of intestine, part unspecified, without perforation or abscess without bleeding; F02.80 Dementia in other diseases classified elsewhere, unspecified severity, without behavioral disturbance, psychotic disturbance, mood disturbance, and anxiety; E87.6 Hypokalemia; Z96.641 Presence of right artificial hip joint; Z20.822 Contact with and (suspected) exposure to COVID-19; Z88.6 Allergy status to analgesic agent; Z88.5 Allergy status to narcotic agent; Z79.890 Hormone replacement therapy; Z79.4 Long term (current) use of insulin; Z79.899 Other long term (current) drug therapy; Z98.2 Presence of cerebrospinal fluid drainage device; I25.2 Old myocardial infarction; Z98.49 Cataract extraction status, unspecified eye
CPT/HCPCS: 0223U; 36415; 74176; 74230; 80048; 80053; 80061; 81001; 82948; 83036; 83605; 83690; 84145; 85025; 85610; 85730; 86850; 86900; 86920; 87040; 87071; 87086; 87186; 87205; 93005; 94799; 96360; 99285; J0692; J1170; J2020; J2185; J2405; J2543; J3480; J7030; J7050; P9016

== ENCOUNTER 2022-08-17 21:30 | Emergency (ER) | payer MEDICARE, OTHER ==
[~2022-08-17] VITALS: Ht 162.6 cm; Wt 68.0 kg
[2022-08-17 21:58] LABS: BASOPHILS % 0.3 % (0.0-1.0); EOSINOPHILS # (AUTO) 0.2 (0.0-0.4); EOSINOPHILS % 3.3 % (0.0-6.0); HEMATOCRIT 23.9 % (34.2-44.1); HEMOGLOBIN 6.9 g/dL (12.0-16.0); LYMPHOCYTES # (AUTO) 0.7 (1.0-3.2); LYMPHOCYTES % 9.8 % (18.0-39.1); MEAN CORPUSCULAR HEMOGLOBIN 27.8 pg (28-32); MEAN CORPUSCULAR HGB CONC 28.9 g/dL (31-35); MEAN CORPUSCULAR VOLUME 96.4 fL (81-99); MONOCYTES # (AUTO) 0.6 (0.2-0.8); MONOCYTES % 9.2 % (4.4-11.3); NEUTROPHILS # (AUTO) 5.2 (2.1-6.9); NEUTROPHILS % 75.1 % (38.7-80.0); PLATELET COUNT 164 x10e3/uL (140-360); RED BLOOD COUNT 2.48 x10e6/uL (3.6-5.1); RED CELL DISTRIBUTION WIDTH 16.4 % (11.7-14.4)
[2022-08-17 22:11] LABS: ABG PCO2 48 mmHg (35-45); ABG PH 7.43 (7.35-7.45)
[2022-08-17 22:12] LABS: ABG HCO3 32 mmol/L (22-26); ABG PO2 45 mmHg (80-105); ABG TCO2 33
[2022-08-17 22:13] LABS: ALBUMIN 2.8 g/dL (3.5-5.0); ALBUMIN/GLOBULIN RATIO 0.8 (0.8-2.0); ALKALINE PHOSPHATASE 93 IU/L (40-150); BLOOD UREA NITROGEN 18 mg/dL (7-26); BUN/CREATININE RATIO 9 (6-25); CALCIUM 8.8 mg/dL (8.4-10.2); CARBON DIOXIDE 30 mmol/L (22-29); CHLORIDE 103 mmol/L (98-107); CREATINE KINASE 192 IU/L (29-168); CREATININE, SERUM 1.99 mg/dL (0.57-1.11); GLUCOSE 254 mg/dL (74-118); SODIUM 143 mmol/L (136-145)
[2022-08-17] MEDS ORDERED: SODIUM CHLORIDE 0.9% 250ML 250 ML IV ONE (22:15)
[2022-08-17 22:19] LABS: ALANINE AMINOTRANSFERASE < 6 IU/L (0-55)
[2022-08-17 22:46] LABS: AMPHETAMINES SCREEN,URINE NEGATIVE (NEGATIVE); BENZODIAZEPINES SCREEN,URINE NEGATIVE (NEGATIVE); PHENCYCLIDINE SCREEN,URINE NEGATIVE (NEGATIVE)
[2022-08-17] MEDS ORDERED: [UNRECOGNIZED DRUG - OTHER] IV SCH (23:30)
[2022-08-17] MEDS ORDERED: DEXTROSE 5% IV SCH (23:30)
[2022-08-17] MEDS ORDERED: HEPARIN IV SCH (23:30)
[2022-08-17] MEDS ORDERED: HEPARIN SOD (PORCINE) 5,000 UNIT/ML VIAL IV ONE (23:30)
[2022-08-17 23:39] LABS: INR 0.97; PARTIAL THROMBOPLASTIN TIME 28.4 seconds (23.8-35.5); PROTHROMBIN TIME 13.5 seconds (11.9-14.5)
[2022-08-17 23:40] LABS: CLARITY,URINE CLOUDY (CLEAR); COLOR,URINE YELLOW (YELLOW); KETONES,URINE TRACE (NEGATIVE); LEUKOCYTE ESTERASE ,URINE NEGATIVE (NEGATIVE); NITRITE,URINE NEGATIVE (NEGATIVE); PROTEIN,URINE DIPSTICK >=300 (NEGATIVE); URINE UROBILINOGEN 0.2 mg/dL (0.2 - 1)
[2022-08-17 23:49] LABS: BACTERIA,URINE MANY /HPF; EPITHELIAL CELLS,URINE MODERATE /LPF; RBC,URINE >50 /HPF (0-5); RENAL EPITHELIAL CELLS,URINE FEW; TRANSITIONAL EPI CELLS,URINE FEW; WBC,URINE (MAN) 21-50 /HPF (0-5)
[2022-08-17 23:50] LABS: MUCUS,URINE MANY (RARE)
[2022-08-18] MEDS ORDERED: FUROSEMIDE INJ 10 MG/ML 4 ML VIAL IV STA (00:02)
[2022-08-18] MEDS ORDERED: Morphine 2mg Syringe 2 MG/ML SYR IV STA (00:17)
[2022-08-18 02:15] VITALS: O2SAT 100
[2022-08-18] MEDS ORDERED: SODIUM CHLORIDE 0.9% 250ML 250 ML ONE (02:57)
== END 2022-08-18 04:17 | disposition other institution (70) ==
LOC: ER 21:35
DX: R07.9 Chest pain, unspecified (principal); D64.9 Anemia, unspecified; I13.0 Hypertensive heart and chronic kidney disease with heart failure and stage 1 through stage 4 chronic kidney disease, or unspecified chronic kidney disease; I50.9 Heart failure, unspecified; R94.31 Abnormal electrocardiogram [ECG] [EKG]; N18.9 Chronic kidney disease, unspecified; I25.2 Old myocardial infarction; E11.22 Type 2 diabetes mellitus with diabetic chronic kidney disease; Z79.4 Long term (current) use of insulin; J44.9 Chronic obstructive pulmonary disease, unspecified; E78.5 Hyperlipidemia, unspecified; G20 Parkinson's disease; M10.9 Gout, unspecified; Z20.822 Contact with and (suspected) exposure to COVID-19; Z79.899 Other long term (current) drug therapy
CPT/HCPCS: 36415; 36600; 71045; 73060 ×2; 73090 ×2; 74176; 80053; 80307; 81001; 82550; 82805; 83605; 83690; 83880; 84484; 85025; 85610; 85730; 86850; 86900; 86920; 87040; 93005; 99284; C9113; J1940; J2270; J2543 ×2; J7050 ×2; P9016; U0002